=== PATIENT | female | born 1975 | race Caucasian/White ===

== ENCOUNTER 2022-07-09 07:17 | Emergency (ER) | payer OTHER, SELFPAY ==
--- NOTE | ~2022-07-09 | CT_ITS ---
EXAMINATION: CT ABDOMEN AND PELVIS WITH CONTRAST CLINICAL INFORMATION: Left lower quadrant pain COMPARISON: None available. TECHNIQUE: Multidetector volumetric images were obtained from the superior aspect of the liver through the pubic symphysis following administration 85 mL of Omnipaque 350 intravenous contrast. Sagittal and coronal reformatted images were obtained on the technologist's workstation. Oral contrast: No This CT examination was performed using dose optimization techniques as appropriate, variously including the following: *Automated exposure control *Adjustment of mA and/or kV according to patient size (this includes techniques or standardized protocols for targeted exams where dose is matched to indication/reason for exam; i.e. extremities or head) *Use of iterative reconstruction technique DLP: 561 mGy-cm FINDINGS: LUNG BASES: Numerous small areas of nodularity in the posterior partially visualized lung bases LIVER, GALLBLADDER, AND BILIARY TREE: Small low-density adjacent the falciform ligament is likely incidental. Given the other findings a small lesion cannot be excluded and ultrasound would be recommended The gallbladder is unremarkable with no evidence of radiopaque gallstones, gallbladder wall thickening, or obvious pericholecystic inflammatory changes. PANCREAS: Unremarkable. SPLEEN: Unremarkable. ADRENAL GLANDS: In the region of the left adrenal gland there is some new thickened abnormality. This matted be having mass effect on the adrenal or within the adrenal itself. Heterogeneous lesion measuring 6 x 4.3 cm with surrounding soft tissue stranding another small nodular densities adjacent represent surrounding adenopathy in the region suggesting metastatic disease. Mild fullness of the right adrenal gland. Attention to follow-up. KIDNEYS AND URETERS: The kidneys are normal in size, shape, and attenuation. No hydronephrosis, hydroureter, or calculi seen. No perinephric stranding. BLADDER: Unremarkable. GASTROINTESTINAL TRACT: Significant soft tissue stranding around the rectosigmoid region. No obvious lesion. No obvious drainable collection. The bowel pattern is otherwise felt to be nonobstructing. ABDOMINAL WALL: No significant hernia is appreciated. LYMPH NODES: Findings in the region of the left adrenal as described. Surrounding nodular density suggested local reactive nodes or malignant nodes. VASCULAR: Some atherosclerotic changes are noted here. PELVIC VISCERA: IUD associated with the uterus. Probable mild cystic change on the ovaries. OSSEOUS STRUCTURES: Unremarkable. CT/CT abdomen pelvis w IV con IMPRESSION: This exam is abnormal. In the left upper quadrant significant abnormality/mass in the region of the left adrenal gland with surrounding soft tissue stranding and findings which may suggest local geremias spread. Numerous small lung nodules in the partially visualized lower lung molina. Significant soft tissue stranding around the rectosigmoid. Given the combination of all these findings certainly malignancy needs to be entertained here in this young patient. Certainly a primary adrenal malignancy would need to be considered. Differential may include infectious etiology. Certainly in the rectosigmoid infectious colitis infectious versus noninfectious would be a consideration and this may be separate from the adrenal and lower lung process. Correlation recommended clinically. Other findings as described above. Mild fullness and possible small nodularity in the right adrenal. Attention to follow-up Fleischner guidelines were followed.
--- NOTE | 2022-07-09 07:38 | ED_ITS ---
HPI - Abdominal Pain General Chief Complaint: Abdominal Pain Stated Complaint: abd pain, constipated Time Seen by Provider: 07/09/22 07:29 Source: patient Mode of arrival: ambulatory Limitations: no limitations History of Present Illness HPI narrative: 46 yo female with history of IBS-C presents to the ER for evaluation of left sided abdominal pain and constipation for the last 5 days. She has been taking her prescribed constipation medications along with OTC laxatives. She reports pain in the left upper quadrant that radiates to her back, it was intermittent but has been constant for the last couple of days. She had a couple episodes of vomiting due to the pain. She reports last BM was 5 days ago. She denies distention of the abdomen. No history of surgery. No urinary symptoms. No fever or chills. She has had 80 lb weight loss over the last year. MD elicited complaint: abdominal pain Pertinent past history: constipation Onset (ago): day(s) (5) Pain Consistency: constant Location: LUQ and LLQ Severity: moderate Quality: stabbing and aching Radiation: L flank Exacerbating factors: eating Relieving factors: nothing Context: history of similar episodes Associated symptoms: nausea, vomiting and chills Related Data Previous Rx's Medication Instructions Recorded amoxicillin 875 mg-potassium 1 tab PO BID #14 tabs 07/09/22 clavulanate 125 mg tablet dicyclomine 10 mg capsule 10 mg PO TID PRN abdominal 07/09/22 discomfort #20 caps ondansetron 4 mg disintegrating 4 mg PO Q8H PRN nausea and 07/09/22 tablet vomiting #10 tabs Allergies Allergy/AdvReac Type Severity Reaction Status Date / Time No Known Allergies Allergy Verified 07/09/22 07:41 Review of Systems Review of Systems Yes all other systems are reviewed and are negative [facility] Past Medical History Medical History (Updated 07/09/22 @ 15:32 by ARIADNA Greer) Anxiety Depression HTN (hypertension) Irritable bowel syndrome (IBS) Surgical History (Updated 07/09/22 @ 07:47 by Tenisha Wagner RN) S/P lumpectomy, right breast Social History Social History Alcohol intake: current Alcohol intake frequency: a few times a week Smoked in Last 30 Days: Yes Use of substances other than those prescribed or required for medical reasons: Yes Substance Use Type: Marijuana Advance Directives: No Patient : No Physical Exam ED Vital Signs: Vital Signs - 24 hr 07/09/22 07:42 07/09/22 10:00 07/09/22 12:03 Temperature 98.0 F 98.2 F 98.1 F Pulse Rate 87 80 76 Respiratory Rate 18 18 16 Blood Pressure 127/80 122/81 138/86 Pulse Oximetry 97 97 99 Oxygen Delivery Method Room Air Room Air Room Air 07/09/22 15:46 Temperature 98.0 F Pulse Rate 70 Respiratory Rate 16 Blood Pressure 132/83 Pulse Oximetry 97 Oxygen Delivery Method Room Air BMI result Body Mass Index 27.4 Appearance: Alert. Oriented X3. No acute distress. Head: normocephalic, atraumatic. Eyes: Pupils equal, round and reactive to light. ENT: Pharynx normal. No tonsillar swelling or exudate. Neck: Normal inspection. Neck supple. CVS: Normal heart rate and rhythm. Pulses normal. Respiratory: No respiratory distress. Breath sounds normal. Abdomen: Soft and nontender. +BS x4 Skin: Skin warm and dry. Normal skin color. Normal skin turgor. No rashes. Extremities: No lower extremity edema. No joint swelling. Neuro/psych: Oriented X 3. No motor deficit. No sensory deficit. CN II-XII intact. Normal speech and cognition. Medical Decision Making Medical Decision Making [facility] Narrative: 46 y/o female with history of IBS -C presenting with constipation and left sided abdominal pain x5 days. Abd exam is benign. +bowel sounds, very soft. Doubt obstruction. She was treated with oral laxatives and enema but was unable to have a BM. She reported significant ongoing pain out of proportion to her exam. CT scan was performed that unfortunately showed a 6cm left adrenal mass with con cern for metastatic disease. She also has significant soft tissue stranding of the rectosigmoid area, most likely colitis. Results of CT were discussed with the patient. She will need to see Heme/On for further evaluation and testing. Her abd pain was improved with toradol and bentyl. She is stable for d/c home with abx, pain control and close outpatient follow up. Differential Diagnosis Differential Diagnoses: The differential diagnosis associated with the presentation includes constipation, diverticulitis, SBO, colitis, mass Lab Data [facility] Lab Attestation statement: I reviewed the patient's lab results. 07/09/22 08:13 07/09/22 08:13 Labs: Lab Results 07/09/22 07/09/22 07/09/22 Range/Units 08:13 12:30 13:31 WBC 10.4 (4.8-10.8) X10*3/uL RBC 4.41 (4.20-5.50) X10*6/uL Hgb 14.7 (12.0-16.0) g/dl Hct 42.9 (37.0-47.0) % MCV 97.3 (80.0-98.0) fL MCH 33.3 H (27.0-33.0) pg MCHC 34.3 (31.0-35.0) g/dl RDW 15.5 (11.0-16.0) % Plt Count 301 (160-400) X10*3/uL MPV 9.2 L (9.4-12.3) fL Immature Gran % (Auto) 0.3 (0.0-0.4) % Neut % (Auto) 70.4 (45-73) % Lymph % (Auto) 16.6 L (20-40) % [place] % (Auto) 9.2 (2-11) % Eos % (Auto) 2.8 (0-4) % Baso % (Auto) 0.7 (0-2) % Lymph # (Auto) 1.7 (1.2-4.9) X10*3/uL [place] # (Auto) 1.0 (0.1-1.2) X10*3/uL Eos # (Auto) 0.3 (0.0-0.4) X10*3/uL Baso # (Auto) 0.1 (0.0-0.2) X10*3/uL Abs Immat Gran (auto) 0.03 (0.00-0.03) X10*3/uL Absolute Neuts (auto) 7.3 (2.0-8.3) x10*3/uL Absolute Nucleated RBC 0.000 (0.0-0.012) X10*3/uL Nucleated RBC % (auto) 0.0 (0.0-0.2) /100WBC Sodium 136 (135-145) mmol/L Potassium 3.7 (3.3-5.1) mmol/L Chloride 98 (96-108) mmol/L Carbon Dioxide 27 (22-29) mmol/L Anion Gap 15 (12-20) BUN 8 L (9-16) mg/dL Creatinine 0.58 (0.5-1.4) mg/dL Estim Creat Clear Calc 125.3 Estimated GFR > 60 Random Glucose 110 (60-115) mg/dL Calcium 9.4 (8.4-10.2) mg/dL Magnesium 1.8 (1.6-2.6) mg/dL Total Bilirubin 0.5 (0.0-1.0) mg/dL Direct Bilirubin 0.2 (0.0-0.5) mg/dL AST 12 (5-31) U/L ALT 10 (0-31) U/L Alkaline Phosphatase 94 (39-117) U/L Total Protein 7.0 (6.5-8.0) g/dL Albumin 3.8 (3.5-5.0) g/dL Urine Color Dark Yellow Urine Appearance Clear Urine pH 6.0 (5.0-9.0) Ur Specific [place] 1.020 (1.005-1.025) Urine Protein Trace (Neg-Trace) mg/dL Urine Glucose (UA) Negative (Negative) mg/dL Urine Ketones Trace (Negative) mg/dL Urine Blood Negative (Negative) Urine Nitrite Negative (Negative) Ur Leukocyte Esterase Trace H (Negative) Urine RBC 3-5 H (0-2) /HPF Urine WBC 0-5 (0-5) /HPF Ur Squamous Epith Cells 6-10 (0-2) /HPF Urine Bacteria Trace (None Seen) Hyaline Casts 0-2 (0-2) /LPF Independent Interpretation I performed an independent interpretation of an: CT Scan Interpretation: large left adrenal mass concerning for cancer, agree w/ radiology read Radiology Impression Discussion of test interpretation with radiology: I have reviewed the radiologist's reading. Radiologist Impression: EXAMINATION: CT ABDOMEN AND PELVIS WITH CONTRAST? CLINICAL INFORMATION: Left lower quadrant pain? COMPARISON: None available. ? TECHNIQUE: Multidetector volumetric images were obtained from the superior aspect of the liver through the pubic symphysis following administration 85 mL of Omnipaque 350 intravenous contrast. Sagittal and coronal reformatted images were obtained on the technologist's workstation.? Oral contrast: No This CT examination was performed using dose optimization techniques as appropriate, variously including the following: *Automated exposure control *Adjustment of mA and/or kV according to patient size (this includes techniques or standardized protocols for targeted exams where dose is matched to indication/reason for exam; i.e. extremities or head) *Use of iterative reconstruction technique DLP: 561 mGy-cm FINDINGS: LUNG BASES: Numerous small areas of nodularity in the posterior partially visualized lung bases? LIVER, GALLBLADDER, AND BILIARY TREE: Small low-density adjacent the falciform ligament is likely incidental. Given the other findings a small lesion cannot be excluded and ultrasound would be recommended The gallbladder is unremarkable with no evidence of radiopaque gallstones, gallbladder wall thickening, or obvious pericholecystic inflammatory changes.? PANCREAS: Unremarkable.? SPLEEN: Unremarkable.? ADRENAL GLANDS: In the region of the left adrenal gland there is some new thickened abnormality. This matted be having mass effect on the adrenal or within the adrenal itself. Heterogeneous lesion measuring 6 x 4.3 cm with surrounding soft tissue stranding another small nodular densities adjacent represent surrounding adenopathy in the region suggesting metastatic disease. Mild fullness of the right adrenal gland. Attention to follow-up. KIDNEYS AND URETERS: The kidneys are normal in size, shape, and attenuation. No hydronephrosis, hydroureter, or calculi seen. No perinephric stranding. ? BLADDER: Unremarkable.? GASTROINTESTINAL TRACT: Significant soft tissue stranding around the rectosigmoid region. No obvious lesion. No obvious drainable collection. The bowel pattern is otherwise felt to be nonobstructing.? ABDOMINAL WALL: No significant hernia is appreciated.? LYMPH NODES: Findings in the region of the left adrenal as described. Surrounding nodular density suggested local reactive nodes or malignant nodes. VASCULAR: Some atherosclerotic changes are noted here. PELVIC VISCERA: IUD associated with the uterus. Probable mild cystic change on the ovaries.? OSSEOUS STRUCTURES: Unremarkable.? CT/CT abdomen pelvis w IV con IMPRESSION: This exam is abnormal. In the left upper quadrant significant abnormality/mass in the region of the left adrenal gland with surrounding soft tissue stranding and findings which may suggest local geremias spread. ? Numerous small lung nodules in the partially visualized lower lung molina. ? Significant soft tissue stranding around the rectosigmoid. ? Given the combination of all these findings certainly malignancy needs to be entertained here in this young patient. Certainly a primary adrenal malignancy would need to be considered. Differential may include infectious etiology. ? Certainly in the rectosigmoid infectious colitis infectious versus noninfectious would be a consideration and this may be separate from the adrenal and lower lung process. Correlation recommended clinically. ? ? ? Other findings as described above. Mild fullness and possible small nodularity in the right adrenal. Attention to follow-up Independent Historian Clinical information obtained from an independent historian. History obtained from or confirmed by: Spouse Prescription Management I considered prescription management with: Pain Medication and Antibiotic Medications Administered Discontinued Medications Generic Name Dose Route Start Last Admin Trade Name Freq PRN Reason Stop Dose Admin Acetaminophen 975 mg 07/09/22 13:07 07/09/22 13:21 Acetaminophen 325 Mg Tablet PO 07/09/22 13:08 975 mg ONCE ONE Administration Dicyclomine HCl 10 mg 07/09/22 13:07 07/09/22 13:21 Dicyclomine Hcl 10 Mg Capsule PO 07/09/22 13:08 10 mg ONCE ONE Administration Sodium Chloride 1,000 mls @ 999 mls/hr 07/09/22 08:15 07/09/22 14:00 Ns IVCONT 07/09/22 09:15 Infused .Q1H1M MARLENA Infusion Iohexol 100 ml 07/09/22 13:55 07/09/22 13:55 Iohexol 350 Mg/Ml 100 Ml Infus..Btl IV 07/09/22 13:56 85 ml ONCE ONE Administration Ketorolac Tromethamine 30 mg 07/09/22 13:07 07/09/22 13:21 Ketorolac Tromethamine 30 Mg/Ml Vial IVPUSH 07/09/22 13:08 30 mg ONCE ONE Administration Lactulose 30 gm 07/09/22 09:11 07/09/22 09:43 Lactulose 20 Gm/30 Ml Solution PO 07/09/22 09:12 30 gm ONCE ONE Administration Ondansetron HCl 4 mg 07/09/22 09:09 07/09/22 09:13 Ondansetron Hcl 4 Mg/2 Ml Vial IVPUSH 07/09/22 09:10 4 mg ONCE ONE Administration Polyethylene Glycol 17 gm 07/09/22 08:09 07/09/22 08:44 Polyethylene Glycol 3350 17 Gm Powd.Pack PO 07/09/22 08:10 17 gm ONCE ONE Administration Senna 15 ml 07/09/22 08:09 07/09/22 08:44 Senna [place] Extract Oral Syrup 15 Ml Syrup PO 07/09/22 08:10 15 ml ONCE ONE Administration Sodium Biphosphate/Sodium Phosphate 133 ml 07/09/22 08:09 07/09/22 08:44 Sodium Phosphate,[place]-Dibasic 133 Ml Enema [place] 07/09/22 08:10 133 ml ONCE ONE Administration Critical Care Time Critical Care Time Critical Care Time: Yes Total Critical Care Time: 36 Attestation: I have personally provided critical care time exclusive of time spent on separately billable procedures. Time includes review of lab data, radiology results, discussion with consultants, and monitoring for potential decompensation. Intervention performed as documented. Discharge Plan Discharge Clinical Impression: Rectosigmoiditis, Adrenal mass Patient Disposition: Home, Self-Care Instructions: Adrenal Gland Biopsy (DC), Colitis (ED) Additional Instructions: Take the prescribed antibiotic for inflammation in your color as directed, compl ete the entire course. Follow up with Oncology as soon as possible for a new mass seen on your left adrenal gland. CT findings as below. If you develop new or worsening symptoms call 911 or come back to the ER for further evaluation. CT ABDOMEN AND PELVIS WITH CONTRAST? CLINICAL INFORMATION: Left lower quadrant pain? COMPARISON: None available. ? TECHNIQUE: Multidetector volumetric images were obtained from the superior aspect of the liver through the pubic symphysis following administration 85 mL of Omnipaque 350 intravenous contrast. Sagittal and coronal reformatted images were obtained on the technologist's workstation.? Oral contrast: No This CT examination was performed using dose optimization techniques as appropriate, variously including the following: *Automated exposure control *Adjustment of mA and/or kV according to patient size (this includes techniques or standardized protocols for targeted exams where dose is matched to indication/reason for exam; i.e. extremities or head) *Use of iterative reconstruction technique FINDINGS: LUNG BASES: Numerous small areas of nodularity in the posterior partially visualized lung bases? LIVER, GALLBLADDER, AND BILIARY TREE: Small low-density adjacent the falciform ligament is likely incidental. Given the other findings a small lesion cannot be excluded and ultrasound would be recommended The gallbladder is unremarkable with no evidence of radiopaque gallstones, gallbladder wall thickening, or obvious pericholecystic inflammatory changes.? PANCREAS: Unremarkable.? SPLEEN: Unremarkable.? ADRENAL GLANDS: In the region of the left adrenal gland there is some new thicke randall abnormality. This matted be having mass effect on the adrenal or within the adrenal itself. Heterogeneous lesion measuring 6 x 4.3 cm with surrounding soft tissue stranding another small nodular densities adjacent represent surrounding adenopathy in the region suggesting metastatic disease. Mild fullness of the right adrenal gland. Attention to follow-up. KIDNEYS AND URETERS: The kidneys are normal in size, shape, and attenuation. No hydronephrosis, hydroureter, or calculi seen. No perinephric stranding. ? BLADDER: Unremarkable.? GASTROINTESTINAL TRACT: Significant soft tissue stranding around the rectosigmoid region. No obvious lesion. No obvious drainable collection. The bowel pattern is otherwise felt to be nonobstructing.? ABDOMINAL WALL: No significant hernia is appreciated.? LYMPH NODES: Findings in the region of the left adrenal as described. Surrounding nodular density suggested local reactive nodes or malignant nodes. VASCULAR: Some atherosclerotic changes are noted here. PELVIC VISCERA: IUD associated with the uterus. Probable mild cystic change on the ovaries.? OSSEOUS STRUCTURES: Unremarkable.? CT/CT abdomen pelvis w IV con IMPRESSION: This exam is abnormal. In the left upper quadrant significant abnormality/mass in the region of the left adrenal gland with surrounding soft tissue stranding and findings which may suggest local geremias spread. ? Numerous small lung nodules in the partially visualized lower lung molina. ? Significant soft tissue stranding around the rectosigmoid. ? Given the combination of all these findings certainly malignancy needs to be entertained here in this young patient. Certainly a primary adrenal malignancy would need to be considered. Differential may include infectious etiology. ? Certainly in the rectosigmoid infectious colitis infectious versus noninfectious would be a consideration and this may be separate from the adrenal and lower lung process. Correlation recommended clinically. ?? Other findings as described above. Mild fullness and possible small nodularity in the right adrenal. Attention to follow-up Prescriptions: New dicyclomine 10 mg capsule 10 mg PO TID PRN (Reason: abdominal discomfort) Qty: 20 0RF amoxicillin-pot clavulanate 875-125 mg tablet 1 tab PO BID Qty: 14 0RF ondansetron 4 mg tablet,disintegrating 4 mg PO Q8H PRN (Reason: nausea and vomiting) Qty: 10 0RF Referrals: [facility] [place] [Provider Group] (6cm left adrenal mass, concern for metastatic disease) Stand Alone Forms: Work/School Release
[2022-07-09 07:42] VITALS: BP 127/80; PULSE 87; RESP 18; TEMP 36.7; O2SAT 97; BMI 27.4
[2022-07-09 08:16] LABS: MANUAL DIFF FLAG NO
[2022-07-09] MEDS: 0.9 % Sodium Chloride 1,000 ML 999 ML IVCONT (08:19)
[2022-07-09 08:25] LABS: Basophils Absolute Auto 0.1 X10*3/uL (0.0-0.2); Basophils Percent Auto 0.7 % (0-2); Eosinophils Absolute Auto 0.3 X10*3/uL (0.0-0.4); Eosinophils Percent Auto 2.8 % (0-4); Hematocrit 42.9 % (37.0-47.0); Hemoglobin 14.7 g/dl (12.0-16.0); Imm Gran Abs Auto 0.03 X10*3/uL (0.00-0.03); Imm Gran Pct Auto 0.3 % (0.0-0.4); Lymphocytes Absolute Auto 1.7 X10*3/uL (1.2-4.9); Lymphocytes Percent Auto 16.6 % (20-40); Mean Corpuscular HGB Conc 34.3 g/dl (31.0-35.0); Mean Corpuscular Hemoglobin 33.3 pg (27.0-33.0); Mean Corpuscular Volume 97.3 fL (80.0-98.0); Mean Platelet Volume 9.2 fL (9.4-12.3); Monocytes Percent Auto 9.2 % (2-11); Neutrophils Absolute Auto 7.3 x10*3/uL (2.0-8.3); Neutrophils Percent Auto 70.4 % (45-73); Platelet Count 301 X10*3/uL (160-400); Red Blood Count 4.41 X10*6/uL (4.20-5.50); Red Cell Distribution Width 15.5 % (11.0-16.0); White Blood Count 10.4 X10*3/uL (4.8-10.8)
[2022-07-09] MEDS: Sodium Phosphate,Mono-Dibasic 133 ML ENEMA PR (08:44)
[2022-07-09] MEDS: polyethylene glycoL 3350 17 GM POWD.PACK PO (08:44)
--- NOTE | 2022-07-09 08:50 | PC.NURSE ---
patient a&ox3, c/o constipation r/t IBS, + hypo bs, iv inserted, labs drawn, ivf hung per order, pt medicated per order, vitals stable, will continue to monitor.
[2022-07-09] MEDS: ondansetron HCL 4 MG/2 ML VIAL IVPUSH (09:13)
[2022-07-09] MEDS: Lactulose 20 GM/30 ML SOLUTION 30 GM PO (09:43)
[2022-07-09 10:00] VITALS: BP 122/81; PULSE 80; RESP 18; TEMP 36.8; O2SAT 97
--- NOTE | 2022-07-09 11:02 | PC.NURSE ---
patient a&ox3, vss, pts ivF continue to run slowly due to her bending her arm. patients labs continue to hemolyze charge is aware, phlebotomy called to do the redraw for the 3rd time.
[2022-07-09 12:03] VITALS: BP 138/86; PULSE 76; RESP 16; TEMP 36.7; O2SAT 99
[2022-07-09 13:02] LABS: Alanine Aminotransferase 10 U/L (0-31); Albumin Level 3.8 g/dL (3.5-5.0); Alkaline Phosphatase 94 U/L (39-117); Anion Gap 15 (12-20); Aspartate Amino Transferase 12 U/L (5-31); Bilirubin Direct 0.2 mg/dL (0.0-0.5); Bilirubin Total 0.5 mg/dL (0.0-1.0); Blood Urea Nitrogen 8 mg/dL (9-16); Calcium 9.4 mg/dL (8.4-10.2); Carbon Dioxide 27 mmol/L (22-29); Chloride 98 mmol/L (96-108); Creatinine Clr Calc Pharmacy 125.3; Estimated Glomerular Filt Rate > 60; Glucose Random 110 mg/dL (60-115); Magnesium 1.8 mg/dL (1.6-2.6); Potassium 3.7 mmol/L (3.3-5.1); Sodium 136 mmol/L (135-145)
[2022-07-09] MEDS: Acetaminophen 325 MG TABLET 975 MG PO (13:21)
[2022-07-09] MEDS: Dicyclomine HCl 10 MG CAPSULE PO (13:21)
[2022-07-09] MEDS: Ketorolac Tromethamine 30 MG/ML VIAL IVPUSH (13:21)
--- NOTE | 2022-07-09 13:29 | PC.NURSE ---
pt reporting 8/10 abd pain. urine sample obtained. medicated for pain per order
[2022-07-09 13:47] LABS: Appearance Urine Clear; Color Urine Dark Yellow; Glucose Urine UA Negative (Negative); Leukocyte Esterase Urine Trace (Negative); Nitrite Urine Negative (Negative); UMIC TRIGGER UACC YES; Urine Blood Negative (Negative); Urine Ketones Trace mg/dL (Negative); Urine Protein Trace mg/dL (Neg-Trace)
[2022-07-09 13:49] LABS: Bacteria Urine Trace (None Seen); Hyaline Casts Urine 0-2 /LPF (0-2); WBC Urine 0-5 /HPF (0-5)
[2022-07-09] MEDS: iohexoL 350 MG/ML 100 ML INFUS..BTL IV (13:55)
[2022-07-09 15:46] VITALS: BP 132/83; PULSE 70; RESP 16; TEMP 36.7; O2SAT 97
== END 2022-07-09 17:52 | disposition home or self-care (01) ==
PROVIDERS: Physician Assistant; Emergency Provider Emergency Medicine; PCP Internal Medicine
DX: K63.89 Other specified diseases of intestine (principal); R10.32 Left lower quadrant pain; R10.2 Pelvic and perineal pain; E27.8 Other specified disorders of adrenal gland; Z79.899 Other long term (current) drug therapy
CPT/HCPCS: 36415; 74177; 80048; 80076; 81001; 83735; 85025; 96361; 96374; 96375; 99285; J1885; J2405; Q9967

== ENCOUNTER → 2022-07-14 07:26 | Outpatient (BNVA) | payer OTHER, SELFPAY | PROVIDERS: PCP Internal Medicine; Referring Provider Internal Medicine; Visit Provider Internal Medicine Gastroenterology | DX: Z13.89 Encounter for screening for other disorder (principal) ==

== ENCOUNTER 2022-07-16 09:11 | Outpatient (REF) | payer OTHER, SELFPAY ==
--- NOTE | ~2022-07-16 | CT_ITS ---
EXAMINATION: CT CHEST WITH CONTRAST CLINICAL INFORMATION: Lung nodules. COMPARISON: CT abdomen and pelvis with IV contrast 07/09/2022. TECHNIQUE: Multidetector volumetric CT imaging of the chest was obtained after the administration of 50 mL of Omnipaque 350 intravenous contrast without immediate adverse reactions. Axial MIP volume rendering provided. Sagittal and coronal reformatted images were obtained. This CT examination was performed using dose optimization techniques as appropriate, variously including the following: *Automated exposure control *Adjustment of mA and/or kV according to patient size (this includes techniques or standardized protocols for targeted exams where dose is matched to indication/reason for exam; i.e. 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 LUNGS: The lungs are well-expanded and clear of acute pneumonic process. There are multiple bilateral small to moderate-sized pulmonary nodules scattered throughout both lungs. The largest nodules are in lung apices, spiculated and measure 1.5 and 1.1 cm on axial image 11/4. There are small spiculations seen traveling around the nodules highly suspicious of metastatic nodular disease. MEDIASTINUM: The thyroid lobes are symmetric and normal. There are small hypodense nodules in the left lobe. The right thyroid lobe is unremarkable. Central trachea and the bronchi are widely patent. There are abnormal matted lymph nodes in the para-aortic and bilateral suprahilar regions. Heart size and the great vessels are normal caliber. There is no pericardial effusion. No coronary artery calcifications present. PLEURA: There is no pleural effusion or thickening. AXILLA: Small shotty lymph nodes are seen in the axilla. The chest wall is unremarkable. UPPER ABDOMEN: The liver is diffusely attenuated without focal lesions. There is focal lesion adjacent to the falciform ligament similar to previous study. Spleen and pancreas are unremarkable. There is a left adrenal mass measuring 5.9 x 3.7 cm. OSSEOUS STRUCTURES: No lytic or sclerotic changes seen. There is mild spondylosis throughout dorsal spine. CT/CT chest w IV con IMPRESSION: 1. Multiple bilateral small to moderate-sized pulmonary nodules scattered throughout both lungs with small spiculations highly suspicious of metastatic nodular disease. 2. Abnormal mediastinal and bilateral hilar lymph nodes. 3. Left adrenal mass. 4. Diffuse hepatic steatosis with focal lesion adjacent to the falciform ligament similar to previous study. Comparing to CT abdomen and pelvis, there is soft tissue distention with probable mass in a loop of small bowel on axial CT 46/2 and 47/2 as well as fatty infiltration in the rectosigmoid region. Recommend PET/CT evaluation for staging. Also a CT-guided left adrenal mass biopsy can be performed for tissue diagnosis. Fleischner guidelines were followed.
[2022-07-16] MEDS: iohexoL 350 MG/ML 100 ML INFUS..BTL IV (09:42)
== END 2022-07-16 09:12 | disposition home or self-care (01) ==
LOC: HO.CT 09:11
PROVIDERS: Visit Provider Internal Medicine
DX: R91.8 Other nonspecific abnormal finding of lung field (principal)
CPT/HCPCS: 71260; Q9967

== ENCOUNTER 2022-07-17 11:18 | Day surgery (SDC) | payer OTHER, SELFPAY ==
--- NOTE | 2022-07-16 12:35 | HO.ANESPROP2 ---
Documented by User: Kavya Hall NP 07/16/22 12:36 HPI - Anesthesia Eval Consult details Narrative: 46yo F for Colonoscopy PMFSH Active Problems Active Problems: All Active Problems (Updated 07/14/22 @ 08:10 by Michela Rush MD) LUQ abdominal pain (Acute) Abnormal CT scan, colon (Acute) Left adrenal mass (Acute) Past Medical History Medical History Anxiety Depression HTN (hypertension) Irritable bowel syndrome (IBS) Surgical History Surgical History S/P lumpectomy, right breast Social History Social History Alcohol intake: current Alcohol intake frequency: holidays/special occasions only Patient Tobacco Use Status: Current everyday Tobacco user Substance Use Type: Marijuana Are you DNR?: No Advance Directives: No Advance Directives Information Provided: Yes Patient : No FDLMP: thursday07/14/2022 Meds Allergies Allergy/AdvReac Type Severity Reaction Status Date / Time No Known Allergies Allergy Verified 07/14/22 07:36 Home Medications Medication Instructions Recorded Confirmed Last Taken Type Mirena 07/11/22 07/14/22 Unknown History albuterol sulfate 90 mcg/actuation 2 puff inhalation Q4H PRN wheezing 07/11/22 07/14/22 Unknown History aerosol inhaler amlodipine 10 mg tablet 10 mg PO DAILY 07/11/22 07/14/22 Unknown History atorvastatin 40 mg tablet 40 mg PO DAILY 07/11/22 07/14/22 Unknown History fluoxetine 20 mg capsule 40 mg PO DAILY 07/11/22 07/14/22 Unknown History fluticasone propionate 50 1 spray intranasal BID 07/11/22 07/14/22 Unknown History mcg/actuation nasal spray,suspension linaclotide 145 mcg capsule 145 mcg PO DAILY 07/11/22 07/14/22 Unknown History (Linzess) lisinopril 30 mg tablet 30 mg PO DAILY 07/11/22 07/14/22 07/17/22 History trazodone 50 mg tablet 50 mg PO BEDTIME 07/11/22 07/14/22 Unknown History Exam Exam Date and Time: July 16, 2022 1235 Pertinent Lab Results Pertinent Lab Results: Laboratory Tests 07/09/22 07/09/22 08:13 12:30 WBC 10.4 RBC 4.41 Hgb 14.7 Hct 42.9 Plt Count 301 Sodium 136 Potassium 3.7 Chloride 98 Carbon Dioxide 27 BUN 8 L Creatinine 0.58 Assessment and Plan Assessment Anesthesia Assessment: Chart Reviewed Documented by User: Yajaira Valdez MD 07/17/22 13:51 PMFSH Past Medical History Medical History Anxiety Depression HTN (hypertension) Irritable bowel syndrome (IBS) Surgical History Surgical History S/P lumpectomy, right breast History of Problems with Anesthesia: No Social History Social History Alcohol intake: current Alcohol intake frequency: holidays/special occasions only Patient Tobacco Use Status: Current everyday Tobacco user Substance Use Type: Marijuana Are you DNR?: No Advance Directives: No Advance Directives Information Provided: Yes Patient : No FDLMP: thursday07/14/2022 Meds Allergies Allergy/AdvReac Type Severity Reaction Status Date / Time No Known Allergies Allergy Verified 07/14/22 07:36 Home Medications Medication Instructions Recorded Confirmed Last Taken Type Mirena 07/11/22 07/14/22 Unknown History albuterol sulfate 90 mcg/actuation 2 puff inhalation Q4H PRN wheezing 07/11/22 07/14/22 Unknown History aerosol inhaler amlodipine 10 mg tablet 10 mg PO DAILY 07/11/22 07/14/22 Unknown History atorvastatin 40 mg tablet 40 mg PO DAILY 07/11/22 07/14/22 Unknown History fluoxetine 20 mg capsule 40 mg PO DAILY 07/11/22 07/14/22 Unknown History fluticasone propionate 50 1 spray intranasal BID 07/11/22 07/14/22 Unknown History mcg/actuation nasal spray,suspension linaclotide 145 mcg capsule 145 mcg PO DAILY 07/11/22 07/14/22 Unknown History (Linzess) lisinopril 30 mg tablet 30 mg PO DAILY 07/11/22 07/14/22 07/17/22 History trazodone 50 mg tablet 50 mg PO BEDTIME 07/11/22 07/14/22 Unknown History Exam Airway Mallampati Class: II (broken right upper central incisor) TM Dist: >3cm Neck ROM: Full Loose/Missing/Broken Teeth: Yes (see above) Heart: RRR Lungs: CTA Assessment and Plan Assessment Anesthesia Assessment: Anesthesia Plan Discussed Final Anesthetic Review History of Problems with Anesthesia: No NPO: Yes ASA Class: III Final Preanesthetic Review: Meds/Allgs Chart Reviewed, Consent Obtained/Reviewed and Anes Risks/Benef Reviewed Patient Risk: Intermediate Procedure Risk: Low Anesthetic Plan Anesthetic Plan: MAC: Disposition: Standard PACU
[2022-07-17 11:35] VITALS: BP 125/88; PULSE 87; RESP 20; TEMP 36.3; O2SAT 97; BMI 30.4
[2022-07-17 11:49] LABS: UPreg QC Valid YES; Urine Pregnancy NEGATIVE (NEGATIVE)
[2022-07-17] MEDS: Lactated Ringers 1,000 ML 100 ML IVCONT (11:55)
--- NOTE | 2022-07-17 13:11 | MHC.SHP ---
Pre-Procedural Eval Section A Date of Service: 07/17/22 The patient is an INPATIENT: No Changes since office visit: Yes Patient answered all questions; No Cold of Flu in the past 2 weeks, No New Medical Problems and No Changes in Medication The History & Physical has been completed within 30 days and I have reviewed it.: Yes Section B Chief Complaint: Left upper quadrant pain,abnormal findings Allergies: Allergies Allergy/AdvReac Type Severity Reaction Status Date / Time No Known Allergies Allergy Verified 07/14/22 07:36 Plan I have reviewed the history and physical and performed a pertinent physical examination on my patient. No changes have occurred unless specified. Time Spent With Patient Time: Total time managing care of this patient today ____ minutes.
--- NOTE | 2022-07-17 13:14 | W.PM.OPN ---
Operative Note Operative Note Date of Service: 07/17/22 Narrative: COLONOSCOPY TILL CECUM WITH BIOPSIES AND SNARE POLYPECTOMY Pre-op diagnosis: Abnormal CT scan of the colon, abdominal pain Post-op diagnosis:?colon polyps, diverticulosis, hemorrhoid Endoscopist:? Michela Rush MD Anesthesia:?MAC Consent: Indications for the procedure and potential complications of bleeding, perforation, reaction to medications and missed diagnosis were discussed with the patient and informed consent was obtained. Instrument: Olympus PCF H 190 L variable stiffness pediatric colonoscope Monitoring: Vital signs and clinical assessment, intermittent blood pressure monitoring, continuous EKG monitoring, Pulse oximetry and Carbon Dioxide monitoring were done throughout the procedure. Please see anesthesia flowsheet. Colon withdrawl time was 19 minutes. Procedure: The patient was placed in the left lateral decubitis position and pre-procedure medications were administered. After a digital rectal examination of the ano-rectum, the video colonoscope was inserted into the rectum and advanced through the colon to the cecum. The colonoscope was slowly withdrawn in a retrograde panoramic fashion and the colon mucosa was carefully examined including a retroflexed view of the rectum. Findings and interventions are described below. Procedure Difficulty: Without difficulty Findings: Terminal Ileum: Distal 5 cm was examined and appeared normal Cecum: Normal Ascending Colon: Normal Transverse Colon: Normal Descending Colon: Normal Sigmoid Colon: A 7-8 mm sessile polyp removed with a cold snare. Patchy erythema without ulcers - random biopsies obtained. Moderate diverticulosis Rectum: A few diminutive polyps - one removed with a cold biopsy Ano-rectum: Moderate internal hemorrhoids Colon preparation: Good after some irrigation Impression and Post Procedure Diagnosis: Colonoscopy Findings: Two small polyps removed Moderate diverticulosis seen in the left colon Moderate hemorrhoids on retroflexed exam. Plan: Await pathology results Patient has an appointment on 10/09/22 in the GI Clinic with Michela Rush M.D. Repeat Colonoscopy interval based on path results - in 5 years if polyps are adenomatous and 10 years if polyps are hyperplastic. Above findings were reviewed with the patient and colon polyps and diverticulosis handouts were given in the discharge area
[2022-07-17 14:05] VITALS: BP 123/77; PULSE 90; RESP 20; TEMP 36.4; O2SAT 97
[2022-07-17 14:20] VITALS: BP 115/75; PULSE 92; RESP 16; TEMP 36.6; O2SAT 97
== END 2022-07-17 14:52 | disposition home or self-care (01) ==
PROVIDERS: Nurse Practitioner; Visit Provider Internal Medicine Gastroenterology
PROC: 0DJD8ZZ Inspection of Lower Intestinal Tract, Via Natural or Artificial Opening Endoscopic (ICD-10-PCS; CPT 45378; principal; 2022-07-17 13:10)
DX: R10.12 Left upper quadrant pain (principal); D12.8 Benign neoplasm of rectum; K63.5 Polyp of colon; K57.30 Diverticulosis of large intestine without perforation or abscess without bleeding; K64.8 Other hemorrhoids; K58.9 Irritable bowel syndrome, unspecified; I10 Essential (primary) hypertension; J45.909 Unspecified asthma, uncomplicated; D35.02 Benign neoplasm of left adrenal gland; Z80.3 Family history of malignant neoplasm of breast; F41.1 Generalized anxiety disorder; F32.A Depression, unspecified; Z79.51 Long term (current) use of inhaled steroids; Z79.899 Other long term (current) drug therapy; F12.90 Cannabis use, unspecified, uncomplicated; F17.210 Nicotine dependence, cigarettes, uncomplicated
CPT/HCPCS: 45385; 45380; 81025; 88305; J3010

== ENCOUNTER 2022-07-23 01:53 | Observation (INO) | payer OTHER, SELFPAY ==
[2022-07-23] VITALS (10 sets, daily range): BP systolic 121–159; BP diastolic 75–99; PULSE 74–85; RESP 18–20; TEMP 36–36.9; O2SAT 93–98; BMI 29.5
--- NOTE | ~2022-07-23 | CT_ITS ---
EXAMINATION: CT ABDOMEN AND PELVIS WITHOUT CONTRAST CLINICAL INFORMATION: Left abdominal pain, previous abnormal CT COMPARISON: 07/09/2022 TECHNIQUE: Multidetector volumetric imaging was performed from the superior aspect of the liver through the pubic symphysis. Sagittal and coronal reformatted images were obtained on the technologist's workstation. This CT examination was performed using dose optimization techniques as appropriate, variously including the following: *Automated exposure control *Adjustment of mA and/or kV according to patient size (this includes techniques or standardized protocols for targeted exams where dose is matched to indication/reason for exam; i.e. extremities or head) *Use of iterative reconstruction technique DLP: 573 mGy-cm FINDINGS: LUNG BASES: There is redemonstration of innumerable lung nodules measuring up to approximately 1 cm in size. Given the abdominal findings described below, these are suspicious for pulmonary metastases. LIVER, GALLBLADDER, AND BILIARY TREE: The liver is is suboptimally assessed without intravenous contrast. Focal fatty infiltration is suspected adjacent to the falciform ligament. No biliary ductal dilatation is present. Cholelithiasis is noted. PANCREAS: Unremarkable. SPLEEN: Unremarkable. ADRENAL GLANDS: Redemonstrated mass in the left suprarenal region at the expected location of the left adrenal gland measuring approximately 6.2 x 4.7 cm, not significantly changed from recent prior. Appearance remains suspicious for malignancy which may be of primary adrenal versus retroperitoneal origin. Surrounding stranding is again noted. Right adrenal gland is unremarkable. KIDNEYS AND URETERS: Left renal pelvis is mildly prominent, with no obstructing calculus seen. There is some stranding adjacent to the left kidney and ureter. There does appear to be a fat plane between the left kidney and the suprarenal mass. BLADDER: Minimally distended and grossly unremarkable. GASTROINTESTINAL TRACT: No evidence of bowel obstruction. No significant bowel wall thickening is seen though assessment in some segments of the colon is limited due to luminal collapse. Previously seen inflammation around the rectum appears decreased. The appendix is unremarkable. No free fluid or free air is seen. ABDOMINAL WALL: No significant hernia is appreciated. LYMPH NODES: Enlarged lymph nodes are present in the region of the gastrohepatic ligament, similar to prior. There is also adenopathy in the left retroperitoneum inferior to the suprarenal mass, such as measuring 1.8 x 2.6 cm on image 33/96, without significant interval change. VASCULAR: Trace atherosclerotic calcification. Of note, vasculature is suboptimally assessed without intravenous contrast. PELVIC VISCERA: IUD is present in the uterus. Simple cyst in the right adnexa measures 2.7 cm. Findings are overwhelmingly likely to represent a normal ovarian follicle. No followup imaging recommended. OSSEOUS STRUCTURES: Mild multilevel disc space narrowing. Facet arthropathy at L4-L5. CT/CT abdomen pelvis wo IV con IMPRESSION: 1. Redemonstrated mass in the left suprarenal region measuring up to 6.2 cm, not significantly changed from recent prior. Appearance remains suspicious for malignancy, which may be of primary adrenal or retroperitoneal origin, or potentially a metastasis. Further workup is recommended. 2. Redemonstrated adenopathy in the region of the gastrohepatic ligament and left retroperitoneum, suspicious for geremias metastases. 3. Innumerable lung nodules at the lung bases, suspicious for pulmonary metastases. 4. Mild prominence of the left renal pelvis, with no obstructing calculus seen. There is some stranding adjacent to the left kidney and ureter, which could be reactive due to the adjacent suprarenal mass. 5. Previously seen inflammation around the rectum appears decreased from prior. 6. Cholelithiasis.
--- NOTE | ~2022-07-23 | CT_ITS ---
PROCEDURE: CT GUIDED BIOPSY, ABDOMINAL MASS CLINICAL INFORMATION: Left adrenal mass. COMPARISON: CT abdomen and pelvis 07/23/2022. TECHNIQUE: Following explaining CT fluoroscopy-guided left adrenal mass biopsy procedure, benefits and risks, a written consent was obtained. Patient was placed prone on fluoroscopy table and preliminary CT imaging was obtained. Subsequently markers were placed over left posterior abdomen and repeat CT imaging was obtained. An optimal site was selected and marked on the skin. 1% lidocaine was injected at puncture site. A long 20-gauge 15 cm guide needle was advanced from the skin into the left adrenal gland. Coaxially, a 20-gauge biopsy gun was advanced and 2 pass biopsies were obtained. Subsequently syringes applied to the guide needle and biopsy was performed with the guide needle. Postprocedure repeat CT imaging obtained and reveal no evidence of bleed. No change. Sterile dressing applied postprocedure. This CT examination was performed using dose optimization techniques as appropriate, variously including the following: *Automated exposure control *Adjustment of mA and/or kV according to patient size (this includes techniques or standardized protocols for targeted exams where dose is matched to indication/reason for exam; i.e. extremities or head) *Use of iterative reconstruction technique DLP: 226 mGy-cm FINDINGS: On preliminary CT imaging there is a large left adrenal mass similar to one seen on the previous CT abdomen exam. Successful CT fluoroscopy-guided left adrenal mass core biopsy performed. There were no immediate complications seen. Biopsy collected was sent in formalin to the lab for further evaluation. CT/CT biopsy abdomen percutaneous IMPRESSION: Successful CT fluoroscopy-guided left adrenal mass biopsy performed.
[2022-07-23 02:15] LABS: MANUAL DIFF FLAG NO
[2022-07-23 02:18] LABS: Basophils Absolute Auto 0.1 X10*3/uL (0.0-0.2); Basophils Percent Auto 0.9 % (0-2); Eosinophils Percent Auto 7.5 % (0-4); Imm Gran Abs Auto 0.04 X10*3/uL (0.00-0.03); Imm Gran Pct Auto 0.3 % (0.0-0.4); Lymphocytes Absolute Auto 1.9 X10*3/uL (1.2-4.9); Lymphocytes Percent Auto 14.4 % (20-40); Mean Corpuscular HGB Conc 34.1 g/dl (31.0-35.0); Mean Corpuscular Hemoglobin 32.6 pg (27.0-33.0); Mean Corpuscular Volume 95.3 fL (80.0-98.0); Monocytes Absolute Auto 1.2 X10*3/uL (0.1-1.2); Monocytes Percent Auto 9.2 % (2-11); Neutrophils Absolute Auto 8.7 x10*3/uL (2.0-8.3); Neutrophils Percent Auto 67.7 % (45-73); Platelet Count 371 X10*3/uL (160-400); Red Cell Distribution Width 14.5 % (11.0-16.0); White Blood Count 12.9 X10*3/uL (4.8-10.8)
--- NOTE | 2022-07-23 02:57 | ED.ABDPAIN ---
HPI - Abdominal Pain General Chief Complaint: Abdominal Pain Stated Complaint: abdominal pain Time Seen by Provider: 07/23/22 02:50 Source: patient and family Mode of arrival: ambulatory Limitations: no limitations History of Present Illness HPI narrative: 46-year-old female history of left adrenal mass that was discovered 2 weeks ago on previous abdominal CT done during an ED visit. The mass is suspicious for malignancy patient was seen by Oncology had colonoscopy done last week with negative result. Patient was prescribed oxycodone to control her chronic pain but today patient stated that the pain is much worse, patient is crying in the ED, no associated nausea or vomiting, normal bowel movement, no dysuria, no urinary frequency, no fever, no chills. Related Data Home Medications Medication Instructions Recorded Confirmed Mirena 07/11/22 07/14/22 albuterol sulfate 90 mcg/actuation 2 puff inhalation Q4H PRN wheezing 07/11/22 07/14/22 aerosol inhaler amlodipine 10 mg tablet 10 mg PO DAILY 07/11/22 07/14/22 atorvastatin 40 mg tablet 40 mg PO DAILY 07/11/22 07/14/22 fluoxetine 20 mg capsule 40 mg PO DAILY 07/11/22 07/14/22 fluticasone propionate 50 1 spray intranasal BID 07/11/22 07/14/22 mcg/actuation nasal spray,suspension linaclotide 145 mcg capsule 145 mcg PO DAILY 07/11/22 07/14/22 (Linzess) lisinopril 30 mg tablet 30 mg PO DAILY 07/11/22 07/14/22 trazodone 50 mg tablet 50 mg PO BEDTIME 07/11/22 07/14/22 Previous Rx's Medication Instructions Recorded amoxicillin 875 mg-potassium 1 tab PO BID #14 tabs 07/09/22 clavulanate 125 mg tablet dicyclomine 10 mg capsule 10 mg PO TID PRN abdominal 07/09/22 discomfort #20 caps ondansetron 4 mg disintegrating 4 mg PO Q8H PRN nausea and 07/09/22 tablet vomiting #10 tabs lorazepam 0.5 mg tablet 0.5 mg PO BEDTIME PRN Anxiety #30 07/14/22 tabs tramadol 50 mg tablet 50 mg PO Q4H PRN Pain #90 tabs 07/14/22 oxycodone 5 mg capsule 5 mg PO Q6H PRN Pain #60 caps 07/16/22 Allergies Allergy/AdvReac Type Severity Reaction Status Date / Time No Known Allergies Allergy Verified 07/23/22 01:59 Review of Systems Review of Systems All other systems are reviewed and are negative Constitutional: Reports as per HPI and Reports no additional constitutional complaints Eyes: Reports as per HPI and Reports no additional eye complaints Reports system reviewed and no additional complaints, except as documented Cardiovascular: Reports as per HPI and Reports no additional cardiovascular complaints Respiratory: Reports as per HPI and Reports no additional respiratory complaints Gastrointestinal: Reports as per HPI and Reports no additional gastrointestinal complaints Genitourinary: Reports no additional female genitourinary complaints Musculoskeletal: Reports no additional musculoskeletal complaints Skin/Breast: Reports system reviewed and no additional complaints, except as docu Psychiatric: Reports no additional psychiatric complaints Endocrine: Reports no additional endocrine complaints Hematologic/Lymphatic: Reports no additional hematologic/lymphatic complaints Allergic/Immunologic: Reports no additional allergic/immunologic complaints Reports system reviewed and no additional complaints, except as documented and Reports Abnormal speech present [facility] Past Medical History Medical History Anxiety Depression HTN (hypertension) Irritable bowel syndrome (IBS) Surgical History S/P lumpectomy, right breast Social History Social History Alcohol intake: current Alcohol intake frequency: a few times a week Patient Tobacco Use Status: Current everyday Tobacco user Smoked in Last 30 Days: Yes Use of substances other than those prescribed or required for medical reasons: No Substance Use Type: Marijuana Advance Directives: No Advance Directives Information Provided: No Patient : No Physical Exam ED Vital Signs: Vital Signs - 24 hr 07/23/22 02:00 07/23/22 03:03 07/23/22 03:13 Temperature 97.5 F 98.0 F Pulse Rate 85 80 Respiratory Rate 20 20 20 Blood Pressure 127/90 H 148/97 H Pulse Oximetry 97 97 Oxygen Delivery Method Room Air Room Air BMI result Body Mass Index 29.5 Vital signs have been reviewed as appeared to be correct. Blood pressure normal. Heart rate normal. Respiration rate normal. Temperature normal. Oxygen saturation normal. Appearance: Alert. Oriented X3. In acute distress due to abdominal pain. Head: Normal external exam. Normocephalic. Atraumatic. No Giordano signs noted. No raccoon eyes noted Eyes: PERRLA. EOMI. Conjunctiva and sclera normal. Eyelids normal. ENT: TM's Normal. Pharynx normal. Uvula midline. Moist mucous membranes. No trismus noted. No drooling noted. No muffled voice noted. Neck: Normal inspection. Neck supple. FROM. No adenopathy. Thyroid Normal. No meningeal signs. No neck mass noted. CVS: Normal heart rate and rhythm. Heart sound normal. No murmurs noted. Pulses normal throughout. Respiratory: No respiratory distress. Painless inspiration. Breath sounds normal. No wheezes/rales/rhonchi noted. Chest nontender. No accessory muscle usage noted or decreased air movement noted. Abdomen: Soft, left upper abdominal tenderness, no rebound tenderness, no guarding Bowel sounds normal in all 4 quadrants. No distention noted. No organomegaly noted. No visible injury noted. Back: No CVA tenderness. Full range of motion noted. Skin: Skin warm and dry. Normal skin color. Normal skin turgor. No rashes/lesions/lacerations noted. Extremities: No lower extremity edema. Extremities exhibit normal range of motion. Extremities nontender. Neuro: Oriented X 3. Cranial nerve exam: II-XII are grossly intact No motor deficit. No sensory deficit. Reflexes normal. Course Course Course Narrative: A 46-year-old female with left adrenal 6 cm mass came in with intractable abdominal pain require several doses of pain medication, patient is scheduled to have a biopsy by intervention on Thursday. Will admit the patient for intractable abdominal pain control. Medical Decision Making Differential Diagnosis Differential Diagnoses: The differential diagnosis associated with the presentation includes (Colitis, diverticulitis, perforated viscus, intra-abdominal abscess, intra-abdominal mass, electrolyte abnormalities, severe anemia.) Admission/Observation Consideration of admission/observation: Escalation of care including admission/observation considered Consult Healthcare Provider Management of the patient was discussed with: Hospitalist (Dr. Grene) Lab Data MDM Lab Attestation statement: I reviewed the patient's lab results. 07/23/22 02:11 07/23/22 02:11 Labs: Lab Results 07/23/22 07/23/22 07/23/22 Range/Units 02:11 02:11 03:32 WBC 12.9 H (4.8-10.8) X10*3/uL RBC 4.30 (4.20-5.50) X10*6/uL Hgb 14.0 (12.0-16.0) g/dl Hct 41.0 (37.0-47.0) % MCV 95.3 (80.0-98.0) fL MCH 32.6 (27.0-33.0) pg MCHC 34.1 (31.0-35.0) g/dl RDW 14.5 (11.0-16.0) % Plt Count 371 (160-400) X10*3/uL MPV 9.0 L (9.4-12.3) fL Immature Gran % (Auto) 0.3 (0.0-0.4) % Neut % (Auto) 67.7 (45-73) % Lymph % (Auto) 14.4 L (20-40) % [place] % (Auto) 9.2 (2-11) % Eos % (Auto) 7.5 H (0-4) % Baso % (Auto) 0.9 (0-2) % Lymph # (Auto) 1.9 (1.2-4.9) X10*3/uL [place] # (Auto) 1.2 (0.1-1.2) X10*3/uL Eos # (Auto) 1.0 H (0.0-0.4) X10*3/uL Baso # (Auto) 0.1 (0.0-0.2) X10*3/uL Abs Immat Gran (auto) 0.04 H (0.00-0.03) X10*3/uL Absolute Neuts (auto) 8.7 H (2.0-8.3) x10*3/uL Absolute Nucleated RBC 0.000 (0.0-0.012) X10*3/uL Nucleated RBC % (auto) 0.0 (0.0-0.2) /100WBC Sodium 135 (135-145) mmol/L Potassium 3.8 (3.3-5.1) mmol/L Chloride 93 L (96-108) mmol/L Carbon Dioxide 32 H (22-29) mmol/L Anion Gap 14 (12-20) BUN 7 L (9-16) mg/dL Creatinine 0.66 (0.5-1.4) mg/dL Estim Creat Clear Calc 113.8 Estimated GFR > 60 Random Glucose 99 (60-115) mg/dL Calcium 10.2 D (8.4-10.2) mg/dL Total Bilirubin 0.4 (0.0-1.0) mg/dL Direct Bilirubin 0.2 (0.0-0.5) mg/dL AST 13 (5-31) U/L ALT 17 (0-31) U/L Alkaline Phosphatase 87 (39-117) U/L Total Protein 6.9 (6.5-8.0) g/dL Albumin 3.8 (3.5-5.0) g/dL Lipase 28 (8-78) U/L Urine Color Yellow Urine Appearance Clear Urine pH 8.0 (5.0-9.0) Ur Specific [place] 1.010 (1.005-1.025) Urine Protein 30 (1+) H (Neg-Trace) mg/dL Urine Glucose (UA) Negative (Negative) mg/dL Urine Ketones Trace (Negative) mg/dL Urine Blood Negative (Negative) Urine Nitrite Negative (Negative) Ur Leukocyte Esterase Negative (Negative) Urine RBC 0-2 (0-2) /HPF Urine WBC 0-5 (0-5) /HPF Ur Squamous Epith Cells 0-2 (0-2) /HPF Urine Bacteria None Seen (None Seen) Hyaline Casts 0-2 (0-2) /LPF Independent Interpretation I performed an independent interpretation of an: CT Scan (Abdomen and pelvis: Left adrenal 6 cm mass unchanged from previous CT.) Radiology Impression Discussion of test interpretation with radiology: I have reviewed the radiologist's reading. Medications Administered Discontinued Medications Generic Name Dose Route Start Last Admin Trade Name Freq PRN Reason Stop Dose Admin Hydromorphone HCl 1 mg 07/23/22 02:56 07/23/22 03:13 Hydromorphone Hcl 1 Mg/Ml Syringe IVPUSH 07/23/22 02:57 1 mg ONCE ONE Administration Protocol Hydromorphone HCl 2 mg 07/23/22 05:34 07/23/22 05:45 Hydromorphone Hcl 2 Mg/Ml Vial IVPUSH 05/10/23 05:35 2 mg ONCE ONE Administration Protocol Discharge Plan Discharge Clinical Impression: Left adrenal mass, LUQ abdominal pain, Intractable abdominal pain Patient Disposition: Admitted As Inpatient
--- NOTE | 2022-07-23 03:08 | PC.NURSE ---
Pt ca&ox3. Pt reports 10/10 abdm pain that radiates to back. Pts parents at bedside. Provider into see pt. Will continue to monitor.
[2022-07-23] MEDS: HYDROmorphone HCl 1 MG/ML SYRINGE IVPUSH ×3 (03:13→13:31)
--- NOTE | 2022-07-23 03:16 | PC.NURSE ---
Pt given meds per may. Pt ca&ox3.
[2022-07-23 03:38] LABS: Appearance Urine Clear; Color Urine Yellow; Glucose Urine UA Negative (Negative); Leukocyte Esterase Urine Negative (Negative); Nitrite Urine Negative (Negative); UMIC TRIGGER UACC YES; Urine Blood Negative (Negative); Urine Ketones Trace mg/dL (Negative); Urine Protein 30 (1+) mg/dL (Neg-Trace)
[2022-07-23 03:40] LABS: Alanine Aminotransferase 17 U/L (0-31); Albumin Level 3.8 g/dL (3.5-5.0); Alkaline Phosphatase 87 U/L (39-117); Anion Gap 14 (12-20); Aspartate Amino Transferase 13 U/L (5-31); Bilirubin Direct 0.2 mg/dL (0.0-0.5); Bilirubin Total 0.4 mg/dL (0.0-1.0); Blood Urea Nitrogen 7 mg/dL (9-16); Calcium 10.2 mg/dL (8.4-10.2); Carbon Dioxide 32 mmol/L (22-29); Chloride 93 mmol/L (96-108); Creatinine Clr Calc Pharmacy 113.8; Estimated Glomerular Filt Rate > 60; Glucose Random 99 mg/dL (60-115); Lipase 28 U/L (8-78); Potassium 3.8 mmol/L (3.3-5.1); Sodium 135 mmol/L (135-145); Total Protein 6.9 g/dL (6.5-8.0)
[2022-07-23 03:40] LABS: Bacteria Urine None Seen (None Seen); Hyaline Casts Urine 0-2 /LPF (0-2); RBC Urine 0-2 /HPF (0-2); Squamous Epithelial Cell Urine 0-2 /HPF (0-2); WBC Urine 0-5 /HPF (0-5)
[2022-07-23] MEDS: HYDROmorphone HCl 2 MG/ML VIAL IVPUSH (05:45)
--- NOTE | 2022-07-23 06:02 | PM.IMHP ---
History of Present Illness Date of Service: 07/23/22 Chief Complaint: Abdominal Pain This is a 46-year-old female with pertinent history of essential hypertension, mood disorder, mixed hyperlipidemia , tobacco use disorder who presents to the emergency department for evaluation of abdominal pain. Patient saw Dr Masters for for possible left adrenal mass on 07/11. Patient states that over the last 1 week her left abdominal pain has worsened. It has been constant, progressive, nonradiating and without any relieving factors. Patient does report associated nausea and nonbloody emesis due to the pain. She reports significant weight loss over the last 1 year. Patient denies fever, chills, chest discomfort, palpitations, shortness of breath, changes in urinary or bowel habits. in the emergency department, patient requiring multiple pushes of IV opioids to control abdominal pain. Review of Systems Constitutional: Constitutional: Reports fatigue and Reports lethargy Cardiovascular: Cardiovascular: Reports no additional cardiovascular complaints Respiratory: Respiratory: Reports no additional respiratory complaints Gastrointestinal: Gastrointestinal: Reports abdominal pain Genitourinary: Genitourinary: Reports no additional female genitourinary complaints Musculoskeletal: Musculoskeletal: Reports no additional musculoskeletal complaints Endocrine: Endocrine: Reports fatigue [facility] Medical History Anxiety Depression HTN (hypertension) Irritable bowel syndrome (IBS) Pertinent family history: No family history of CAD Surgical History S/P lumpectomy, right breast Social History Alcohol intake: current Alcohol intake frequency: a few times a week Patient Tobacco Use Status: Current everyday Tobacco user Smoked in Last 30 Days: Yes Use of substances other than those prescribed or required for medical reasons: No Substance Use Type: Marijuana Advance Directives: No Advance Directives Information Provided: No Patient : No Meds Allergies Allergy/AdvReac Type Severity Reaction Status Date / Time No Known Allergies Allergy Verified 07/23/22 01:59 Home Medications Medication Instructions Recorded Confirmed Last Taken Type Mirena 07/11/22 07/14/22 Unknown History albuterol sulfate 90 mcg/actuation 2 puff inhalation Q4H PRN wheezing 07/11/22 07/14/22 Unknown History aerosol inhaler amlodipine 10 mg tablet 10 mg PO DAILY 07/11/22 07/14/22 Unknown History atorvastatin 40 mg tablet 40 mg PO DAILY 07/11/22 07/14/22 Unknown History fluoxetine 20 mg capsule 40 mg PO DAILY 07/11/22 07/14/22 Unknown History fluticasone propionate 50 1 spray intranasal BID 07/11/22 07/14/22 Unknown History mcg/actuation nasal spray,suspension linaclotide 145 mcg capsule 145 mcg PO DAILY 07/11/22 07/14/22 Unknown History (Linzess) lisinopril 30 mg tablet 30 mg PO DAILY 07/11/22 07/14/22 07/17/22 History trazodone 50 mg tablet 50 mg PO BEDTIME 07/11/22 07/14/22 Unknown History Physical Exam Vital Signs and Narrative: Vital Signs: Last Vital Signs Temp 98.0 F 07/23/22 03:03 Pulse 80 07/23/22 03:03 Resp 20 07/23/22 03:13 BP 148/97 H 07/23/22 03:03 Pulse Ox 97 07/23/22 03:03 O2 Del Method Room Air 07/23/22 03:03 BMI result Body Mass Index 29.5 Middle-aged female lying in bed in mild distress Neck supple, no JVD Regular rate and rhythm, S1-S2 heard Regular breath sounds bilaterally, no wheezing or crackles appreciated Abdomen with left sided tenderness, no guarding, no rigidity, no rebound tenderness Patient is awake, alert and oriented to self, place, time and person ; no focal motor deficit Psych: Normal mood No pedal edema Results Labs 07/23/22 02:11 07/23/22 02:11 Labs: Laboratory Results - last 24 hr 07/23/22 07/23/22 07/23/22 02:11 02:11 03:32 MCV 95.3 MCH 32.6 MCHC 34.1 RDW 14.5 Plt Count 371 MPV 9.0 L Immature Gran % (Auto) 0.3 Neut % (Auto) 67.7 Lymph % (Auto) 14.4 L [place] % (Auto) 9.2 Eos % (Auto) 7.5 H Baso % (Auto) 0.9 Lymph # (Auto) 1.9 [place] # (Auto) 1.2 Eos # (Auto) 1.0 H Baso # (Auto) 0.1 Abs Immat Gran (auto) 0.04 H Absolute Neuts (auto) 8.7 H Absolute Nucleated RBC 0.000 Nucleated RBC % (auto) 0.0 Anion Gap 14 Estim Creat Clear Calc 113.8 Estimated GFR > 60 Random Glucose 99 Calcium 10.2 D Total Bilirubin 0.4 Direct Bilirubin 0.2 AST 13 ALT 17 Alkaline Phosphatase 87 Total Protein 6.9 Albumin 3.8 Lipase 28 Urine Color Yellow Urine Appearance Clear Urine pH 8.0 Ur Specific [place] 1.010 Urine Protein 30 (1+) H Urine Glucose (UA) Negative Urine Ketones Trace Urine Blood Negative Urine Nitrite Negative Ur Leukocyte Esterase Negative Urine RBC 0-2 Urine WBC 0-5 Ur Squamous Epith Cells 0-2 Urine Bacteria None Seen Hyaline Casts 0-2 Imaging Radiologist's Impressions: Impressions Abdomen/Pelvis CT 07/23/22 03:50 IMPRESSION: 1. Redemonstrated mass in the left suprarenal region measuring up to 6.2 cm, not significantly changed from recent prior. Appearance remains suspicious for malignancy, which may be of primary adrenal or retroperitoneal origin, or potentially a metastasis. Further workup is recommended. 2. Redemonstrated adenopathy in the region of the gastrohepatic ligament and left retroperitoneum, suspicious for geremias metastases. 3. Innumerable lung nodules at the lung bases, suspicious for pulmonary metastases. 4. Mild prominence of the left renal pelvis, with no obstructing calculus seen. There is some stranding adjacent to the left kidney and ureter, which could be reactive due to the adjacent suprarenal mass. 5. Previously seen inflammation around the rectum appears decreased from prior. 6. Cholelithiasis. Assessment and Plan (1) Left adrenal mass: Status: Acute (2) LUQ abdominal pain: Status: Acute Plan This is a 46-year-old female with pertinent history of essential hypertension, mood disorder, mixed hyperlipidemia , tobacco use disorder who presents to the emergency department for evaluation of abdominal pain. #. Intractable abdominal pain due to left suprarenal mass: Will admit patient for initiate IV opioid p.r.n.. Consulting Oncology for possible biopsy while patient is inpatient. #. Essential hypertension: Continue home antihypertensives #. mood disorder: Continue home mood stabilizers #. mixed hyperlipidemia: On statin med rec pending DVT prophylaxis: Lovenox Full code Cardiac diet Time Spent With Patient Time: Total time managing care of this patient today ____ minutes. Quality Stroke Does the patient have a stroke diagnosis?: No VTE Prior VTE?: No VTE Risk Level:: Medical - moderate - high VTE Device Contraindication: Treatment Not Indicated VTE Drug Contraindication: N/A - Med Ordered
[2022-07-23] MEDS: 0.9 % Sodium Chloride Flush 3 ML SYRINGE IVFLUSH ×3 (08:52→19:51)
[2022-07-23] MEDS: Morphine Sulfate 4 MG/ML CARTRIDGE IVPUSH (08:52)
--- NOTE | 2022-07-23 09:10 | MHC.CM.ED ---
IMM 07/23/22. Pt arrived from home with intractable abdominal pain, pt was independent/self-care, no services/DME. D/C plan to return home when medically cleared. Of note, pt has an upcoming appointment on 07/25/22 for a biopsy of left adrenal mass (suspicious of malignancy). Pt emotional, tearful, and uncomfortable during assessment, emotional support provided by this CM. Pt spouse/HCP listed and accurate. Pts spouse to transport. Covid Vax: x 2 pfizer.
--- NOTE | 2022-07-23 09:33 | PHA.MEDREC ---
Pharmacy Consult ? Medication Reconciliation Pharmacy has completed the medication reconciliation.
--- NOTE | 2022-07-23 10:03 | PC.NURSE ---
PT MEDICATED WITH MORPHINE 4MG. STATED NO RELIEF OF PAIN. DR RESENDEZ NOTIFIED
--- NOTE | 2022-07-23 11:11 | PM.HEMONCCN ---
Subjective - Subjective Chief complaint: Abdominal pain Patient: known to practice within the last 3 years Consult date: 07/23/22 Primary Care Provider: Unknown Physician Medical Summary: Diagnosis: Left adrenal mass/malignancy HPI - Consult Narrative Reason for consult: Probable malignancy Narrative: Bell Alfaro is a 46 year old female who was recently diagnosed with left adrenal mass, lymphadenopathy and pulmonary nodules all suspicious for malignancy. She had 50-60 weight loss in the last year. She had symptoms of left-sided abdominal pain and worsening constipation going for several months. She was on laxatives. She was recently referred for urgent colonoscopy which she had. She was treated recently for colitis. She was waiting for biopsy but presented to the emergency department yesterday with complaints of worsening abdominal pain and anorexia. Review of Systems - Constitutional Reports anorexia, Reports fatigue, Reports lack of energy, Reports malaise, Reports weight loss - Cardiovascular Denies foot swelling, Denies irregular heart rhythm - Gastrointestinal Reports abdominal pain, Reports change in bowel habits, Denies black, tarry stools [facility] Medical History: Medical History (Last Reviewed 07/23/22 @ 06:17 by Jayesh Green MD) Anxiety Depression HTN (hypertension) Irritable bowel syndrome (IBS) Surgical History: Surgical History (Last Reviewed 07/23/22 @ 06:17 by Jayesh Green MD) S/P lumpectomy, right breast Social History: Social History (Last Reviewed 07/23/22 @ 06:17 by Jayesh Green MD) Living Situation History: Household Members: Spouse Housing: House Do you presently have visiting nurse or other home services: No Alcohol History Details: 1. How often do you have a drink containing alcohol?: d. 2-3 times a week 2. How many drinks containing alcohol do you have on a typical day when you are drinking?: c. 5 or 6 3. How often do you have six or more drinks on one occasion?: d. Weekly AUDIT-C Alcohol total score: 8 Last drink: Days (ago) Last Drank Other:: WEEKS AGO Currently Displaying Signs/Symptoms of Alcohol Withdrawal: No Tobacco History: Patient Tobacco Use Status: Current everyday Tobacco Tobacco use type: Cigarette Cigarette Packs Per Day: 1 Cigarettes Per Day: 20.0 Smoked in Last 30 Days: Yes e-Cigarette/Vaping Use: Currently Using Patient Interested in Nicotine Replacement: No Patient Given Instructions on How to Stop Smoking: No Second Hand Smoke Exposure: No Substance Use History: Use of substances other than those prescribed or required for medical reasons: No Substance Use Type: Marijuana Last Used Substance: Days (ago) Currently Displaying Signs/Symptoms of Drug Intoxication Withdrawal: No Domestic Abuse History: Have you been hit, kicked, punched, or otherwise hurt by someone within the past year? If so, by whom?: No Do you feel safe in your current relationship?: Yes Is there a partner from a previous relationship who is making you feel unsafe now?: No Are you made to feel afraid or neglected: No Advance Directives: Advance Directives: No Advance Directives Information Provided: No Homicidal Assessment: Do you have thoughts of harming others: None Nutrition Assessment: Recently lost weight without trying: Yes How much weight loss: 34pounds or more Eating poorly because of decreased appetite: Yes Nutrition screen score: 7 Nutrition Risks: No Nutritional Risk Patient : No : No Home Medications and Allergies Current Medications: Current Medications Acetaminophen (Acetaminophen 325 Mg Tablet) 650 mg PO Q6H PRN PRN Reason: Pain, Mild (Pain Scale 1-3) Enoxaparin Sodium (Enoxaparin Sodium 40 Mg/0.4 Ml Syringe) 40 mg SUBCUT Q24H [facility] Last Admin: 07/23/22 07:58 Dose: Not Given Hydromorphone HCl (Hydromorphone Hcl 1 Mg/Ml Syringe) 1 mg IVPUSH Q4H PRN; Protocol PRN Reason: Pain, Severe (Pain Scale 7-10) Last Admin: 07/23/22 10:22 Dose: 1 mg Melatonin (Melatonin 3 Mg Tablet) 6 mg PO BEDTIME PRN PRN Reason: Insomnia Ondansetron HCl (Ondansetron Hcl 4 Mg/2 Ml Vial) 4 mg IVPUSH Q8H PRN PRN Reason: Nausea and Vomiting Pharmacy Consult (Consult Rx Perform Med Rec) 1 each MISCELLANE ONCE PRN PRN Reason: Consult order Sodium Chloride (0.9 % Sodium Chloride Flush 3 Ml Syringe) 3 ml IVFLUSH QSHIFT [facility] Last Admin: 07/23/22 08:52 Dose: 3 ml Home Medications Medication Instructions Recorded Confirmed Type albuterol sulfate 90 mcg/actuation 2 puff inhalation Q4H PRN wheezing 07/11/22 07/23/22 History aerosol inhaler amlodipine 10 mg tablet 10 mg PO DAILY 07/11/22 07/23/22 History atorvastatin 40 mg tablet 40 mg PO DAILY 07/11/22 07/23/22 History fluoxetine 20 mg capsule 40 mg PO DAILY 07/11/22 07/23/22 History fluticasone propionate 50 1 spray intranasal BID PRN Allergy 07/11/22 07/23/22 History mcg/actuation nasal Symptoms spray,suspension linaclotide 145 mcg capsule 145 mcg PO DAILY 07/11/22 07/23/22 History (Linzess) lisinopril 30 mg tablet 30 mg PO DAILY 07/11/22 07/23/22 History trazodone 50 mg tablet 50 mg PO BEDTIME 07/11/22 07/23/22 History Allergies Allergy/AdvReac Type Severity Reaction Status Date / Time No Known Allergies Allergy Verified 07/23/22 01:59 Physical Exam Vital signs: Vital Signs Temp 98.2 F 07/23/22 06:29 Pulse 78 07/23/22 09:46 Resp 20 07/23/22 09:46 BP 145/95 H 07/23/22 09:46 Pulse Ox 98 07/23/22 09:46 O2 Del Method Room Air 07/23/22 09:46 Intake & Output 07/22/22 07/23/22 07/23/22 18:59 06:59 18:59 Output Total 1 / 1 Balance -1 / -1 Urine Output (Average ml/kg/hr) 0.00 Output: Output, Urine Amount 1 / 1 Other: Urine Bathroom Urine Color Yellow Weight 80.286 kg Weight 80.286 kg - Constitutional Present: mild distress - Routine HEENT Exam Head: Present: normal inspection Eye: Present: EOMI - Routine Neck Exam Absent: lymphadenopathy - Routine Respiratory Exam Absent: accessory muscle use - Routine Cardiovascular Exam Cardiovascular: Present: S1, S2 - Routine Extremities Exam Present: pulses intact - Routine Skin Exam Absent: cyanosis Hem/Onc Consult Result - Labs CBC & Chem 7: 07/24/22 05:08 07/24/22 05:08 Labs: Short CBC 07/23/22 Range/Units 02:11 WBC 12.9 H (4.8-10.8) X10*3/uL Hgb 14.0 (12.0-16.0) g/dl Hct 41.0 (37.0-47.0) % Plt Count 371 (160-400) X10*3/uL BMP 07/23/22 02:11 Sodium 135 Potassium 3.8 Chloride 93 L Carbon Dioxide 32 H BUN 7 L Creatinine 0.66 Calcium 10.2 D Liver Function 07/23/22 Range/Units 02:11 Total Bilirubin 0.4 (0.0-1.0) mg/dL Direct Bilirubin 0.2 (0.0-0.5) mg/dL AST 13 (5-31) U/L ALT 17 (0-31) U/L Alkaline Phosphatase 87 (39-117) U/L Albumin 3.8 (3.5-5.0) g/dL Urine 07/23/22 Range/Units 03:32 Urine Color Yellow Urine Appearance Clear Urine pH 8.0 (5.0-9.0) Ur Specific [place] 1.010 (1.005-1.025) Urine Protein 30 (1+) H (Neg-Trace) mg/dL Urine Glucose (UA) Negative (Negative) mg/dL Assessment and Plan Patient Active problem list reviewed?: Yes (1) Left adrenal mass Status: Acute Assessment and plan: 1. This is a pleasant 46-year-old woman presenting with left adrenal mass, suspicious lymphadenopathy, possible lung nodules and significant weight loss and bowel changes. CT abdomen/pelvis with contrast performed 07/09/2022 shows lesion around the left adrenal gland measuring 6 x 4.3 cm with surrounding soft tissue stranding. CT chest with contrast performed 07/16/22 showed multiple bilateral small to moderate size pulmonary nodules highly suspicious for metastatic disease. Abnormal mediastinal and bilateral hilar lymph nodes, left adrenal mass and diffuse hepatic steatosis. There was also mention of soft tissue distension with probable mass in loop of small bowel as well as fatty infiltration in the rectosigmoid region. CEA, LDH not elevated. Plasma metanephrines and normetanephrines not elevated and her blood pressure is well controlled on antihypertensive medications. She was scheduled for CT-guided biopsy of left adrenal mass/abdominal lymphadenopathy. Dr. Victor Manuel mathis did an urgent colonoscopy on 07/17/2022 which showed few polyps but no evidence of malignancy. Since CT chest shows possible tumor in the small bowel, I would recommend a surgical consultation at this time. She continues to have significant pain and is requiring significant amounts of narcotics for pain control. I thank you for the consult, will follow with you. - Time Spent With Patient Time Spent with Patient (in minutes): 25
--- NOTE | 2022-07-23 15:47 | MHC.CLN ---
NUTRITION CONSULT CONSULT FOR 80# WEIGHT LOSS X ONE YEAR. DIET=REGULAR. BRIEF VISIT SINCE PATIENT APPEARED TO BE IN SIGNIFICANT PAIN. FAMILY REPORTED THAT WEIGHT LOSS WAS NOT INTENTIONAL. LEFT ADRENAL MASS SUSPICIOUS FOR MALIGNANCY. TAKES ENSURE AT HOME. RECOMMEND ENSURE TID WHEN ABLE. PROVIDES 1050 KCALS, 60 G PROTEIN. DIET=REGULAR. WILL BE NPO FOR PROCEDURE 07/24. CURRENT INTAKE POOR. FOLLOW FOR DIET ADVANCEMENT POST PROCEDURE AND SUPPLEMENT APPROPRIATE. MONITOR PO INTAKE.
[2022-07-23] MEDS: HYDROmorphone HCl 1 MG/ML SYRINGE 1.5 MG IVPUSH ×3 (16:39→22:53)
[2022-07-23] MEDS: LORazepam 0.5 MG TABLET PO (19:51)
[2022-07-23] MEDS: traZODone HCL 50 MG TABLET PO (19:51)
[2022-07-24] VITALS (8 sets, daily range): BP systolic 102–139; BP diastolic 65–98; PULSE 77–83; RESP 16–18; TEMP 36.2–36.4; O2SAT 94–98
[2022-07-24] MEDS: HYDROmorphone HCl 1 MG/ML SYRINGE 1.5 MG IVPUSH ×4 (01:52→11:41)
--- NOTE | 2022-07-24 02:00 | PC.NURSE ---
Pt seen alert and oriented x4, weeping for pain on the LUQ radiating to her back /, prn Dilaudid 1/5 mg IV given with relief but no complete resolution of pain as per pt, NPO post MN instructed for possible biopsy in the morning, pt is aware and compliant, pain managed as needed, pt encouraged to sleep.
[2022-07-24 06:28] LABS: MANUAL DIFF FLAG NO
[2022-07-24 06:36] LABS: Basophils Absolute Auto 0.1 X10*3/uL (0.0-0.2); Basophils Percent Auto 0.9 % (0-2); Eosinophils Absolute Auto 0.9 X10*3/uL (0.0-0.4); Eosinophils Percent Auto 9.5 % (0-4); Hematocrit 40.9 % (37.0-47.0); Hemoglobin 13.9 g/dl (12.0-16.0); Imm Gran Abs Auto 0.02 X10*3/uL (0.00-0.03); Imm Gran Pct Auto 0.2 % (0.0-0.4); Lymphocytes Percent Auto 20.6 % (20-40); Mean Corpuscular Hemoglobin 32.2 pg (27.0-33.0); Mean Corpuscular Volume 94.7 fL (80.0-98.0); Mean Platelet Volume 9.4 fL (9.4-12.3); Monocytes Percent Auto 10.6 % (2-11); Neutrophils Absolute Auto 5.6 x10*3/uL (2.0-8.3); Neutrophils Percent Auto 58.2 % (45-73); Platelet Count 355 X10*3/uL (160-400); Prothrombin Time 11.9 SEC (10.0-13.1); Red Blood Count 4.32 X10*6/uL (4.20-5.50); Red Cell Distribution Width 14.1 % (11.0-16.0); White Blood Count 9.7 X10*3/uL (4.8-10.8)
[2022-07-24 06:54] LABS: Anion Gap 16 (12-20); Blood Urea Nitrogen 5 mg/dL (9-16); Calcium 9.9 mg/dL (8.4-10.2); Carbon Dioxide 29 mmol/L (22-29); Chloride 95 mmol/L (96-108); Creatinine Clr Calc Pharmacy 136.6; Estimated Glomerular Filt Rate > 60; Glucose Random 80 mg/dL (60-115); Potassium 3.4 mmol/L (3.3-5.1); Sodium 137 mmol/L (135-145)
[2022-07-24] MEDS: Lidocaine HCl 1 % MPF 5 ML VIAL 10 ML SUBCUT (09:59)
[2022-07-24] MEDS: 0.9 % Sodium Chloride Flush 3 ML SYRINGE IVFLUSH ×3 (10:17→20:01)
[2022-07-24] MEDS: lisinopriL 10 MG TABLET PO (10:17)
[2022-07-24] MEDS: Atorvastatin Calcium 40 MG TABLET PO (10:17)
[2022-07-24] MEDS: FLUoxetine HCl 20 MG CAPSULE 40 MG PO (10:17)
[2022-07-24] MEDS: oxyCODONE HCl ER 10 MG TAB.ER.12H PO (10:40)
[2022-07-24] MEDS: LORazepam 0.5 MG TABLET PO (10:41)
--- NOTE | 2022-07-24 13:42 | HO.PM.IMPN ---
Subjective Subjective Date of Service: 07/24/22 Interval History: being followed for intractable abdominal pain underwent biopsy of left suprarenal mass this morning tolerated procedure well, continued to have persistent left upper quadrant pain constant with radiation to left flank and back with associated nausea, is on Dilaudid 1.5 mg q.3 hours but requesting pain medication after 2.5 hrs, history of chronic diarrhea, last bowel movement yesterday, denies chest pain, no shortness of breath, no urinary symptoms of urgency or frequency. Review of Systems Review of Systems: Yes all other systems are reviewed and are negative Physical Exam Vital Signs: Vital Signs: Last Vital Signs Temp 97.6 F 07/24/22 09:45 Pulse 83 07/24/22 09:45 Resp 18 07/24/22 09:45 BP 139/84 07/24/22 09:45 Pulse Ox 94 07/24/22 09:45 O2 Del Method Room Air 07/24/22 09:45 BMI result Body Mass Index 29.5 Const: Other: General resting comfortably in no acute distress. Neck supple no JVD. CVS regular rate rhythm, Respiratory lungs clear to auscultation, no respiratory distress, no wheeze, no rhonchi. Gastrointestinal abdomen soft, Tenderness left upper quadrant, bowel sounds audible, no guarding , no rigidity. Extremities no edema. Neuro nonfocal . Skin no rash psych appropriate affect Objective Data Active Medications Acetaminophen (Acetaminophen 325 Mg Tablet) 650 mg PO Q6H PRN PRN Reason: Pain, Mild (Pain Scale 1-3) Albuterol Sulfate (Albuterol Sulfate 90 Mcg 8 Gm Inhaler) 2 puff INHALE Q4H PRN PRN Reason: wheezing Atorvastatin Calcium (Atorvastatin Calcium 40 Mg Tablet) 40 mg PO DAILY [facility] Last Admin: 07/24/22 10:17 Dose: 40 mg Documented By: RICHARD Fluoxetine HCl (Fluoxetine Hcl 20 Mg Capsule) 40 mg PO DAILY [facility] Last Admin: 07/24/22 10:17 Dose: 40 mg Documented By: RICHARD Fluticasone Propionate (Fluticasone Propionate Nasal 16 Gm [place]) 1 spray NOSTRIL-B BID PRN PRN Reason: Allergy Symptoms Hydromorphone HCl (Hydromorphone Hcl 1 Mg/Ml Syringe) 1.5 mg IVPUSH Q3H PRN; Protocol PRN Reason: Pain, Severe (Pain Scale 7-10) Last Admin: 07/24/22 11:41 Dose: 1.5 mg Documented By: RICHARD Lisinopril (Lisinopril 10 Mg Tablet) 10 mg PO DAILY [facility]; Protocol Last Admin: 07/24/22 10:17 Dose: 10 mg Documented By: RICHARD Lorazepam (Lorazepam 0.5 Mg Tablet) 0.5 mg PO BEDTIME PRN PRN Reason: Anxiety Last Admin: 07/23/22 19:51 Dose: 0.5 mg Documented By: DARLENE Lorazepam (Lorazepam 0.5 Mg Tablet) 0.5 mg PO Q8H PRN PRN Reason: Anxiety Last Admin: 07/24/22 10:41 Dose: 0.5 mg Documented By: RICHARD Melatonin (Melatonin 3 Mg Tablet) 6 mg PO BEDTIME PRN PRN Reason: Insomnia Ondansetron HCl (Ondansetron Hcl 4 Mg/2 Ml Vial) 4 mg IVPUSH Q8H PRN PRN Reason: Nausea and Vomiting Oxycodone HCl (Oxycodone Hcl Er 10 Mg Tab.Er.12h) 10 mg PO BID [facility] Last Admin: 07/24/22 10:40 Dose: 10 mg Documented By: RICHARD Pharmacy Consult (Consult Rx Perform Med Rec) 1 each MISCELLANE ONCE PRN PRN Reason: Consult order Sodium Chloride (0.9 % Sodium Chloride Flush 3 Ml Syringe) 3 ml IVFLUSH QSHIFT [facility] Last Admin: 07/24/22 10:17 Dose: 3 ml Documented By: RICHARD Trazodone HCl (Trazodone Hcl 50 Mg Tablet) 50 mg PO BEDTIME [facility] Last Admin: 07/23/22 19:51 Dose: 50 mg Documented By: DALRENE Labs 07/24/22 05:08 07/24/22 05:08 Labs: Laboratory Results - last 24 hr 07/24/22 07/24/22 07/24/22 05:08 05:08 05:08 MCV 94.7 MCH 32.2 MCHC 34.0 RDW 14.1 Plt Count 355 MPV 9.4 Immature Gran % (Auto) 0.2 Neut % (Auto) 58.2 Lymph % (Auto) 20.6 [place] % (Auto) 10.6 Eos % (Auto) 9.5 H Baso % (Auto) 0.9 Lymph # (Auto) 2.0 [place] # (Auto) 1.0 Eos # (Auto) 0.9 H Baso # (Auto) 0.1 Abs Immat Gran (auto) 0.02 Absolute Neuts (auto) 5.6 Absolute Nucleated RBC 0.000 Nucleated RBC % (auto) 0.0 PT 11.9 INR 1.0 APTT Anion Gap 16 Estim Creat Clear Calc 136.6 Estimated GFR > 60 Random Glucose 80 Calcium 9.9 07/24/22 05:08 MCV MCH MCHC RDW Plt Count MPV Immature Gran % (Auto) Neut % (Auto) Lymph % (Auto) [place] % (Auto) Eos % (Auto) Baso % (Auto) Lymph # (Auto) [place] # (Auto) Eos # (Auto) Baso # (Auto) Abs Immat Gran (auto) Absolute Neuts (auto) Absolute Nucleated RBC Nucleated RBC % (auto) PT INR APTT 28.0 Anion Gap Estim Creat Clear Calc Estimated GFR Random Glucose Calcium Assessment and Plan (1) Intractable abdominal pain: Status: Acute Plan 46-year-old female with pertinent history of essential hypertension, mood disorder, mixed hyperlipidemia , tobacco use disorder who presents to the emergency department for evaluation of abdominal pain. ?#.? Intractable abdominal pain due to left suprarenal mass/ also multiple pulmonary nodules:? underwent biopsy this morning will resume diet, currently on IV Dilaudid 1.5 mg Q [address] on MS Contin 30 mg b.i.d. and MSIR 15 mg q.4 hours decrease dose of IV Dilaudid to q.4 hours 1 mg was on oxycodone at home with no good relieft of pain. spoke with Dr. Masters, she recommend outpatient follow-up within 1 week Normal CBC, renal function and LFTs possible discharge home at a.m.if abd pain improves. ? #.?Essential hypertension: Continue lisinopril 30 mg and hold Norvasc 10 mg follow blood pressure closely. ?#. mood disorder: Continue home mood stabilizers ?#. mixed hyperlipidemia: continue Lipitor. ? ?DVT prophylaxis:? Lovenox Full code patient need continued inpatient hospitalization for management of intractable abdominal pain requiring IV analgesics. Time Spent With Patient Time: Total time managing care of this patient today ____ minutes. Quality Stroke Does the patient have a stroke diagnosis?: No VTE Prior VTE?: No VTE Risk Level:: Medical - moderate - high VTE Device Contraindication: Treatment Not Indicated VTE Drug Contraindication: N/A - Med Ordered
[2022-07-24] MEDS: Morphine Sulfate ER 30 MG TABLET.ER PO (13:56)
[2022-07-24] MEDS: Enoxaparin Sodium 40 MG/0.4 ML SYRINGE SUBCUT (15:22)
[2022-07-24] MEDS: HYDROmorphone HCl 1 MG/ML SYRINGE IVPUSH (15:33)
--- NOTE | 2022-07-24 16:11 | PC.NURSE ---
Assumed care at 15:00. Patient alert and oriented. Continues to report pain radiating from left upper abdominal quadrant to the mid back, around area of T12. Patient describes pain as sharp and dull, less dull than before, constant, does endorse worsening with deep breaths. Patient with order for IV dilaudid, medicated per emar with good effect. Patient also with history of IBS, reports last BM was 07/22, requested colace, says she takes colace at home sometimes, says she had taken linzess in past with poor effect, discussed with MD, new order for colace penidng.
[2022-07-24] MEDS: traZODone HCL 50 MG TABLET PO (20:00)
[2022-07-24] MEDS: Docusate Sodium 100 MG CAPSULE PO (20:04)
[2022-07-24] MEDS: Morphine Sulfate Immed Release 15 MG TABLET PO (20:48)
[2022-07-25] MEDS: Morphine Sulfate Immed Release 15 MG TABLET PO ×3 (01:00→12:20)
[2022-07-25] MEDS: Morphine Sulfate ER 30 MG TABLET.ER PO ×2 (02:00→13:58)
[2022-07-25 04:00] VITALS: BP 111/75; PULSE 90; RESP 18; TEMP 36.9; O2SAT 94
[2022-07-25] MEDS: HYDROmorphone HCl 1 MG/ML SYRINGE IVPUSH (04:29)
[2022-07-25 07:20] VITALS: BP 102/66; PULSE 77; RESP 16; TEMP 36.4; O2SAT 92
[2022-07-25] MEDS: Docusate Sodium 100 MG CAPSULE PO (07:51)
[2022-07-25] MEDS: FLUoxetine HCl 20 MG CAPSULE 40 MG PO (07:51)
[2022-07-25] MEDS: Atorvastatin Calcium 40 MG TABLET PO (07:51)
--- NOTE | 2022-07-25 09:47 | MHC.CLN ---
F/U DIET=REGULAR. TAKES ENSURE AT HOME. ADDING ENSURE TO PROVIDE ADDITIONAL 1050 KCALS, 60 G PROTEIN. INTAKE X ONE MEAL 75%. 31% WEIGHT LOSS X ONE YEAR, UNPLANNED. MONITOR PO INTAKE AND DIET TOLERANCE.
[2022-07-25] MEDS: LORazepam 0.5 MG TABLET PO (12:15)
--- NOTE | 2022-07-25 13:48 | P.DS_ITS ---
DS: Providers Provider Date of Service: 07/25/22 Date of admission: 07/23/22 06:00 Date of discharge: 07/25/22 Primary care physician: Unknown Physician Consults: 07/23/22 06:21 Consult to Hematology / Oncology Routine Consulting Provider: Gretchen Masters Reason for consultation: left supra-renal mass DS: Diagnosis Discharge Diagnosis (1) Intractable abdominal pain: Status: Acute (2) Left adrenal mass: Status: Acute (3) Multiple pulmonary nodules: Status: Acute DS: Summary Hospital Course Hospital Course: from admission H+P 07/23/[address] Stephanie Green: This is a 46-year-old female with pertinent history of essential hypertension, mood disorder, mixed hyperlipidemia , tobacco use disorder who presents to the emergency department for evaluation of abdominal pain. Patient saw Dr Masters for for possible left adrenal mass on 07/11.? Patient states that over the last 1 week her left abdominal pain has worsened.? It has been constant, progressive, nonradiating and without any relieving factors.? Patient does report associated nausea and nonbloody emesis due to the pain.? She reports significant weight loss over the last 1 year.? Patient denies fever, chills, chest discomfort, palpitations, shortness of breath, changes in urinary or bowel habits. ?in the emergency department, patient requiring multiple pushes of IV opioids to control abdominal pain. 46-year-old female with pertinent history of essential hypertension, mood disorder, mixed hyperlipidemia , tobacco use disorder who presents to the emergency department for evaluation of abdominal pain. ?# intractable abdominal pain due to left suprarenal mass/ also multiple pulmonary nodules:? - CT-guided biopsy done 07/24 without complications. will follow up with Dr Masters from [facility] [place] Oncology on 07/30/22 for results - pain control: placed on MSSR 30 mg bid plus MSIR 15 mg q4h prn - due to BP lowering from morphine, amlodipine held and lisionpril decreased to 10 mg daily ? Time Spent with Patient Time attestation: Total time managing care of this patient today __40__ minutes. Discharge coordination time: Greater than 30 minutes Quality: Safe Use of Opioids Does Pt have an Active Cancer Diagnosis on the Problem List?: Yes Opioid Measure Date for [facility] Report: 06/25/22 Opioid Measure Time for [facility] Report: 13:50 Quality: Stroke Does the patient have a stroke diagnosis?: No Physical Exam Vital Signs: Vital Signs: Last Vital Signs Temp 97.6 F 07/25/22 07:20 Pulse 77 07/25/22 07:20 Resp 16 07/25/22 07:20 BP 102/66 07/25/22 07:20 Pulse Ox 92 07/25/22 07:20 O2 Del Method Room Air 07/25/22 07:20 BMI result Body Mass Index 29.5 Gen: in no acute distress HEENT: sclera anicteric, moist mucus membranes Neck: supple Lungs: clear to auscultation bilaterally Heart: regular rate and rhythm, no murmurs Abd: soft, LUQ and L flank tender, non-distended Ext: no edema Skin: warm/well-perfused Neuro: alert and oriented x3, no focal findings Psych: appropriate affect DS: Data Data Completed and Pending Completed studies during hospitalization [Text1]: Laboratory Results WBC 9.7 X10*3/uL (4.8-10.8) 07/24/22 05:08 RBC 4.32 X10*6/uL (4.20-5.50) 07/24/22 05:08 Hgb 13.9 g/dl (12.0-16.0) 07/24/22 05:08 Hct 40.9 % (37.0-47.0) 07/24/22 05:08 MCV 94.7 fL (80.0-98.0) 07/24/22 05:08 MCH 32.2 pg (27.0-33.0) 07/24/22 05:08 MCHC 34.0 g/dl (31.0-35.0) 07/24/22 05:08 RDW 14.1 % (11.0-16.0) 07/24/22 05:08 Plt Count 355 X10*3/uL (160-400) 07/24/22 05:08 MPV 9.4 fL (9.4-12.3) 07/24/22 05:08 Immature Gran % (Auto) 0.2 % (0.0-0.4) 07/24/22 05:08 Neut % (Auto) 58.2 % (45-73) 07/24/22 05:08 Lymph % (Auto) 20.6 % (20-40) 07/24/22 05:08 [place] % (Auto) 10.6 % (2-11) 07/24/22 05:08 Eos % (Auto) 9.5 % (0-4) H 07/24/22 05:08 Baso % (Auto) 0.9 % (0-2) 07/24/22 05:08 Lymph # (Auto) 2.0 X10*3/uL (1.2-4.9) 07/24/22 05:08 [place] # (Auto) 1.0 X10*3/uL (0.1-1.2) 07/24/22 05:08 Eos # (Auto) 0.9 X10*3/uL (0.0-0.4) H 07/24/22 05:08 Baso # (Auto) 0.1 X10*3/uL (0.0-0.2) 07/24/22 05:08 Abs Immat Gran (auto) 0.02 X10*3/uL (0.00-0.03) 07/24/22 05:08 Absolute Neuts (auto) 5.6 x10*3/uL (2.0-8.3) 07/24/22 05:08 Absolute Nucleated RBC 0.000 X10*3/uL (0.0-0.012) 07/24/22 05:08 Nucleated RBC % (auto) 0.0 /100WBC (0.0-0.2) 07/24/22 05:08 PT 11.9 SEC (10.0-13.1) 07/24/22 05:08 INR 1.0 (0.9-1.1) 07/24/22 05:08 APTT 28.0 SEC (26.0-36.4) 07/24/22 05:08 Sodium 137 mmol/L (135-145) 07/24/22 05:08 Potassium 3.4 mmol/L (3.3-5.1) 07/24/22 05:08 Chloride 95 mmol/L (96-108) L 07/24/22 05:08 Carbon Dioxide 29 mmol/L (22-29) 07/24/22 05:08 Anion Gap 16 (12-20) 07/24/22 05:08 BUN 5 mg/dL (9-16) L 07/24/22 05:08 Creatinine 0.55 mg/dL (0.5-1.4) 07/24/22 05:08 Estim Creat Clear Calc 136.6 07/24/22 05:08 Estimated GFR > 60 07/24/22 05:08 Random Glucose 80 mg/dL (60-115) 07/24/22 05:08 Calcium 9.9 mg/dL (8.4-10.2) 07/24/22 05:08 Total Bilirubin 0.4 mg/dL (0.0-1.0) 07/23/22 02:11 Direct Bilirubin 0.2 mg/dL (0.0-0.5) 07/23/22 02:11 AST 13 U/L (5-31) 07/23/22 02:11 ALT 17 U/L (0-31) 07/23/22 02:11 Alkaline Phosphatase 87 U/L (39-117) 07/23/22 02:11 Total Protein 6.9 g/dL (6.5-8.0) 07/23/22 02:11 Albumin 3.8 g/dL (3.5-5.0) 07/23/22 02:11 Lipase 28 U/L (8-78) 07/23/22 02:11 Urine Color Yellow 07/23/22 03:32 Urine Appearance Clear 07/23/22 03:32 Urine pH 8.0 (5.0-9.0) 07/23/22 03:32 Ur Specific [place] 1.010 (1.005-1.025) 07/23/22 03:32 Urine Protein 30 (1+) mg/dL (Neg-Trace) H 07/23/22 03:32 Urine Glucose (UA) Negative mg/dL (Negative) 07/23/22 03:32 Urine Ketones Trace mg/dL (Negative) 07/23/22 03:32 Urine Blood Negative (Negative) 07/23/22 03:32 Urine Nitrite Negative (Negative) 07/23/22 03:32 Ur Leukocyte Esterase Negative (Negative) 07/23/22 03:32 Urine RBC 0-2 /HPF (0-2) 07/23/22 03:32 Urine WBC 0-5 /HPF (0-5) 07/23/22 03:32 Ur Squamous Epith Cells 0-2 /HPF (0-2) 07/23/22 03:32 Urine Bacteria None Seen (None Seen) 07/23/22 03:32 Hyaline Casts 0-2 /LPF (0-2) 07/23/22 03:32 Impressions Abdomen/Pelvis CT 07/23/22 03:50 IMPRESSION: 1. Redemonstrated mass in the left suprarenal region measuring up to 6.2 cm, not significantly changed from recent prior. Appearance remains suspicious for malignancy, which may be of primary adrenal or retroperitoneal origin, or potentially a metastasis. Further workup is recommended. 2. Redemonstrated adenopathy in the region of the gastrohepatic ligament and left retroperitoneum, suspicious for geremias metastases. 3. Innumerable lung nodules at the lung bases, suspicious for pulmonary metastases. 4. Mild prominence of the left renal pelvis, with no obstructing calculus seen. There is some stranding adjacent to the left kidney and ureter, which could be reactive due to the adjacent suprarenal mass. 5. Previously seen inflammation around the rectum appears decreased from prior. 6. Cholelithiasis. Pending studies at discharge: Pending at discharge 07/24/22 09:00 Surgical Path [Surgical] [PTH] Routine Discharge Plan Discharge Anticipated Discharge Date/Time: 07/25/22 13:40 Patient Disposition: Home, Self-Care Discharge Diagnosis: intractable abdominal pain due to left suprarenal mass; multiple pulmonary nodules Referrals: Gretchen Masters MD [Physician] - 07/30/22 Physician,Unknown J [Primary Care Provider] - 1 Week Discharge Medications: New morphine 30 mg Tablet Extended Release 30 mg PO Q12H Qty: 14 0RF Rx Instructions: Partial Fill upon patient request. lisinopril 10 mg Tablet 10 mg PO DAILY Qty: 30 0RF Protocol: Hold for SBP< HOLD for SBP < : 90 morphine 15 mg Tablet 15 mg PO Q4H PRN (Reason: Pain, Severe (Pain Scale 7-10)) Qty: 42 0RF Rx Instructions: Partial Fill upon patient request. Continued ondansetron 4 mg tablet,disintegrating 4 mg PO Q8H PRN (Reason: nausea and vomiting) Qty: 10 0RF atorvastatin 40 mg tablet 40 mg PO DAILY trazodone 50 mg tablet 50 mg PO BEDTIME albuterol sulfate 90 mcg/actuation HFA aerosol inhaler 2 puff INHALATION Q4H PRN (Reason: wheezing) fluoxetine 20 mg capsule 40 mg PO DAILY fluticasone propionate 50 mcg/actuation spray,suspension 1 spray intranasal BID PRN (Reason: Allergy Symptoms) Linzess 145 mcg capsule 145 mcg PO DAILY lorazepam 0.5 mg Tablet 0.5 mg PO BEDTIME PRN (Reason: Anxiety) Qty: 30 0RF Discontinued amlodipine 10 mg tablet 10 mg PO DAILY lisinopril 30 mg tablet 30 mg PO DAILY tramadol 50 mg Tablet 50 mg PO Q4H PRN (Reason: Pain) Qty: 90 0RF oxycodone 5 mg Capsule 5 mg PO Q6H PRN (Reason: Pain) Qty: 60 0RF Rx Instructions: Partial Fill upon patient request. Discharge Orders: Discharge Order (Routine); Ordered 07/25/22 Ordered By: Meagan March Diet: Low salt diet Activity on Discharge: As tolerated Stand Alone Forms: Patient Portal Discharge page Care Plan Goals: diagnosis and treatment of likely malignancy Health Concerns: intractable abdominal pain due to left suprarenal mass; multiple pulmonary nodules Plan of Treatment: pain control: morphine sulfate sustained release 30 mg twice daily morphine sulfate immediate release 15 mg every 4 hours as needed for breakthrough pain stop tramadol and oxycodone due to BP lowering by morphine, please STOP amlodipine and decrease lisinopril from 30 to 10 mg daily follow up with Dr Masters from [facility] [place] Oncology/Hematology as scheduled on 07/30/22 See Discharge Summary. Assessment: See Discharge Summary.
--- NOTE | 2022-07-25 13:51 | MHC.CM.PN ---
PT TO DC HOME TODAY WITH NO SERVICES VIA PRIVATE TRANSPORT
== END 2022-07-25 14:23 | disposition home or self-care (01) ==
LOC: HO.ED 06:24 → HO.EDOVER 06:33 → HO.S3 11:06
PROVIDERS: Hospitalist; Radiology Diagnostic Radiology; Admitting Provider Student in an Organized Health Care Education/Training Program; Emergency Provider Emergency Medicine; PCP Internal Medicine; Visit Provider Family Medicine
DX: C74.92 Malignant neoplasm of unspecified part of left adrenal gland (principal); E27.8 Other specified disorders of adrenal gland; G89.29 Other chronic pain; R10.12 Left upper quadrant pain; R91.8 Other nonspecific abnormal finding of lung field; E78.5 Hyperlipidemia, unspecified; I10 Essential (primary) hypertension; F17.200 Nicotine dependence, unspecified, uncomplicated; F12.90 Cannabis use, unspecified, uncomplicated; Z79.02 Long term (current) use of antithrombotics/antiplatelets; Z79.899 Other long term (current) drug therapy
CPT/HCPCS: 36415; 49180; 74176; 77012; 80048; 80076; 81001; 83690; 85025; 85610; 85730; 88305; 88341; 88342; 88360; 96374; 96375; 96376; 99152; 99221; 99285; J1170; J1650; J2270

== ENCOUNTER 2022-07-29 12:14 | Outpatient (REF) | payer OTHER, SELFPAY ==
--- NOTE | ~2022-07-29 | PE_ITS ---
EXAMINATION: Fluorine-18 FDG PET/CT Scan CLINICAL INDICATION: Initial treatment management. Left adrenal gland carcinoma. PROCEDURE: 88 minutes following the intravenous administration of 12.31 mCi of fluorine 18 FDG, images from the base of the skull to the mid thighs were obtained using a combined PET/CT scanner with CT scan based attenuation correction. No intravenous contrast was administered. Transverse, coronal, sagittal, and volume reconstruction projections were obtained. The patient's blood glucose as determined by a finger stick, was 104 mg/dl immediately prior to injection. The radiotracer was injected intravenously through left antecubital superficial vein, without any complications. Total CT exam dose-length product 716.65 mGy-cm * These CT images were obtained using dose optimization techniques as appropriate, variously including the following: Automated exposure control * Adjustment of mA and/or kV according to patient size (this includes techniques or standardized protocols for targeted exams where dose is matched to indication/reason for exam; i.e. extremities or head) * Use of iterative reconstruction technique COMPARISON: CT-guided left adrenal mass biopsy done on 07/24/2022 CT of the abdomen and pelvis done on 07/23/2022, CT of the chest done on 07/16/[address] of the abdomen and pelvis done on 07/09/2022. FINDINGS: The patient was scanned in the right lateral decubitus position. Significant misregistration artifact is noted. NECK AND VISUALIZED HEAD: No definite suspicious FDG avid disease. There is significant misregistration artifact present between the patient and the CT component of the study. THORAX: There are multiple FDG avid suspicious bilateral lung parenchymal nodules present, most consistent with metastatic disease. Numerous micronodules are also noted bilaterally, also consistent with metastatic disease. In addition, FDG avid mediastinal as well as bilateral hilar lymphadenopathy present with SUV max of 10.0 (79/223). No evidence of any pleural or pericardial effusion. ABDOMEN AND PELVIS: The left adrenal mass is intensely FDG avid, currently measures approximately 6.2 x 3.1 cm with SUV max of 21.0 (127/223), consistent with biopsy proved left adrenal malignancy. Additional multiple FDG avid solid-appearing circumscribed nodules are present around the left adrenal gland and within the retroperitoneum, consistent with extensive retroperitoneal lymphadenopathy. The dominant lymph node in the left para-aortic region measures 3.1 x 1.6 cm with SUV max of 31.4 (145/223) Incidental note is made of asymmetrically enlarged left kidney with significant perinephric stranding and mildly prominent left renal pelvicalyceal system, of indeterminate etiology. MUSCULOSKELETAL: There are multiple FDG avid suspicious osseous disease present for example involving multiple lumbar vertebrae with SUV max of 13.0 at L4 and SUV max of 10.5 at L5. Multifocal FDG avid disease is also present within the pelvis bilaterally with likely involvement of right femoral head. Note is also made of FDG avid osteolytic or disease involving lateral aspect of the left 10th rib with SUV max of 6.7 (142/223). The findings are consistent with osseous metastatic disease. VASCULAR: No evidence of any calcified significant atherosclerotic disease except for the distal aorta. No evidence of any aneurysm. PET/PET CT fusion skull to thigh IMPRESSION: 1. Technically limited study due to patient movement and the scan was apparently performed in the right lateral decubitus position. 2. Numerous FDG avid lung parenchymal nodules are noted associated with multiple FDG avid osseous disease, consistent with multifocal pulmonary and osseous metastatic disease. Note is also made of presence of FDG avid mediastinal and hilar lymphadenopathy. 3. Corresponding to the site of biopsy proved left adrenal malignancy, intense FDG avidity is noted within the left adrenal gland with SUV max of 21.0, consistent with biopsy proved left adrenal malignancy. Additional multiple FDG avid solid-appearing circumscribed nodules are also noted within the upper abdomen including the retroperitoneum, consistent with extensive FDG avid retroperitoneal lymphadenopathy. 4. Asymmetrically enlarged left kidney with significant perinephric stranding and mildly prominent left renal pelvicalyceal system, of indeterminate etiology. Possibility of left renal vein thrombosis is not excluded.
== END 2022-07-29 12:15 | disposition home or self-care (01) ==
LOC: HO.PET 12:14
PROVIDERS: Visit Provider Internal Medicine
DX: Z13.89 Encounter for screening for other disorder (principal)

== ENCOUNTER → 2022-07-31 15:02 | Outpatient (BNVA) | payer OTHER, SELFPAY | PROVIDERS: PCP Internal Medicine; Visit Provider Nurse Practitioner Family ==

== ENCOUNTER 2022-08-06 13:30 | Inpatient (IN) | payer OTHER, SELFPAY ==
--- NOTE | ~2022-08-06 | CT_ITS ---
EXAMINATION: CT CHEST ANGIOGRAM PE PROTOCOL CLINICAL INFORMATION: , Reason for Exam dyspnea, hemoptysis, hx of lung cancer COMPARISON: Prior CT scan 07/16/2022 TECHNIQUE: Volumetric imaging was performed through the chest. Reformatted coronal and sagittal imaging was performed. 3-D MIP images performed at a dedicated separate workstation. This CT examination was performed using dose optimization techniques as appropriate, variously including the following: *Automated exposure control *Adjustment of mA and/or kV according to patient size (this includes techniques or standardized protocols for targeted exams where dose is matched to indication/reason for exam; i.e. extremities or head) *Use of iterative reconstruction technique CONTRAST: 85 mL of Omnipaque 350 injected DLP: 804 FINDINGS: PULMONARY ARTERIES: There are no large central emboli. Suboptimal filling of peripheral secondary and tertiary branches felt to be an artifact due to extensive adjacent disease involving both lungs. LINES/TUBES: None LUNGS: There are numerous solid and some solid lung nodule involving the lungs diffusely, this is compatible with patient history of pulmonary metastasis, there has been significant increase in number of these nodules too many to individually measure, the largest in the left lung apex measure about 1.3 x 1.2 cm slightly more prominent on today's exam compared to 1.2 x [address] from 07/16/2022. There is also patchy airspace interstitial opacification involving the lungs diffusely which could be due to lymphangitic spread and/or superimposed atypical infection. AIRWAYS: Trachea and bronchi are normal. PLEURA: No pleural effusion or pneumothorax. MEDIASTINUM AND PATRICIA: The visualized thyroid gland is unremarkable. There are enlarged mediastinal and hilar lymph nodes right hilar lymph node measure up to 2 cm, subcarinal lymph node measures 2.2 x 2.6 cm, there are more prominent on today's exam than previously present on 07/16/2022. VESSELS: Thoracic aorta is normal in size. HEART AND PERICARDIUM: Heart is normal in size. There is no pericardial effusion. No coronary calcifications detected. CHEST WALL, LOWER NECK, SURROUNDING SOFT TISSUES: Normal VISUALIZED ABDOMEN: Unremarkable BONES: The visualized bony thorax is within normal limits. CT/CT angio chest PE protocol IMPRESSION: * No CT evidence of large central pulmonary emboli, there is suboptimal filling of peripheral secondary and tertiary branches felt to be an artifacts due to extensive adjacent disease involving both lungs. * There has been significant increase in the number and size of numerous solid and subsolid groundglass lung nodules involving both lungs diffusely, this is compatible with patient history of pulmonary metastasis. * There is also patchy airspace interstitial opacification involving the lungs diffusely which could be due to lymphangitic spread and/or superimposed atypical infection. * Increasing mediastinal and hilar lymphadenopathy. * No pleural effusion.
--- NOTE | ~2022-08-06 | CT_ITS ---
EXAMINATION: CT abdomen pelvis w IV con CLINICAL INFORMATION: Reason for Exam L flank pain concern for renal vein thrombosis COMPARISON: Prior CT 07/23/2021 TECHNIQUE: Multidetector volumetric imaging was performed from the superior aspect of the liver through the pubic symphysis 85 mL Omnipaque 350 injected Sagittal and coronal reformatted images were obtained on the technologist's workstation. This CT examination was performed using dose optimization techniques as appropriate, variously including the following: *Automated exposure control *Adjustment of mA and/or kV according to patient size (this includes techniques or standardized protocols for targeted exams where dose is matched to indication/reason for exam; i.e. extremities or head) *Use of iterative reconstruction technique DLP: 804 mGy-cm FINDINGS: LOWER THORAX: Redemonstration of numerous solid and some solid lung nodules suspicious for lung metastasis. There has been increase in number of these nodules. HEPATOBILIARY: Hypodense area in the liver adjacent to the falciform ligament the location is common for focal fat deposition. GALLBLADDER: Gallbladder is distended, layering hyperdense material probably gallbladder sludge or small stones. SPLEEN: Spleen is normal in size. PANCREAS: No focal mass or ductal dilatation. STOMACH AND GASTROINTESTINAL TRACT: Stomach is grossly unremarkable. There is no bowel distention or thickening. No CT evidence of appendicitis. ADRENALS: Redemonstration of heterogeneous left adrenal mass 5.8 x 5.1 cm unchanged from prior exam. KIDNEYS/URETERS: Redemonstration of the mild left renal hydronephrosis and hydroureter without obstructing stone, there is fat stranding surrounding the left ureter and left kidney concerning for possible infection or inflammatory process nephritis. There is obliteration of the left renal vein proximally, refer image 48 series 18 probably thrombosed or occluded by the adjacent tumor. Inflammatory and swelling seen in the left kidney could be sequela of venous engorgement. URINARY BLADDER: Urinary bladder is decompressed unopacified not well evaluated. PELVIC VISCERA: There is IUD in the uterus. PERITONEUM: No free air or fluid. LYMPH NODES: There are enlarged retroperitoneal periaortic lymph nodes, enlarged lymph nodes around the celiac axis and perigastric region unchanged. VASCULAR:Abdominal aorta normal in size, no aneurysm found. BONES, ABDOMINAL WALL AND SOFT TISSUES: There is 7 mm soft tissue opacity within the subcutaneous fat anterior pelvic wall image 80 series 15, cannot rule out metastasis. CT/CT abdomen pelvis w IV con IMPRESSION: * Redemonstration of mild left renal hydronephrosis and hydroureter without obstructing stone, there is fat stranding surrounding the left ureter and left kidney concerning for possible infection or inflammatory process nephritis. * Redemonstration of heterogeneous left adrenal mass 5.8 cm unchanged. Compatible with patient history of left adrenal carcinoma. * There is compression of the left adrenal mass on the adjacent left renal vein, possible occlusion obstruction of the left renal vein. Changes described in the left kidney could be sequela of engorgement due to venous obstruction. * Redemonstration of numerous lung nodules suspicious for lung metastasis, there has been increase in number of these nodules. * Retroperitoneal lymphadenopathy, para-aortic, perigastric and around the celiac axis unchanged.. * Gallbladder distended, layering hyperdense material probably gallbladder sludge or small stones. * There is a 7 mm soft tissue opacity within the subcutaneous fat anterior pelvic wall, cannot rule out metastasis. * Other noncritical findings as above. (Referring physician staff is being called, by physician staff assistance, to be alerted of the above critical findings and recommendations.) ARIADNA 08/06/2022 6:10 PM
[2022-08-06 13:41] VITALS: BP 92/55; PULSE 120; RESP 19; TEMP 36.6; O2SAT 88; BMI 28.6
--- NOTE | 2022-08-06 13:41 | ED_ITS ---
HPI - General Adult General Chief complaint: General Medical Stated complaint: ? Kidney Function Sent By Guerrero Time Seen by Provider: 08/06/22 14:12 Related Data Home Medications Medication Instructions Recorded Confirmed albuterol sulfate 90 mcg/actuation 2 puff inhalation Q4H PRN wheezing 07/11/22 07/30/22 aerosol inhaler atorvastatin 40 mg tablet 40 mg PO DAILY 07/11/22 07/30/22 fluoxetine 20 mg capsule 40 mg PO DAILY 07/11/22 07/30/22 fluticasone propionate 50 1 spray intranasal BID PRN Allergy 07/11/22 07/30/22 mcg/actuation nasal Symptoms spray,suspension linaclotide 145 mcg capsule 145 mcg PO DAILY 07/11/22 07/30/22 (Linzess) trazodone 50 mg tablet 50 mg PO BEDTIME 07/11/22 07/30/22 Previous Rx's Medication Instructions Recorded lisinopril 10 mg tablet 10 mg PO DAILY #30 tabs 07/25/22 gabapentin 300 mg capsule 300 mg PO TID #90 caps 07/30/22 lorazepam 0.5 mg tablet 0.5 mg PO TID PRN Pain #60 tabs 07/30/22 morphine 60 mg tablet,extended 60 mg PO Q12H #60 tabs 07/30/22 release omeprazole 20 mg capsule,delayed 20 mg PO BID #60 caps 07/30/22 release ondansetron 8 mg disintegrating 8 mg PO Q8H PRN Nausea #60 tabs 07/30/22 tablet folic acid 1 mg tablet 1 mg PO DAILY #60 tabs 07/31/22 morphine 15 mg immediate release 15 mg PO Q4H PRN Pain, Severe 07/31/22 tablet (Pain Scale 7-10) #42 tabs morphine 60 mg tablet,extended 60 mg PO Q12H #60 tabs 08/01/22 release (MS Contin) dexamethasone 4 mg tablet 4 mg PO BID #30 tabs 08/04/22 cephalexin 500 mg capsule 500 mg PO Q8H #30 caps 08/06/22 Allergies Allergy/AdvReac Type Severity Reaction Status Date / Time No Known Allergies Allergy Verified 08/06/22 13:40 [facility] Past Medical History Medical History Anxiety Depression HTN (hypertension) Irritable bowel syndrome (IBS) Surgical History S/P lumpectomy, right breast Social History Social History Household Members: Spouse Housing: House Do you presently have visiting nurse or other home services: No Alcohol intake: current Alcohol intake frequency: a few times a week Patient Tobacco Use Status: Current everyday Tobacco user Tobacco use type: Cigarette Cigarette Packs Per Day: 1 e-Cigarette/Vaping Use: Currently Using Second Hand Smoke Exposure: No Substance Use Type: Marijuana Advance Directives: Yes Advance Directives on File: Yes Advance Directives Date on File: 07/11/22 Physical Exam ED Vital Signs: Vital Signs - 24 hr 08/06/22 13:41 Temperature 98 F Pulse Rate 120 H Respiratory Rate 19 Blood Pressure 92/55 L Pulse Oximetry 88 L Oxygen Delivery Method Room Air BMI result Body Mass Index 28.6 Course Course Course Narrative: RME: 46-year-old woman presenting with left adrenal mass, suspicious lymphadenopathy, multiple lung nodules, sent in by Dr. Masters for abdnormal renal fxn and leukocytosis noted on outpatient labs today. Patient admits to feeling lightheaded, generalized weakness, & exertional dyspnea. Also reports fever Thursday & Thursday Labs notable for leukocytosis of 16.4, renal function appears okay, higher than baseline but still within normal range Satting 88-91% on RA, tachycardic, hypotensive EKG, labs, CXR, UA ordered Full HPI, ROS and PE to be performed by primary ED provider. Discharge Plan Discharge Prescriptions: No Action atorvastatin 40 mg tablet 40 mg PO DAILY trazodone 50 mg tablet 50 mg PO BEDTIME albuterol sulfate 90 mcg/actuation HFA aerosol inhaler 2 puff INHALATION Q4H PRN (Reason: wheezing) fluoxetine 20 mg capsule 40 mg PO DAILY fluticasone propionate 50 mcg/actuation spray,suspension 1 spray intranasal BID PRN (Reason: Allergy Symptoms) Linzess 145 mcg capsule 145 mcg PO DAILY gabapentin 300 mg Capsule 300 mg PO TID Qty: 90 3RF morphine 60 mg Tablet Extended Release 60 mg PO Q12H Qty: 60 0RF Rx Instructions: Partial Fill upon patient request. lorazepam 0.5 mg Tablet 0.5 mg PO TID PRN (Reason: Pain) Qty: 60 0RF ondansetron 8 mg Tablet,Disintegrating 8 mg PO Q8H PRN (Reason: Nausea) Qty: 60 3RF omeprazole 20 mg Capsule,Delayed Release(Dr/Ec) 20 mg PO BID Qty: 60 3RF folic acid 1 mg Tablet 1 mg PO DAILY Qty: 60 3RF morphine 15 mg Tablet 15 mg PO Q4H PRN (Reason: Pain, Severe (Pain Scale 7-10)) Qty: 42 0RF Rx Instructions: Partial Fill upon patient request. morphine [MS Contin] 60 mg Tablet Extended Release 60 mg PO Q12H Qty: 60 0RF Rx Instructions: Partial Fill upon patient request. dexamethasone 4 mg Tablet 4 mg PO BID Qty: 30 3RF Rx Instructions: for 2 days after chemo cephalexin 500 mg Capsule 500 mg PO Q8H Qty: 30 0RF lisinopril 10 mg Tablet 10 mg PO DAILY Qty: 30 0RF Protocol: Hold for SBP< HOLD for SBP < : 90
--- NOTE | 2022-08-06 13:43 | ECG_ITS ---
Test Reason : CHEST PAIN Blood Pressure : / mmHG Vent. Rate : 112 BPM Atrial Rate : 112 BPM P-R Int : 160 ms QRS Dur : 082 ms QT Int : 326 ms P-R-T Axes : 055 038 063 degrees QTc Int : 444 ms Sinus tachycardia Possible Lateral infarct , age undetermined Inferior infarct , age undetermined Abnormal ECG No previous ECGs available Referred By: Aneta Snyder Electronically Signed By:PAULA ACOSTA
--- NOTE | 2022-08-06 14:35 | ED.GENADULT ---
HPI - General Adult General Chief complaint: General Medical Stated complaint: ? Kidney Function Sent By Guerrero Time Seen by Provider: 08/06/22 14:12 Source: patient, family, old records reviewed and other (spoke to her oncologist) Mode of arrival: ambulatory Limitations: no limitations History of Present Illness HPI narrative: 46 yo female with recent dx of stage IV lung cancer with adenocarcinoma with widely metastatic disease plan for palliative chemotherapy - she was due for port tomorrow but has had fevers of 102 over the weekend and now WBC count of 16 and urinary frequency. She was sent to the ED with c/o cough, sputum, increased dyspnea and scant hemoptysis that she just told she has had for about 1 week. She notes increased urinary frequency but when she tries to go nothing comes out. She has some mild low back pain which is chronic. She was referred as well to make sure she doesn't have renal vein thrombus by her oncologist. She is not on blood thinners MD complaint: fever, WBC count Onset (ago): day(s) (few) Severity: moderate Quality: aching Pain Consistency: intermittent Relieving factors: other (she did take tylenol for the fevers) Associated symptoms: cough, fever/chills, loss of appetite, malaise, shortness of breath and other (scant hemoptysis, urinary frequency) Treatments prior to arrival: other (referred by oncology) Related Data Home Medications Medication Instructions Recorded Confirmed albuterol sulfate 90 mcg/actuation 2 puff inhalation Q4H PRN wheezing 07/11/22 07/30/22 aerosol inhaler atorvastatin 40 mg tablet 40 mg PO DAILY 07/11/22 07/30/22 fluoxetine 20 mg capsule 40 mg PO DAILY 07/11/22 07/30/22 fluticasone propionate 50 1 spray intranasal BID PRN Allergy 07/11/22 07/30/22 mcg/actuation nasal Symptoms spray,suspension linaclotide 145 mcg capsule 145 mcg PO DAILY 07/11/22 07/30/22 (Linzess) trazodone 50 mg tablet 50 mg PO BEDTIME 07/11/22 07/30/22 Previous Rx's Medication Instructions Recorded lisinopril 10 mg tablet 10 mg PO DAILY #30 tabs 07/25/22 gabapentin 300 mg capsule 300 mg PO TID #90 caps 07/30/22 lorazepam 0.5 mg tablet 0.5 mg PO TID PRN Pain #60 tabs 07/30/22 morphine 60 mg tablet,extended 60 mg PO Q12H #60 tabs 07/30/22 release omeprazole 20 mg capsule,delayed 20 mg PO BID #60 caps 07/30/22 release ondansetron 8 mg disintegrating 8 mg PO Q8H PRN Nausea #60 tabs 07/30/22 tablet folic acid 1 mg tablet 1 mg PO DAILY #60 tabs 07/31/22 morphine 15 mg immediate release 15 mg PO Q4H PRN Pain, Severe 07/31/22 tablet (Pain Scale 7-10) #42 tabs morphine 60 mg tablet,extended 60 mg PO Q12H #60 tabs 08/01/22 release (MS Contin) dexamethasone 4 mg tablet 4 mg PO BID #30 tabs 08/04/22 cephalexin 500 mg capsule 500 mg PO Q8H #30 caps 08/06/22 Allergies Allergy/AdvReac Type Severity Reaction Status Date / Time No Known Allergies Allergy Verified 08/06/22 13:40 Review of Systems Review of Systems: Constitutional : No Weight loss, pos Fever, pos Chills, ENT/Mouth : No Hearing loss, No Ear Pain, No Nasal Congestion, No Sinus Pain, No Hoarseness, No sore throat, No Rhinorrhea, No Swallowing Difficulty Cardiovascular : No Chest Pain, pos SOB Respiratory : pos Cough, pos Dyspnea Gastrointestinal : No Nausea, No Vomiting, No Diarrhea, No abdominal Pain, No Hematochezia, No Melena Genitourinary : No Dysuria, pos Urinary Frequency, No Hematuria, No Urinary Incontinence, Musculoskeletal : positive back pain Skin : No Skin Lesions, No rash Neuro : No Weakness, No Numbness, No Paresthesias, no loss of bowel or bladder incontinence, no saddle anesthesia [facility] Past Medical History Attestation statement: The following information was validated with the patient. Medical History Adenocarcinoma of lung, stage 4 Anxiety Depression HTN (hypertension) Irritable bowel syndrome (IBS) Surgical History S/P lumpectomy, right breast Social History Social History Household Members: Spouse Housing: House Do you presently have visiting nurse or other home services: No Alcohol intake: current Alcohol intake frequency: a few times a week Patient Tobacco Use Status: Current everyday Tobacco user Tobacco use type: Cigarette Cigarette Packs Per Day: 1 e-Cigarette/Vaping Use: Currently Using Second Hand Smoke Exposure: No Substance Use Type: Marijuana Advance Directives Date on File: 07/11/22 Physical Exam ED Vital Signs: Vital Signs - 24 hr 08/06/22 13:41 08/06/22 16:07 08/06/22 18:22 Temperature 98 F 98.5 F 98.2 F Pulse Rate 120 H 112 H 101 H Respiratory Rate 19 24 H 20 Blood Pressure 92/55 L 91/54 L 97/49 L Pulse Oximetry 88 L 90 L 93 Oxygen Delivery Method Room Air Room Air Nasal Cannula Oxygen Flow Rate 2 BMI result Body Mass Index 28.6 Appearance: Alert. Oriented X3. No acute distress. Eyes: Pupils equal, round and reactive to light. ENT: Pharynx normal. Neck: Normal inspection. Neck supple. CVS: Normal heart rate and rhythm. Pulses normal. Respiratory: No respiratory distress. Breath sounds normal. Abdomen: Soft and non-tender. Back: mild low back pain Skin: Skin warm and dry. Normal skin color. Normal skin turgor. Extremities: No lower extremity edema. No calf ttp Neuro: Oriented X 3. No motor deficit. No sensory deficit. Course Course Course Narrative: urine not infected at this time 94% on 2L NC Reevaluation(s) Reevaluation #1: troponin 78.6 she denies chest pain could be strain from PE. no MARIN on EKG. has q waves on EKG inf leads Reevaluation #2: increase in troponin, CTA pending, no delta in troponin Reevaluation #3: given stranding around the kidney, WBC count and fevers at home though the UA is negative I am going to give a dose of empiric ceftriaxone - at this time possible infection suspected 619pm Additional Reevaluation(s): will add on azithromycin too in light of possible atypical lung infection Medications Administered Generic Name Dose Route Start Last Admin Trade Name Freq PRN Reason Stop Dose Admin Ceftriaxone Sodium 1 gm/ 50 mls @ 100 mls/hr 08/06/22 18:19 08/06/22 18:44 Sodium Chloride IV 08/06/22 18:48 100 mls/hr ONCE ONE Administration Discontinued Medications Generic Name Dose Route Start Last Admin Trade Name Anam PRN Reason Stop Dose Admin Lactated Ringer's 1,000 mls @ 999 mls/hr 08/06/22 14:30 08/06/22 16:01 Lr IV 08/06/22 15:30 999 mls/hr .Q1H1M MARLENA Administration Iohexol 100 ml 08/06/22 16:32 08/06/22 16:32 Iohexol 350 Mg/Ml 100 Ml Infus..Btl IV 08/06/22 16:33 85 ml ONCE ONE Administration Morphine Sulfate 15 mg 08/06/22 15:49 08/06/22 16:01 Morphine Sulfate Immed Release 15 Mg Tablet PO 08/06/22 15:50 15 mg ONCE ONE Administration Medical Decision Making Medical Decision Making MDM Narrative: 46 yo female with newly diagnosed metastatic lung cancer adenocarcinoma with widely metastatic disease - she sees Dr. Masters. She was due for a port tomorrow but told her oncologist she had fevers up to 102 over the weekend and has a new WBC count of 16 today on labs. She was sent to the ED given increased urinary frequency, WBC count, low back pain. She also c/o increased cough/hemoptysis, urinary frequency. At this time given her fevers, complaints of dyspnea/hemoptysis and low O2 sats on arrival I have ordered CTA:PE for PE but also post obstructive pneumonia. She also has low back pain there is a concern for possible renal vein thrombosis I have ordered CT scan to assess. I offered analgesia at this time but she declines. at this time tachycardia and hypotension I suspect is due to dehydration. Differential Diagnosis Differential Diagnoses: The differential diagnosis associated with the presentation includes fever associated with malignancy, PE, RV thrombosis Admission/Observation Consideration of admission/observation: Escalation of care including admission/observation considered Consult Healthcare Provider Management of the patient was discussed with: Hospitalist and Assistant Floor Covering Printer (spoke to Dr. Masters prior to patient coming to ED) Lab Data [facility] Lab Attestation statement: I reviewed the patient's lab results. 08/06/22 15:47 08/06/22 15:47 Labs: Lab Results 08/06/22 08/06/22 08/06/22 Range/Units 14:11 14:11 14:11 WBC (4.8-10.8) X10*3/uL RBC (4.20-5.50) X10*6/uL Hgb (12.0-16.0) g/dl Hct (37.0-47.0) % MCV (80.0-98.0) fL MCH (27.0-33.0) pg MCHC (31.0-35.0) g/dl RDW (11.0-16.0) % Plt Count (160-400) X10*3/uL MPV (9.4-12.3) fL Immature Gran % (Auto) (0.0-0.4) % Neut % (Auto) (45-73) % Lymph % (Auto) (20-40) % Reagan % (Auto) (2-11) % Eos % (Auto) (0-4) % Baso % (Auto) (0-2) % Lymph # (Auto) (1.2-4.9) X10*3/uL Reagan # (Auto) (0.1-1.2) X10*3/uL Eos # (Auto) (0.0-0.4) X10*3/uL Baso # (Auto) (0.0-0.2) X10*3/uL Abs Immat Gran (auto) (0.00-0.03) X10*3/uL Absolute Neuts (auto) (2.0-8.3) x10*3/uL Absolute Nucleated RBC (0.0-0.012) X10*3/uL Nucleated RBC % (auto) (0.0-0.2) /100WBC PT 13.6 H (10.0-13.1) SEC INR 1.2 H (0.9-1.1) Sodium (135-145) mmol/L Potassium (3.3-5.1) mmol/L Chloride (96-108) mmol/L Carbon Dioxide (22-29) mmol/L Anion Gap (12-20) BUN (9-16) mg/dL Creatinine (0.5-1.4) mg/dL Estim Creat Clear Calc Estimated GFR Random Glucose (60-115) mg/dL Lactic Acid 1.4 (0.5-2.0) mmol/L Calcium (8.4-10.2) mg/dL Total Bilirubin (0.0-1.0) mg/dL AST (5-31) U/L ALT (0-31) U/L Alkaline Phosphatase (39-117) U/L Troponin I High Sens (<3.5-17.0) ng/L B-Natriuretic Peptide 12 (<100) pg/mL Total Protein (6.5-8.0) g/dL Albumin (3.5-5.0) g/dL Urine Color Urine Appearance Urine pH (5.0-9.0) Ur Specific [place] (1.005-1.025) Urine Protein (Neg-Trace) mg/dL Urine Glucose (UA) (Negative) mg/dL Urine Ketones (Negative) mg/dL Urine Blood (Negative) Urine Nitrite (Negative) Ur Leukocyte Esterase (Negative) Urine RBC (0-2) /HPF Urine WBC (0-5) /HPF Ur Squamous Epith Cells (0-2) /HPF Urine Bacteria (None Seen) Hyaline Casts (0-2) /LPF 08/06/22 08/06/22 08/06/22 Range/Units 14:11 15:40 15:47 WBC (4.8-10.8) X10*3/uL RBC (4.20-5.50) X10*6/uL Hgb (12.0-16.0) g/dl Hct (37.0-47.0) % MCV (80.0-98.0) fL MCH (27.0-33.0) pg MCHC (31.0-35.0) g/dl RDW (11.0-16.0) % Plt Count (160-400) X10*3/uL MPV (9.4-12.3) fL Immature Gran % (Auto) (0.0-0.4) % Neut % (Auto) (45-73) % Lymph % (Auto) (20-40) % Reagan % (Auto) (2-11) % Eos % (Auto) (0-4) % Baso % (Auto) (0-2) % Lymph # (Auto) (1.2-4.9) X10*3/uL Reagan # (Auto) (0.1-1.2) X10*3/uL Eos # (Auto) (0.0-0.4) X10*3/uL Baso # (Auto) (0.0-0.2) X10*3/uL Abs Immat Gran (auto) (0.00-0.03) X10*3/uL Absolute Neuts (auto) (2.0-8.3) x10*3/uL Absolute Nucleated RBC (0.0-0.012) X10*3/uL Nucleated RBC % (auto) (0.0-0.2) /100WBC PT (10.0-13.1) SEC INR (0.9-1.1) Sodium (135-145) mmol/L Potassium (3.3-5.1) mmol/L Chloride (96-108) mmol/L Carbon Dioxide (22-29) mmol/L Anion Gap (12-20) BUN (9-16) mg/dL Creatinine (0.5-1.4) mg/dL Estim Creat Clear Calc Estimated GFR Random Glucose (60-115) mg/dL Lactic Acid (0.5-2.0) mmol/L Calcium (8.4-10.2) mg/dL Total Bilirubin (0.0-1.0) mg/dL AST (5-31) U/L ALT (0-31) U/L Alkaline Phosphatase (39-117) U/L Troponin I High Sens 78.6 H* 88.3 H* (<3.5-17.0) ng/L B-Natriuretic Peptide (<100) pg/mL Total Protein (6.5-8.0) g/dL Albumin (3.5-5.0) g/dL Urine Color Dark Yellow Urine Appearance Cloudy Urine pH 5.0 (5.0-9.0) Ur Specific [place] >= 1.030 H (1.005-1.025) Urine Protein 30 (1+) H (Neg-Trace) mg/dL Urine Glucose (UA) Negative (Negative) mg/dL Urine Ketones Trace (Negative) mg/dL Urine Blood Negative (Negative) Urine Nitrite Negative (Negative) Ur Leukocyte Esterase Trace H (Negative) Urine RBC 3-5 H (0-2) /HPF Urine WBC 0-5 (0-5) /HPF Ur Squamous Epith Cells 6-10 (0-2) /HPF Urine Bacteria None Seen (None Seen) Hyaline Casts >20 (0-2) /LPF 08/06/22 08/06/22 Range/Units 15:47 15:47 WBC 16.6 H (4.8-10.8) X10*3/uL RBC 3.98 L (4.20-5.50) X10*6/uL Hgb 12.8 (12.0-16.0) g/dl Hct 38.0 (37.0-47.0) % MCV 95.5 (80.0-98.0) fL MCH 32.2 (27.0-33.0) pg MCHC 33.7 (31.0-35.0) g/dl RDW 14.6 (11.0-16.0) % Plt Count 443 H (160-400) X10*3/uL MPV 8.6 L (9.4-12.3) fL Immature Gran % (Auto) 0.6 H (0.0-0.4) % Neut % (Auto) 77.0 H (45-73) % Lymph % (Auto) 9.5 L (20-40) % Reagan % (Auto) 7.2 (2-11) % Eos % (Auto) 5.2 H (0-4) % Baso % (Auto) 0.5 (0-2) % Lymph # (Auto) 1.6 (1.2-4.9) X10*3/uL Reagan # (Auto) 1.2 (0.1-1.2) X10*3/uL Eos # (Auto) 0.9 H (0.0-0.4) X10*3/uL Baso # (Auto) 0.1 (0.0-0.2) X10*3/uL Abs Immat Gran (auto) 0.10 H (0.00-0.03) X10*3/uL Absolute Neuts (auto) 12.8 H (2.0-8.3) x10*3/uL Absolute Nucleated RBC 0.000 (0.0-0.012) X10*3/uL Nucleated RBC % (auto) 0.0 (0.0-0.2) /100WBC PT (10.0-13.1) SEC INR (0.9-1.1) Sodium 130 L (135-145) mmol/L Potassium 4.4 (3.3-5.1) mmol/L Chloride 93 L (96-108) mmol/L Carbon Dioxide 24 (22-29) mmol/L Anion Gap 17 (12-20) BUN 18 H (9-16) mg/dL Creatinine 1.26 (0.5-1.4) mg/dL Estim Creat Clear Calc 58.8 Estimated GFR 46 Random Glucose 100 (60-115) mg/dL Lactic Acid (0.5-2.0) mmol/L Calcium 9.9 (8.4-10.2) mg/dL Total Bilirubin 0.5 (0.0-1.0) mg/dL AST 28 (5-31) U/L ALT 29 (0-31) U/L Alkaline Phosphatase 160 H (39-117) U/L Troponin I High Sens (<3.5-17.0) ng/L B-Natriuretic Peptide (<100) pg/mL Total Protein 7.0 (6.5-8.0) g/dL Albumin 3.3 L (3.5-5.0) g/dL Urine Color Urine Appearance Urine pH (5.0-9.0) Ur Specific [place] (1.005-1.025) Urine Protein (Neg-Trace) mg/dL Urine Glucose (UA) (Negative) mg/dL Urine Ketones (Negative) mg/dL Urine Blood (Negative) Urine Nitrite (Negative) Ur Leukocyte Esterase (Negative) Urine RBC (0-2) /HPF Urine WBC (0-5) /HPF Ur Squamous Epith Cells (0-2) /HPF Urine Bacteria (None Seen) Hyaline Casts (0-2) /LPF Independent Interpretation I performed an independent interpretation of an: EKG and CT Scan Interpretation: Rate: 112 Rhythm: sinus tachycardia [place]: normal Normal P waves. Normal MELQUIADES. Normal QRS complex. ST T wave : no MARIN, nonspecific ST T wave changes, q waves inf leads qTC: normal prior studies: no acute ischemia The study has been interpreted contemporaneously by me. . Radiology Impression Discussion of test interpretation with radiology: I have reviewed the radiologist's reading. Independent Historian Clinical information obtained from an independent historian. History obtained from or confirmed by: Parent External Record Review External record reviewed: Inpatient record, Outpatient record and Prior outpatient labs Discharge Plan Discharge Clinical Impression: Opacity of lung on imaging study, Acute febrile illness, Hypoxia, Flank pain, Elevated troponin Patient Disposition: Admitted As Inpatient
[2022-08-06 14:37] LABS: Lactic Acid 1.4 mmol/L (0.5-2.0)
[2022-08-06 14:44] LABS: B Type Natriuretic Peptide 12 pg/mL (<100)
[2022-08-06 14:46] LABS: INTERNATIONAL NORM RATIO 1.2 (0.9-1.1); Prothrombin Time 13.6 SEC (10.0-13.1)
[2022-08-06 14:53] LABS: Troponin-I High Sensitivity 78.6 ng/L (<3.5-17.0)
[2022-08-06 15:48] LABS: Appearance Urine Cloudy; Color Urine Dark Yellow; Glucose Urine UA Negative (Negative); Leukocyte Esterase Urine Trace (Negative); Nitrite Urine Negative (Negative); Specific Gravity - Urine >= 1.030 (1.005-1.025); UMIC TRIGGER UACC YES; Urine Blood Negative (Negative); Urine Ketones Trace mg/dL (Negative); Urine Protein 30 (1+) mg/dL (Neg-Trace)
[2022-08-06 15:50] LABS: MANUAL DIFF FLAG NO
--- NOTE | 2022-08-06 15:54 | MHC.HEMONC ---
Pt came in for labs today. She was scheduled for port tomorrow and c1d1 chemo tomorrow but WBC was high. Pt had reported a fever that occurred over weekend but resolved. Because of WBC and increase in serum creatinine, pt was advised by Dr Masters to come to ER for w/u. I canceled her port for tomorrow and it is r/s for 08/13. We are not yet sure when chemo will be able to start.
[2022-08-06 15:58] LABS: Basophils Absolute Auto 0.1 X10*3/uL (0.0-0.2); Basophils Percent Auto 0.5 % (0-2); Eosinophils Absolute Auto 0.9 X10*3/uL (0.0-0.4); Eosinophils Percent Auto 5.2 % (0-4); Hemoglobin 12.8 g/dl (12.0-16.0); Imm Gran Pct Auto 0.6 % (0.0-0.4); Lymphocytes Absolute Auto 1.6 X10*3/uL (1.2-4.9); Lymphocytes Percent Auto 9.5 % (20-40); Mean Corpuscular HGB Conc 33.7 g/dl (31.0-35.0); Mean Corpuscular Hemoglobin 32.2 pg (27.0-33.0); Mean Corpuscular Volume 95.5 fL (80.0-98.0); Mean Platelet Volume 8.6 fL (9.4-12.3); Monocytes Absolute Auto 1.2 X10*3/uL (0.1-1.2); Monocytes Percent Auto 7.2 % (2-11); Neutrophils Absolute Auto 12.8 x10*3/uL (2.0-8.3); Platelet Count 443 X10*3/uL (160-400); Red Blood Count 3.98 X10*6/uL (4.20-5.50); Red Cell Distribution Width 14.6 % (11.0-16.0); White Blood Count 16.6 X10*3/uL (4.8-10.8)
[2022-08-06] MEDS: Lactated Ringers 1,000 ML 999 ML IV ×2 (16:01→22:02)
[2022-08-06] MEDS: Morphine Sulfate Immed Release 15 MG TABLET PO ×2 (16:01→22:17)
[2022-08-06 16:07] VITALS: BP 91/54; PULSE 112; RESP 24; TEMP 36.9; O2SAT 90
[2022-08-06 16:08] LABS: Bacteria Urine None Seen (None Seen); Hyaline Casts Urine >20 /LPF (0-2); WBC Urine 0-5 /HPF (0-5)
[2022-08-06 16:14] LABS: Alanine Aminotransferase 29 U/L (0-31); Albumin Level 3.3 g/dL (3.5-5.0); Alkaline Phosphatase 160 U/L (39-117); Anion Gap 17 (12-20); Aspartate Amino Transferase 28 U/L (5-31); Bilirubin Total 0.5 mg/dL (0.0-1.0); Blood Urea Nitrogen 18 mg/dL (9-16); Calcium 9.9 mg/dL (8.4-10.2); Carbon Dioxide 24 mmol/L (22-29); Chloride 93 mmol/L (96-108); Creatinine Clr Calc Pharmacy 58.8; Estimated Glomerular Filt Rate 46; Glucose Random 100 mg/dL (60-115); Potassium 4.4 mmol/L (3.3-5.1); Sodium 130 mmol/L (135-145)
--- NOTE | 2022-08-06 16:25 | PC.NURSE ---
Upon ambulating to bathroom, oxygen dropped to 85%. While resting in bed maintaining 88-90%, placed on 2L now at 95%
[2022-08-06 16:32] LABS: Troponin-I High Sensitivity 88.3 ng/L (<3.5-17.0)
[2022-08-06] MEDS: iohexoL 350 MG/ML 100 ML INFUS..BTL IV (16:32)
[2022-08-06 18:22] VITALS: BP 97/49; PULSE 101; RESP 20; TEMP 36.8; O2SAT 93
[2022-08-06] MEDS: cefTRIAXone sodium 1 GM in 0.9 % Sodium Chloride 50 ML IV (18:44)
[2022-08-06 19:04] VITALS: BP 97/56; PULSE 103; RESP 21
[2022-08-06] MEDS: LORazepam 1 MG TABLET PO (19:34)
[2022-08-06] MEDS: fentaNYL citrate/PF 100 MCG/2 ML VIAL 50 MCG IVPUSH (19:34)
--- NOTE | 2022-08-06 19:42 | PM.IMHP ---
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 She states that over the weekend she has had fevers up to 102 with associated chills as well as cough with white blood 10 in sputum production and dyspnea on exertion. She also reports 5/10 pleuritic chest pain. She continues to experience left-sided abdominal pain and has 1-2 episodes of diarrhea on daily basis. She is also endorsing urinary frequency but no dysuria, hematuria, urgency, or flank pain. She was referred by her oncologist to make sure she does not have renal vein thrombosis. On arrival, blood pressure is soft to 91/54 97/56 with 1 L IVF. She is also tachycardic to 120, tachypneic to 24, and hypoxic at 88% improved to 95% on 3 L supplemental O2. She does not use supplemental O2 at baseline. There is a leukocytosis of 16.8. No anemia. Creatinine of 1.26, previously 0.55 on 07/24. BUN 18. Sodium 130, potassium 4.4, chloride 93, CO2 24, anion gap 17. Patient states she has been tolerating fluids but has not been eating much due anorexia. Initial troponin 78.6, repeat 88.3. EKG shows sinus tachycardia, rate 112 with Q-waves present in inferior leads. CT abdomen/pelvis continues to show mild left renal hydronephrosis and hydroureter without obstructing stone and perinephric fat stranding concerning for possible infection versus inflammatory process nephritis. There is also redemonstrated 5.8 cm left adrenal mass that is unchanged with compression on the adjacent left renal vein with possible clues in obstruction of the left renal vein which could also be explained by sequela of engorgement due to venous obstruction. There also numerous lung nodules suspicious for metastasis increased in number compared to prior studies. There is also retroperitoneal lymphadenopathy, periaortic Pac, perigastric, and lymphadenopathy around the celiac axis which is unchanged. The gallbladder is distended with gallbladder sludge versus small stones. Among other findings. Urinalysis is only significant for trace leukocytes, 1+ protein, and elevated specific gravity. No bacteria. CTA chest is negative for evidence of large central pulmonary emboli though there is suboptimal filling of peripheral secondary and tertiary branches is felt to be artifact due to extensive adjacent disease. As before, there is significant increase in the number and size of numerous solid and subsolid ground-glass like lung nodules. There is also patchy airspace interstitial open ossification involving the lungs diffusely which could be due to lymphangitic spread or superimposed atypical infection. Review of Systems Review of Systems: General: No malaise, unintentional weight loss, +fevers, +anorexia HEENT: No blurred vision, diplopia. No sore throat, nasal congestion, rhinorrhea, sinus pain, ear pain Cardiovascular: No chest pain, palpitations, or leg edema Respiratory: +productive cough, +hemopysis, +flowers, +pleuritic cp. No wheezing GI: +abd pain, +diarrhea. No nausea, vomiting, constipation, melena, hematochezia : No dysuria, hematuria, increased urinary frequency, decreased urinary output MSK: No myalgia, back pain Neuro: No headaches, weakness, paresthesias Skin: No rashes or lesions [facility] Medical History Adenocarcinoma of lung, stage 4 Anxiety Depression HTN (hypertension) Irritable bowel syndrome (IBS) Surgical History S/P lumpectomy, right breast Social History Household Members: Spouse Housing: House Do you presently have visiting nurse or other home services: No Alcohol intake: current Alcohol intake frequency: a few times a week Patient Tobacco Use Status: Current everyday Tobacco user Tobacco use type: Cigarette Cigarette Packs Per Day: 1 e-Cigarette/Vaping Use: Currently Using Second Hand Smoke Exposure: No Substance Use Type: Marijuana Advance Directives Date on File: 07/11/22 Meds Allergies Allergy/AdvReac Type Severity Reaction Status Date / Time No Known Allergies Allergy Verified 08/06/22 13:40 Active Medications: Current Medications Acetaminophen (Acetaminophen 325 Mg Tablet) 650 mg PO Q6H PRN PRN Reason: Pain, Mild (Pain Scale 1-3) Docusate Sodium (Docusate Sodium 100 Mg Capsule) 100 mg PO DAILY PRN PRN Reason: Constipation Azithromycin 500 mg/ Sodium (Chloride) 250 mls @ 125 mls/hr IV ONCE ONE Stop: 08/06/22 20:31 Lactated Ringer's (Lr) 1,000 mls @ 999 mls/hr IV .Q1H1M MARLENA Stop: 08/06/22 20:45 Ondansetron HCl (Ondansetron Hcl 4 Mg/2 Ml Vial) 4 mg IVPUSH Q8H PRN PRN Reason: Nausea and Vomiting Sodium Chloride (0.9 % Sodium Chloride Flush 3 Ml Syringe) 3 ml IVFLUSH QSHIFT [facility] Home Medications Medication Instructions Recorded Confirmed Last Taken Type albuterol sulfate 90 mcg/actuation 2 puff inhalation Q4H PRN wheezing 07/11/22 07/30/22 Unknown History aerosol inhaler atorvastatin 40 mg tablet 40 mg PO DAILY 07/11/22 07/30/22 07/22/22 History fluoxetine 20 mg capsule 40 mg PO DAILY 07/11/22 07/30/22 07/22/22 History fluticasone propionate 50 1 spray intranasal BID PRN Allergy 07/11/22 07/30/22 Unknown History mcg/actuation nasal Symptoms spray,suspension linaclotide 145 mcg capsule 145 mcg PO DAILY 07/11/22 07/30/22 07/22/22 History (Linzess) trazodone 50 mg tablet 50 mg PO BEDTIME 07/11/22 07/30/22 07/22/22 History Physical Exam Vital Signs and Narrative: Vital Signs: Last Vital Signs Temp 98.2 F 08/06/22 18:22 Pulse 103 H 08/06/22 19:04 Resp 21 H 08/06/22 19:04 BP 97/56 L 08/06/22 19:04 Pulse Ox 93 08/06/22 18:22 O2 Del Method Nasal Cannula 08/06/22 19:04 O2 Flow Rate 3 08/06/22 19:04 BMI result Body Mass Index 28.6 Constitutional - Awake and Alert, No apparent distress Eyes - PERRLA, EOMI Cardiovascular - S1S2, RRR, No edema Respiratory - Normal lung expansion, Normal respiratory effort, No respiratory distress, rhonchi bilaterally Gastrointestinal - LUQ ttp. ND; +BS; No rebound or guarding - No CVA tenderness Extremities - no calf tenderness bilaterally, no swelling Musculoskeletal - Normal inspection, normal ROM Skin - Warm/Dry Neurological - Alert & oriented x3 Psychological - Appropriate affect Results Labs 08/06/22 15:47 08/06/22 15:47 Labs: Laboratory Results - last 24 hr 08/06/22 08/06/22 08/06/22 14:11 14:11 14:11 MCV MCH MCHC RDW Plt Count MPV Immature Gran % (Auto) Neut % (Auto) Lymph % (Auto) Christian % (Auto) Eos % (Auto) Baso % (Auto) Lymph # (Auto) Christian # (Auto) Eos # (Auto) Baso # (Auto) Abs Immat Gran (auto) Absolute Neuts (auto) Absolute Nucleated RBC Nucleated RBC % (auto) PT 13.6 H INR 1.2 H Anion Gap Estim Creat Clear Calc Estimated GFR Random Glucose Lactic Acid 1.4 Calcium Total Bilirubin AST ALT Alkaline Phosphatase Troponin I High Sens B-Natriuretic Peptide 12 Total Protein Albumin Urine Color Urine Appearance Urine pH Ur Specific Margaret Urine Protein Urine Glucose (UA) Urine Ketones Urine Blood Urine Nitrite Ur Leukocyte Esterase Urine RBC Urine WBC Ur Squamous Epith Cells Urine Bacteria Hyaline Casts 08/06/22 08/06/22 08/06/22 14:11 15:40 15:47 MCV MCH MCHC RDW Plt Count MPV Immature Gran % (Auto) Neut % (Auto) Lymph % (Auto) Christian % (Auto) Eos % (Auto) Baso % (Auto) Lymph # (Auto) Christian # (Auto) Eos # (Auto) Baso # (Auto) Abs Immat Gran (auto) Absolute Neuts (auto) Absolute Nucleated RBC Nucleated RBC % (auto) PT INR Anion Gap Estim Creat Clear Calc Estimated GFR Random Glucose Lactic Acid Calcium Total Bilirubin AST ALT Alkaline Phosphatase Troponin I High Sens 78.6 H* 88.3 H* B-Natriuretic Peptide Total Protein Albumin Urine Color Dark Yellow Urine Appearance Cloudy Urine pH 5.0 Ur Specific Margaret >= 1.030 H Urine Protein 30 (1+) H Urine Glucose (UA) Negative Urine Ketones Trace Urine Blood Negative Urine Nitrite Negative Ur Leukocyte Esterase Trace H Urine RBC 3-5 H Urine WBC 0-5 Ur Squamous Epith Cells 6-10 Urine Bacteria None Seen Hyaline Casts >20 08/06/22 08/06/22 15:47 15:47 MCV 95.5 MCH 32.2 MCHC 33.7 RDW 14.6 Plt Count 443 H MPV 8.6 L Immature Gran % (Auto) 0.6 H Neut % (Auto) 77.0 H Lymph % (Auto) 9.5 L Christian % (Auto) 7.2 Eos % (Auto) 5.2 H Baso % (Auto) 0.5 Lymph # (Auto) 1.6 Christian # (Auto) 1.2 Eos # (Auto) 0.9 H Baso # (Auto) 0.1 Abs Immat Gran (auto) 0.10 H Absolute Neuts (auto) 12.8 H Absolute Nucleated RBC 0.000 Nucleated RBC % (auto) 0.0 PT INR Anion Gap 17 Estim Creat Clear Calc 58.8 Estimated GFR 46 Random Glucose 100 Lactic Acid Calcium 9.9 Total Bilirubin 0.5 AST 28 ALT 29 Alkaline Phosphatase 160 H Troponin I High Sens B-Natriuretic Peptide Total Protein 7.0 Albumin 3.3 L Urine Color Urine Appearance Urine pH Ur Specific Margaret Urine Protein Urine Glucose (UA) Urine Ketones Urine Blood Urine Nitrite Ur Leukocyte Esterase Urine RBC Urine WBC Ur Squamous Epith Cells Urine Bacteria Hyaline Casts Imaging Radiologist's Impressions: Impressions Abdomen/Pelvis CT 08/06/22 17:00 IMPRESSION: * Redemonstration of mild left renal hydronephrosis and hydroureter without obstructing stone, there is fat stranding surrounding the left ureter and left kidney concerning for possible infection or inflammatory process nephritis. * Redemonstration of heterogeneous left adrenal mass 5.8 cm unchanged. Compatible with patient history of left adrenal carcinoma. * There is compression of the left adrenal mass on the adjacent left renal vein, possible occlusion obstruction of the left renal vein. Changes described in the left kidney could be sequela of engorgement due to venous obstruction. * Redemonstration of numerous lung nodules suspicious for lung metastasis, there has been increase in number of these nodules. * Retroperitoneal lymphadenopathy, para-aortic, perigastric and around the celiac axis unchanged.. * Gallbladder distended, layering hyperdense material probably gallbladder sludge or small stones. * There is a 7 mm soft tissue opacity within the subcutaneous fat anterior pelvic wall, cannot rule out metastasis. * Other noncritical findings as above. (Referring physician staff is being called, by physician staff assistance, to be alerted of the above critical findings and recommendations.) AJ 08/06/2022 6:10 PM Chest CTA 08/06/22 17:00 IMPRESSION: * No CT evidence of large central pulmonary emboli, there is suboptimal filling of peripheral secondary and tertiary branches felt to be an artifacts due to extensive adjacent disease involving both lungs. * There has been significant increase in the number and size of numerous solid and subsolid groundglass lung nodules involving both lungs diffusely, this is compatible with patient history of pulmonary metastasis. * There is also patchy airspace interstitial opacification involving the lungs diffusely which could be due to lymphangitic spread and/or superimposed atypical infection. * Increasing mediastinal and hilar lymphadenopathy. * No pleural effusion. 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 #Severe Sepsis due to atypical penumonia -Tachycardic to 120, tachypneic, WBC 16. Lactic acid normal, DAYA -Abx as below -BPs soft, continue IVF -Follow cbc, cultures #Acute hypxocemic respiratory failure -likely multifactorial with stage 4 adenocarcinoma lung and pneumonia -Continue supplemental O2 to maintain oximetry >92% #Acute atypical pneumonia -Strep pneumo, legionella ag, sputum culture -IV ceftriaxone and azithromycin (initiated 08/06) -symptomatic management -Consider pulmonology if no improvements -albuterol prn -Follow cultures #Hemoptysis -blood tinged sputum likely related to pneumonia, metastatic disease -No large PE on CTA chest, less likely PE in secondary and tertiary branches, not an anticoagulation candidate #Acute kidney injury- likely related to infection as well as from large adrenal mass causing renal vein occlusion and hydronephrosis -Creat 1.26, baseline 0.55 -Addl liter IVF given -Follow BMP #Acute hyponatremia- related to daya -follow bmp, urine studies pending #Elevated troponins -Likely related to demand with metastatic disease. -Initial trop 78.6, repeat 88.3. BNP normal -EKG showing sinus tach, rate 112, q waves inferior leads -CTA chest negative for large PE with secondary and tertiary branches with abnormal filling, more likely related to artifact from extensive adjacent disease. -She is not a candidate for anticoagulation given hemoptysis -Will obtain echo tomorrow #Stage 4 adenocarcinoma lung with widespread mets -Pain management, continue home meds -outpt follow up with oncology -was due for port placement for palliative chemo tomorrow #Acute diarrhea -?related to IBS but has had abx recently -Check CDiff and GI panel #Anxiety -continue lorazepam Cigarette smoker -decline NRT, counseling offered DVT prophylaxis- SCPs given hemoptysis Full code Pt requires inpt stay at least 2 midnight for management of atypical pneumonia in patient with metastatic cancer who has severe sepsis , DAYA, and acute hypoxia Time Spent With Patient Time: Total time managing care of this patient today ____ minutes. Quality Stroke Does the patient have a stroke diagnosis?: No VTE Prior VTE?: No VTE Risk Level:: Medical - moderate - high VTE Device Contraindication: N/A - Device Ordered VTE Drug Contraindication: Treatment Not Indicated
--- NOTE | 2022-08-06 20:21 | PHA.MEDREC ---
Pharmacy Consult ? Medication Reconciliation Pharmacy has completed the medication reconciliation. spoke with patient.
[2022-08-06] MEDS: Azithromycin 500 MG in 0.9 % Sodium Chloride 250 ML 125 MG IV (20:37)
[2022-08-06 21:54] VITALS: BP 85/42; PULSE 115; RESP 21; TEMP 37; O2SAT 95
[2022-08-06 21:57] VITALS: BP 84/42
[2022-08-06] MEDS: Gabapentin 300 MG CAPSULE PO (22:13)
[2022-08-06] MEDS: traZODone HCL 50 MG TABLET PO (22:13)
[2022-08-07] MEDS: Lactated Ringers 1,000 ML 999 ML IV
[2022-08-07] MEDS: HYDROmorphone HCl 1 MG/ML SYRINGE IVPUSH (05:14)
[2022-08-07 05:50] VITALS: BP 104/56; PULSE 97; RESP 19; TEMP 36.8; O2SAT 92
[2022-08-07 06:40] LABS: MANUAL DIFF FLAG NO
[2022-08-07 06:44] LABS: Basophils Absolute Auto 0.1 X10*3/uL (0.0-0.2); Basophils Percent Auto 0.4 % (0-2); Eosinophils Absolute Auto 1.1 X10*3/uL (0.0-0.4); Eosinophils Percent Auto 7.6 % (0-4); Hematocrit 32.9 % (37.0-47.0); Hemoglobin 11.1 g/dl (12.0-16.0); Imm Gran Abs Auto 0.07 X10*3/uL (0.00-0.03); Imm Gran Pct Auto 0.5 % (0.0-0.4); Lymphocytes Absolute Auto 1.1 X10*3/uL (1.2-4.9); Lymphocytes Percent Auto 8.1 % (20-40); Mean Corpuscular HGB Conc 33.7 g/dl (31.0-35.0); Mean Corpuscular Volume 94.8 fL (80.0-98.0); Mean Platelet Volume 8.7 fL (9.4-12.3); Monocytes Absolute Auto 1.3 X10*3/uL (0.1-1.2); Monocytes Percent Auto 9.1 % (2-11); Neutrophils Absolute Auto 10.3 x10*3/uL (2.0-8.3); Neutrophils Percent Auto 74.3 % (45-73); Platelet Count 437 X10*3/uL (160-400); Red Blood Count 3.47 X10*6/uL (4.20-5.50); Red Cell Distribution Width 14.7 % (11.0-16.0); White Blood Count 13.9 X10*3/uL (4.8-10.8)
[2022-08-07 06:57] LABS: Anion Gap 17 (12-20); Blood Urea Nitrogen 10 mg/dL (9-16); Calcium 9.5 mg/dL (8.4-10.2); Carbon Dioxide 23 mmol/L (22-29); Chloride 97 mmol/L (96-108); Creatinine Clr Calc Pharmacy 107.4; Estimated Glomerular Filt Rate > 60; Glucose Random 89 mg/dL (60-115); Potassium 4.2 mmol/L (3.3-5.1); Sodium 133 mmol/L (135-145)
--- NOTE | 2022-08-07 07:00 | CA_ITS ---
Transthoracic Echocardiogram Patient (Last, First, Middle): Bell Alfaro L Gender: Female Date of : 1975 Age: 46 Procedure Date: 08/07/2022 Procedure Type: Transthoracic Echocardiogram Location: S3E Height: 165.1 cm Weight: 78.02 kg BSA: 1.86 m2 Heart Rate: bpm BP: 104 / 56 mmHg Cleaning Attendant: TO Referring MD: Inessa ROSENTHAL Symptoms: elevated trops Study Quality: Technically Difficult/severe pain ECG Rhythm: Sinus Conclusions: - The left ventricular systolic function is normal. The visually estimated ejection fraction is between 55-60%. - No obvious valvular pathology seen on this study. Findings Left Ventricle Normal left ventricular cavity size. There is normal left ventricular wall thickness. The left ventricular systolic function is normal. The visually estimated ejection fraction is between 55-60%. There is no evidence of regional wall motion abnormalities. Diastolic function is normal for age. Right Ventricle Normal right ventricular cavity size and systolic function. Atria Both atria are normal in size. Aortic Valve There is a normal trileaflet aortic valve. There is no aortic valve stenosis. There is no aortic valve regurgitation. Mitral Valve The mitral valve appears normal. There is no mitral valve regurgitation. There is no mitral valve stenosis. Pulmonic Valve The pulmonic valve is likely normal. Tricuspid Valve There is no tricuspid valve regurgitation. Tricuspid regurgitation envelope is inadequate for calculation of right ventricular systolic pressure. Great Vessels The asc aorta is normal in size. Venous The inferior vena cava was not well visualized. Pericardium/Pleural There is no evidence of pericardial effusion. Prior Study Comparison No prior study available for comparison. Recommendations, Care & Conclusions No obvious valvular pathology seen on this study. Measurements 2D Linear Measurements IVSd: 0.81 0.6-0.9/0.6-1.0 cm LVIDd: 4.70 3.9-5.3/4.2-5.9 cm LVIDd Index: 2.53 2.4-3.2/2.2-3.1 cm/m2 LVIDs: 2.88 2.0-3.6 cm LVPWd: 0.67 0.7-1.1 cm LA Diam: 3.30 2.7-3.8/3.0-4.0 cm LAIDs Index: 1.77 1.5-2.3 cm/m2 LV Mass: 136.90 67-162/88-224 g LV Mass Index: 73.60 43-95/49-115 g/m2 LVOT Diam: 1.90 3.0+(-)1.3 cm 2D Systolic Function EF 4C: 56.00 >55% Mitral Valve MV Pk E: 0.66 MV PK A: 0.51 MV Decel Time: 181.00 E/A: 1.30 E'Lateral: 14.00 E'Medial: 9.79 E/E' Med: 6.70 E/E' Lat: 4.70 PHT: 53.00 MVA PHT: 4.15 Decel [place]: 3.65 Aortic Valve AoV Pk Cameron: 1.23 AoV Mn Cameron: 0.86 AoV VTI: 0.22 AoV Pk Grad: 6.00 Aov Mn Grad: 3.00 ROSALIO Cont.VTI: 2.34 LVOT LVOT Pk Cameron: 0.91 LVOT Mn Cameron: 0.62 LVOT VTI: 0.18 LVOT Pk Grad: 3.00 LVOT Mn Grad: 2.00 LVOT Diam: 1.90 LVOT Area: 2.84 Diastolic Function MV Pk E: 0.66 MV Pk A: 0.51 E/A: 1.30 E'Medial: 9.79 E/E' Med: 6.70 E' Laterial: 14.00 E/E' Lat: 4.70 Right Ventricle TAPSE (mm): 22.40 TVS' Cameron: 16.40 Great Vessels Aorta Sinus of Valsalva: 3.27 2.0-3.5 cm Ao Asc: 3.00 2.1-3.4 cm Updated in Other Vendor System with Status of Final Efrain Jason MD electronically signed on 08/07/2022 4:20:55 PM with status of Final
[2022-08-07] MEDS: Omeprazole 20 MG CAPSULE.DR PO ×2 (07:54→15:46)
[2022-08-07 08:41] VITALS: BP 98/62; PULSE 85; RESP 20; O2SAT 97
[2022-08-07] MEDS: Gabapentin 300 MG CAPSULE PO ×3 (08:59→20:01)
[2022-08-07] MEDS: FLUoxetine HCl 20 MG CAPSULE 40 MG PO (08:59)
[2022-08-07] MEDS: Atorvastatin Calcium 40 MG TABLET PO (09:00)
[2022-08-07] MEDS: LORazepam 0.5 MG TABLET PO (09:18)
[2022-08-07 09:20] VITALS: RESP 16
[2022-08-07] MEDS: HYDROmorphone HCl 0.5 MG/0.5 ML SYRINGE IVPUSH ×4 (09:20→23:09)
--- NOTE | 2022-08-07 10:49 | PC.NURSE ---
obtained report from jing- pt then transported to [facility]- assumed care at 950 am, patient a&ox3, 3L O2 nc- not home dependent- pts lungs clear/diminished throughout, pt c/o mid abd pain which radiates to back, pt medicated for pain prior to coming to [facility], pt independent to bathroom, call lira within reach, will continue to monitor
--- NOTE | 2022-08-07 12:14 | PC.NURSE ---
called floor to give report, nurse doing an admit and will call back to get report
[2022-08-07] MEDS: Morphine Sulfate Immed Release 15 MG TABLET PO (12:39)
--- NOTE | 2022-08-07 13:17 | PC.NURSE ---
this nurse spoke with the patient a short time ago,medicated the patient with PO pain meds as IVP wasnt due yet and told the patient the time which she could be medicated. pt requested prune juice and the kitchen was called to request to have it placed on the tray as well as having some additional brought over for her. This nurse also told the patient that she had an inpt bed that was being assigned but it will be a while before she would be transported upstairs. patient relations was doing rounding with patients- this patient and family member questioned the [facility] staff of when she can be medicated for pain and if she could have prune juice and when she was being brought upstairs. P.R. questioned this nurse about when pain medications can be administered, the prune juice and transportation and P.R. was told that this nurse already spoke in detail with the patient and family member about all this. P.R. went back to the family/patient and again repeated the information which was previously given to the patient/family.
[2022-08-07] MEDS: ondansetron HCL 4 MG/2 ML VIAL IVPUSH (13:37)
--- NOTE | 2022-08-07 13:41 | PC.NURSE ---
patient was medicated with IVP pain medication and medication for nausea, this nurse will call transport to bring patient up to the floor
--- NOTE | 2022-08-07 14:05 | HO.PM.IMPN ---
Subjective Subjective Date of Service: 08/07/22 Interval History: seen and examined this morning follow up for pneumonia having some cough, primarily dry and sob reporting gas, constipation no fever, chills Review of Systems Review of Systems: Yes all other systems are reviewed and are negative Constitutional Constitutional: Denies chills and Denies fever(s) ENT Ears, Nose, Mouth, and Throat: Denies dizziness Cardiovascular Cardiovascular: Denies chest pain and Denies palpitations Respiratory Respiratory: Reports cough and Denies hemoptysis Gastrointestinal Gastrointestinal: Denies abdominal pain, Reports nausea and Denies vomiting Neurologic Neurologic: Denies dizziness Endocrine Endocrine: Denies palpitations Physical Exam Vital Signs: Vital Signs: Last Vital Signs Temp 98.3 F 08/07/22 05:50 Pulse 85 08/07/22 08:41 Resp 16 08/07/22 09:20 BP 98/62 08/07/22 08:41 Pulse Ox 97 08/07/22 08:41 O2 Del Method Nasal Cannula 08/07/22 08:41 O2 Flow Rate 2.5 08/07/22 08:41 BMI result Body Mass Index 28.6 Const: General: cooperative, no acute distress, alert and awake Nutritional Appearance: average body habitus Orientation/consciousness: patient oriented x3 Resp: Effort & Inspection: normal respiratory effort, able to speak in complete sentences, no respiratory distress and no use of accessory muscles Auscultation: clear to auscultation bilaterally Cardio: Rate: regular rate Heart sounds: S1 normal heart sound present and S2 normal heart sound present GI: Inspection: No distended Palpation (GI): Soft to palpation and nontender Neuro: General: patient oriented x3 and CN's II-XI intact bilaterally Extrem: General: Yes no pedal edema Objective Data Active Medications Acetaminophen (Acetaminophen 325 Mg Tablet) 650 mg PO Q6H PRN PRN Reason: Pain, Mild (Pain Scale 1-3) Albuterol Sulfate (Albuterol Sulfate 90 Mcg 8 Gm Inhaler) 2 puff INHALE Q4H PRN PRN Reason: wheezing Atorvastatin Calcium (Atorvastatin Calcium 40 Mg Tablet) 40 mg PO DAILY COUNTS INCLUDE 234 BEDS AT THE [facility] Last Admin: 08/07/22 09:00 Dose: 40 mg Documented By: AIDEE Diphenhydramine HCl (Diphenhydramine Hcl 25 Mg Capsule) 25 mg PO DAILY PRN PRN Reason: Allergy Symptoms Docusate Sodium (Docusate Sodium 100 Mg Capsule) 100 mg PO DAILY PRN PRN Reason: Constipation Fluoxetine HCl (Fluoxetine Hcl 20 Mg Capsule) 40 mg PO DAILY COUNTS INCLUDE 234 BEDS AT THE [facility] Last Admin: 08/07/22 08:59 Dose: 40 mg Documented By: AIDEE Fluticasone Propionate (Fluticasone Propionate Nasal 16 Gm [place]) 1 spray NOSTRIL-B BID PRN PRN Reason: Allergy Symptoms Gabapentin (Gabapentin 300 Mg Capsule) 300 mg PO TID COUNTS INCLUDE 234 BEDS AT THE [facility] Last Admin: 08/07/22 08:59 Dose: 300 mg Documented By: AIDEE Guaifenesin (Guaifenesin 200 Mg/10 Ml 10 Ml Liquid) 10 ml PO Q4H PRN PRN Reason: Cough Hydromorphone HCl (Hydromorphone Hcl 0.5 Mg/0.5 Ml Syringe) 0.5 mg IVPUSH Q4H PRN; Protocol PRN Reason: Pain, Severe (Pain Scale 7-10) Last Admin: 08/07/22 13:37 Dose: 0.5 mg Documented By: ELEUTERIO Azithromycin 500 mg/ Sodium (Chloride) 250 mls @ 125 mls/hr IV Q24H COUNTS INCLUDE 234 BEDS AT THE [facility] Ceftriaxone Sodium 1 gm/ (Sodium Chloride) 50 mls @ 100 mls/hr IV Q24H COUNTS INCLUDE 234 BEDS AT THE [facility] Lorazepam (Lorazepam 0.5 Mg Tablet) 0.5 mg PO TID PRN PRN Reason: Anxiety Last Admin: 08/07/22 09:18 Dose: 0.5 mg Documented By: AIDEE Morphine Sulfate (Morphine Sulfate Immed Release 15 Mg Tablet) 15 mg PO Q4H PRN PRN Reason: Pain, Severe (Pain Scale 7-10) Last Admin: 08/07/22 12:39 Dose: 15 mg Documented By: ELEUTERIO Morphine Sulfate (Morphine Sulfate Er 30 Mg Tablet.Er) 60 mg PO BID COUNTS INCLUDE 234 BEDS AT THE [facility] Last Admin: 08/07/22 09:23 Dose: Not Given Omeprazole (Omeprazole 20 Mg Capsule.Dr) 20 mg PO BID@0630,1630 COUNTS INCLUDE 234 BEDS AT THE [facility] Last Admin: 08/07/22 07:54 Dose: 20 mg Documented By: AIDEE Ondansetron HCl (Ondansetron Hcl 4 Mg/2 Ml Vial) 4 mg IVPUSH Q8H PRN PRN Reason: Nausea and Vomiting Last Admin: 08/07/22 13:37 Dose: 4 mg Documented By: ELEUTERIO Simethicone (Simethicone 80 Mg Tab.Chew) 80 mg PO QIDWMHS PRN PRN Reason: Gas Sodium Chloride (0.9 % Sodium Chloride Flush 3 Ml Syringe) 3 ml IVFLUSH QSHIFT COUNTS INCLUDE 234 BEDS AT THE [facility] Last Admin: 08/07/22 07:33 Dose: Not Given Documented By: AIDEE Non-Admin Reason: Med Not Available Trazodone HCl (Trazodone Hcl 50 Mg Tablet) 50 mg PO BEDTIME COUNTS INCLUDE 234 BEDS AT THE [facility] Last Admin: 08/06/22 22:13 Dose: 50 mg Documented By: ROB Labs 08/07/22 06:06 08/07/22 06:06 Labs: Laboratory Results - last 24 hr 08/06/22 08/06/22 08/06/22 14:11 14:11 14:11 MCV MCH MCHC RDW Plt Count MPV Immature Gran % (Auto) Neut % (Auto) Lymph % (Auto) [place] % (Auto) Eos % (Auto) Baso % (Auto) Lymph # (Auto) [place] # (Auto) Eos # (Auto) Baso # (Auto) Abs Immat Gran (auto) Absolute Neuts (auto) Absolute Nucleated RBC Nucleated RBC % (auto) PT 13.6 H INR 1.2 H Anion Gap Estim Creat Clear Calc Estimated GFR Random Glucose Lactic Acid 1.4 Calcium Total Bilirubin AST ALT Alkaline Phosphatase Troponin I High Sens B-Natriuretic Peptide 12 Total Protein Albumin Urine Color Urine Appearance Urine pH Ur Specific [place] Urine Protein Urine Glucose (UA) Urine Ketones Urine Blood Urine Nitrite Ur Leukocyte Esterase Urine RBC Urine WBC Ur Squamous Epith Cells Urine Bacteria Hyaline Casts 08/06/22 08/06/22 08/06/22 14:11 15:40 15:47 MCV MCH MCHC RDW Plt Count MPV Immature Gran % (Auto) Neut % (Auto) Lymph % (Auto) [place] % (Auto) Eos % (Auto) Baso % (Auto) Lymph # (Auto) [place] # (Auto) Eos # (Auto) Baso # (Auto) Abs Immat Gran (auto) Absolute Neuts (auto) Absolute Nucleated RBC Nucleated RBC % (auto) PT INR Anion Gap Estim Creat Clear Calc Estimated GFR Random Glucose Lactic Acid Calcium Total Bilirubin AST ALT Alkaline Phosphatase Troponin I High Sens 78.6 H* 88.3 H* B-Natriuretic Peptide Total Protein Albumin Urine Color Dark Yellow Urine Appearance Cloudy Urine pH 5.0 Ur Specific [place] >= 1.030 H Urine Protein 30 (1+) H Urine Glucose (UA) Negative Urine Ketones Trace Urine Blood Negative Urine Nitrite Negative Ur Leukocyte Esterase Trace H Urine RBC 3-5 H Urine WBC 0-5 Ur Squamous Epith Cells 6-10 Urine Bacteria None Seen Hyaline Casts >20 08/06/22 08/06/22 08/07/22 15:47 15:47 06:06 MCV 95.5 94.8 MCH 32.2 32.0 MCHC 33.7 33.7 RDW 14.6 14.7 Plt Count 443 H 437 H MPV 8.6 L 8.7 L Immature Gran % (Auto) 0.6 H 0.5 H Neut % (Auto) 77.0 H 74.3 H Lymph % (Auto) 9.5 L 8.1 L [place] % (Auto) 7.2 9.1 Eos % (Auto) 5.2 H 7.6 H Baso % (Auto) 0.5 0.4 Lymph # (Auto) 1.6 1.1 L [place] # (Auto) 1.2 1.3 H Eos # (Auto) 0.9 H 1.1 H Baso # (Auto) 0.1 0.1 Abs Immat Gran (auto) 0.10 H 0.07 H Absolute Neuts (auto) 12.8 H 10.3 H Absolute Nucleated RBC 0.000 0.000 Nucleated RBC % (auto) 0.0 0.0 PT INR Anion Gap 17 Estim Creat Clear Calc 58.8 Estimated GFR 46 Random Glucose 100 Lactic Acid Calcium 9.9 Total Bilirubin 0.5 AST 28 ALT 29 Alkaline Phosphatase 160 H Troponin I High Sens B-Natriuretic Peptide Total Protein 7.0 Albumin 3.3 L Urine Color Urine Appearance Urine pH Ur Specific [place] Urine Protein Urine Glucose (UA) Urine Ketones Urine Blood Urine Nitrite Ur Leukocyte Esterase Urine RBC Urine WBC Ur Squamous Epith Cells Urine Bacteria Hyaline Casts 08/07/22 06:06 MCV MCH MCHC RDW Plt Count MPV Immature Gran % (Auto) Neut % (Auto) Lymph % (Auto) [place] % (Auto) Eos % (Auto) Baso % (Auto) Lymph # (Auto) [place] # (Auto) Eos # (Auto) Baso # (Auto) Abs Immat Gran (auto) Absolute Neuts (auto) Absolute Nucleated RBC Nucleated RBC % (auto) PT INR Anion Gap 17 Estim Creat Clear Calc 107.4 Estimated GFR > 60 Random Glucose 89 Lactic Acid Calcium 9.5 Total Bilirubin AST ALT Alkaline Phosphatase Troponin I High Sens B-Natriuretic Peptide Total Protein Albumin Urine Color Urine Appearance Urine pH Ur Specific [place] Urine Protein Urine Glucose (UA) Urine Ketones Urine Blood Urine Nitrite Ur Leukocyte Esterase Urine RBC Urine WBC Ur Squamous Epith Cells Urine Bacteria Hyaline Casts Assessment and Plan (1) Acute hypoxemic respiratory failure: Status: Acute (2) Atypical pneumonia: Status: Acute Plan 46-year-old female with history anxiety recently diagnosed with stage IV Adenocarcinoma of the lung with widely metastatic disease plan for palliative chemotherapy who is a current 1 pack per day every day smoker admitted for atypical pneumonia with sepsis and acute hypoxemic respiratory failure. #Severe Sepsis due to atypical penumonia met criteria with tachycardia, tachypnea and, leukocytosis. Lactic acid normal, DAYA continue Abx as below continue IVF follow blood cultures #Acute hypxocemic respiratory failure likely multifactoria r/t stage 4 adenocarcinoma lung and pneumonia wean oxygen as tolerated #Acute atypical pneumonia Strep pneumo, legionella ag, sputum culture pending continue IV ceftriaxone and azithromycin (initiated 08/06) blood cultures pending #Hemoptysis denies further episodes at this time likely related to pneumonia, metastatic disease No large PE on CTA chest, less likely PE in secondary and tertiary branches, not an anticoagulation candidate #Acute kidney injury resolved with IVF #Acute hyponatremia sodium improved #Elevated troponins Likely related to demand from hypoxia. trops flat, BNP normal CTA chest negative for large PE no chest pain at this time not a candidate for anticoagulation given hemoptysis echo pending #Stage 4 adenocarcinoma lung with widespread mets -Pain management, continue home meds -was due for port placement for palliative chemo - will need outpatient follow up with oncology #diarrhea h/o IBS, initially CDiff and GI panel ordered but now pt reporting gas/constipation. no further diarrhea #Anxiety -continue lorazepam tobacco dependence -decline NRT, counseling offered DVT prophylaxis- SCPs given hemoptysis Full code attending - dr. soto requires ongoing inpatient hospitalization for management of atypical pneumonia in patient with metastatic cancer who has severe sepsis , DAYA, and acute hypoxia Time Spent With Patient Time: Total time managing care of this patient today ____ minutes. Quality Stroke Does the patient have a stroke diagnosis?: No VTE Prior VTE?: No VTE Risk Level:: Medical - moderate - high VTE Device Contraindication: N/A - Device Ordered VTE Drug Contraindication: Treatment Not Indicated
[2022-08-07 15:44] VITALS: BP 113/73; PULSE 79; RESP 18; TEMP 36.4; O2SAT 92
[2022-08-07] MEDS: 0.9 % Sodium Chloride Flush 3 ML SYRINGE IVFLUSH ×2 (17:47→20:02)
[2022-08-07] MEDS: cefTRIAXone sodium 1 GM in 0.9 % Sodium Chloride 50 ML IV (17:47)
[2022-08-07 19:09] VITALS: BP 120/72; PULSE 94; RESP 18; TEMP 36.3; O2SAT 94
[2022-08-07] MEDS: Morphine Sulfate ER 30 MG TABLET.ER 60 MG PO (20:01)
[2022-08-07] MEDS: Azithromycin 500 MG in 0.9 % Sodium Chloride 250 ML 125 MG IV (20:01)
[2022-08-07] MEDS: traZODone HCL 50 MG TABLET PO (20:02)
[2022-08-07] MEDS: Simethicone 80 MG TAB.CHEW PO (20:02)
[2022-08-08] MEDS: LORazepam 0.5 MG TABLET PO ×2 (01:21→09:23)
[2022-08-08] MEDS: HYDROmorphone HCl 0.5 MG/0.5 ML SYRINGE IVPUSH ×4 (03:08→11:08)
[2022-08-08 03:31] VITALS: BP 120/70; PULSE 92; RESP 16; TEMP 36.2; O2SAT 94
[2022-08-08] MEDS: Omeprazole 20 MG CAPSULE.DR PO ×2 (05:23→17:21)
[2022-08-08] MEDS: ondansetron HCL 4 MG/2 ML VIAL IVPUSH (05:59)
--- NOTE | 2022-08-08 06:42 | PC.NURSE ---
At 0600, pt c/o nausea vomiting and 8/10 abdl pain, prn Zofran IV given, too early for Dilaudid prn, Dr. Green was notified and said to give prn Dilaudid early, prn Dilaudid 0.5 mg IV given, nausea subsided.
[2022-08-08 07:52] LABS: Hematocrit 34.3 % (37.0-47.0); Hemoglobin 11.6 g/dl (12.0-16.0); Mean Corpuscular HGB Conc 33.8 g/dl (31.0-35.0); Mean Corpuscular Volume 94.5 fL (80.0-98.0); Mean Platelet Volume 8.5 fL (9.4-12.3); Platelet Count 511 X10*3/uL (160-400); Red Blood Count 3.63 X10*6/uL (4.20-5.50); Red Cell Distribution Width 14.6 % (11.0-16.0); White Blood Count 14.5 X10*3/uL (4.8-10.8)
[2022-08-08 08:00] VITALS: BP 133/76; PULSE 107; RESP 18; TEMP 36.4; O2SAT 94
[2022-08-08] MEDS: Morphine Sulfate ER 30 MG TABLET.ER 60 MG PO ×2 (09:23→17:27)
[2022-08-08] MEDS: 0.9 % Sodium Chloride Flush 3 ML SYRINGE IVFLUSH ×3 (09:27→19:48)
--- NOTE | 2022-08-08 10:59 | P.PNIM_ITS ---
Subjective Subjective Date of Service: 08/08/22 Interval History: seen and examined this morning follow up for pneumonia and abdominal pain no sob or cough; still with left sided abdominal pain; nausea today feeling constipated, having gas Review of Systems Review of Systems: Yes all other systems are reviewed and are negative Constitutional Constitutional: Denies chills and Denies fever(s) ENT Ears, Nose, Mouth, and Throat: Denies dizziness Cardiovascular Cardiovascular: Denies chest pain, Denies palpitations and Denies dyspnea Respiratory Respiratory: Reports cough and Denies dyspnea Gastrointestinal Gastrointestinal: Reports abdominal pain, Reports nausea and Denies vomiting Neurologic Neurologic: Denies dizziness Endocrine Endocrine: Denies palpitations Physical Exam Vital Signs: Vital Signs: Last Vital Signs Temp 97.5 F 08/08/22 08:00 Pulse 107 H 08/08/22 08:00 Resp 18 08/08/22 08:00 BP 133/76 08/08/22 08:00 Pulse Ox 94 08/08/22 08:00 O2 Del Method Room Air 08/08/22 08:00 O2 Flow Rate 3.0 08/07/22 15:44 BMI result Body Mass Index 28.6 Const: General: cooperative, no acute distress, alert and awake Nutritional Appearance: average body habitus Orientation/consciousness: patient oriented x3 Resp: Effort & Inspection: normal respiratory effort, able to speak in complete sentences, no respiratory distress and no use of accessory muscles Auscultation: clear to auscultation bilaterally Cardio: Rate: regular rate Heart sounds: S1 normal heart sound present and S2 normal heart sound present GI: Other: left side abdominal pain +BS Inspection: No distended Palpation (GI): Soft to palpation Neuro: General: patient oriented x3 and CN's II-XI intact bilaterally Extrem: General: Yes no pedal edema Objective Data Active Medications Acetaminophen (Acetaminophen 325 Mg Tablet) 650 mg PO Q6H PRN PRN Reason: Pain, Mild (Pain Scale 1-3) Albuterol Sulfate (Albuterol Sulfate 90 Mcg 8 Gm Inhaler) 2 puff INHALE Q4H PRN PRN Reason: wheezing Atorvastatin Calcium (Atorvastatin Calcium 40 Mg Tablet) 40 mg PO DAILY [facility] Last Admin: 08/07/22 09:00 Dose: 40 mg Documented By: AIDEE Diphenhydramine HCl (Diphenhydramine Hcl 25 Mg Capsule) 25 mg PO DAILY PRN PRN Reason: Allergy Symptoms Docusate Sodium (Docusate Sodium 100 Mg Capsule) 100 mg PO DAILY [facility] Enoxaparin Sodium (Enoxaparin Sodium 60 Mg/0.6 Ml Syringe) 60 mg SUBCUT Q12H [facility] Fluoxetine HCl (Fluoxetine Hcl 20 Mg Capsule) 40 mg PO DAILY [facility] Last Admin: 08/07/22 08:59 Dose: 40 mg Documented By: AIDEE Fluticasone Propionate (Fluticasone Propionate Nasal 16 Gm [place]) 1 spray NOSTRIL-B BID PRN PRN Reason: Allergy Symptoms Gabapentin (Gabapentin 300 Mg Capsule) 300 mg PO TID [facility] Last Admin: 08/07/22 20:01 Dose: 300 mg Documented By: DARLENE Guaifenesin (Guaifenesin 200 Mg/10 Ml 10 Ml Liquid) 10 ml PO Q4H PRN PRN Reason: Cough Hydromorphone HCl (Hydromorphone Hcl 0.5 Mg/0.5 Ml Syringe) 1 mg IVPUSH Q3H PRN; Protocol PRN Reason: Pain, Severe (Pain Scale 7-10) Azithromycin 500 mg/ Sodium (Chloride) 250 mls @ 125 mls/hr IV Q24H [facility] Last Infusion: 08/07/22 22:13 Dose: 0 mls/hr Documented By: DARLENE Ceftriaxone Sodium 1 gm/ (Sodium Chloride) 50 mls @ 100 mls/hr IV Q24H [facility] Last Infusion: 08/07/22 18:22 Dose: 0 mls/hr Documented By: BROBala Lorazepam (Lorazepam 0.5 Mg Tablet) 0.5 mg PO TID PRN PRN Reason: Anxiety Last Admin: 08/08/22 09:23 Dose: 0.5 mg Documented By: MALA Morphine Sulfate (Morphine Sulfate Er 30 Mg Tablet.Er) 60 mg PO BID [facility] Last Admin: 08/08/22 09:23 Dose: 60 mg Documented By: MALA Omeprazole (Omeprazole 20 Mg Capsule.Dr) 20 mg PO BID@0630,1630 [facility] Last Admin: 08/08/22 05:23 Dose: 20 mg Documented By: DARLENE Ondansetron HCl (Ondansetron Hcl 4 Mg/2 Ml Vial) 4 mg IVPUSH Q8H PRN PRN Reason: Nausea and Vomiting Last Admin: 08/08/22 05:59 Dose: 4 mg Documented By: DARLENE Polyethylene Glycol (Polyethylene Glycol 3350 17 Gm Powd.Pack) 17 gm PO BID PRN PRN Reason: Constipation Simethicone (Simethicone 80 Mg Tab.Chew) 80 mg PO QIDWMHS PRN PRN Reason: Gas Last Admin: 08/07/22 20:02 Dose: 80 mg Documented By: DARLENE Sodium Chloride (0.9 % Sodium Chloride Flush 3 Ml Syringe) 3 ml IVFLUSH QSHIFT [facility] Last Admin: 08/08/22 09:27 Dose: 3 ml Documented By: MALA Trazodone HCl (Trazodone Hcl 50 Mg Tablet) 50 mg PO BEDTIME [facility] Last Admin: 08/07/22 20:02 Dose: 50 mg Documented By: DARLENE Labs 08/08/22 07:30 08/07/22 06:06 Labs: Laboratory Results - last 24 hr 08/08/22 07:30 MCV 94.5 MCH 32.0 MCHC 33.8 RDW 14.6 Plt Count 511 H MPV 8.5 L Absolute Nucleated RBC 0.000 Nucleated RBC % (auto) 0.0 Microbiology Microbiology Results: Microbiology 08/06/22 14:11 Blood Culture - Preliminary Blood - Venous No growth after 24 hours. 08/06/22 14:11 Blood Culture - Preliminary Blood - Venous No growth after 24 hours. Assessment and Plan (1) Atypical pneumonia: Status: Acute (2) Intractable abdominal pain: Status: Acute Plan 46-year-old female with history anxiety recently diagnosed with stage IV Adenocarcinoma of the lung with widely metastatic disease plan for palliative chemotherapy who is a current 1 pack per day every day smoker admitted for atypical pneumonia with sepsis and acute hypoxemic respiratory failure. #Severe Sepsis due to atypical penumonia met criteria with tachycardia, tachypnea and, leukocytosis. Lactic acid normal, DAYA continue Abx as below #Acute hypxocemic respiratory failure likely multifactoria r/t stage 4 adenocarcinoma lung and pneumonia weaned to room air #Acute atypical pneumonia continue IV ceftriaxone and azithromycin (initiated 08/06) strep pneumo, Legionella urine antigen will be checked blood cultures negative to date #probable acute thrombosis of left renal vein d/w hematology/oncology - unable to determine if just compression from mass or thrombosis -given severe pain, rec to treat with lovenox 60 bid #Hemoptysis.resolved, no previous episodes since admission likely related to pneumonia, metastatic disease No large PE on CTA chest, less likely PE in secondary and tertiary branches, not an anticoagulation candidate #Acute kidney injury resolved with IVF #Acute hyponatremia sodium improved #Elevated troponins Likely related to demand from hypoxia. trops flat, BNP normal CTA chest negative for large PE no chest pain at this time echo with preserved EF, no WMA #Stage 4 adenocarcinoma lung with widespread mets -Pain management, requiring IV dilaudid for adequate pain control at this time, increase MS contin to q8h -was due for port placement for palliative chemo - will need outpatient follow up with oncology #diarrhea h/o IBS, initially CDiff and GI panel ordered but now pt reporting gas/constipation. no further diarrhea #Anxiety -continue lorazepam tobacco dependence -decline NRT, counseling offered DVT prophylaxis- lovenox Full code attending - dr. soto requires ongoing inpatient hospitalization for management of atypical pneumonia in patient with metastatic cancer who has severe sepsis , DAYA, and acute hypoxia Time Spent With Patient Time: Total time managing care of this patient today ____ minutes. Quality Stroke Does the patient have a stroke diagnosis?: No VTE Prior VTE?: No VTE Risk Level:: Medical - moderate - high VTE Device Contraindication: N/A - Device Ordered VTE Drug Contraindication: Treatment Not Indicated
[2022-08-08] MEDS: polyethylene glycoL 3350 17 GM POWD.PACK PO (11:10)
[2022-08-08] MEDS: Simethicone 80 MG TAB.CHEW PO ×2 (11:10→20:48)
[2022-08-08] MEDS: Gabapentin 300 MG CAPSULE PO ×3 (11:21→20:34)
[2022-08-08] MEDS: Docusate Sodium 100 MG CAPSULE PO (11:21)
[2022-08-08 11:25] LABS: INTERNATIONAL NORM RATIO 1.1 (0.9-1.1); Prothrombin Time 13.2 SEC (10.0-13.1)
[2022-08-08 11:27] LABS: Partial Thromboplastin Time 27.4 SEC (26.0-36.4)
[2022-08-08 11:38] LABS: Osmolality Urine 398 mosm/kg (373-1093)
--- NOTE | 2022-08-08 12:44 | PM.HEMONCCN ---
Subjective - Subjective Chief complaint: Left flank pain Patient: known to practice within the last 3 years Consult date: 08/08/22 Requesting Physician: Daly Linn Primary Care Provider: Sandra Mejia MD Medical Summary: Diagnosis: Metastatic adenocarcinoma, probable lung primary Presented with left adrenal mass, suspicious lymphadenopathy, multiple lung nodules. CT abdomen/pelvis with contrast performed 07/09/2022 shows lesion around the left adrenal gland measuring 6 x 4.3 cm with surrounding soft tissue stranding, another small nodular density adjacently, surrounding adenopathy suggesting metastatic disease. Numerous small lung nodules, partially visualized. In the rectosigmoid region there is significant soft tissue stranding without an obvious lesion. This could represent infectious process/colitis, separate from adrenal lesion. CT chest with contrast performed 07/16/2022 showed multiple bilateral small to moderate-sized pulmonary nodules highly suspicious for metastatic disease. Abnormal mediastinal and bilateral hilar lymph nodes seen. Patient has been started on antibiotics for possible colitis. She had an urgent GI evaluation, colonoscopy was negative for malignancy. HPI - Consult Narrative Reason for consult: Widely metastatic malignancy, worsening left flank pain Narrative: Bell Alfaro is a 46 year old woman with recently diagnosed metastatic lung cancer presenting with fever elevated white count and now worsening left flank pain. She has been admitted for possible sepsis as she presented with hypotension and hypoxemia. CT angiogram showed extensive lymphangitic spread of tumor with multiple new pulmonary nodules as well as consolidation suggestive of atypical pneumonia. Patient is receiving antibiotics, azithromycin and ceftriaxone. Blood cultures of her negative. She no longer has fever. However she is reporting worsening pain in her left flank. CT abdomen with contrast showed left adrenal mass measuring 5.8 cm with compression of left renal vein. Retroperitoneal lymphadenopathy which is unchanged. She is undergoing evaluation at the pain clinic as well. She is on long-acting morphine sulfate as well as Dilaudid. Review of Systems - Constitutional Reports as per HPI, Reports anorexia, Reports fever(s), Reports poor appetite, Reports weight loss - Cardiovascular Reports no additional cardiovascular complaints, Denies chest pain - Respiratory Reports no additional respiratory complaints, Reports cough - Gastrointestinal Reports no additional gastrointestinal complaints - Neurologic Denies dizziness PMFSH Medical History: Medical History (Last Reviewed 08/06/22 @ 14:45 by Leny Roach DO) Adenocarcinoma of lung, stage 4 Anxiety Depression HTN (hypertension) Irritable bowel syndrome (IBS) Surgical History: Surgical History (Last Reviewed 08/06/22 @ 14:45 by Leny Roach DO) S/P lumpectomy, right breast Social History: Social History (Last Reviewed 08/06/22 @ 14:45 by Leny Roach DO) Living Situation History: Household Members: Spouse Housing: House Do you presently have visiting nurse or other home services: No Tobacco History: Patient Tobacco Use Status: Tobacco use Unknown Tobacco use type: Cigarette Cigarette Packs Per Day: 1 e-Cigarette/Vaping Use: Currently Using Second Hand Smoke Exposure: No Substance Use History: Substance Use Type: Marijuana Advance Directives: Advance Directives Date on File: 07/11/22 Home Medications and Allergies Current Medications: Current Medications Acetaminophen (Acetaminophen 325 Mg Tablet) 650 mg PO Q6H PRN PRN Reason: Pain, Mild (Pain Scale 1-3) Albuterol Sulfate (Albuterol Sulfate 90 Mcg 8 Gm Inhaler) 2 puff INHALE Q4H PRN PRN Reason: wheezing Atorvastatin Calcium (Atorvastatin Calcium 40 Mg Tablet) 40 mg PO DAILY [facility] Last Admin: 08/08/22 11:22 Dose: Not Given Diphenhydramine HCl (Diphenhydramine Hcl 25 Mg Capsule) 25 mg PO DAILY PRN PRN Reason: Allergy Symptoms Docusate Sodium (Docusate Sodium 100 Mg Capsule) 100 mg PO DAILY [facility] Last Admin: 08/08/22 11:21 Dose: 100 mg Enoxaparin Sodium (Enoxaparin Sodium 60 Mg/0.6 Ml Syringe) 60 mg SUBCUT Q12H [facility] Fluoxetine HCl (Fluoxetine Hcl 20 Mg Capsule) 40 mg PO DAILY [facility] Last Admin: 08/08/22 11:22 Dose: Not Given Fluticasone Propionate (Fluticasone Propionate Nasal 16 Gm [place]) 1 spray NOSTRIL-B BID PRN PRN Reason: Allergy Symptoms Gabapentin (Gabapentin 300 Mg Capsule) 300 mg PO TID [facility] Last Admin: 08/08/22 11:21 Dose: 300 mg Guaifenesin (Guaifenesin 200 Mg/10 Ml 10 Ml Liquid) 10 ml PO Q4H PRN PRN Reason: Cough Hydromorphone HCl (Hydromorphone Hcl 0.5 Mg/0.5 Ml Syringe) 1 mg IVPUSH Q3H PRN; Protocol PRN Reason: Pain, Severe (Pain Scale 7-10) Azithromycin 500 mg/ Sodium (Chloride) 250 mls @ 125 mls/hr IV Q24H [facility] Last Infusion: 08/07/22 22:13 Dose: Infused Ceftriaxone Sodium 1 gm/ (Sodium Chloride) 50 mls @ 100 mls/hr IV Q24H [facility] Last Infusion: 08/07/22 18:22 Dose: Infused Lorazepam (Lorazepam 0.5 Mg Tablet) 0.5 mg PO TID PRN PRN Reason: Anxiety Last Admin: 08/08/22 09:23 Dose: 0.5 mg Morphine Sulfate (Morphine Sulfate Er 30 Mg Tablet.Er) 60 mg PO Q8H [facility] Omeprazole (Omeprazole 20 Mg Capsule.Dr) 20 mg PO BID@0630,1630 [facility] Last Admin: 08/08/22 05:23 Dose: 20 mg Ondansetron HCl (Ondansetron Hcl 4 Mg/2 Ml Vial) 4 mg IVPUSH Q8H PRN PRN Reason: Nausea and Vomiting Last Admin: 08/08/22 05:59 Dose: 4 mg Polyethylene Glycol (Polyethylene Glycol 3350 17 Gm Powd.Pack) 17 gm PO BID PRN PRN Reason: Constipation Last Admin: 08/08/22 11:10 Dose: 17 gm Simethicone (Simethicone 80 Mg Tab.Chew) 80 mg PO QIDWMHS PRN PRN Reason: Gas Last Admin: 08/08/22 11:10 Dose: 80 mg Sodium Chloride (0.9 % Sodium Chloride Flush 3 Ml Syringe) 3 ml IVFLUSH QSHIFT [facility] Last Admin: 08/08/22 09:27 Dose: 3 ml Trazodone HCl (Trazodone Hcl 50 Mg Tablet) 50 mg PO BEDTIME [facility] Last Admin: 08/07/22 20:02 Dose: 50 mg Home Medications Medication Instructions Recorded Confirmed Type albuterol sulfate 90 mcg/actuation 2 puff inhalation Q4H PRN wheezing 07/11/22 08/06/22 History aerosol inhaler atorvastatin 40 mg tablet 40 mg PO DAILY 07/11/22 08/06/22 History fluoxetine 20 mg capsule 40 mg PO DAILY 07/11/22 08/06/22 History fluticasone propionate 50 1 spray intranasal BID PRN Allergy 07/11/22 08/06/22 History mcg/actuation nasal Symptoms spray,suspension trazodone 50 mg tablet 50 mg PO BEDTIME 07/11/22 08/06/22 History acetaminophen 500 mg tablet 500 mg PO Q6H PRN Pain 08/06/22 08/06/22 History diphenhydramine HCl 25 mg tablet 25 mg PO DAILY PRN Allergy Symptoms 08/06/22 08/06/22 History lorazepam 0.5 mg tablet 0.5 mg PO TID PRN Anxiety 08/06/22 08/06/22 History Allergies Allergy/AdvReac Type Severity Reaction Status Date / Time No Known Allergies Allergy Verified 08/06/22 13:40 Physical Exam Vital signs: Vital Signs Temp 97.5 F 08/08/22 08:00 Pulse 107 H 08/08/22 08:00 Resp 18 08/08/22 08:00 BP 133/76 08/08/22 08:00 Pulse Ox 94 08/08/22 08:00 O2 Del Method Room Air 08/08/22 08:00 O2 Flow Rate 3.0 08/07/22 15:44 Intake & Output 08/07/22 08/08/22 08/08/22 18:59 06:59 18:59 Intake Total 2050 / 3380 1330 / 3380 50.25 / 50.25 Balance 2050 / 3380 1330 / 3380 50.25 / 50.25 Intake: Intake, Oral Amount 1080 / 1080 Intake, IV Amount 2050 / 2300 250 / 2300 50.25 / 50.25 Azithromycin 500 mg In 0.9 % 250 / 250 Sodium Chloride 250 ml @ 125 mls/hr IV Q24H [facility] Rx#: [id number] Lactated Ringers 1,000 ml @ 999 2000 / 2000 mls/hr IV .Q1H1M [facility] Rx#: [id number] Promethazine HCL 6.25 mg In 0.9 50.25 / 50.25 % Sodium Chloride 50 ml @ 201 mls/hr IV ONCE ONE Rx#: [id number] cefTRIAXone sodium 1 gm In 0.9 50 / 50 % Sodium Chloride 50 ml @ 100 mls/hr IV Q24H [facility] Rx#: [id number] Other: Meal Refused No NPO No Number of Unmeasured Voids 2 Urine Bathroom Urine Color Yellow Last Bowel Movement 08/07/22 08/07/22 Weight 78.018 kg - Constitutional Present: moderate distress, average body habitus - Routine HEENT Exam Head: Present: normal inspection Eye: Present: conjunctivae pale - Routine Neck Exam Present: supple. Absent: lymphadenopathy - Routine Respiratory Exam Absent: accessory muscle use - Routine Cardiovascular Exam Cardiovascular: Present: S1, S2, tachycardia - Routine Abdominal Exam Present: mass, tenderness - Routine Extremities Exam Absent: pedal edema - Routine Skin Exam Present: intact - Routine Neurological Exam Present: alert, oriented X3 Hem/Onc Consult Result - Labs CBC & Chem 7: 08/08/22 07:30 08/07/22 06:06 Labs: Short CBC 08/08/22 Range/Units 07:30 WBC 14.5 H (4.8-10.8) X10*3/uL Hgb 11.6 L (12.0-16.0) g/dl Hct 34.3 L (37.0-47.0) % Plt Count 511 H (160-400) X10*3/uL Assessment and Plan Patient Active problem list reviewed?: Yes (1) Metastatic non-small cell lung cancer Status: Acute Assessment and plan: 1. This is a 46-year-old woman diagnosed with metastatic lung cancer in July 2022. She underwent left adrenal mass core biopsy which revealed high-grade carcinoma with papillary architecture, immunohistochemistry showed positivity for CK7, napsin a and TTF1. Negative for CK 20, CDX2, ER, GATA3, WT1, P53, PAX 8 and [place] 1. NGS testing is pending, PDL1 is positive high, TP S 50%, CPS 55%. PET-CT performed 07/29/2022 showed numerous FDG avid lung parenchymal nodules, multiple FDG avid osseous disease. Left adrenal gland mass with SUV 21, enlarged left kidney with perinephric stranding. Possibility of left renal vein thrombosis is not excluded. Patient is currently admitted for probable atypical pneumonia. She has been receiving antibiotics, azithromycin and ceftriaxone. She continues to have leukocytosis. She is no longer febrile, blood pressure and hypoxemia has improved. CT abdomen with contrast showed left renal hydronephrosis/hydroureter with fat stranding surrounding the kidney concerning for possible infection or inflammatory process. Compression of left renal vein by the left adrenal mass, occlusion/obstruction of the left renal vein. Retroperitoneal lymphadenopathy is unchanged. In view of above findings of compression of left renal vein and possibility of thrombosis, I have recommended to start anticoagulation with Lovenox b.i.d.. Slightly lower dose of 60 b.i.d. as she had 1 or 2 episodes of hemoptysis. Continue with IV antibiotics because of above findings as well as clinical picture of fever with leukocytosis. For pain control, recommended that we increase MS Contin to 60 mg t.i.d.. Continue short-acting narcotics either Dilaudid or morphine. Patient is scheduled to start chemotherapy next week. Carboplatin/pemetrexed and pembrolizumab in the palliative setting. She has been scheduled for [facility] placement next week. I have also talked to them about palliative radiation therapy to the tumor over her left adrenal which is causing significant pain. Overall prognosis is guarded. Thank you. - Time Spent With Patient Time Spent with Patient (in minutes): 30
[2022-08-08] MEDS: Enoxaparin Sodium 60 MG/0.6 ML SYRINGE SUBCUT ×2 (13:33→23:51)
--- NOTE | 2022-08-08 13:39 | MHC.CM.PN ---
PT REPORTS SHE LIVES WITH HER AND IS INDEPENDENT WITH CARE SHE DENIES USE OF DME OR HOME SERVICES PT HAS A HCP ON FILE SHE IS COVID [facility] PCP: [facility] DCP: HOME NO SERVICES TO TRANSPORT
[2022-08-08] MEDS: HYDROmorphone HCl 0.5 MG/0.5 ML SYRINGE 1 MG IVPUSH ×4 (13:42→23:45)
[2022-08-08 13:48] VITALS: BP 149/82; PULSE 88; RESP 18; O2SAT 95
[2022-08-08 15:42] VITALS: BP 139/89; PULSE 84; RESP 18; TEMP 36; O2SAT 96
[2022-08-08 17:28] VITALS: RESP 18
[2022-08-08] MEDS: cefTRIAXone sodium 1 GM in 0.9 % Sodium Chloride 50 ML IV (17:28)
--- NOTE | 2022-08-08 18:37 | PC.NURSE ---
Assumed care at 1500, pt is awake with mild pain at that time. Then at 1700 pt c/o of severe pain.Ambulatory. Mother and father at bedside ,very supportive. c/o of little bloated.
[2022-08-08 19:21] VITALS: BP 158/93; PULSE 91; RESP 20; TEMP 36.2; O2SAT 95
[2022-08-08] MEDS: traZODone HCL 50 MG TABLET PO (20:34)
[2022-08-08] MEDS: Azithromycin 500 MG in 0.9 % Sodium Chloride 250 ML 125 MG IV (20:42)
[2022-08-08] MEDS: Loperamide HCl 2 MG CAPSULE PO (23:45)
[2022-08-09] MEDS: Morphine Sulfate ER 30 MG TABLET.ER 60 MG PO ×3 (01:16→16:41)
[2022-08-09] MEDS: LORazepam 0.5 MG TABLET PO ×2 (01:21→23:31)
[2022-08-09] MEDS: HYDROmorphone HCl 0.5 MG/0.5 ML SYRINGE 1 MG IVPUSH ×8 (03:05→23:30)
[2022-08-09] MEDS: ondansetron HCL 4 MG/2 ML VIAL IVPUSH (03:14)
[2022-08-09 03:56] VITALS: BP 141/93; PULSE 106; RESP 18; TEMP 36.5; O2SAT 93
[2022-08-09] MEDS: Omeprazole 20 MG CAPSULE.DR PO ×2 (06:04→16:41)
[2022-08-09 06:28] LABS: Hematocrit 35.6 % (37.0-47.0); Mean Corpuscular HGB Conc 33.7 g/dl (31.0-35.0); Mean Corpuscular Hemoglobin 31.8 pg (27.0-33.0); Mean Corpuscular Volume 94.4 fL (80.0-98.0); Mean Platelet Volume 8.3 fL (9.4-12.3); Platelet Count 551 X10*3/uL (160-400); Red Blood Count 3.77 X10*6/uL (4.20-5.50); Red Cell Distribution Width 14.3 % (11.0-16.0)
[2022-08-09 07:21] VITALS: BP 135/86; PULSE 88; RESP 20; TEMP 36.2; O2SAT 92
[2022-08-09] MEDS: Docusate Sodium 100 MG CAPSULE PO (07:49)
[2022-08-09] MEDS: Gabapentin 300 MG CAPSULE PO ×3 (07:49→20:33)
[2022-08-09] MEDS: Atorvastatin Calcium 40 MG TABLET PO (07:49)
[2022-08-09] MEDS: FLUoxetine HCl 20 MG CAPSULE 40 MG PO (07:49)
--- NOTE | 2022-08-09 08:17 | P.PNIM_ITS ---
Subjective Subjective Date of Service: 08/09/22 Interval History: seen and examined this morning follow up for pneumonia and abdominal pain no sob or cough; still with left sided abdominal pain radiating to back Review of Systems Review of Systems: Yes all other systems are reviewed and are negative Constitutional Constitutional: Denies chills and Denies fever(s) ENT Ears, Nose, Mouth, and Throat: Denies dizziness Cardiovascular Cardiovascular: Denies chest pain, Denies palpitations and Denies dyspnea Respiratory Respiratory: Reports cough and Denies dyspnea Gastrointestinal Gastrointestinal: Reports abdominal pain, Reports nausea and Denies vomiting Neurologic Neurologic: Denies dizziness Endocrine Endocrine: Denies palpitations Physical Exam Vital Signs: Vital Signs: Last Vital Signs Temp 97.2 F 08/09/22 07:21 Pulse 88 08/09/22 07:21 Resp 20 08/09/22 07:21 BP 135/86 08/09/22 07:21 Pulse Ox 92 08/09/22 07:21 O2 Del Method Room Air 08/09/22 07:21 O2 Flow Rate 3.0 08/07/22 15:44 BMI result Body Mass Index 28.6 Appearing in no acute distress lung sounds are clear to auscultation heart regular rate rhythm, clear S1, S2 positive bowel sounds, abdomen is soft, nontender neuro patient is alert x3, no focal deficits Objective Data Active Medications Acetaminophen (Acetaminophen 325 Mg Tablet) 650 mg PO Q6H PRN PRN Reason: Pain, Mild (Pain Scale 1-3) Albuterol Sulfate (Albuterol Sulfate 90 Mcg 8 Gm Inhaler) 2 puff INHALE Q4H PRN PRN Reason: wheezing Atorvastatin Calcium (Atorvastatin Calcium 40 Mg Tablet) 40 mg PO DAILY [facility] Last Admin: 08/09/22 07:49 Dose: 40 mg Documented By: MARK Diphenhydramine HCl (Diphenhydramine Hcl 25 Mg Capsule) 25 mg PO DAILY PRN PRN Reason: Allergy Symptoms Docusate Sodium (Docusate Sodium 100 Mg Capsule) 100 mg PO DAILY [facility] Last Admin: 08/09/22 07:49 Dose: 100 mg Documented By: MARK Enoxaparin Sodium (Enoxaparin Sodium 60 Mg/0.6 Ml Syringe) 60 mg SUBCUT Q12H [facility] Last Admin: 08/08/22 23:51 Dose: 60 mg Documented By: SERJIO Fluoxetine HCl (Fluoxetine Hcl 20 Mg Capsule) 40 mg PO DAILY [facility] Last Admin: 08/09/22 07:49 Dose: 40 mg Documented By: MARK Fluticasone Propionate (Fluticasone Propionate Nasal 16 Gm [place]) 1 spray NOSTRIL-B BID PRN PRN Reason: Allergy Symptoms Gabapentin (Gabapentin 300 Mg Capsule) 300 mg PO TID [facility] Last Admin: 08/09/22 07:49 Dose: 300 mg Documented By: MARK Guaifenesin (Guaifenesin 200 Mg/10 Ml 10 Ml Liquid) 10 ml PO Q4H PRN PRN Reason: Cough Hydromorphone HCl (Hydromorphone Hcl 0.5 Mg/0.5 Ml Syringe) 1 mg IVPUSH Q3H PRN; Protocol PRN Reason: Pain, Severe (Pain Scale 7-10) Last Admin: 08/09/22 06:05 Dose: 1 mg Documented By: SERJIO Azithromycin 500 mg/ Sodium (Chloride) 250 mls @ 125 mls/hr IV Q24H [facility] Last Infusion: 08/08/22 23:01 Dose: 0 mls/hr Documented By: SERJIO Ceftriaxone Sodium 1 gm/ (Sodium Chloride) 50 mls @ 100 mls/hr IV Q24H [facility] Last Infusion: 08/08/22 18:03 Dose: 0 mls/hr Documented By: MARLEN Lorazepam (Lorazepam 0.5 Mg Tablet) 0.5 mg PO TID PRN PRN Reason: Anxiety Last Admin: 08/09/22 01:21 Dose: 0.5 mg Documented By: SERJIO Morphine Sulfate (Morphine Sulfate Er 30 Mg Tablet.Er) 60 mg PO Q8H [facility] Last Admin: 08/09/22 07:49 Dose: 60 mg Documented By: MARK Omeprazole (Omeprazole 20 Mg Capsule.Dr) 20 mg PO BID@0630,1630 [facility] Last Admin: 08/09/22 06:04 Dose: 20 mg Documented By: SERJIO Ondansetron HCl (Ondansetron Hcl 4 Mg/2 Ml Vial) 4 mg IVPUSH Q8H PRN PRN Reason: Nausea and Vomiting Last Admin: 08/09/22 03:14 Dose: 4 mg Documented By: SERJIO Polyethylene Glycol (Polyethylene Glycol 3350 17 Gm Powd.Pack) 17 gm PO BID PRN PRN Reason: Constipation Last Admin: 08/08/22 11:10 Dose: 17 gm Documented By: MALA Simethicone (Simethicone 80 Mg Tab.Chew) 80 mg PO QIDWMHS PRN PRN Reason: Gas Last Admin: 08/08/22 20:48 Dose: 80 mg Documented By: SERJIO Sodium Chloride (0.9 % Sodium Chloride Flush 3 Ml Syringe) 3 ml IVFLUSH QSHIFT [facility] Last Admin: 08/08/22 19:48 Dose: 3 ml Documented By: SERJIO Trazodone HCl (Trazodone Hcl 50 Mg Tablet) 50 mg PO BEDTIME [facility] Last Admin: 08/08/22 20:34 Dose: 50 mg Documented By: SERJIO Labs 08/09/22 06:12 08/07/22 06:06 Labs: Laboratory Results - last 24 hr 08/06/22 08/06/22 08/08/22 15:40 15:40 11:01 MCV MCH MCHC RDW Plt Count MPV Absolute Nucleated RBC Nucleated RBC % (auto) PT 13.2 H INR 1.1 APTT 27.4 Urine Osmolality 398 Ur Random Sodium 30.0 Urine Creatinine 315.50 08/09/22 06:12 MCV 94.4 MCH 31.8 MCHC 33.7 RDW 14.3 Plt Count 551 H MPV 8.3 L Absolute Nucleated RBC 0.000 Nucleated RBC % (auto) 0.0 PT INR APTT Urine Osmolality Ur Random Sodium Urine Creatinine Microbiology Microbiology Results: Microbiology 08/06/22 14:11 Blood Culture - Preliminary Blood - Venous No growth after 48 hours. 08/06/22 14:11 Blood Culture - Preliminary Blood - Venous No growth after 48 hours. Assessment and Plan (1) Atypical pneumonia: Status: Acute (2) Intractable abdominal pain: Status: Acute Plan 46-year-old female with history anxiety recently diagnosed with stage IV Adenocarcinoma of the lung with widely metastatic disease plan for palliative chemotherapy who is a current 1 pack per day every day smoker admitted for atypical pneumonia with sepsis and acute hypoxemic respiratory failure. Acute hypxocemic respiratory failure likely multifactorial r/t stage 4 adenocarcinoma lung and pneumonia weaned to room air Severe sepsis secondary to Acute atypical pneumonia continue IV ceftriaxone and azithromycin (initiated 08/06) strep pneumo, Legionella urine antigen will be checked blood cultures negative to date probable acute thrombosis of left renal vein d/w hematology/oncology - unable to determine if just compression from mass or thrombosis -given severe pain>rec to treat with lovenox 60 bid Hemoptysis. resolved, no previous episodes since admission likely related to pneumonia, metastatic disease No large PE on CTA chest, less likely PE in secondary and tertiary branches, not an anticoagulation candidate Acute kidney injury resolved with IVF Acute hyponatremia sodium improved Elevated troponins Likely related to demand from hypoxia. trops flat, BNP normal CTA chest negative for large PE no chest pain at this time echo with preserved EF, no WMA Stage 4 adenocarcinoma lung with widespread mets Pain management, requiring IV dilaudid for adequate pain control at this time, increase MS contin to q8h will need outpatient follow up with oncology diarrhea h/o IBS, initially CDiff and GI panel ordered but now pt reporting gas/constipation no further diarrhea Anxiety continue lorazepam tobacco dependence decline NRT, counseling offered DVT prophylaxis- lovenox Full code attending - dr. Mendoza requires ongoing inpatient hospitalization for management of atypical pneumonia in patient with metastatic cancer who has severe sepsis , DAYA, and acute hypoxia Time Spent With Patient Time: Total time managing care of this patient today ____ minutes. Quality Stroke Does the patient have a stroke diagnosis?: No VTE Prior VTE?: No VTE Risk Level:: Medical - moderate - high VTE Device Contraindication: N/A - Device Ordered VTE Drug Contraindication: Treatment Not Indicated
[2022-08-09] MEDS: 0.9 % Sodium Chloride Flush 3 ML SYRINGE IVFLUSH ×3 (08:41→20:33)
[2022-08-09] MEDS: polyethylene glycoL 3350 17 GM POWD.PACK PO (08:46)
[2022-08-09] MEDS: Enoxaparin Sodium 60 MG/0.6 ML SYRINGE SUBCUT ×2 (11:40→22:35)
[2022-08-09 14:55] VITALS: BP 102/68; PULSE 108; RESP 18; TEMP 36.6; O2SAT 92
[2022-08-09] MEDS: cefTRIAXone sodium 1 GM in 0.9 % Sodium Chloride 50 ML IV (16:41)
[2022-08-09 19:28] VITALS: BP 138/88; PULSE 103; RESP 20; TEMP 37.1; O2SAT 93
[2022-08-09] MEDS: Azithromycin 500 MG in 0.9 % Sodium Chloride 250 ML 125 MG IV (20:32)
[2022-08-09] MEDS: traZODone HCL 50 MG TABLET PO (20:33)
[2022-08-10] MEDS: Morphine Sulfate ER 30 MG TABLET.ER 60 MG PO ×2 (01:06→07:42)
[2022-08-10] MEDS: Acetaminophen 325 MG TABLET 650 MG PO (01:57)
[2022-08-10] MEDS: HYDROmorphone HCl 0.5 MG/0.5 ML SYRINGE 1 MG IVPUSH ×2 (02:18→06:21)
[2022-08-10 03:28] VITALS: BP 121/73; PULSE 96; RESP 20; TEMP 36.2; O2SAT 93
[2022-08-10 06:20] LABS: MANUAL DIFF FLAG NO
[2022-08-10] MEDS: Omeprazole 20 MG CAPSULE.DR PO (06:21)
[2022-08-10 06:32] LABS: Basophils Absolute Auto 0.1 X10*3/uL (0.0-0.2); Basophils Percent Auto 0.3 % (0-2); Eosinophils Absolute Auto 0.9 X10*3/uL (0.0-0.4); Eosinophils Percent Auto 5.3 % (0-4); Hematocrit 35.4 % (37.0-47.0); Hemoglobin 11.7 g/dl (12.0-16.0); Imm Gran Abs Auto 0.17 X10*3/uL (0.00-0.03); Lymphocytes Absolute Auto 2.2 X10*3/uL (1.2-4.9); Lymphocytes Percent Auto 12.6 % (20-40); Mean Corpuscular HGB Conc 33.1 g/dl (31.0-35.0); Mean Corpuscular Hemoglobin 31.5 pg (27.0-33.0); Mean Corpuscular Volume 95.2 fL (80.0-98.0); Mean Platelet Volume 8.4 fL (9.4-12.3); Monocytes Absolute Auto 1.4 X10*3/uL (0.1-1.2); Monocytes Percent Auto 8.2 % (2-11); Neutrophils Absolute Auto 12.5 x10*3/uL (2.0-8.3); Neutrophils Percent Auto 72.6 % (45-73); Platelet Count 599 X10*3/uL (160-400); Red Blood Count 3.72 X10*6/uL (4.20-5.50); Red Cell Distribution Width 14.5 % (11.0-16.0); White Blood Count 17.2 X10*3/uL (4.8-10.8)
[2022-08-10 06:49] LABS: Anion Gap 18 (12-20); Blood Urea Nitrogen 4 mg/dL (9-16); Calcium 9.8 mg/dL (8.4-10.2); Carbon Dioxide 23 mmol/L (22-29); Chloride 99 mmol/L (96-108); Creatinine Clr Calc Pharmacy 127.8; Estimated Glomerular Filt Rate > 60; Glucose Random 82 mg/dL (60-115); Potassium 3.6 mmol/L (3.3-5.1); Sodium 136 mmol/L (135-145)
[2022-08-10 07:15] VITALS: BP 120/73; PULSE 80; RESP 18; TEMP 36.1; O2SAT 92
[2022-08-10] MEDS: FLUoxetine HCl 20 MG CAPSULE 40 MG PO (07:42)
[2022-08-10] MEDS: Gabapentin 300 MG CAPSULE PO (07:42)
[2022-08-10] MEDS: Atorvastatin Calcium 40 MG TABLET PO (07:42)
[2022-08-10] MEDS: Docusate Sodium 100 MG CAPSULE PO (07:42)
[2022-08-10] MEDS: 0.9 % Sodium Chloride Flush 3 ML SYRINGE IVFLUSH (07:42)
[2022-08-10] MEDS: polyethylene glycoL 3350 17 GM POWD.PACK PO (07:46)
--- NOTE | 2022-08-10 09:43 | P.DS_ITS ---
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 She states that over the weekend she has had fevers up to 102 with associated chills as well as cough with white blood 10 in sputum production and dyspnea on exertion.? She also reports 5/10 pleuritic chest pain.? She continues to experience left-sided abdominal pain and has 1-2 episodes of diarrhea on daily basis.? She is also endorsing urinary frequency but no dysuria, hematuria, urgency, or flank pain.? She was referred by her oncologist to make sure she does not have renal vein thrombosis.? On arrival, blood pressure is soft to 91/54 97/56 with 1 L IVF.? She is also tachycardic to 120, tachypneic to 24, and hypoxic at 88% improved to 95% on 3 L supplemental O2.? She does not use supplemental O2 at baseline.? There is a leukocytosis of 16.8.? No anemia.? Creatinine of 1.26, previously 0.55 on 07/24.? BUN 18.? Sodium 130, potassium 4.4, chloride 93, CO2 24, anion gap 17.? Patient states she has been tolerating fluids but has not been eating much due anorexia.? Initial troponin 78.6, repeat 88.3.? EKG shows sinus tachycardia, rate 112 with Q-waves present in inferior leads.? CT abdomen/pelvis continues to show mild left renal hydronephrosis and hydroureter without obstructing stone and perinephric fat stranding concerning for possible infection versus inflammatory process nephritis.? There is also redemonstrated 5.8 cm left adrenal mass that is unchanged with compression on the adjacent left renal vein with possible clues in obstruction of the left renal vein which could also be explained by sequela of engorgement due to venous obstruction.? There also numerous lung nodules suspicious for metastasis increased in number compared to prior studies.? There is also retroperitoneal lymphadenopathy, periaortic Pac, perigastric, and lymphadenopathy around the celiac axis which is unchanged.? The gallbladder is distended with gallbladder sludge versus small stones.? Among other findings.? Urinalysis is only si gnificant for trace leukocytes, 1+ protein, and elevated specific gravity.? No bacteria.? CTA chest is negative for evidence of large central pulmonary emboli though there is suboptimal filling of peripheral secondary and tertiary branches is felt to be artifact due to extensive adjacent disease.? As before, there is significant increase in the number and size of numerous solid and subsolid ground-glass like lung nodules.? There is also patchy airspace interstitial open ossification involving the lungs diffusely which could be due to lymphangitic spread or superimposed atypical infection . Acute hypxocemic respiratory failure. Resolved likely multifactorial r/t stage 4 adenocarcinoma lung and pneumonia weaned to room air Severe sepsis secondary to Acute atypical pneumonia Treated with IV ceftriaxone and azithromycin (initiated 08/06), home with Ceftin and azithromycin for total 7 days blood cultures negative to date? probable acute thrombosis of left renal vein d/w hematology/oncology - unable to determine if just compression from mass or thrombosis -given severe pain>rec to treat with lovenox 60 bid Hemoptysis. resolved, no previous episodes since admission likely related to pneumonia, metastatic disease No large PE on CTA chest, less likely PE in secondary and tertiary branches, not an anticoagulation candidate Acute kidney injury resolved with IVF Acute hyponatremia sodium improved Elevated troponins Likely related to demand from hypoxia. trops flat,? BNP normal CTA chest negative for large PE no chest pain at this time echo with preserved EF, no WMA Stage 4 adenocarcinoma lung with widespread mets Pain management, requiring IV dilaudid for adequate pain control at this time, increase MS contin to q8h will need outpatient follow up with oncology diarrhea. Resolved h/o IBS Anxiety continue lorazepam tobacco dependence decline NRT, counseling offered Intractable pain. Improved. Continue morphine. Dilaudid ordered for total 3 days Time Spent with Patient Time attestation: Total time managing care of this patient today ____ minutes. Discharge coordination time: Greater than 30 minutes Quality: Safe Use of Opioids Does Pt have an Active Cancer Diagnosis on the Problem List?: No Quality: Stroke Does the patient have a stroke diagnosis?: No Physical Exam Vital Signs: Vital Signs: Last Vital Signs Temp 97.0 F 08/10/22 07:15 Pulse 80 08/10/22 07:15 Resp 18 08/10/22 07:15 BP 120/73 08/10/22 07:15 Pulse Ox 92 08/10/22 07:15 O2 Del Method Room Air 08/10/22 07:15 O2 Flow Rate 3.0 08/07/22 15:44 BMI result Body Mass Index 28.6 Appearing in no acute distress head is normocephalic atraumatic eyes pupils are PERRLA sclera is anicteric mouth throat mucous membranes are intact and moist neck is supple no lymphadenopathy, no JVD noted lung sounds are clear to auscultation heart regular rate rhythm, clear S1, S2 positive bowel sounds, abdomen is soft, nontender neuro patient is alert x3, no focal deficits DS: Data Data Completed and Pending Labs on day of discharge: Laboratory Results - last 24 hr 08/10/22 08/10/22 05:54 05:54 WBC 17.2 H RBC 3.72 L Hgb 11.7 L Hct 35.4 L MCV 95.2 MCH 31.5 MCHC 33.1 RDW 14.5 Plt Count 599 H MPV 8.4 L Immature Gran % (Auto) 1.0 H Neut % (Auto) 72.6 Lymph % (Auto) 12.6 L [place] % (Auto) 8.2 Eos % (Auto) 5.3 H Baso % (Auto) 0.3 Lymph # (Auto) 2.2 [place] # (Auto) 1.4 H Eos # (Auto) 0.9 H Baso # (Auto) 0.1 Abs Immat Gran (auto) 0.17 H Absolute Neuts (auto) 12.5 H Absolute Nucleated RBC 0.000 Nucleated RBC % (auto) 0.0 Sodium 136 Potassium 3.6 Chloride 99 Carbon Dioxide 23 Anion Gap 18 BUN 4 L Creatinine 0.58 Estim Creat Clear Calc 127.8 Estimated GFR > 60 Random Glucose 82 Calcium 9.8 Preliminary micro results at discharge 08/06/22 14:11 Blood Culture - Preliminary Blood - Venous No growth after 48 hours. 08/06/22 14:11 Blood Culture - Preliminary Blood - Venous No growth after 48 hours. Discharge Plan Discharge Anticipated Discharge Date/Time: 08/10/22 09:35 Patient Disposition: Home, Self-Care Discharge Diagnosis: Acute hypoxic respiratory failure Severe sepsis Acute atypical pneumonia DAYA Hyponatremia Elevated troponin Diarrhea Referrals: Sandra Schultz MD [Primary Care Provider] - 1 Week Discharge Medications: New azithromycin 500 mg tablet 500 mg PO DAILY 5 Days Qty: 5 0RF cefuroxime axetil 500 mg tablet 500 mg PO BID Qty: 10 0RF hydromorphone [Dilaudid] 4 mg tablet 4 mg PO Q6H PRN (Reason: pain) Qty: 12 0RF Rx Instructions: Partial Fill upon patient request. Continued acetaminophen 500 mg Tablet 500 mg PO Q6H PRN (Reason: Pain) diphenhydramine HCl 25 mg Tablet 25 mg PO DAILY PRN (Reason: Allergy Symptoms) lorazepam 0.5 mg tablet 0.5 mg PO TID PRN (Reason: Anxiety) atorvastatin 40 mg tablet 40 mg PO DAILY trazodone 50 mg tablet 50 mg PO BEDTIME albuterol sulfate 90 mcg/actuation HFA aerosol inhaler 2 puff INHALATION Q4H PRN (Reason: wheezing) fluoxetine 20 mg capsule 40 mg PO DAILY fluticasone propionate 50 mcg/actuation spray,suspension 1 spray intranasal BID PRN (Reason: Allergy Symptoms) gabapentin 300 mg Capsule 300 mg PO TID Qty: 90 3RF morphine 60 mg Tablet Extended Release 60 mg PO Q12H Qty: 60 0RF Rx Instructions: Partial Fill upon patient request. ondansetron 8 mg Tablet,Disintegrating 8 mg PO Q8H PRN (Reason: Nausea) Qty: 60 3RF omeprazole 20 mg Capsule,Delayed Release(Dr/Ec) 20 mg PO BID Qty: 60 3RF morphine 15 mg Tablet 15 mg PO Q4H PRN (Reason: Pain, Severe (Pain Scale 7-10)) Qty: 42 0RF Rx Instructions: Partial Fill upon patient request. lisinopril 10 mg Tablet 10 mg PO DAILY Qty: 30 0RF Protocol: Hold for SBP< HOLD for SBP < : 90 Discharge Orders: Discharge Order (Routine); Ordered 08/10/22 Ordered By: Diana Yao Diet: Advance to usual diet Activity on Discharge: As tolerated Stand Alone Forms: Patient Portal Discharge page Care Plan Goals: Follow-up with Oncology Health Concerns: Acute hypoxic respiratory failure Severe sepsis Acute atypical pneumonia DAYA Hyponatremia Elevated troponin Diarrhea Plan of Treatment: Take all medications as prescribed Assessment: See discharge summary
--- NOTE | 2022-08-10 10:11 | MHC.CM.PN ---
Addendum entered by Cyndee Pizarro 08/10/22 11:40: CM INFORMED PT DISCHARGED ON LOVENOX REFERRALS MADE TO ALL FOUR CONTRACTED [facility] Original Note: PT WILL DC HOME TODAY WITH NO SERVICES TO TRANSPORT
--- NOTE | 2022-08-10 11:07 | P.F2F_ITS ---
Service Date Service Date: 08/10/22 Encounter Date of encounter: 08/10/22 Reasons for Services Signs and symptoms assessed: pain left renal vein thrombus Reason for senior care: CV/CP assess and/or care, administration of IV, SQ, or IM injection and teach disease management Homebound: Leaving the home is medically contraindicated at this time without the asist of a device and/or another person due th the listed conditions above and below. Reason homebound: unsteady gait / fall risk and pain with transfers Certification: Based on the above findings, I certify that this patient is confined to the home and needs intermittent senior care care, physical therapy and/or speech therapy, or continues to need occupational therapy. The patient is under my care, and I have initiated the establishment of the plan of care. The patient will be followed by a physician who will periodically review the plan of care. Time Spent With Patient Time: Total time managing care of this patient today ____ minutes.
[2022-08-14 02:38] LABS: Strep Pneumo Ag urine Not Detected (Not Detected)
[2022-08-19 04:14] LABS: Legionella Ag Urine Not Detected (Not Detected)
== END 2022-08-10 10:28 | disposition home health service (06) | DRG 871 ==
LOC: HO.ED 18:39 → HO.EDOVER 19:48 → HO.S3 08-07 12:00
PROVIDERS: Physician Assistant; Physician Assistant Medical; Admitting Provider Physician Assistant; Emergency Provider Emergency Medicine; PCP Internal Medicine; Visit Provider Nurse Practitioner Acute Care
DX: A41.9 Sepsis, unspecified organism (principal); J18.9 Pneumonia, unspecified organism; J96.01 Acute respiratory failure with hypoxia; N17.9 Acute kidney failure, unspecified; E87.1 Hypo-osmolality and hyponatremia; C79.72 Secondary malignant neoplasm of left adrenal gland; C77.8 Secondary and unspecified malignant neoplasm of lymph nodes of multiple regions; C34.92 Malignant neoplasm of unspecified part of left bronchus or lung; C34.91 Malignant neoplasm of unspecified part of right bronchus or lung; R04.2 Hemoptysis; N13.30 Unspecified hydronephrosis; I82.3 Embolism and thrombosis of renal vein; G89.3 Neoplasm related pain (acute) (chronic); F41.9 Anxiety disorder, unspecified; R65.20 Severe sepsis without septic shock; F17.210 Nicotine dependence, cigarettes, uncomplicated; Z71.6 Tobacco abuse counseling; I10 Essential (primary) hypertension; Z79.51 Long term (current) use of inhaled steroids; Z79.899 Other long term (current) drug therapy
CPT/HCPCS: 36415; 71275; 74177; 80048; 80053; 81001; 83605; 83880; 83935; 84300; 84484; 85025; 85027; 85610; 85730; 87040; 87449; 87899; 93005; 93306; 99285; J0456; J0696; J1170; J1650; J2405; J2550; J3010; Q9957; Q9967

== ENCOUNTER → 2022-08-14 07:08 | Day surgery (SDC) | payer OTHER, SELFPAY ==
[2022-08-14 07:24] VITALS: BMI 27.6
[2022-08-14 07:34] LABS: UPreg QC Valid YES; Urine Pregnancy NEGATIVE (NEGATIVE)
[2022-08-14 07:43] LABS: INTERNATIONAL NORM RATIO 1.2 (0.9-1.1); Prothrombin Time 13.8 SEC (10.0-13.1)
[2022-08-14 07:45] LABS: Partial Thromboplastin Time 28.4 SEC (26.0-36.4)
[2022-08-14 07:46] LABS: Basophils Absolute Auto 0.1 X10*3/uL (0.0-0.2); Basophils Percent Auto 0.3 % (0-2); Eosinophils Absolute Auto 0.7 X10*3/uL (0.0-0.4); Eosinophils Percent Auto 2.5 % (0-4); Hemoglobin 12.8 g/dl (12.0-16.0); Imm Gran Abs Auto 0.41 X10*3/uL (0.00-0.03); Imm Gran Pct Auto 1.6 % (0.0-0.4); Lymphocytes Absolute Auto 2.6 X10*3/uL (1.2-4.9); Lymphocytes Percent Auto 9.7 % (20-40); MANUAL DIFF FLAG SCAN; Mean Corpuscular HGB Conc 33.7 g/dl (31.0-35.0); Mean Corpuscular Hemoglobin 31.7 pg (27.0-33.0); Mean Corpuscular Volume 94.1 fL (80.0-98.0); Mean Platelet Volume 8.3 fL (9.4-12.3); Monocytes Absolute Auto 1.9 X10*3/uL (0.1-1.2); Monocytes Percent Auto 7.2 % (2-11); Neutrophils Absolute Auto 20.8 x10*3/uL (2.0-8.3); Neutrophils Percent Auto 78.7 % (45-73); Platelet Count 527 X10*3/uL (160-400); Red Blood Count 4.04 X10*6/uL (4.20-5.50); Red Cell Distribution Width 14.7 % (11.0-16.0); SCAN SMEAR FLAG 1; White Blood Count 26.4 X10*3/uL (4.8-10.8)
[2022-08-14 08:27] LABS: SLIDE REVIEW VERIFIED
== END ==
LOC: HO.SSS 07:08
PROVIDERS: Visit Provider Radiology Diagnostic Radiology
DX: E27.8 Other specified disorders of adrenal gland (principal); Z53.8 Procedure and treatment not carried out for other reasons; D72.829 Elevated white blood cell count, unspecified; R10.9 Unspecified abdominal pain
CPT/HCPCS: 36415; 81025; 85025; 85610; 85730; J0690

== ENCOUNTER 2022-08-14 15:32 | Inpatient (IN) | payer OTHER, SELFPAY ==
--- NOTE | ~2022-08-14 | XR_ITS ---
EXAMINATION: XR CHEST CLINICAL INFORMATION: Pneumonia, hypoxia COMPARISON: CTA chest on 08/06/2022 TECHNIQUE: Frontal view of the chest was obtained. FINDINGS: Diffuse bilateral nodules and interstitial disease. The cardiac mediastinal silhouette is normal. No pleural effusions. XR/XR chest 1V IMPRESSION: Diffuse bilateral nodules and interstitial disease.
[2022-08-14 16:27] VITALS: BP 114/61; PULSE 82; RESP 16; TEMP 36.3; O2SAT 93
[2022-08-14] MEDS: cefTRIAXone sodium 1 GM in 0.9 % Sodium Chloride 50 ML IV (16:40)
[2022-08-14] MEDS: Doxycycline Hyclate 100 MG in 0.9 % Sodium Chloride 250 ML 166.67 MG IV (16:41)
[2022-08-14] MEDS: HYDROmorphone HCl 1 MG/ML SYRINGE IVPUSH ×4 (16:52→23:50)
--- NOTE | 2022-08-14 17:14 | P.HPHOSP_ITS ---
History of Present Illness Date of Service: 08/14/22 Chief Complaint: hypoxia 46yo F with recently diagnosed high-grade metastatic lung cancer who was admitted here 08/06-08/10/22 for hypoxia and sepsis due to pneumonia along with possible left renal vein thrombosis. She was weaned off oxygen, treated with ceftriaxone and azithromycin, and discharged home on cefuroxime and azithromycin. Blood cultures were negative. She has had worsening hemoptysis, sputum production, and dyspnea since then, along with subjective fever and chills. Despite taking antibiotics, her WBC count has worsened. She presented to her oncologist Dr Masters today for scheduled chemotherapy. She was found to be markedly hypoxic, requiring at least 8L of oxygen, and was directly admitted to the [facility]. She is currently on HFNC and feeling somewhat better. She complains of severe left flank pain that has not improved despite taking therpaeutic enoxaparin for the possible renal vein thrombosis. She is on extended- and immediate-release morphine for pain control. Currently afebrile but mildly tachypneic in the low 20s. Last CTA on 08/06/22 showed: *? No CT evidence of large central pulmonary emboli, there is suboptimal filling of peripheral secondary and tertiary branches felt to be an artifacts due to extensive adjacent disease involving both lungs. *? There has been significant increase in the number and size of numerous solid and subsolid groundglass lung nodules involving both lungs diffusely, this is compatible with patient history of pulmonary metastasis. *? There is also patchy airspace interstitial opacification involving the lungs diffusely which could be due to lymphangitic spread and/or superimposed atypical infection. *? Increasing mediastinal and hilar lymphadenopathy. Review of Systems Review of Systems: Yes all other systems are reviewed and are negative [facility] Medical History Adenocarcinoma of lung, stage 4 Anxiety Depression HTN (hypertension) Irritable bowel syndrome (IBS) Surgical History S/P lumpectomy, right breast Social History Household Members: Spouse Housing: House Do you presently have visiting nurse or other home services: Yes Alcohol intake: current Alcohol intake frequency: a few times a week Patient Tobacco Use Status: Current everyday Tobacco user Tobacco use type: Cigarette Cigarette Packs Per Day: 1 e-Cigarette/Vaping Use: Currently Using Second Hand Smoke Exposure: No Substance Use Type: Marijuana Have you been hit, kicked, punched, or otherwise hurt by someone within the past year? If so, by whom?: No Do you feel safe in your current relationship?: Yes Is there a partner from a previous relationship who is making you feel unsafe now?: No Are you made to feel afraid or neglected: No Advance Directives: Yes Advance Directives on File: Yes Advance Directives Date on File: 07/11/22 Do you have thoughts of harming others: None Do you have a plan to hurt others: No Plan Recently lost weight without trying: Unsure Nutrition Risks: No Nutritional Risk Patient : No : No service: No Current occupational status: employed Meds Allergies Allergy/AdvReac Type Severity Reaction Status Date / Time No Known Allergies Allergy Verified 08/06/22 13:40 Active Medications: Current Medications Acetaminophen (Acetaminophen 325 Mg Tablet) 650 mg PO Q6H PRN PRN Reason: Pain, Mild (Pain Scale 1-3) Albuterol Sulfate (Albuterol Sulfate (0.083%) 2.5 Mg/3 Ml Vial.Neb) 2.5 mg INHALE RQ4H WHILE AWAKE [facility] Albuterol Sulfate (Albuterol Sulfate (0.083%) 2.5 Mg/3 Ml Vial.Neb) 2.5 mg INHALE Q2H PRN PRN Reason: Shortness of Breath/Wheezing Atorvastatin Calcium (Atorvastatin Calcium 40 Mg Tablet) 40 mg PO DAILY [facility] Diphenhydramine HCl (Diphenhydramine Hcl 25 Mg Capsule) 25 mg PO DAILY PRN PRN Reason: Allergy Symptoms Fluoxetine HCl (Fluoxetine Hcl 20 Mg Capsule) 40 mg PO DAILY [facility] Fluticasone Propionate (Fluticasone Propionate Nasal 16 Gm [place]) 1 spray NOSTRIL-B BID PRN PRN Reason: Allergy Symptoms Gabapentin (Gabapentin 300 Mg Capsule) 300 mg PO TID [facility] Hydromorphone HCl (Hydromorphone Hcl 1 Mg/Ml Syringe) 1 mg IVPUSH Q2H PRN; Protocol PRN Reason: severe pain Last Admin: 08/14/22 16:52 Dose: 1 mg Ceftriaxone Sodium 1 gm/ (Sodium Chloride) 50 mls @ 100 mls/hr IV Q24H [facility] Last Admin: 08/14/22 16:40 Dose: 100 mls/hr Doxycycline Hyclate 100 mg/ (Sodium Chloride) 250 mls @ 166.67 mls/hr IV Q12H [facility] Last Admin: 08/14/22 16:41 Dose: 166.67 mls/hr Lisinopril (Lisinopril 10 Mg Tablet) 10 mg PO DAILY [facility]; Protocol Lorazepam (Lorazepam 0.5 Mg Tablet) 0.5 mg PO TID PRN PRN Reason: Anxiety Morphine Sulfate (Morphine Sulfate Er 30 Mg Tablet.Er) 60 mg PO Q12H [facility] Omeprazole (Omeprazole 20 Mg Capsule.Dr) 20 mg PO BID [facility] Ondansetron HCl (Ondansetron Hcl 4 Mg/2 Ml Vial) 4 mg IVPUSH Q8H PRN PRN Reason: Nausea and Vomiting Ondansetron HCl (Ondansetron Odt 8 Mg Tab.Rapdis) 8 mg TRANSLINGU Q6H PRN PRN Reason: Nausea Trazodone HCl (Trazodone Hcl 50 Mg Tablet) 50 mg PO BEDTIME [facility] Home Medications Medication Instructions Recorded Confirmed Last Taken Type albuterol sulfate 90 mcg/actuation 2 puff inhalation Q4H PRN wheezing 07/11/22 08/14/22 Unknown History aerosol inhaler atorvastatin 40 mg tablet 40 mg PO DAILY 07/11/22 08/14/22 08/06/22 History fluoxetine 20 mg capsule 40 mg PO DAILY 07/11/22 08/14/22 08/06/22 History fluticasone propionate 50 1 spray intranasal BID PRN Allergy 07/11/22 08/14/22 Unknown History mcg/actuation nasal Symptoms spray,suspension trazodone 50 mg tablet 50 mg PO BEDTIME 07/11/22 08/14/22 08/05/22 History acetaminophen 500 mg tablet 500 mg PO Q6H PRN Pain 08/06/22 08/14/22 Unknown History diphenhydramine HCl 25 mg tablet 25 mg PO DAILY PRN Allergy Symptoms 08/06/22 08/14/22 Unknown History lorazepam 0.5 mg tablet 0.5 mg PO TID PRN Anxiety 08/06/22 08/14/22 Unknown History Physical Exam Vital Signs and Narrative: Vital Signs: Last Vital Signs Temp 97.3 F 08/14/22 16:27 Pulse 82 08/14/22 16:27 Resp 16 08/14/22 16:27 BP 114/61 08/14/22 16:27 Pulse Ox 93 08/14/22 16:27 O2 Del Method Nasal Cannula 08/14/22 16:27 Gen: mildly tachypneic HEENT: sclera anicteric, moist mucus membranes Neck: supple Lungs: clear to auscultation bilaterall Heart: regular rate and rhythm, no murmurs Abd: soft, non-tender, non-distended Ext: no edema Skin: warm/well-perfused Neuro: alert and oriented x3, no focal findings Psych: appropriate affect Assessment and Plan (1) Metastatic non-small cell lung cancer: Status: Acute (2) Acute hypoxemic respiratory failure: Status: Acute Plan 46yo F with recently diagnosed high-grade metastatic lung cancer who was admitted here 08/06-08/10/22 for hypoxia and sepsis due to pneumonia who presented to her oncologist's office today for the 1st cycle of palliative chemotherapy but was found to be markedly hypoxic so directly admitted to the hospital. # acute hypoxic resp failure - Admit to [facility]. Currently on high-flow NC and will gradually attempt to wean. Likely due to lymphangitic spread of her carcinoma but will also treat for pneumonia as below # pneumonia - Change to IV ceftriaxone + doxycycline. Check PCT, respiratory virus panel, BCx, sputum culture, MRSA swab and broaden coverage per results. WBCs elevated but could also be from leukemoid reaction rather than infection. # question of renal vein thrombosis - Versus extrinsic compression. Per discussion with Dr Masters, will place on intermediate-dose prophylactic enoxaparin of 40 mg bid # cancer-associated pain - Continue MSSR 60 mg q8h, use hydromorphone IV for breakthrough pain and will convert to equivalent MSIR dose when we have a better idea of her opioid requirement. Continue gabapentin as well # HTN - Continue lisinopril # mood disorder - Continue lorazepam, trazodone, and fluoxetine # VTE prophylaxis: LMWH # dispo: anticipate home eventually # code status: full I anticipate that the patient will stay at least 2 midnights as an inpatient in the hospital due to the above reasons. It is neither reasonable nor safe to care for them in a less acute setting. Time Spent With Patient Time: Total time managing care of this patient today ____ minutes. Quality Stroke Does the patient have a stroke diagnosis?: No VTE Prior VTE?: No VTE Risk Level:: Medical - moderate - high VTE Device Contraindication: N/A - Device Ordered VTE Drug Contraindication: N/A - Med Ordered
[2022-08-14 17:15] VITALS: PULSE 77; RESP 21; O2SAT 95
[2022-08-14] MEDS: Acetaminophen 325 MG TABLET 650 MG PO (18:38)
[2022-08-14] MEDS: Morphine Sulfate ER 30 MG TABLET.ER 60 MG PO (18:39)
[2022-08-14] MEDS: Enoxaparin Sodium 40 MG/0.4 ML SYRINGE SUBCUT (18:39)
[2022-08-14 19:20] LABS: Anion Gap 15 (12-20); Blood Urea Nitrogen 9 mg/dL (9-16); Calcium 8.9 mg/dL (8.4-10.2); Carbon Dioxide 21 mmol/L (22-29); Chloride 100 mmol/L (96-108); Estimated Glomerular Filt Rate > 60; Glucose Random 145 mg/dL (60-115); Sodium 132 mmol/L (135-145)
--- NOTE | 2022-08-14 19:34 | PC.NURSE ---
due to pt having low BP and feeling dizzy at time, being on multiple sedative medications, needing to use the portable O2 tank this nurse made pt a moderate fall risk however pt wishes to be independent in room and requests for bed alarm to be off abd states will ring if she feels unsteady.
[2022-08-14 19:36] LABS: Procalcitonin 0.15 ng/mL
[2022-08-14 20:00] VITALS: PULSE 88; RESP 16
[2022-08-14] MEDS: Albuterol Sulfate (0.083%) 2.5 MG/3 ML VIAL.NEB INHALE (20:10)
[2022-08-14 20:12] VITALS: PULSE 71; PULSE 77; RESP 20; RESP 21; O2SAT 94
[2022-08-14] MEDS: traZODone HCL 50 MG TABLET PO (20:43)
[2022-08-14] MEDS: Gabapentin 300 MG CAPSULE PO (20:43)
[2022-08-14 23:39] VITALS: BP 110/58; PULSE 90; RESP 17; TEMP 36.2; O2SAT 100
[2022-08-15] VITALS (15 sets, daily range): BP systolic 106–130; BP diastolic 59–77; PULSE 76–117; RESP 16–22; TEMP 36.2–36.9; O2SAT 91–96; BMI 28.8
[2022-08-15] MEDS: HYDROmorphone HCl 1 MG/ML SYRINGE IVPUSH ×5 (02:09→13:26)
[2022-08-15] MEDS: Morphine Sulfate ER 30 MG TABLET.ER 60 MG PO (02:48)
[2022-08-15] MEDS: Doxycycline Hyclate 100 MG in 0.9 % Sodium Chloride 250 ML 166.67 MG IV ×2 (02:49→16:56)
[2022-08-15] MEDS: Omeprazole 20 MG CAPSULE.DR PO ×2 (04:52→16:58)
[2022-08-15] MEDS: Enoxaparin Sodium 40 MG/0.4 ML SYRINGE SUBCUT ×2 (04:52→16:58)
[2022-08-15] MEDS: LORazepam 0.5 MG TABLET PO ×2 (04:52→17:58)
[2022-08-15 07:32] LABS: Basophils Absolute Auto 0.1 X10*3/uL (0.0-0.2); Basophils Percent Auto 0.2 % (0-2); Eosinophils Absolute Auto 0.1 X10*3/uL (0.0-0.4); Eosinophils Percent Auto 0.4 % (0-4); Hematocrit 31.3 % (37.0-47.0); Hemoglobin 10.4 g/dl (12.0-16.0); Imm Gran Abs Auto 0.26 X10*3/uL (0.00-0.03); Lymphocytes Absolute Auto 1.3 X10*3/uL (1.2-4.9); Lymphocytes Percent Auto 5.1 % (20-40); MANUAL DIFF FLAG SCAN; Mean Corpuscular HGB Conc 33.2 g/dl (31.0-35.0); Mean Corpuscular Hemoglobin 31.9 pg (27.0-33.0); Mean Platelet Volume 8.8 fL (9.4-12.3); Monocytes Absolute Auto 1.9 X10*3/uL (0.1-1.2); Monocytes Percent Auto 7.2 % (2-11); Neutrophils Absolute Auto 22.7 x10*3/uL (2.0-8.3); Neutrophils Percent Auto 86.1 % (45-73); Platelet Count 463 X10*3/uL (160-400); Red Blood Count 3.26 X10*6/uL (4.20-5.50); Red Cell Distribution Width 14.8 % (11.0-16.0); SCAN SMEAR FLAG 1; White Blood Count 26.3 X10*3/uL (4.8-10.8)
[2022-08-15 07:59] LABS: SLIDE REVIEW VERIFIED
[2022-08-15] MEDS: Albuterol Sulfate (0.083%) 2.5 MG/3 ML VIAL.NEB INHALE ×3 (08:05→19:50)
[2022-08-15 08:30] LABS: MRSA Nasal PCR NEGATIVE (Negative); SA Nasal PCR NEGATIVE (Negative)
[2022-08-15] MEDS: FLUoxetine HCl 20 MG CAPSULE 40 MG PO (09:08)
[2022-08-15] MEDS: lisinopriL 10 MG TABLET PO (09:08)
[2022-08-15] MEDS: Atorvastatin Calcium 40 MG TABLET PO (09:08)
[2022-08-15] MEDS: Gabapentin 300 MG CAPSULE PO ×3 (09:08→20:51)
--- NOTE | 2022-08-15 09:33 | MHC.CM.PN ---
Pt admitted with worsening symptoms related to her metastatic cancer, she is short of breath at rest and hypoxic requiring hi flow O2. Pt lives at home with her , had no services/DME. Pts or mother can transport her home. HCP on file. D/C plan pending further symptom management/evaluation, but anticipating home self-care vs home with vna/hospice. PCP: Sandra High vax: x 3
[2022-08-15] MEDS: Acetaminophen 325 MG TABLET 650 MG PO (09:58)
[2022-08-15 11:23] LABS: Anion Gap 15 (12-20); Blood Urea Nitrogen 12 mg/dL (9-16); Calcium 8.6 mg/dL (8.4-10.2); Carbon Dioxide 23 mmol/L (22-29); Chloride 101 mmol/L (96-108); Estimated Glomerular Filt Rate > 60; Glucose Random 118 mg/dL (60-115); Potassium 3.7 mmol/L (3.3-5.1); Sodium 135 mmol/L (135-145)
[2022-08-15] MEDS: Morphine Sulfate ER 30 MG TABLET.ER 90 MG PO ×2 (11:47→20:51)
--- NOTE | 2022-08-15 14:13 | P.PNIM_ITS ---
Subjective Subjective Date of Service: 08/15/22 Interval History: Dyspneic, coughing blood-tinged sputum Afebrile Review of Systems Review of Systems: Yes all other systems are reviewed and are negative Physical Exam Vital Signs: Vital Signs: Last Vital Signs Temp 97.2 F 08/15/22 11:05 Pulse 85 08/15/22 11:05 Resp 20 08/15/22 11:05 BP 112/69 08/15/22 11:05 Pulse Ox 94 08/15/22 11:05 O2 Del Method High Flow Nasal C annula 08/15/22 11:05 O2 Flow Rate 30 08/15/22 11:05 FiO2 44 08/15/22 11:05 BMI result Body Mass Index 28.8 Gen: mildly tachypneic HEENT: sclera anicteric, moist mucus membranes Neck: supple Lungs: diffuse inspiratory crackles Heart: regular rate and rhythm, no murmurs Abd: soft, non-tender, non-distended Ext: no edema Skin: warm/well-perfused Neuro: alert and oriented x3, no focal findings Psych: appropriate affect Objective Data Active Medications Acetaminophen (Acetaminophen 325 Mg Tablet) 650 mg PO Q6H PRN PRN Reason: Pain, Mild (Pain Scale 1-3) Last Admin: 08/15/22 09:58 Dose: 650 mg Documented By: NURY Albuterol Sulfate (Albuterol Sulfate (0.083%) 2.5 Mg/3 Ml Vial.Neb) 2.5 mg INHALE RQ4H WHILE AWAKE [facility] Last Admin: 08/15/22 12:30 Dose: Not Given Documented By: NICOLLE Non-Admin Reason: Patient Refused Albuterol Sulfate (Albuterol Sulfate (0.083%) 2.5 Mg/3 Ml Vial.Neb) 2.5 mg INHALE Q2H PRN PRN Reason: Shortness of Breath/Wheezing Atorvastatin Calcium (Atorvastatin Calcium 40 Mg Tablet) 40 mg PO DAILY [facility] Last Admin: 08/15/22 09:08 Dose: 40 mg Documented By: NURY Diphenhydramine HCl (Diphenhydramine Hcl 25 Mg Capsule) 25 mg PO DAILY PRN PRN Reason: Allergy Symptoms Enoxaparin Sodium (Enoxaparin Sodium 40 Mg/0.4 Ml Syringe) 40 mg SUBCUT Q12H [facility] Last Admin: 08/15/22 04:52 Dose: 40 mg Documented By: BRAD Fluoxetine HCl (Fluoxetine Hcl 20 Mg Capsule) 40 mg PO DAILY [facility] Last Admin: 08/15/22 09:08 Dose: 40 mg Documented By: NURY Fluticasone Propionate (Fluticasone Propionate Nasal 16 Gm [place]) 1 spray NOSTRIL-B BID PRN PRN Reason: Allergy Symptoms Gabapentin (Gabapentin 300 Mg Capsule) 300 mg PO TID [facility] Last Admin: 08/15/22 09:08 Dose: 300 mg Documented By: NURY Hydromorphone HCl (Hydromorphone Hcl 1 Mg/Ml Syringe) 1 mg IVPUSH Q2H PRN; Protocol PRN Reason: severe pain Last Admin: 08/15/22 13:26 Dose: 1 mg Documented By: NURY Ceftriaxone Sodium 1 gm/ (Sodium Chloride) 50 mls @ 100 mls/hr IV Q24H [facility] Last Infusion: 08/14/22 17:15 Dose: 0 mls/hr Documented By: NURY Doxycycline Hyclate 100 mg/ (Sodium Chloride) 250 mls @ 166.67 mls/hr IV Q12H [facility] Last Infusion: 08/15/22 04:19 Dose: 0 mls/hr Documented By: BRAD Lisinopril (Lisinopril 10 Mg Tablet) 10 mg PO DAILY [facility]; Protocol Last Admin: 08/15/22 09:08 Dose: 10 mg Documented By: NURY Lorazepam (Lorazepam 0.5 Mg Tablet) 0.5 mg PO TID PRN PRN Reason: Anxiety Last Admin: 08/15/22 04:52 Dose: 0.5 mg Documented By: BRAD Morphine Sulfate (Morphine Sulfate Er 30 Mg Tablet.Er) 90 mg PO Q8H [facility] Last Admin: 08/15/22 11:47 Dose: 90 mg Documented By: NURY Omeprazole (Omeprazole 20 Mg Capsule.Dr) 20 mg PO BID@0630,1630 [facility] Last Admin: 08/15/22 04:52 Dose: 20 mg Documented By: BRAD Ondansetron HCl (Ondansetron Hcl 4 Mg/2 Ml Vial) 4 mg IVPUSH Q8H PRN PRN Reason: Nausea and Vomiting Ondansetron HCl (Ondansetron Odt 8 Mg Tab.Rapdis) 8 mg TRANSLINGU Q6H PRN PRN Reason: Nausea Trazodone HCl (Trazodone Hcl 50 Mg Tablet) 50 mg PO BEDTIME [facility] Last Admin: 08/14/22 20:43 Dose: 50 mg Documented By: BRAD Labs 08/15/22 06:47 08/15/22 06:47 Labs: Laboratory Results - last 24 hr 08/14/22 08/14/22 08/15/22 18:19 21:38 06:47 MCV 96.0 MCH 31.9 MCHC 33.2 RDW 14.8 Plt Count 463 H MPV 8.8 L Immature Gran % (Auto) 1.0 H Neut % (Auto) 86.1 H Lymph % (Auto) 5.1 L [place] % (Auto) 7.2 Eos % (Auto) 0.4 Baso % (Auto) 0.2 Lymph # (Auto) 1.3 [place] # (Auto) 1.9 H Eos # (Auto) 0.1 Baso # (Auto) 0.1 Abs Immat Gran (auto) 0.26 H Absolute Neuts (auto) 22.7 H Absolute Nucleated RBC 0.000 Nucleated RBC % (auto) 0.0 Smear Tech's Comments VERIFIED Anion Gap 15 Estim Creat Clear Calc TNP Estimated GFR > 60 Random Glucose 145 H Calcium 8.9 D Procalcitonin 0.15 Nasal Screen MRSA (PCR) NEGATIVE Nasal S. aureus Screen NEGATIVE Nasal MRSA/S.aureus Interp SEE NOTE 08/15/22 06:47 MCV MCH MCHC RDW Plt Count MPV Immature Gran % (Auto) Neut % (Auto) Lymph % (Auto) [place] % (Auto) Eos % (Auto) Baso % (Auto) Lymph # (Auto) [place] # (Auto) Eos # (Auto) Baso # (Auto) Abs Immat Gran (auto) Absolute Neuts (auto) Absolute Nucleated RBC Nucleated RBC % (auto) Smear Tech's Comments Anion Gap 15 Estim Creat Clear Calc TNP Estimated GFR > 60 Random Glucose 118 H Calcium 8.6 Procalcitonin Nasal Screen MRSA (PCR) Nasal S. aureus Screen Nasal MRSA/S.aureus Interp Assessment and Plan (1) Acute hypoxemic respiratory failure: Status: Acute Plan hosp d#2 46yo F with recently diagnosed high-grade metastatic lung cancer who was admitted here 08/06-08/10/22 for hypoxia and sepsis due to pneumonia who presented to her oncologist's office on 08/14 for the 1st cycle of palliative chemotherapy but was found to be markedly hypoxic so was directly admitted to the hospital # acute hypoxic resp failure - Ad[facility] [place] [facility] Currently on high-flow NC 44% fiO2 @ 30L Lpm and will gradually attempt to wean.? Likely due to lymphangitic spread of her carcinoma but will also treat for pneumonia as below # pneumonia - d#2 IV ceftriaxone + doxycycline [was on cefuroxime + azithro as outpt]. PCT low, RVP pending, follow BCx, SpCx pending, MRSA swab negative. WBCs elevated but could also be from leukemoid reaction rather than infection. # question of renal vein thrombosis - Versus extrinsic compression per imaging.? Per discussion with Dr Masters, on intermediate-dose prophylactic enoxaparin of 40 mg bid # cancer-associated pain - Increase MSSR from 60 to 90 mg q8h, use hydromorphone IV for breakthrough pain and will convert to equivalent MSIR dose when we have a better idea of her opioid requirement.? Continue gabapentin as well # HTN - Continue lisinopril # mood disorder - Continue lorazepam, trazodone, and fluoxetine # VTE prophylaxis: LMWH # dispo: anticipate home eventually In my clinical judgment, the patient requires continued inpatient hospitalizati on for the following reasons: hypoxia, IV ABX Time Spent With Patient Time: Total time managing care of this patient today _35___ minutes. Quality Stroke Does the patient have a stroke diagnosis?: No VTE Prior VTE?: No VTE Risk Level:: Medical - moderate - high VTE Device Contraindication: N/A - Device Ordered VTE Drug Contraindication: N/A - Med Ordered
[2022-08-15] MEDS: cefTRIAXone sodium 1 GM in 0.9 % Sodium Chloride 50 ML IV (15:29)
[2022-08-15] MEDS: HYDROmorphone HCl 1 MG/ML SYRINGE 1.5 MG IVPUSH ×4 (15:30→22:51)
[2022-08-16] VITALS (12 sets, daily range): BP systolic 97–113; BP diastolic 55–67; PULSE 98–138; RESP 18–24; TEMP 36.1–37.1; O2SAT 89–98
[2022-08-16] MEDS: HYDROmorphone HCl 1 MG/ML SYRINGE 1.5 MG IVPUSH ×7 (01:37→22:09)
[2022-08-16] MEDS: Acetaminophen 325 MG TABLET 650 MG PO ×3 (02:23→23:48)
[2022-08-16] MEDS: Morphine Sulfate ER 30 MG TABLET.ER 90 MG PO ×3 (02:23→17:39)
[2022-08-16] MEDS: Doxycycline Monohydrate 100 MG CAPSULE PO ×2 (05:28→16:58)
[2022-08-16] MEDS: Omeprazole 20 MG CAPSULE.DR PO ×2 (05:28→16:58)
[2022-08-16] MEDS: Enoxaparin Sodium 40 MG/0.4 ML SYRINGE SUBCUT ×2 (05:28→16:58)
[2022-08-16 06:30] LABS: Hematocrit 36.7 % (37.0-47.0); Hemoglobin 11.9 g/dl (12.0-16.0); Mean Corpuscular HGB Conc 32.4 g/dl (31.0-35.0); Mean Corpuscular Hemoglobin 31.2 pg (27.0-33.0); Mean Corpuscular Volume 96.1 fL (80.0-98.0); Mean Platelet Volume 8.2 fL (9.4-12.3); Platelet Count 457 X10*3/uL (160-400); Red Blood Count 3.82 X10*6/uL (4.20-5.50); Red Cell Distribution Width 15.3 % (11.0-16.0); White Blood Count 29.5 X10*3/uL (4.8-10.8)
[2022-08-16 07:07] LABS: Anion Gap 16 (12-20); Blood Urea Nitrogen 7 mg/dL (9-16); Calcium 8.8 mg/dL (8.4-10.2); Carbon Dioxide 23 mmol/L (22-29); Chloride 102 mmol/L (96-108); Creatinine Clr Calc Pharmacy 137.6; Estimated Glomerular Filt Rate > 60; Glucose Random 87 mg/dL (60-115); Potassium 3.9 mmol/L (3.3-5.1); Sodium 137 mmol/L (135-145)
[2022-08-16] MEDS: Atorvastatin Calcium 40 MG TABLET PO (08:29)
[2022-08-16] MEDS: Gabapentin 300 MG CAPSULE PO ×3 (08:30→22:06)
[2022-08-16] MEDS: FLUoxetine HCl 20 MG CAPSULE 40 MG PO (08:30)
[2022-08-16] MEDS: lisinopriL 10 MG TABLET PO (08:30)
[2022-08-16] MEDS: LORazepam 0.5 MG TABLET PO ×2 (08:47→16:58)
[2022-08-16 08:57] LABS: Procalcitonin 0.28 ng/mL
[2022-08-16 09:41] LABS: Adenovirus PCR Not Detected (Not Detect.); Bordetella parapertussis PCR Not Detected (Not Detect.); Bordetella pertussis PCR Not Detected (Not Detect.); Chlamydia pneumoniae PCR Not Detected (Not Detect.); Coronavirus 229E PCR Not Detected (Not Detect.); Coronavirus HKU1 PCR Not Detected (Not Detect.); Coronavirus NL63 PCR Not Detected (Not Detect.); Coronavirus OC43 PCR Not Detected (Not Detect.); Human metapneumovirus PCR Not Detected (Not Detect.); Influenza A PCR Not Detected (Not Detect.); Influenza B PCR Not Detected (Not Detect.); Mycoplasma pneumoniae PCR Not Detected (Not Detect.); Parainfluenza 1 PCR Not Detected (Not Detect.); Parainfluenza 2 PCR Not Detected (Not Detect.); Parainfluenza 3 PCR Not Detected (Not Detect.); Parainfluenza 4 PCR Not Detected (Not Detect.); RSV PCR Not Detected (Not Detect.); Rhino/Enterovirus PCR Not Detected (Not Detect.); SARS-CoV-2 PCR Not Detected (Not Detect.)
--- NOTE | 2022-08-16 09:47 | P.PNIM_ITS ---
Subjective Subjective Date of Service: 08/16/22 Interval History: c/o L chest wall pain short of breath remains on HFNC 40% fiO2, 30 Lpm no fever Review of Systems Review of Systems: Yes all other systems are reviewed and are negative Physical Exam Vital Signs: Vital Signs: Last Vital Signs Temp 97.7 F 08/16/22 08:00 Pulse 126 H 08/16/22 08:00 Resp 22 H 08/16/22 08:00 BP 108/61 08/16/22 08:00 Pulse Ox 90 L 08/16/22 08:00 O2 Del Method High Flow Nasal C annula 08/16/22 08:00 O2 Flow Rate 30 08/15/22 19:33 FiO2 44 08/15/22 19:33 BMI result Body Mass Index 28.8 Gen: mildly tachypneic HEENT: sclera anicteric, moist mucus membranes Neck: supple Lungs: diffuse inspiratory crackles Heart: regular rate and rhythm, no murmurs Abd: soft, non-tender, non-distended Ext: no edema Skin: warm/well-perfused Neuro: alert and oriented x3, no focal findings Psych: appropriate affect Objective Data Active Medications Acetaminophen (Acetaminophen 325 Mg Tablet) 650 mg PO Q6H PRN PRN Reason: Pain, Mild (Pain Scale 1-3) Last Admin: 08/16/22 02:23 Dose: 650 mg Documented By: JUAN Albuterol Sulfate (Albuterol Sulfate (0.083%) 2.5 Mg/3 Ml Vial.Neb) 2.5 mg INHALE RQ4H WHILE AWAKE [facility] Last Admin: 08/16/22 07:50 Dose: Not Given Documented By: ALVARO Non-Admin Reason: Elevated Heart Rate Albuterol Sulfate (Albuterol Sulfate (0.083%) 2.5 Mg/3 Ml Vial.Neb) 2.5 mg INHALE Q2H PRN PRN Reason: Shortness of Breath/Wheezing Atorvastatin Calcium (Atorvastatin Calcium 40 Mg Tablet) 40 mg PO DAILY [facility] Last Admin: 08/16/22 08:29 Dose: 40 mg Documented By: CHRISS Diphenhydramine HCl (Diphenhydramine Hcl 25 Mg Capsule) 25 mg PO DAILY PRN PRN Reason: Allergy Symptoms Doxycycline Monohydrate (Doxycycline Monohydrate 100 Mg Capsule) 100 mg PO Q12H [facility] Last Admin: 08/16/22 05:28 Dose: 100 mg Documented By: JUAN Enoxaparin Sodium (Enoxaparin Sodium 40 Mg/0.4 Ml Syringe) 40 mg SUBCUT Q12H [facility] Last Admin: 08/16/22 05:28 Dose: 40 mg Documented By: JUAN Fluoxetine HCl (Fluoxetine Hcl 20 Mg Capsule) 40 mg PO DAILY [facility] Last Admin: 08/16/22 08:30 Dose: 40 mg Documented By: CHRISS Fluticasone Propionate (Fluticasone Propionate Nasal 16 Gm [place]) 1 spray NOSTRIL-B BID PRN PRN Reason: Allergy Symptoms Gabapentin (Gabapentin 300 Mg Capsule) 300 mg PO TID [facility] Last Admin: 08/16/22 08:30 Dose: 300 mg Documented By: CHRISS Hydromorphone HCl (Hydromorphone Hcl 1 Mg/Ml Syringe) 1.5 mg IVPUSH Q2H PRN; Protocol PRN Reason: severe pain Last Admin: 08/16/22 08:51 Dose: 1.5 mg Documented By: CHRISS Ceftriaxone Sodium 1 gm/ (Sodium Chloride) 50 mls @ 100 mls/hr IV Q24H [facility] Last Infusion: 08/15/22 17:02 Dose: 0 mls/hr Documented By: NURY Lidocaine (Lidocaine 4 % Patch Adh..Patch) 1 patch TRANSDERMA DAILY [facility]; Protocol Lisinopril (Lisinopril 10 Mg Tablet) 10 mg PO DAILY [facility]; Protocol Last Admin: 08/16/22 08:30 Dose: 10 mg Documented By: CHRISS Lorazepam (Lorazepam 0.5 Mg Tablet) 0.5 mg PO TID PRN PRN Reason: Anxiety Last Admin: 08/16/22 08:47 Dose: 0.5 mg Documented By: CHRISS Morphine Sulfate (Morphine Sulfate Er 30 Mg Tablet.Er) 90 mg PO Q8H [facility] Last Admin: 08/16/22 02:23 Dose: 90 mg Documented By: JUAN Naloxone HCl (Naloxone Hcl 0.4 Mg/Ml Vial) 0.1 mg IVPUSH Q2M PRN PRN Reason: Respiratory Rate < 10 Omeprazole (Omeprazole 20 Mg Capsule.) 20 mg PO BID@0630,1630 [facility] Last Admin: 08/16/22 05:28 Dose: 20 mg Documented By: JUAN Ondansetron HCl (Ondansetron Hcl 4 Mg/2 Ml Vial) 4 mg IVPUSH Q8H PRN PRN Reason: Nausea and Vomiting Ondansetron HCl (Ondansetron Odt 8 Mg Tab.Rapdis) 8 mg TRANSLINGU Q6H PRN PRN Reason: Nausea Trazodone HCl (Trazodone Hcl 50 Mg Tablet) 50 mg PO BEDTIME [facility] Last Admin: 08/15/22 20:51 Dose: Not Given Documented By: JUAN Non-Admin Reason: pt refused Labs 08/16/22 06:00 08/16/22 06:00 Labs: Laboratory Results - last 24 hr 08/14/22 08/15/22 08/16/22 21:38 06:47 06:00 MCV 96.1 MCH 31.2 MCHC 32.4 RDW 15.3 Plt Count 457 H MPV 8.2 L Absolute Nucleated RBC 0.000 Nucleated RBC % (auto) 0.0 Anion Gap 15 Estim Creat Clear Calc TNP Estimated GFR > 60 Random Glucose 118 H Calcium 8.6 Procalcitonin Respiratory Panel Garcia See Note Adenovirus (Rapid PCR) Not Detected B.pert (TEM-PCR) Not Detected B.parapertussis DNA PCR Not Detected C. pneumoniae DNA (PCR) Not Detected Coronavirus OC43 (PCR) Not Detected Coronavirus HKU1 (PCR) Not Detected Coronavirus 229E (PCR) Not Detected Coronavirus NL63 (PCR) Not Detected Human Metapneumovir PCR Not Detected Influenza A (RT-PCR) Not Detected Influenza B (RT-PCR) Not Detected M. pneumoniae (PCR) Not Detected Parainfluenza 1 (PCR) Not Detected Parainfluenza 2 (PCR) Not Detected Parainfluenza 3 (PCR) Not Detected Parainfluenza 4 (PCR) Not Detected RSV (PCR) Not Detected Entero/Rhino (PCR) Not Detected SARS-CoV-2 RNA (RT-PCR) Not Detected 08/16/22 06:00 MCV MCH MCHC RDW Plt Count MPV Absolute Nucleated RBC Nucleated RBC % (auto) Anion Gap 16 Estim Creat Clear Calc 137.6 Estimated GFR > 60 Random Glucose 87 Calcium 8.8 Procalcitonin 0.28 Respiratory Panel Garcia Adenovirus (Rapid PCR) B.pert (TEM-PCR) B.parapertussis DNA PCR C. pneumoniae DNA (PCR) Coronavirus OC43 (PCR) Coronavirus HKU1 (PCR) Coronavirus 229E (PCR) Coronavirus NL63 (PCR) Human Metapneumovir PCR Influenza A (RT-PCR) Influenza B (RT-PCR) M. pneumoniae (PCR) Parainfluenza 1 (PCR) Parainfluenza 2 (PCR) Parainfluenza 3 (PCR) Parainfluenza 4 (PCR) RSV (PCR) Entero/Rhino (PCR) SARS-CoV-2 RNA (RT-PCR) Microbiology Microbiology Results: Microbiology 08/14/22 18:19 Blood Culture - Preliminary Blood - Venous No growth after 24 hours. 08/14/22 18:19 Blood Culture - Preliminary Blood - Venous No growth after 24 hours. Assessment and Plan (1) Acute hypoxemic respiratory failure: Status: Acute Plan hosp d#3 46yo F with recently diagnosed high-grade metastatic lung cancer who was admitted here 08/06-08/10/22 for hypoxia and sepsis due to pneumonia who presented to her oncologist's office on 08/14 for the 1st cycle of palliative chemotherapy but was found to be markedly hypoxic so was directly admitted to the hospital # acute hypoxic resp failure - Currently on high-flow NC 40% fiO2 @ 30L Lpm and will gradually attempt to wean.? Likely due to lymphangitic spread of her carcinoma but will treating for pneumonia as below # pneumonia - d#3 IV ceftriaxone + doxycycline [was on cefuroxime + azithro as outpt]. PCT low, RVP negative, follow BCx, SpCx pending, MRSA swab negative. WBCs elevated but could also be from leukemoid reaction rather than infection. # question of renal vein thrombosis - Versus extrinsic compression per imaging.? Per discussion with Dr Masters, on intermediate-dose prophylactic enoxaparin of 40 mg bid # cancer-associated pain - Increased MSSR from 60 to 90 mg q8h, use hydromorphone IV for breakthrough pain and will convert to equivalent MSIR dose when we have a better idea of her opioid requirement.? Continue gabapentin as well. Start lidocaine patch # HTN - Continue lisinopril # mood disorder - Continue lorazepam, trazodone, and fluoxetine # VTE prophylaxis: LMWH # dispo: anticipate home eventually In my clinical judgment, the patient requires continued inpatient hospitalization for the following reasons: hypoxia, IV ABX Time Spent With Patient Time: Total time managing care of this patient today ___35_ minutes. Quality Stroke Does the patient have a stroke diagnosis?: No VTE Prior VTE?: No VTE Risk Level:: Medical - moderate - high VTE Device Contraindication: N/A - Device Ordered VTE Drug Contraindication: N/A - Med Ordered
[2022-08-16] MEDS: Lidocaine 4 % Patch ADH..PATCH 1 PATCH TRANSDERMA (09:55)
[2022-08-16] MEDS: Albuterol Sulfate (0.083%) 2.5 MG/3 ML VIAL.NEB INHALE ×3 (11:36→19:48)
[2022-08-16] MEDS: cefTRIAXone sodium 1 GM in 0.9 % Sodium Chloride 50 ML IV (17:37)
[2022-08-16] MEDS: traZODone HCL 50 MG TABLET PO (22:07)
[2022-08-17] VITALS (8 sets, daily range): BP systolic 111–124; BP diastolic 58–79; PULSE 117–131; RESP 16–22; TEMP 36–37.1; O2SAT 93–96
[2022-08-17] MEDS: HYDROmorphone HCl 1 MG/ML SYRINGE 1.5 MG IVPUSH ×9 (00:25→23:25)
[2022-08-17] MEDS: Morphine Sulfate ER 30 MG TABLET.ER 90 MG PO ×3 (03:39→18:37)
[2022-08-17] MEDS: Omeprazole 20 MG CAPSULE.DR PO ×2 (05:28→14:57)
[2022-08-17] MEDS: Enoxaparin Sodium 40 MG/0.4 ML SYRINGE SUBCUT ×2 (05:28→17:31)
[2022-08-17] MEDS: Doxycycline Monohydrate 100 MG CAPSULE PO ×2 (05:28→17:31)
[2022-08-17 06:21] LABS: Hematocrit 33.9 % (37.0-47.0); Hemoglobin 11.2 g/dl (12.0-16.0); Mean Corpuscular Hemoglobin 31.5 pg (27.0-33.0); Mean Corpuscular Volume 95.5 fL (80.0-98.0); Mean Platelet Volume 8.2 fL (9.4-12.3); Platelet Count 365 X10*3/uL (160-400); Red Blood Count 3.55 X10*6/uL (4.20-5.50); White Blood Count 21.5 X10*3/uL (4.8-10.8)
[2022-08-17 06:58] LABS: Anion Gap 15 (12-20); Blood Urea Nitrogen 8 mg/dL (9-16); Calcium 8.3 mg/dL (8.4-10.2); Carbon Dioxide 24 mmol/L (22-29); Chloride 100 mmol/L (96-108); Creatinine Clr Calc Pharmacy 145.8; Estimated Glomerular Filt Rate > 60; Glucose Random 101 mg/dL (60-115); Potassium 3.6 mmol/L (3.3-5.1); Sodium 135 mmol/L (135-145)
[2022-08-17] MEDS: Atorvastatin Calcium 40 MG TABLET PO (08:11)
[2022-08-17] MEDS: lisinopriL 10 MG TABLET PO (08:12)
[2022-08-17] MEDS: FLUoxetine HCl 20 MG CAPSULE 40 MG PO (08:12)
[2022-08-17] MEDS: Gabapentin 300 MG CAPSULE PO ×3 (08:12→20:24)
[2022-08-17] MEDS: LORazepam 0.5 MG TABLET PO ×3 (08:14→23:26)
--- NOTE | 2022-08-17 10:29 | P.PNIM_ITS ---
Subjective Subjective Date of Service: 08/17/22 Interval History: Transitioned from HFNC to NC 6L Pain better controlled Coughing but less sputum Some diarrhea Review of Systems Review of Systems: Yes all other systems are reviewed and are negative Physical Exam Vital Signs: Vital Signs: Last Vital Signs Temp 98.3 F 08/17/22 07:53 Pulse 124 H 08/17/22 07:53 Resp 22 H 08/17/22 07:53 BP 115/62 08/17/22 07:53 Pulse Ox 94 08/17/22 07:53 O2 Del Method Nasal Cannula 08/17/22 07:53 O2 Flow Rate 6 08/17/22 07:53 FiO2 45 08/16/22 11:24 BMI result Body Mass Index 28.8 Gen: mildly tachypneic HEENT: sclera anicteric, moist mucus membranes Neck: supple Lungs: dimimished Heart: regular rate and rhythm, no murmurs Abd: soft, non-tender, non-distended Ext: no edema Skin: warm/well-perfused Neuro: alert and oriented x3, no focal findings Psych: appropriate affect Objective Data Active Medications Acetaminophen (Acetaminophen 325 Mg Tablet) 650 mg PO Q6H PRN PRN Reason: Pain, Mild (Pain Scale 1-3) Last Admin: 08/16/22 23:48 Dose: 650 mg Documented By: JUAN Albuterol Sulfate (Albuterol Sulfate (0.083%) 2.5 Mg/3 Ml Vial.Neb) 2.5 mg INHALE RQ4H WHILE AWAKE [facility] Last Admin: 08/17/22 07:44 Dose: Not Given Documented By: ALVARO Non-Admin Reason: Patient Refused Albuterol Sulfate (Albuterol Sulfate (0.083%) 2.5 Mg/3 Ml Vial.Neb) 2.5 mg INHALE Q2H PRN PRN Reason: Shortness of Breath/Wheezing Atorvastatin Calcium (Atorvastatin Calcium 40 Mg Tablet) 40 mg PO DAILY [facility] Last Admin: 08/17/22 08:11 Dose: 40 mg Documented By: CHRISS Diphenhydramine HCl (Diphenhydramine Hcl 25 Mg Capsule) 25 mg PO DAILY PRN PRN Reason: Allergy Symptoms Doxycycline Monohydrate (Doxycycline Monohydrate 100 Mg Capsule) 100 mg PO Q12H [facility] Last Admin: 08/17/22 05:28 Dose: 100 mg Documented By: JUAN Enoxaparin Sodium (Enoxaparin Sodium 40 Mg/0.4 Ml Syringe) 40 mg SUBCUT Q12H [facility] Last Admin: 08/17/22 05:28 Dose: 40 mg Documented By: JUAN Fluoxetine HCl (Fluoxetine Hcl 20 Mg Capsule) 40 mg PO DAILY [facility] Last Admin: 08/17/22 08:12 Dose: 40 mg Documented By: CHRISS Fluticasone Propionate (Fluticasone Propionate Nasal 16 Gm [place]) 1 spray NOSTRIL-B BID PRN PRN Reason: Allergy Symptoms Gabapentin (Gabapentin 300 Mg Capsule) 300 mg PO TID [facility] Last Admin: 08/17/22 08:12 Dose: 300 mg Documented By: CHRISS Hydromorphone HCl (Hydromorphone Hcl 1 Mg/Ml Syringe) 1.5 mg IVPUSH Q2H PRN; Protocol PRN Reason: severe pain Last Admin: 08/17/22 08:11 Dose: 1.5 mg Documented By: CHRISS Ceftriaxone Sodium 1 gm/ (Sodium Chloride) 50 mls @ 100 mls/hr IV Q24H [facility] Last Infusion: 08/16/22 19:42 Dose: 0 mls/hr Documented By: CHRISS Lidocaine (Lidocaine 4 % Patch Adh..Patch) 1 patch TRANSDERMA DAILY [facility]; Protocol Last Admin: 08/16/22 09:55 Dose: 1 patch Documented By: CRHISS Lisinopril (Lisinopril 10 Mg Tablet) 10 mg PO DAILY [facility]; Protocol Last Admin: 08/17/22 08:12 Dose: 10 mg Documented By: CHRISS Lorazepam (Lorazepam 0.5 Mg Tablet) 0.5 mg PO TID PRN PRN Reason: Anxiety Last Admin: 08/17/22 08:14 Dose: 0.5 mg Documented By: CHRISS Morphine Sulfate (Morphine Sulfate Er 30 Mg Tablet.Er) 90 mg PO Q8H [facility] Last Admin: 08/17/22 03:39 Dose: 90 mg Documented By: JUAN Naloxone HCl (Naloxone Hcl 0.4 Mg/Ml Vial) 0.1 mg IVPUSH Q2M PRN PRN Reason: Respiratory Rate < 10 Omeprazole (Omeprazole 20 Mg Capsule.) 20 mg PO BID@0630,1630 [facility] Last Admin: 08/17/22 05:28 Dose: 20 mg Documented By: JUAN Ondansetron HCl (Ondansetron Hcl 4 Mg/2 Ml Vial) 4 mg IVPUSH Q8H PRN PRN Reason: Nausea and Vomiting Ondansetron HCl (Ondansetron Odt 8 Mg Tab.Rapdis) 8 mg TRANSLINGU Q6H PRN PRN Reason: Nausea Trazodone HCl (Trazodone Hcl 50 Mg Tablet) 50 mg PO BEDTIME [facility] Last Admin: 08/16/22 22:07 Dose: 50 mg Documented By: JUAN Labs 08/17/22 06:07 08/17/22 06:07 Labs: Laboratory Results - last 24 hr 08/17/22 08/17/22 06:07 06:07 MCV 95.5 MCH 31.5 MCHC 33.0 RDW 15.0 Plt Count 365 MPV 8.2 L Absolute Nucleated RBC 0.000 Nucleated RBC % (auto) 0.0 Anion Gap 15 Estim Creat Clear Calc 145.8 Estimated GFR > 60 Random Glucose 101 Calcium 8.3 L Microbiology Microbiology Results: Microbiology 08/16/22 10:45 Gram Stain - Final Sputum - Expectorated Sputum Culture - Preliminary Culture in progress. 08/14/22 18:19 Blood Culture - Preliminary Blood - Venous No growth after 48 hours. 08/14/22 18:19 Blood Culture - Preliminary Blood - Venous No growth after 48 hours. Assessment and Plan (1) Acute hypoxemic respiratory failure: Status: Acute Plan hosp d#4 46yo F with recently diagnosed high-grade metastatic lung cancer who was admitted here 08/06-08/10/22 for hypoxia and sepsis due to pneumonia who presented to her oncologist's office on 08/14 for the 1st cycle of palliative chemotherapy, which was given; but she was found to be markedly hypoxic, so was directly ad mitted to the hospital # acute hypoxic resp failure - Wean O2 as tolerated but will likely require home O2.? Likely due to lymphangitic spread of her carcinoma but will treating for pneumonia as below # pneumonia - d#4 IV ceftriaxone + doxycycline [was on cefuroxime + azithro as outpt]. PCT low, RVP negative, follow BCx, SpCx pending, MRSA swab negative. WBCs elevated but could also be from leukemoid reaction rather than infection; have improved # question of renal vein thrombosis - Versus extrinsic compression per imaging.? Per discussion with Dr Masters, on intermediate-dose prophylactic enoxaparin of 40 mg bid # cancer-associated pain - Increased MSSR from 60 to 90 mg q8h, use hydromorphone IV for breakthrough pain and will convert to equivalent MSIR or PO hydromorphone dose when we have a better idea of her opioid requirement.? Continue gabapentin as well. # HTN - Continue lisinopril # mood disorder - Continue lorazepam, trazodone, and fluoxetine # VTE prophylaxis: LMWH # dispo: anticipate home eventually In my clinical judgment, the patient requires continued inpatient hospitalization for the following reasons: hypoxia, IV ABX Time Spent With Patient Time: Total time managing care of this patient today __35__ minutes. Quality Stroke Does the patient have a stroke diagnosis?: No VTE Prior VTE?: No VTE Risk Level:: Medical - moderate - high VTE Device Contraindication: N/A - Device Ordered VTE Drug Contraindication: N/A - Med Ordered
[2022-08-17] MEDS: Acetaminophen 325 MG TABLET 650 MG PO ×2 (11:10→18:38)
[2022-08-17] MEDS: cefTRIAXone sodium 1 GM in 0.9 % Sodium Chloride 50 ML IV (14:54)
[2022-08-17 16:11] LABS: CDiff Gene PCR NEGATIVE (Negative)
[2022-08-17] MEDS: traZODone HCL 50 MG TABLET PO (20:24)
[2022-08-18] MEDS: Simethicone 80 MG TAB.CHEW PO (00:28)
[2022-08-18] MEDS: HYDROmorphone HCl 1 MG/ML SYRINGE 1.5 MG IVPUSH ×3 (02:11→08:13)
[2022-08-18] MEDS: Acetaminophen 325 MG TABLET 650 MG PO ×2 (02:22→08:19)
[2022-08-18 03:08] VITALS: BP 111/55; PULSE 136; RESP 18; TEMP 36.4; O2SAT 97
[2022-08-18] MEDS: Morphine Sulfate ER 30 MG TABLET.ER 90 MG PO ×2 (03:14→12:07)
[2022-08-18 03:33] VITALS: TEMP 36.4
--- NOTE | 2022-08-18 03:37 | PC.NURSE ---
Assume are at 1900. Pt is alert and orientedx4. Still dyspniec with exertion. O2 sats drops to 86 with ambulation. But goes back up when at rest with 6L supplemental O2. Tachycardiec with HR from 120-150's. Denies any chest pain. Had a low grade temp of 100.4 at around 2am. notified. Pt given Tylenol for fever. Also pt complains of mild sore throat. Given IV diluaded 1.5mg for severe right rib pain/lower back pain.
[2022-08-18 04:11] LABS: Lactic Acid 1.4 mmol/L (0.5-2.0)
[2022-08-18] MEDS: Enoxaparin Sodium 40 MG/0.4 ML SYRINGE SUBCUT (04:51)
[2022-08-18] MEDS: Doxycycline Monohydrate 100 MG CAPSULE PO (06:35)
[2022-08-18] MEDS: Omeprazole 20 MG CAPSULE.DR PO (06:35)
[2022-08-18 07:10] LABS: Hematocrit 30.6 % (37.0-47.0); Hemoglobin 10.3 g/dl (12.0-16.0); Mean Corpuscular HGB Conc 33.7 g/dl (31.0-35.0); Mean Platelet Volume 8.7 fL (9.4-12.3); Platelet Count 314 X10*3/uL (160-400); Red Blood Count 3.22 X10*6/uL (4.20-5.50); Red Cell Distribution Width 14.9 % (11.0-16.0); White Blood Count 9.2 X10*3/uL (4.8-10.8)
[2022-08-18 07:12] LABS: Procalcitonin 0.59 ng/mL
[2022-08-18 07:26] VITALS: BP 100/62; PULSE 117; RESP 17; TEMP 36.4; O2SAT 96
[2022-08-18] MEDS: lisinopriL 10 MG TABLET PO (08:14)
[2022-08-18] MEDS: FLUoxetine HCl 20 MG CAPSULE 40 MG PO (08:14)
[2022-08-18] MEDS: Gabapentin 300 MG CAPSULE PO (08:14)
[2022-08-18] MEDS: Atorvastatin Calcium 40 MG TABLET PO (08:15)
[2022-08-18 10:00] VITALS: PULSE 108; PULSE 114; PULSE 118; PULSE 121; O2SAT 86; O2SAT 87; O2SAT 88; O2SAT 93
[2022-08-18 11:31] VITALS: BP 91/56; PULSE 116; RESP 20; TEMP 36.2; O2SAT 95
--- NOTE | 2022-08-18 11:33 | PC.RT ---
Pt home o2 eval complete, pt able to demonstrate proper use of e cylinders.
--- NOTE | 2022-08-18 13:02 | P.F2F_ITS ---
Service Date Service Date: 08/18/22 Encounter Date of encounter: 08/18/22 Reasons for Services Signs and symptoms assessed: Hypoxia Dyspnea Cancer-associated pain Reason for prison: medication management, medication treatment, teach disease management and other (O2 monitoring) MD Overseeing Care: Sandra Mejia Homebound: Leaving the home is medically contraindicated at this time without the asist of a device and/or another person due th the listed conditions above and below. Reason homebound: shortness of breath with minimal effort and shortness of breath at rest Certification: Based on the above findings, I certify that this patient is confined to the home and needs intermittent prison care, physical therapy and/or speech therapy, or continues to need occupational therapy. The patient is under my care, and I have initiated the establishment of the plan of care. The patient will be followed by a physician who will periodically review the plan of care. Time Spent With Patient Time: Total time managing care of this patient today ____ minutes.
--- NOTE | 2022-08-18 13:05 | PM.DS ---
DS: Providers Provider Date of Service: 08/18/22 Date of admission: 08/14/22 15:32 Date of discharge: 08/18/22 Primary care physician: Sandra Mejia MD DS: Diagnosis Discharge Diagnosis (1) Acute hypoxemic respiratory failure: Status: Resolved (2) Metastatic non-small cell lung cancer: Status: Acute (3) Cancer associated pain: Status: Acute (4) Lymphangitic lung metastasis: Status: Acute (5) Pneumonia: Status: Acute (6) Leukocytosis: Status: Acute DS: Summary Hospital Course Hospital Course: from my H+P on admission 08/14/22: 46yo F with recently diagnosed high-grade metastatic lung cancer who was admitted here 08/06-08/10/22 for hypoxia and sepsis due to pneumonia along with possible left renal vein thrombosis.? She was weaned off oxygen, treated with ceftriaxone and azithromycin, and discharged home on cefuroxime and azithromycin.? Blood cultures were negative.? She has had worsening hemoptysis, sputum production, and dyspnea since then, along with subjective fever and chills.? Despite taking antibiotics, her WBC count has worsened.? She presented to her oncologist Dr Masters today for scheduled chemotherapy.? She was found to be markedly hypoxic, requiring at least 8L of oxygen, and was directly [place] [facility] [place] She is currently on HFNC and feeling somewhat better.? She complains of severe left flank pain that has not improved despite taking therpaeutic enoxaparin for the possible renal vein thrombosis.? She is on extended- and immediate-release morphine for pain control.? Currently afebrile but mildly tachypneic in the low 20s. Last CTA on 08/06/22 showed: *? No CT evidence of large central pulmonary emboli, there is suboptimal filling of peripheral secondary and tertiary branches felt to be an artifacts due to extensive adjacent disease involving both lungs. *? There has been significant increase in the number and size of numerous solid and subsolid groundglass lung nodules involving both lungs diffusely, this is compatible with patient history of pulmonary metastasis. *? There is also patchy airspace interstitial opacification involving the lungs diffusely which could be due to lymphangitic spread and/or superimposed atypical infection. *? Increasing mediastinal and hilar lymphadenopathy. Ms Alfaro is a 46yo F with recently diagnosed high-grade metastatic lung cancer who was admitted here 08/06-08/10/22 for hypoxia and sepsis due to pneumonia who presented to her oncologist's office on 08/14 for the 1st cycle of palliative chemotherapy, which was given; but she was found to be markedly hypoxic, so was directly admitted to the hospital. Hospital course by problem: # acute hypoxic resp failure - Initially placed on HFNC then weaned to NC. Qualified for home O2, 2L at rest and 4L with activity.? Likely due to lymphangitic spread of her carcinoma but treated for pneumonia as below # pneumonia - Got 4 days of IV ceftriaxone + doxycycline [was on cefuroxime + azithro as outpt].? PCT low, RVP negative, BCx and sputum Cx negative, MRSA swab negative. ? WBCs elevated but could also be from leukemoid reaction rather than infection and resolved during hospitalization, possibly due to the recent chemotherapy. Discharged on 4 days of levofloxacin to complete. # question of renal vein thrombosis - Versus extrinsic compression per imaging.? Per discussion with Dr Masters,? on intermediate-dose prophylactic enoxaparin of 40 mg bid to continue. # cancer-associated pain - Increased MSSR from 60 to 90 mg q8h and given hydromorphone 8 mg q4h for breakthrough pain. One-week prescription of both medications provided along with naloxone prescription. She was discharged home with VNA services and will follow up with her oncologist within 1 week as well as her PCP. Time Spent with Patient Time attestation: Total time managing care of this patient today ___40_ minutes. Discharge coordination time: Greater than 30 minutes Quality: Safe Use of Opioids Does Pt have an Active Cancer Diagnosis on the Problem List?: Yes Opioid Measure Date for [facility] Report: 07/19/22 Opioid Measure Time for [facility] Report: 13:12 Quality: Stroke Does the patient have a stroke diagnosis?: No Physical Exam Vital Signs: Vital Signs: Last Vital Signs Temp 97.2 F 08/18/22 11:31 Pulse 116 H 08/18/22 11:31 Resp 20 08/18/22 11:31 BP 91/56 L 08/18/22 11:31 Pulse Ox 95 08/18/22 11:31 O2 Del Method Nasal Cannula 08/18/22 11:31 O2 Flow Rate 6 08/18/22 11:31 FiO2 45 08/16/22 11:24 BMI result Body Mass Index 28.8 Gen: mild tachypnea with activity HEENT: sclera anicteric, moist mucus membranes Neck: supple Lungs: clear bilaterally Heart: regular rhythm, no murmurs Abd: soft, non-tender, non-distended Ext: no edema Skin: warm/well-perfused Neuro: alert and oriented x3, no focal findings Psych: appropriate affect DS: Data Data Completed and Pending Completed studies during hospitalization [Text1]: Laboratory Results WBC 9.2 X10*3/uL (4.8-10.8) 08/18/22 06:15 RBC 3.22 X10*6/uL (4.20-5.50) L 08/18/22 06:15 Hgb 10.3 g/dl (12.0-16.0) L 08/18/22 06:15 Hct 30.6 % (37.0-47.0) L 08/18/22 06:15 MCV 95.0 fL (80.0-98.0) 08/18/22 06:15 MCH 32.0 pg (27.0-33.0) 08/18/22 06:15 MCHC 33.7 g/dl (31.0-35.0) 08/18/22 06:15 RDW 14.9 % (11.0-16.0) 08/18/22 06:15 Plt Count 314 X10*3/uL (160-400) 08/18/22 06:15 MPV 8.7 fL (9.4-12.3) L 08/18/22 06:15 Immature Gran % (Auto) 1.0 % (0.0-0.4) H 08/15/22 06:47 Neut % (Auto) 86.1 % (45-73) H 08/15/22 06:47 Lymph % (Auto) 5.1 % (20-40) L 08/15/22 06:47 [place] % (Auto) 7.2 % (2-11) 08/15/22 06:47 Eos % (Auto) 0.4 % (0-4) 08/15/22 06:47 Baso % (Auto) 0.2 % (0-2) 08/15/22 06:47 Lymph # (Auto) 1.3 X10*3/uL (1.2-4.9) 08/15/22 06:47 [place] # (Auto) 1.9 X10*3/uL (0.1-1.2) H 08/15/22 06:47 Eos # (Auto) 0.1 X10*3/uL (0.0-0.4) 08/15/22 06:47 Baso # (Auto) 0.1 X10*3/uL (0.0-0.2) 08/15/22 06:47 Abs Immat Gran (auto) 0.26 X10*3/uL (0.00-0.03) H 08/15/22 06:47 Absolute Neuts (auto) 22.7 x10*3/uL (2.0-8.3) H 08/15/22 06:47 Absolute Nucleated RBC 0.000 X10*3/uL (0.0-0.012) 08/18/22 06:15 Nucleated RBC % (auto) 0.0 /100WBC (0.0-0.2) 08/18/22 06:15 Smear Tech's Comments VERIFIED 08/15/22 06:47 Sodium 135 mmol/L (135-145) 08/17/22 06:07 Potassium 3.6 mmol/L (3.3-5.1) 08/17/22 06:07 Chloride 100 mmol/L (96-108) 08/17/22 06:07 Carbon Dioxide 24 mmol/L (22-29) 08/17/22 06:07 Anion Gap 15 (12-20) 08/17/22 06:07 BUN 8 mg/dL (9-16) L 08/17/22 06:07 Creatinine 0.51 mg/dL (0.5-1.4) 08/17/22 06:07 Estim Creat Clear Calc 145.8 08/17/22 06:07 Estimated GFR > 60 08/17/22 06:07 Random Glucose 101 mg/dL (60-115) 08/17/22 06:07 Lactic Acid 1.4 mmol/L (0.5-2.0) 08/18/22 03:51 Calcium 8.3 mg/dL (8.4-10.2) L 08/17/22 06:07 Procalcitonin 0.59 ng/mL 08/18/22 06:15 Nasal Screen MRSA (PCR) NEGATIVE (Negative) 08/14/22 21:38 Nasal S. aureus Screen NEGATIVE (Negative) 08/14/22 21:38 Nasal MRSA/S.aureus Interp SEE NOTE 08/14/22 21:38 Respiratory Panel Garcia See Note 08/14/22 21:38 Adenovirus (Rapid PCR) Not Detected (Not Detect.) 08/14/22 21:38 B.pert (TEM-PCR) Not Detected (Not Detect.) 08/14/22 21:38 B.parapertussis DNA PCR Not Detected (Not Detect.) 08/14/22 21:38 C. pneumoniae DNA (PCR) Not Detected (Not Detect.) 08/14/22 21:38 C. difficile Tox B Gene NEGATIVE (Negative) 08/17/22 12:41 Coronavirus OC43 (PCR) Not Detected (Not Detect.) 08/14/22 21:38 Coronavirus HKU1 (PCR) Not Detected (Not Detect.) 08/14/22 21:38 Coronavirus 229E (PCR) Not Detected (Not Detect.) 08/14/22 21:38 Coronavirus NL63 (PCR) Not Detected (Not Detect.) 08/14/22 21:38 Human Metapneumovir PCR Not Detected (Not Detect.) 08/14/22 21:38 Influenza A (RT-PCR) Not Detected (Not Detect.) 08/14/22 21:38 Influenza B (RT-PCR) Not Detected (Not Detect.) 08/14/22 21:38 M. pneumoniae (PCR) Not Detected (Not Detect.) 08/14/22 21:38 Parainfluenza 1 (PCR) Not Detected (Not Detect.) 08/14/22 21:38 Parainfluenza 2 (PCR) Not Detected (Not Detect.) 08/14/22 21:38 Parainfluenza 3 (PCR) Not Detected (Not Detect.) 08/14/22 21:38 Parainfluenza 4 (PCR) Not Detected (Not Detect.) 08/14/22 21:38 RSV (PCR) Not Detected (Not Detect.) 08/14/22 21:38 Entero/Rhino (PCR) Not Detected (Not Detect.) 08/14/22 21:38 SARS-CoV-2 RNA (RT-PCR) Not Detected (Not Detect.) 08/14/22 21:38 Impressions Chest X-Ray 08/14/22 17:54 IMPRESSION: Diffuse bilateral nodules and interstitial disease. Discharge Plan Discharge Anticipated Discharge Date/Time: 08/18/22 09:43 Patient Disposition: Home Health Service Discharge Diagnosis: hypoxic respiratory failure likely chronic lymphangitic spread of lung cancer possible pneumonia cancer-associated pain Referrals: Gretchen Masters MD [Physician] - 1 Week Sandra Schultz MD [Primary Care Provider] - 1 Week Discharge Medications: New morphine 30 mg Tablet Extended Release 90 mg PO Q8H Qty: 21 0RF Rx Instructions: Partial Fill upon patient request. hydromorphone 4 mg Tablet 8 mg PO Q4H PRN (Reason: severe pain) Qty: 42 0RF Rx Instructions: Partial Fill upon patient request. levofloxacin 750 mg tablet 750 mg PO DAILY Qty: 4 0RF naloxone 4 mg/actuation spray,non-aerosol 4 mg intranasal Q2M PRN (Reason: opioid overdose) Qty: 2 0RF Rx Instructions: spray 1 dose into ONE nostril; alternate nostrils w each dose until help arrives enoxaparin 40 mg/0.4 mL Syringe 40 mg subcut Q12H Qty: 60 0RF Continued omeprazole 20 mg Capsule,Delayed Release(Dr/Ec) 20 mg PO BID Qty: 60 1RF folic acid 1 mg Tablet 1 mg PO DAILY Qty: 90 4RF acetaminophen 500 mg Tablet 500 mg PO Q6H PRN (Reason: Pain) diphenhydramine HCl 25 mg Tablet 25 mg PO DAILY PRN (Reason: Allergy Symptoms) lorazepam 0.5 mg tablet 0.5 mg PO TID PRN (Reason: Anxiety) atorvastatin 40 mg tablet 40 mg PO DAILY trazodone 50 mg tablet 50 mg PO BEDTIME albuterol sulfate 90 mcg/actuation HFA aerosol inhaler 2 puff INHALATION Q4H PRN (Reason: wheezing) fluoxetine 20 mg capsule 40 mg PO DAILY fluticasone propionate 50 mcg/actuation spray,suspension 1 spray intranasal BID PRN (Reason: Allergy Symptoms) gabapentin 300 mg Capsule 300 mg PO TID Qty: 90 3RF ondansetron 8 mg Tablet,Disintegrating 8 mg PO Q8H PRN (Reason: Nausea) Qty: 60 3RF lisinopril 10 mg Tablet 10 mg PO DAILY Qty: 30 0RF Protocol: Hold for SBP< HOLD for SBP < : 90 Discontinued azithromycin 500 mg tablet 500 mg PO DAILY 5 Days Qty: 5 0RF cefuroxime axetil 500 mg tablet 500 mg PO BID Qty: 10 0RF hydromorphone [Dilaudid] 4 mg tablet 4 mg PO Q6H PRN (Reason: pain) Qty: 12 0RF Rx Instructions: Partial Fill upon patient request. morphine 60 mg Tablet Extended Release 60 mg PO Q12H Qty: 60 0RF Rx Instructions: Partial Fill upon patient request. morphine 15 mg Tablet 15 mg PO Q4H PRN (Reason: Pain, Severe (Pain Scale 7-10)) Qty: 60 0RF Rx Instructions: Partial Fill upon patient request. Discharge Orders: Discharge Order (Routine); Ordered 08/18/22 Ordered By: Meagan March Diet: Advance to usual diet Activity on Discharge: As tolerated Stand Alone Forms: Patient Portal Discharge page Care Plan Goals: pain control palliation of symptoms Health Concerns: hypoxic respiratory failure likely chronic lymphangitic spread of lung cancer possible pneumonia cancer-associated pain Plan of Treatment: home oxygen: 2 liters at rest, 4 liters with activity levofloxacin 750 mg daily x 4 days MS Contin 90 mg every 8 hours around the clock; Dilaudid 8 mg every 4 hours for breakthrough pain [Narcan prescribed in case of overdose given high opioid requirement] use enoxaparin [Lovenox] 40 mg every 12 hours for possible renal vein thrombosis follow up with Dr aMsters this week Please follow up with your primary care doctor within 1 week. Return to the hospital if you experience recurrent or worsening symptoms. Assessment: See Discharge Summary.
--- NOTE | 2022-08-18 13:15 | MHC.CM.PN ---
EMR reviewed and per MD rounds, pt is medically cleared for D/C home with [facility] for O2. Pt has her own transport.
--- NOTE | 2022-08-18 16:35 | MHC.CM.PN ---
This CM notified by that there was an issue getting the pts medications covered by insurance. This CM called and spoke with pharmacist at [facility] and stated he can use a discount card for them. This information was relayed to the pts mother Manuela who stated we have been paying out of pocket for her meds all along, since this insurance doesn't cover most meds. Pts mother calling pharmacy to have medications filled. updated.
== END 2022-08-18 14:45 | disposition home health service (06) | DRG 947 ==
PROVIDERS: Internal Medicine; Admitting Provider Family Medicine; PCP Internal Medicine; Visit Provider Family Medicine
DX: G89.3 Neoplasm related pain (acute) (chronic) (principal); J18.9 Pneumonia, unspecified organism; J96.01 Acute respiratory failure with hypoxia; C34.92 Malignant neoplasm of unspecified part of left bronchus or lung; I82.3 Embolism and thrombosis of renal vein; C77.9 Secondary and unspecified malignant neoplasm of lymph node, unspecified; C34.91 Malignant neoplasm of unspecified part of right bronchus or lung; I10 Essential (primary) hypertension; F32.A Depression, unspecified; F17.210 Nicotine dependence, cigarettes, uncomplicated; Z20.822 Contact with and (suspected) exposure to COVID-19; Z71.6 Tobacco abuse counseling; Z79.51 Long term (current) use of inhaled steroids; Z79.899 Other long term (current) drug therapy
CPT/HCPCS: 36415; 71045; 80048; 83605; 84145; 85025; 85027; 87040; 87070; 87205; 87493; 87633; 87640; 87641; 94640; J0696; J1170; J1650

== ENCOUNTER 2022-08-21 11:00 | Outpatient (RCR) | payer OTHER, SELFPAY ==
[2022-07-11 11:52] VITALS: BP 122/69; PULSE 88; TEMP 36; O2SAT 97; BMI 30.5
[2022-07-11 12:36] LABS: Prothrombin Time 11.7 SEC (10.0-13.1)
--- NOTE | 2022-07-11 12:42 | P.CNHO_ITS ---
Subjective - Subjective Chief complaint: Left abdominal pain Patient: new to practice Consult date: 07/11/22 Primary Care Provider: micheal Schultz MD HPI - Consult Narrative Reason for consult: Left adrenal mass, worrisome for malignancy Narrative: Bell Alfaro is a 46 year old female who presented to emergency department for evaluation of left-sided abdominal pain and worsening constipation. Patient states that she has had constipation for many months, she was seen by Gastroenterology years ago and has been on laxative medications. She was diagnosed with IBS. For the last week or so she was experiencing worsening pain in her left upper quadrant that was radiating to the back this is associated with some nausea and poor appetite. She has had over 50-60 lb weight loss since last year. She denies fever or chills. No shortness of breath, cough or recent infections. She has had occasional hematochezia which he attributed to hemorrhoids. She has been taking ibuprofen but that has not helped. She was prescribed dicyclomine recently but this is not helping either. She has a history of hypertension, this is well controlled, she has been on 2 blood pressure medications for many years. She has no other symptoms such as headache, sweating, palpitation, tremor or dyspnea. She has never had a colonoscopy. There is no family history of colorectal cancer. Her mother was treated for breast cancer. She smokes daily and drinks a few times a week. She is and lives at home with her . She has no children. Review of Systems - Constitutional Reports as per HPI, Reports fatigue, Reports malaise, Denies night sweats, Reports weight loss - Cardiovascular Reports no additional cardiovascular complaints, Denies chest pain, Denies chest pain at rest, Denies excessive sweating, Denies fainting - Respiratory Denies cough, Denies pain on inspiration, Denies pain with cough, Denies wheezing - Gastrointestinal Reports abdominal pain, Denies black, tarry stools, Denies bloating, Reports constipation Oncology Screenings - ECOG Performance Status ECOG Performance Status: 1 [facility] Medical History: Medical History (Last Reviewed 07/11/22 @ 11:54 by Timoteo Avila CMA) Anxiety Depression HTN (hypertension) Irritable bowel syndrome (IBS) Surgical History: Surgical History (Last Reviewed 07/11/22 @ 11:54 by Timoteo Avila CMA) S/P lumpectomy, right breast Social History: Social History (Last Reviewed 07/11/22 @ 11:54 by Timoteo Avila CMA) Substance Use History: Substance Use Type: Marijuana Home Medications and Allergies Home Medications Medication Instructions Recorded Confirmed Type Mirena 07/11/22 07/11/22 History albuterol sulfate 90 mcg/actuation 2 puff inhalation Q4H PRN wheezing 07/11/22 07/11/22 History aerosol inhaler amlodipine 10 mg tablet 10 mg PO DAILY 07/11/22 07/11/22 History atorvastatin 40 mg tablet 40 mg PO DAILY 07/11/22 07/11/22 History fluoxetine 20 mg capsule 40 mg PO DAILY 07/11/22 07/11/22 History fluticasone propionate 50 1 spray intranasal BID 07/11/22 07/11/22 History mcg/actuation nasal spray,suspension linaclotide 145 mcg capsule 145 mcg PO DAILY 07/11/22 07/11/22 History (Linzess) lisinopril 30 mg tablet 30 mg PO DAILY 07/11/22 07/11/22 History trazodone 50 mg tablet 50 mg PO BEDTIME 07/11/22 07/11/22 History Allergies Allergy/AdvReac Type Severity Reaction Status Date / Time No Known Allergies Allergy Verified 07/09/22 07:41 Physical Exam Vital signs: Vital Signs Temp 96.8 F 07/11/22 11:52 Pulse 88 07/11/22 11:52 BP 122/69 07/11/22 11:52 Pulse Ox 97 07/11/22 11:52 O2 Del Method Room Air 07/11/22 11:52 Intake & Output 07/10/22 07/11/22 07/11/22 18:59 06:59 18:59 Other: Weight 83.3 kg Weight in Grams [id number] Weight 83.3 kg - Constitutional Present: mild distress, average body habitus - Routine HEENT Exam Head: Present: normal inspection Eye: Present: EOMI, PERRL - Routine Neck Exam Present: supple. Absent: lymphadenopathy - Routine Respiratory Exam Present: CTAB. Absent: accessory muscle use - Routine Cardiovascular Exam Cardiovascular: Present: RRR, S1, S2 - Routine Abdominal Exam Present: soft, tenderness - Routine Extremities Exam Absent: pedal edema - Routine Skin Exam Present: intact. Absent: cyanosis Hem/Onc Consult Result - Labs Labs: Laboratory Tests 07/09/22 07/09/22 07/11/22 08:13 12:30 12:22 WBC 10.4 RBC 4.41 Hgb 14.7 Hct 42.9 MCV 97.3 MCH 33.3 H Plt Count 301 PT 11.7 INR 1.0 Sodium 136 Potassium 3.7 Anion Gap 15 BUN 8 L Creatinine 0.58 Total Bilirubin 0.5 Direct Bilirubin 0.2 AST 12 ALT 10 Alkaline Phosphatase 94 Lactate Dehydrogenase Carcinoembryonic Ag 07/11/22 12:22 WBC RBC Hgb Hct MCV MCH Plt Count PT INR Sodium Potassium Anion Gap BUN Creatinine Total Bilirubin Direct Bilirubin AST ALT Alkaline Phosphatase Lactate Dehydrogenase 156 Carcinoembryonic Ag 3.50 Assessment and Plan Patient Active problem list reviewed?: Yes (1) Left adrenal mass Status: Acute Assessment and plan: 1. This is a pleasant 46-year-old woman presenting with left adrenal mass, suspicious lymphadenopathy, possible lung nodules and significant weight loss and bowel changes. CT abdomen/pelvis with contrast performed 07/09/2022 shows lesion around the left adrenal gland measuring 6 x 4.3 cm with surrounding soft tissue stranding, another small nodular density adjacently, surrounding adenopathy suggesting metastatic disease. Numerous small lung nodules, partially visualized. In the rectosigmoid region there is significant soft tissue stranding without an obvious lesion. This could represent infectious process/colitis, separate from adrenal lesion. Patient has been started on antibiotics for possible colitis. She is on laxatives and stool softeners. I have ordered CT chest with contrast to evaluate better for lung nodules. Possibilities here are primary adrenal malignancy versus metastatic disease to adrenal gland from GI or lung primary. Tumor markers LDH, CEA levels are not elevated. Blood pressures are normal and she has no symptoms to suggest pheochromocytoma. 24 hour urine metanephrines and plasma metanephrine has been submitted. CT-guided biopsy of either lymph node adjacent to the adrenal mass or adrenal ma ss biopsy can be performed. If CT chest shows lung nodules which are more accessible, this could be considered for biopsy. I have also requested an urgent GI evaluation to see if this is all colitis or there is any lesion/malignancy. 2. For pain control I am starting her on tramadol 50 mg q.8 p.r.n.. She was advised to stop ibuprofen. All of the above was explained to patient, her mother who is a retired nurse and . All the questions were answered. Follow-up in 2-3 weeks. - Time Spent With Patient Time Spent with Patient (in minutes): 60
[2022-07-11 12:51] LABS: Lactate Dehydrogenase 156 U/L (122-220)
--- NOTE | 2022-07-11 13:26 | MHC.HEMONCMA ---
pt was seen in office today for adrenal mass, VSS, labs, patient will follow up TBD
--- NOTE | 2022-07-11 13:53 | MHC.HEMONC ---
I met with patient following her Oncology Consultation with Dr Masters for adrenal mass. She was accompanied by her , Ab and her mother, Maneula. She was in ER earlier this week with constipation/abdominal pain and had a CT confirming abnormality. She is not having as much discomfort today. Dr Masters is ordering Tramadol. She will be scheduled for lymph node bx under CT guidance and I have sent referral to GI for urgent sigmoidoscopy per Dr Masters. She had labs here and is picking up container for 24 hour urine on her way out. She will f/u here once pathology is obtained. I explained my role and gave her contact information. 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 She filled out a HCP and it is now on file.
--- NOTE | 2022-07-16 08:41 | MHC.HEMONC ---
Triage line call- Pt called asking for stronger pain med for abd pain. This nurse called and spoke to patient. Pt reports tramadol not helping abd pain , asking for stronger pain med. Pt was seen by Dr Masters and DX with colitis. This nurse spoke with Dr Masters and a script for Oxycodone will be sent to pharmacy. Pt notified. Pt instructed to call if symptoms worsen or for any changes.
--- NOTE | 2022-07-18 11:00 | MHC.HEMONCMA ---
LM on VM for patient to call me back.
[2022-07-18 17:49] LABS: Metanephrine, Free <25 pg/mL (<=57); Normetanephrines, Free 78 pg/mL (<=148); Total Metanephrine, Free 78 pg/mL (<=205)
--- NOTE | 2022-07-28 10:41 | HO.HEMONCPA ---
[facility] for PET/CT SCAN APPROVED. AUTH#[id number]. DOS - 07/28/22 to 08/27/22. ORDER FAXED TO [facility].
[2022-07-30 08:32] VITALS: BP 142/96; PULSE 108; RESP 15; TEMP 36.6; O2SAT 95; BMI 28.8
--- NOTE | 2022-07-30 08:52 | MHC.HEMONCMA ---
Patient seen today for followup after petscan, VSS, followup 1 week
--- NOTE | 2022-07-30 10:17 | MHC.HEMONC ---
I met with patient and her mother and during Dr Masters's appointment with her. Pt was told that although we do not know primary and her PET is not officially read, it does show stage IV cancer. Dr Masters is still not sure about treatment until melecular studies are done. She is advising a port and a consultation with Pain Specialist. Pt is still suffering with a lot of abdominal pain, unable to eat or rest. Dr Masters increased MS Contin and added Gabapentin. Omeprazole and Ondansetron ordered. I sent referral to Pain Clinic. Port ordered and order given to Johanne to enter into OF. I will be filling out pt FMLA as requested.
--- NOTE | 2022-07-30 10:18 | MHC.HEMONCMA ---
port a cath insertion ordered and entered in OF.
--- NOTE | 2022-07-30 11:08 | P.PNHO-ONC_ITS ---
Medical Summary - Medical Summary Date of Service: 07/30/22 Chief complaint: Abdominal pain Medical Summary: Diagnosis: Metastatic high-grade carcinoma with papillary architecture Presented to emergency department for evaluation of left-sided abdominal pain and worsening constipation 07.09.22. Interval History Interval history: Patient is here accompanied by her and mother. She continues to be in fairly severe pain for which she is requesting more pain medication including lorazepam. She is not able to sleep at night. Pain is on the left side of her abdomen and radiating to the back. She used to take gabapentin in the past, she does not have any more of the pills. They here to discuss results of pathology and imaging study. She also reports increasing nausea and occasional blood tinged emesis. Review of Systems - Constitutional Reports as per HPI, Reports poor appetite, Reports weight loss - Cardiovascular Reports no additional cardiovascular complaints - Respiratory Reports no additional respiratory complaints - Neurologic Denies syncope [facility] Medical History: Medical History (Last Reviewed 07/30/22 @ 08:33 by Johanne Rosales) Anxiety Depression HTN (hypertension) Irritable bowel syndrome (IBS) Surgical History: Surgical History (Last Reviewed 07/30/22 @ 08:33 by Johanne Rosales) S/P lumpectomy, right breast Social History: Social History (Last Reviewed 07/30/22 @ 08:33 by Johanne Rosales) Living Situation History: Household Members: Spouse Housing: House Do you presently have visiting nurse or other home services: No Tobacco History: Patient Tobacco Use Status: Current everyday Tobacco Tobacco use type: Cigarette Cigarette Packs Per Day: 1 e-Cigarette/Vaping Use: Currently Using Second Hand Smoke Exposure: No Substance Use History: Substance Use Type: Marijuana Home Medications and Allergies Home Medications Medication Instructions Recorded Confirmed Type albuterol sulfate 90 mcg/actuation 2 puff inhalation Q4H PRN wheezing 07/11/22 07/30/22 History aerosol inhaler atorvastatin 40 mg tablet 40 mg PO DAILY 07/11/22 07/30/22 History fluoxetine 20 mg capsule 40 mg PO DAILY 07/11/22 07/30/22 History fluticasone propionate 50 1 spray intranasal BID PRN Allergy 07/11/22 07/30/22 History mcg/actuation nasal Symptoms spray,suspension linaclotide 145 mcg capsule 145 mcg PO DAILY 07/11/22 07/30/22 History (Linzess) trazodone 50 mg tablet 50 mg PO BEDTIME 07/11/22 07/30/22 History Allergies Allergy/AdvReac Type Severity Reaction Status Date / Time No Known Allergies Allergy Verified 07/23/22 01:59 Exam Vital signs: Vital Signs Temp 97.8 F 07/30/22 08:32 Pulse 108 H 07/30/22 08:32 Resp 15 07/30/22 08:32 BP 142/96 H 07/30/22 08:32 Pulse Ox 95 07/30/22 08:32 O2 Del Method Room Air 07/30/22 08:32 Intake & Output 07/29/22 07/30/22 07/30/22 18:59 06:59 18:59 Other: Weight 78.6 kg Weight in Grams [id number] Weight 78.6 kg BMI result Body Mass Index 28.8 - Constitutional Present: mild distress, average body habitus - Routine HEENT Exam Head: Present: normal inspection - Routine Respiratory Exam Present: CTAB. Absent: accessory muscle use - Routine Cardiovascular Exam Cardiovascular: Present: RRR, S1, S2 - Routine Abdominal Exam Present: soft, tenderness - Routine Extremities Exam Absent: pedal edema - Routine Skin Exam Present: intact. Absent: cyanosis Data - Labs Labs: 07/11/22 12:22 Carcinoembryonic Antigen Routine Lactate Dehydrogenase Routine Prothrombin Time INR Routine 07/11/22 12:42 Metanephrines, Plasma Routine Laboratory Last Values PT 11.7 SEC (10.0-13.1) 07/11/22 12:22 INR 1.0 (0.9-1.1) 07/11/22 12:22 Lactate Dehydrogenase 156 U/L (122-220) 07/11/22 12:22 Carcinoembryonic Ag 3.50 ng/mL 07/11/22 12:22 Plasma Free Metaneph <25 pg/mL (<=57) 07/11/22 12:42 Plasma Free Normeta 78 pg/mL (<=148) 07/11/22 12:42 Plas Total Metaneph 78 pg/mL (<=205) 07/11/22 12:42 Assessment and Plan Patient Active problem list reviewed?: Yes (1) Left adrenal mass Status: Acute Assessment and plan: 1. This is a pleasant 46-year-old woman presenting with left adrenal mass, suspicious lymphadenopathy, multiple lung nodules. CT abdomen/pelvis with contrast performed 07/09/2022 shows lesion around the left adrenal gland measuring 6 x 4.3 cm with surrounding soft tissue stranding, another small nodular density adjacently, surrounding adenopathy suggesting metastatic disease. Numerous small lung nodules, partially visualized. In the rectosigmoid region there is significant soft tissue stranding without an obvious lesion. This could represent infectious process/colitis, separate from adrenal lesion. CT chest with contrast performed 07/16/2022 showed multiple bilateral small to moderate-sized pulmonary nodules highly suspicious for metastatic disease. Abnormal mediastinal and bilateral hilar lymph nodes seen. Patient has been started on antibiotics for possible colitis. She had an urgent GI evaluation, colonoscopy was negative for malignancy. Tumor markers LDH, CEA levels are not elevated. CT-guided biopsy of left adrenal mass revealed high-grade adenocarcinoma with papillary architecture. Further studies are pending. PET-CT was performed 07/29/2022, report is pending. I have discussed diagnosis which is metastatic malignancy. Treatment is not curative but palliative. There is no role of surgery because of widely metastatic disease. Depending on further pathological studies, treatment recommendations will be made. Her mother was also asking for a referral to [facility] for a 2nd opinion, this will be made as well. 2. For pain control she has been started on MS Contin as well as morphine 10 mg q.6 hours as needed. She he is being started on gabapentin 300 mg t.i.d., lorazepam dose increased to 0.5 mg t.i.d. p.r.n. A referral to pain clinic has been made. 3. Nausea/emesis. Occasional blood-tinged emesis. She is being started on Prilosec 20 mg b.i.d. and Zofran as needed. I discussed MediPort placement for chemotherapy administration. Follow-up next week. - Time Spent With Patient Time Spent with Patient (in minutes): 25
--- NOTE | 2022-07-30 11:59 | MHC.HEMONCMA ---
Notified patient of appt made with Dr. Brewer for port insertion consult on 08/06/22 at 10:30, she is in agreement and understands.
--- NOTE | 2022-07-30 13:45 | MHC.HEMONC ---
FMLA paperwork faxed to employer
--- NOTE | 2022-07-30 14:06 | MHC.HEMONC ---
Pt has appointment at Pain Clinic tomorrow
--- NOTE | 2022-07-31 11:50 | MHC.HEMONCMA ---
LM on Vm for patient with canceling appt with Dr. Brewer on 08/06/22 at 10:30 for consult for port, IR booked her for 08/07/22 at 8:30 for actual port insertion. Patient informed to call office to go over change in plan.
[2022-08-01] MEDS: Cyanocobalamin (Vitamin B-12) 1,000 MCG/ML VIAL 1000 MCG IM (13:41)
--- NOTE | 2022-08-01 15:07 | MHC.HEMONC ---
Here for carboplatin and pemetrexed chemotherapy teach. She is accompanied by her mother Manuela. She is tentatively scheduled to begin on 08/19 with labs on 08/18. Her port will be placed on 08/07/22 at 0830. She is working with the pain clinic for abdominal pain control. There is talk of a pain pump. Her food intake is poor but she is hydrating well. She was given a b12 injection to the left arm today. Schedule and chemotherapy side effects discussed including when to call the clinic. Infusion suite tour given. Pt aware of plan, calendar provided.
--- NOTE | 2022-08-01 17:20 | HO.HEMONCPA ---
Addendum entered by Halima Sandra 08/05/22 11:19: PA FOR EMEND, PEMETREXED,CARBOPLATIN, ONDANSETRON, DEXAMETHASONE & XGEVA APPROVED. AUTH# [id number]. DOS - 08/06/22 to 03/01/2023. DOCUMENT SCANNED IN THE CHART Addendum entered by Halima Sandra 08/04/22 10:10: PA FOR EMEND, PEMETREXED, & CARBOPLATIN APPROVED. AUTH# [id number]. DOS - 08/05/22 to 03/01/2023. DOCUMENT SCANNED IN THE CHART Original Note: PA FOR EMEND, PEMETREXED, & CARBOPLATIN REQUESTED. AWAITING DECISION
--- NOTE | 2022-08-04 12:52 | HO.HEMONCPA ---
Addendum entered by Halima Sandra 08/05/22 11:23: PA FOR XGEVA APPROVED. AUTH# [id number]. DOS - 08/06/22 to 03/01/2023. DOCUMENT SCANNED IN THE CHART Original Note: [facility] FOR DENOSUMAB REQUESTED. AWAITING DECISION
[2022-08-06 10:07] LABS: MANUAL DIFF FLAG NO
[2022-08-06 10:11] LABS: Basophils Absolute Auto 0.1 X10*3/uL (0.0-0.2); Basophils Percent Auto 0.4 % (0-2); Eosinophils Absolute Auto 0.9 X10*3/uL (0.0-0.4); Eosinophils Percent Auto 5.3 % (0-4); Hematocrit 35.9 % (37.0-47.0); Hemoglobin 12.2 g/dl (12.0-16.0); Imm Gran Abs Auto 0.09 X10*3/uL (0.00-0.03); Imm Gran Pct Auto 0.5 % (0.0-0.4); Lymphocytes Absolute Auto 1.3 X10*3/uL (1.2-4.9); Mean Corpuscular Hemoglobin 32.1 pg (27.0-33.0); Mean Corpuscular Volume 94.5 fL (80.0-98.0); Mean Platelet Volume 8.6 fL (9.4-12.3); Monocytes Absolute Auto 1.2 X10*3/uL (0.1-1.2); Monocytes Percent Auto 7.3 % (2-11); Neutrophils Absolute Auto 12.8 x10*3/uL (2.0-8.3); Neutrophils Percent Auto 78.5 % (45-73); Platelet Count 405 X10*3/uL (160-400); Red Cell Distribution Width 14.6 % (11.0-16.0); White Blood Count 16.4 X10*3/uL (4.8-10.8)
[2022-08-06 10:34] LABS: Alanine Aminotransferase 31 U/L (0-31); Albumin Level 3.1 g/dL (3.5-5.0); Alkaline Phosphatase 144 U/L (39-117); Anion Gap 16 (12-20); Aspartate Amino Transferase 36 U/L (5-31); Bilirubin Total 0.5 mg/dL (0.0-1.0); Blood Urea Nitrogen 16 mg/dL (9-16); Calcium 9.4 mg/dL (8.4-10.2); Carbon Dioxide 24 mmol/L (22-29); Chloride 94 mmol/L (96-108); Creatinine Clr Calc Pharmacy 55.1; Estimated Glomerular Filt Rate 43; Glucose Random 110 mg/dL (60-115); Magnesium 1.7 mg/dL (1.6-2.6); Potassium 4.1 mmol/L (3.3-5.1); Sodium 130 mmol/L (135-145); Total Protein 6.4 g/dL (6.5-8.0)
[2022-08-06 10:57] LABS: HBS Num1 0.03 mIU/mL (0-7.99); HBc Num1 0.11 S/CO (0.00-0.79); HBsAGNum1 0.34 S/CO (0.00-0.99); Hepatitis B Core Antibody Nonreactive (Nonreactive); Hepatitis B Surface Antigen Negative (Negative); ~HepC Num1 0.09 S/CO (0.00-0.79); ~Hepatitis B Surface Antibody NONREACTIVE (Nonreactive); ~Hepatitis C Antibody Nonreactive (Nonreactive)
--- NOTE | 2022-08-07 15:32 | MHC.HEMONC ---
Patient admitted- chemotherapy cancelled at this time.
[2022-08-08 10:24] LABS: CA-125 231 U/mL (<35)
--- NOTE | 2022-08-08 10:40 | HO.HEMONCPA ---
Addendum entered by Halima Sandra 08/08/22 15:34: [place] for [id number] - Pembrolizumab (Keytruda) APPROVED. AUTH/REQUEST ID#[id number]. DOS 08/12/22 to 03/08/2023. DOCUMENT SCANNED IN THE CHART Original Note: ARIADNA for [id number] - Pembrolizumab (Keytruda) REQUESTED. AWAITING DECISION
--- NOTE | 2022-08-08 15:50 | MHC.HEMONC ---
[facility]. Notes sent and message left for regarding appointment.
--- NOTE | 2022-08-12 10:28 | MHC.HEMONC ---
Pt , Newton is aware of RadOnc Consult tomorrow at 1:15 at [facility].
--- NOTE | 2022-08-12 15:32 | MHC.HEMONC ---
Pt called with new prescription for folic acid and dexamethasone. Instructed to case picker new prescriptions at pharmacy and begin taking folic acid today, dexamethasone will be needed for 2 days following treatment-no answer message left to case picker prescriptions
[2022-08-13 15:57] LABS: MANUAL DIFF FLAG NO
[2022-08-13 16:09] LABS: Basophils Percent Auto 0.2 % (0-2); Eosinophils Absolute Auto 0.6 X10*3/uL (0.0-0.4); Eosinophils Percent Auto 2.9 % (0-4); Hematocrit 38.9 % (37.0-47.0); Hemoglobin 13.2 g/dl (12.0-16.0); Imm Gran Abs Auto 0.35 X10*3/uL (0.00-0.03); Imm Gran Pct Auto 1.8 % (0.0-0.4); Lymphocytes Absolute Auto 1.8 X10*3/uL (1.2-4.9); Lymphocytes Percent Auto 9.2 % (20-40); Mean Corpuscular HGB Conc 33.9 g/dl (31.0-35.0); Mean Corpuscular Hemoglobin 31.6 pg (27.0-33.0); Mean Corpuscular Volume 93.1 fL (80.0-98.0); Mean Platelet Volume 8.3 fL (9.4-12.3); Monocytes Absolute Auto 1.4 X10*3/uL (0.1-1.2); Monocytes Percent Auto 7.1 % (2-11); Neutrophils Absolute Auto 15.7 x10*3/uL (2.0-8.3); Neutrophils Percent Auto 78.8 % (45-73); Platelet Count 553 X10*3/uL (160-400); Red Blood Count 4.18 X10*6/uL (4.20-5.50); Red Cell Distribution Width 14.6 % (11.0-16.0)
[2022-08-13 16:32] LABS: Alanine Aminotransferase 14 U/L (0-31); Albumin Level 3.1 g/dL (3.5-5.0); Alkaline Phosphatase 110 U/L (39-117); Anion Gap 18 (12-20); Aspartate Amino Transferase 10 U/L (5-31); Bilirubin Total 0.4 mg/dL (0.0-1.0); Blood Urea Nitrogen 9 mg/dL (9-16); Calcium 10.1 mg/dL (8.4-10.2); Carbon Dioxide 23 mmol/L (22-29); Chloride 97 mmol/L (96-108); Creatinine Clr Calc Pharmacy 118.1; Estimated Glomerular Filt Rate > 60; Glucose Random 102 mg/dL (60-115); Potassium 3.8 mmol/L (3.3-5.1); Sodium 134 mmol/L (135-145); Total Protein 6.6 g/dL (6.5-8.0)
--- NOTE | 2022-08-13 16:37 | MHC.HEMONC ---
Labs reviewed. Pt wbc is 20 today. She continues on antibiotics. She is managing with her pain and meds. She is scheduled for port tomorrow a.m. and then chemo. I did leave message for IR to review her labs in case they want to cancel port. I did inform pt that this is a possibility but she should still come for c1d1 chemo.
[2022-08-14] VITALS (7 sets, daily range): BP systolic 99–111; BP diastolic 56–71; PULSE 95–118; RESP 20–22; TEMP 36.1–36.6; O2SAT 86–93; BMI 28.8
[2022-08-14] MEDS: HYDROmorphone HCl 1 MG/ML SYRINGE IVPUSH (09:21)
--- NOTE | 2022-08-14 09:41 | P.PNHO-ONC_ITS ---
Medical Summary - Medical Summary Date of Service: 08/14/22 Chief complaint: Generalized weakness, scheduled treatment Medical Summary: Diagnosis: Metastatic high-grade carcinoma with papillary architecture Presented to emergency department for evaluation of left-sided abdominal pain and worsening constipation 07.09.22. CT abdomen/pelvis with contrast performed 07/09/2022 shows lesion around the left adrenal gland measuring 6 x 4.3 cm with surrounding soft tissue stranding, another small nodular density adjacently, surrounding adenopathy suggesting metastatic disease. Numerous small lung nodules, partially visualized. In the rectosigmoid region there is significant soft tissue stranding without an obvious lesion. This could represent infectious process/colitis, separate from adrenal lesion. CT chest with contrast performed 07/16/2022 showed multiple bilateral small to moderate-sized pulmonary nodules highly suspicious for metastatic disease. Abnormal mediastinal and bilateral hilar lymph nodes seen. Patient has been started on antibiotics for possible colitis. She had an urgent GI evaluation, colonoscopy was negative for malignancy. Interval History Interval history: Patient is here for scheduled treatment. Unfortunately she continues to feel poorly with left flank pain. Being on anticoagulation did not help. She is now on higher doses of blood thinners. She has been taking both cephalexin and is Zithromax in since discharge from the hospital. She has not had a fever but reports persistent cough. She gets occasional blood-tinged sputum. Her appetite is poor. She is keeping herself hydrated. She wants to proceed with treatment. Review of Systems - Constitutional Reports as per HPI, Reports lack of energy, Reports malaise - Neurologic Denies syncope [facility] Medical History: Medical History (Last Reviewed 08/06/22 @ 14:45 by Leny Roach DO) Adenocarcinoma of lung, stage 4 Anxiety Depression HTN (hypertension) Irritable bowel syndrome (IBS) Surgical History: Surgical History (Last Reviewed 08/06/22 @ 14:45 by Leny Roach DO) S/P lumpectomy, right breast Social History: Social History (Last Reviewed 08/06/22 @ 14:45 by Leny Roach DO) Living Situation History: Household Members: Spouse Housing: House Do you presently have visiting nurse or other home services: No Tobacco History: Patient Tobacco Use Status: Tobacco use Unknown Tobacco use type: Cigarette Cigarette Packs Per Day: 1 e-Cigarette/Vaping Use: Currently Using Second Hand Smoke Exposure: No Substance Use History: Substance Use Type: Marijuana Advance Directives: Advance Directives Date on File: 07/11/22 Occupation Assessmet: service: No Current occupational status: employed Home Medications and Allergies Current Medications: Current Medications Acetaminophen (Acetaminophen 325 Mg Tablet) 650 mg PO ONCE MARLENA Stop: 08/14/22 23:59 Cyanocobalamin (Cyanocobalamin (Vitamin B-12) 1,000 Mcg/Ml Vial) 1,000 mcg IM ONCE MARLENA Stop: 08/14/22 23:59 Diphenhydramine HCl (Diphenhydramine Hcl 25 Mg Capsule) 25 mg PO ONCE MARLENA Stop: 08/14/22 23:59 Heparin Sodium (Porcine) (Heparin Sodium,Porcine Flush 500 Unit/5 Ml Syringe) 500 unit IVFLUSH ONCE MARLENA Stop: 08/14/22 23:59 Fosaprepitant 150 mg/ Sodium (Chloride) 150 mls @ 300 mls/hr IV ONCE MARLENA Stop: 08/14/22 23:59 Ondansetron HCl (Zofran) 16 mg in 50 mls @ 200 mls/hr IV ONCE MARLENA Stop: 08/14/22 23:59 Dexamethasone Sodium Phosphate (Decadron) 12 mg in 50 mls @ 200 mls/hr IV ONCE MARLENA Stop: 08/14/22 23:59 Home Medications Medication Instructions Recorded Confirmed Type albuterol sulfate 90 mcg/actuation 2 puff inhalation Q4H PRN wheezing 07/11/22 08/06/22 History aerosol inhaler atorvastatin 40 mg tablet 40 mg PO DAILY 07/11/22 08/06/22 History fluoxetine 20 mg capsule 40 mg PO DAILY 07/11/22 08/06/22 History fluticasone propionate 50 1 spray intranasal BID PRN Allergy 07/11/22 08/06/22 History mcg/actuation nasal Symptoms spray,suspension trazodone 50 mg tablet 50 mg PO BEDTIME 07/11/22 08/06/22 History acetaminophen 500 mg tablet 500 mg PO Q6H PRN Pain 08/06/22 08/06/22 History diphenhydramine HCl 25 mg tablet 25 mg PO DAILY PRN Allergy Symptoms 08/06/22 08/06/22 History lorazepam 0.5 mg tablet 0.5 mg PO TID PRN Anxiety 08/06/22 08/06/22 History Allergies Allergy/AdvReac Type Severity Reaction Status Date / Time No Known Allergies Allergy Verified 08/06/22 13:40 Exam Vital signs: Vital Signs Temp 97.8 F 08/14/22 08:58 Pulse 111 H 08/14/22 08:58 Resp 22 H 08/14/22 09:21 BP 103/65 08/14/22 08:58 Pulse Ox 92 08/14/22 08:58 O2 Del Method Nasal Cannula 08/14/22 08:58 O2 Flow Rate 2 08/14/22 08:58 Intake & Output 08/13/22 08/14/22 08/14/22 18:59 06:59 18:59 Other: Weight 78.5 kg [place] Weight in Grams 72204 Weight 78.5 kg BMI result Body Mass Index 28.8 - Constitutional Present: mild distress, average body habitus - Routine HEENT Exam Head: Present: normal inspection - Routine Respiratory Exam Present: CTAB. Absent: accessory muscle use - Routine Cardiovascular Exam Cardiovascular: Present: RRR, S1, S2 - Routine Abdominal Exam Present: soft, tenderness - Routine Extremities Exam Absent: pedal edema - Routine Skin Exam Present: intact. Absent: cyanosis Data - Labs CBC & Chem 7: 08/13/22 15:54 08/13/22 15:54 Assessment and Plan Patient Active problem list reviewed?: Yes (1) Left adrenal mass Status: Acute Assessment and plan: 1. This is a 46-year-old woman diagnosed with metastatic lung cancer in July 2022. She underwent left adrenal mass core biopsy which revealed high-grade carcinoma with papillary architecture, immunohistochemistry showed positivity for CK7, napsin a and TTF1. Negative for CK 20, CDX2, ER, GATA3, WT1, P53, PAX 8 and [place] 1. PDL1 is positive high, TP S 50%, CPS 55%. NGS testing revealed that she was negative for EGFR, KRAS, BRAF, alk, ROS1, RET, MET and ERBB2 mutations. TMB was 9.5 m/MB, MSI stable. LDH not elevated, CEA normal, CA 125-231 unit/mL. PET-CT performed 07/29/2022 showed numerous FDG avid lung parenchymal nodules, multiple FDG avid osseous disease. Left adrenal gland mass with SUV 21, enla rged left kidney with perinephric stranding. Possibility of left renal vein thrombosis is not excluded. She has been started on Lovenox 60 mg b.i.d.. 80% doses because of intermittent blood-tinged sputum. Because of worsening leukocytosis and hypoxemia, patient was admitted to the hospital last week, chemotherapy was delayed. Because of progressive lung metastasis as well as possibility of atypical pneumonia, she received IV antibiotics and later switched to azithromycin and cephalexin which she is currently on. Some of her leukocytosis is probably leukemoid reaction secondary to malignancy. She also has thrombocytosis which is reactive. 2. For pain control she has been started on MS Contin 30 mg every 8 hours and morphine sulfate 15 mg p.o. every 4 hours as needed. She was referred to pain clinic but she would like to hold off on the pain pump at this time. Patient was scheduled to start chemotherapy carboplatin with pemetrexed and pembrolizumab for first-line treatment in the palliative setting for metastatic lung cancer/non-small cell lung cancer. Treatment was postponed because of possibility of infection. In spite of antibiotic she continues to have progressive leukocytosis which raises the possibility of leukemoid reaction secondary to malignancy. Blood cultures from 08/06/2022 is negative. UA was negative. She was referred to [facility] for palliative radiation therapy for pain control of the left adrenal mass. However, she was recommended to start chemotherapy rather than receive radiation because of rapidly growing diffuse metastatic disease. I discussed all of the above with patient, her and mother. They know that her prognosis is guarded. Follow-up next week. - Time Spent With Patient Time Spent with Patient (in minutes): 25
[2022-08-14] MEDS: Fosaprepitant Dimeglumine 150 MG in 0.9 % Sodium Chloride 145 ML 300 MG IV (10:30)
[2022-08-14] MEDS: HYDROmorphone HCl 0.5 MG/0.5 ML SYRINGE IVPUSH (11:07)
[2022-08-14] MEDS: diphenhydrAMINE HCL 25 MG CAPSULE PO (11:20)
[2022-08-14] MEDS: Acetaminophen 325 MG TABLET 650 MG PO (11:20)
[2022-08-14] MEDS: dexAMETHasone sod phosphate/NS 12 MG/50 ML PIGGYBACK 200 MG IV (11:22)
[2022-08-14] MEDS: Cyanocobalamin (Vitamin B-12) 1,000 MCG/ML VIAL 1000 MCG IM (11:29)
[2022-08-14] MEDS: HYDROmorphone HCl 0.5 MG/0.5 ML SYRINGE 0.25 MG IVPUSH (15:46)
--- NOTE | 2022-08-14 17:04 | MHC.HEMONC ---
C1D1: Carboplatin/Pemetrexed/Pembro- labs obtained and reviewed from 08/13. Patient was booked for port placement today however this procedure was canceled by Dr. Weaver due to elevated WBC and possible underlying infection. Patient arrived to unit- c/o of shortness of breath with RR 22-24. Patient also complaining of 9/10 back and abdominal pain. Initial 02 sats 88% room air- patient was placed on 2L NC. Dr. Masters called into room to assess patient. Dilaudid 1mg IV ordered and was given at 0921 with partial effect. Patient agreed to start chemotherapy today with guarded prognosis. #22 angio placed to left hand with positive blood return. Pharmacy notified. New consent signed as we added Pembro to plan of care- informational sheet provided. Pre-medicated with Tylenol 650mg PO, Dexamethasone 12mg IV, Zofran 16mg IV, Benadryl 25mg PO, and Emend. B12 1000mcg administered to left deltoid- Chemo infusions well tolerated with no signs of chemo infusion reaction. Monthly Xgeva administered to left upper arm. Patient continues to complain of intermittent flank pain, abdominal pain and leg pain. Patient was medicated with Dilaudid 2 additional times- at 1107 and 1546- with partial relief. [address] throughout day with 02 requirements increasing- 4-5LNC with 02 sats ranging low 90's. Dr. Masters aware- she has recommended patient to stay over weekend for inpatient status for closer monitoring. Patient very reluctant and prefers to go home. Respiratory evaluation ordered for possible oxygen therapy at home- upon assessment with RT 02 sats ranging 88% on 5L NC- MD and respiratory at bedside. Dr. Masters strongly advised patient to be admitted. After some time patient agreed for direct admission. Bed management called- Dr. March (hospitalist) accepted patient. Nurse to nurse report given. Patient transferred via wheelchair to room 470. IV left in place. Chemotherapy discharge packet provided- patient to return next week for post chemotherapy labs.
--- NOTE | 2022-08-19 16:51 | MHC.HEMONC ---
Pt left VM on triage line, requesting new scrip for Lorazepam 0.5 mg PO TID PRN. Nurse gave request to Dr. Miranda, who sent scrip to [facility] on [facility]. Nurse confirmed w/ pharmacist that scrip would be ready for pick and shovel worker in 30 min. Nurse called pt at home, no answer, left detailed VM informing her scrip would be ready for pick and shovel worker soon, also left CB#.
[2022-08-21 14:11] LABS: Hemoglobin 10.2 g/dl (12.0-16.0); Mean Corpuscular Volume 91.7 fL (80.0-98.0); Red Cell Distribution Width 14.7 % (11.0-16.0)
[2022-08-21 14:16] LABS: Hematocrit 29.7 % (37.0-47.0); Mean Corpuscular HGB Conc 34.3 g/dl (31.0-35.0); Mean Corpuscular Hemoglobin 31.5 pg (27.0-33.0); Mean Platelet Volume 8.3 fL (9.4-12.3); Platelet Count 100 X10*3/uL (160-400); Red Blood Count 3.24 X10*6/uL (4.20-5.50)
[2022-08-21 14:21] LABS: WBC ABN SCTR FOR CBC 1
[2022-08-21 14:51] LABS: Alanine Aminotransferase 83 U/L (0-31); Albumin Level 2.4 g/dL (3.5-5.0); Alkaline Phosphatase 130 U/L (39-117); Anion Gap 17 (12-20); Aspartate Amino Transferase 99 U/L (5-31); Bilirubin Total 0.9 mg/dL (0.0-1.0); Blood Urea Nitrogen 9 mg/dL (9-16); Calcium 6.7 mg/dL (8.4-10.2); Carbon Dioxide 23 mmol/L (22-29); Chloride 96 mmol/L (96-108); Creatinine Clr Calc Pharmacy 137.6; Estimated Glomerular Filt Rate > 60; Glucose Random 114 mg/dL (60-115); Potassium 3.2 mmol/L (3.3-5.1); Sodium 133 mmol/L (135-145); Total Protein 5.4 g/dL (6.5-8.0)
[2022-08-21 15:00] LABS: Eosinophils Percent Manual 38 % (0-4); Lymphocytes Percent Manual 20 % (20-40); Monocytes Percent Manual 1 % (2-11); Neutrophils Percent Manual 41 % (45-73)
[2022-08-21 15:01] LABS: Band Neutrophils Percent 0 % (3-5)
[2022-08-21 15:05] LABS: Acanthocytes 2+ (3-5) /OIF; Burr Cells 2+ (3-5) /OIF; Macrocytosis 1+ (5-14) /OIF; Microcytosis 1+ (5-14) /OIF; Platelet Estimate SLIGHTLY DECREASED (NORMAL); Platelet Morphology Comment NORMAL; RBC Morphology NOTED
[2022-08-21 15:19] LABS: Eosinophils Absolute Manual 0.8 X10*3/uL (0.0-0.4); Lymphocytes Absolute Manual 0.4 X10*3/uL (1.2-4.9); Neutrophils Absolute Manual 0.9 X10*3/uL (2.0-8.3); White Blood Count 2.2 X10*3/uL (4.8-10.8)
--- NOTE | 2022-08-21 16:17 | MHC.HEMONC ---
Post chemo labs obtained and reviewed. WBC 2.2 ANC 0.9- Calcium 6.7 Potassium 3.2- Dr. Miranda aware. Calcium supplements ordered and sent electronically to pharmacy as well as Diflucan for possible yeast infection. Instructed patient and daughter re: Neutropenic precautions: proper hand washing, avoiding large crowds, reporting temps over 100.4 etc. Mother states she planned a picnic for Thursday with family and friends. Advised mother to reschedule pending next weeks lab results. Mother Manuela verbalizes understanding. Ensure samples provided.
== END 2022-08-28 | disposition home or self-care (01) ==
LOC: HO.ONC 11:00
PROVIDERS: Visit Provider Internal Medicine
DX: Z51.11 Encounter for antineoplastic chemotherapy (principal); C74.92 Malignant neoplasm of unspecified part of left adrenal gland; C78.00 Secondary malignant neoplasm of unspecified lung; R11.0 Nausea; Z79.891 Long term (current) use of opiate analgesic
CPT/HCPCS: 36415; 80053; 82378; 83615; 83735; 83835; 85007; 85025; 85027; 85610; 86304; 86704; 86706; 86803; 87340; 96366; 96367; 96372; 96375; 96376; 96411; 96413; 96415; 96417; 99205; 99211; J0897; J1100; J1170; J1453; J2405; J9045; J9271; J9305

== ENCOUNTER 2022-08-24 07:04 | Inpatient (IN) | payer OTHER, SELFPAY ==
[2022-08-24] VITALS (42 sets, daily range): BP systolic 65–195; BP diastolic 23–165; PULSE 105–134; RESP 8–28; TEMP 36.4–37.6; O2SAT 88–100; BMI 31.7
--- NOTE | ~2022-08-24 | NM_ITS ---
PULMONARY PERFUSION ONLY STUDY: CLINICAL INDICATION: Dyspnea. History of adenocarcinoma of the lung. Suspected pulmonary thromboembolism. PROCEDURE: Following the intravenous administration of 4.0 millicuries technetium 99m MAA, images of the chest were obtained in multiple projections using a gamma scintiphotographic camera. COMPARISON: Chest radiograph done on 08/24/[address] of the chest and abdomen and pelvis also done on 08/24/2022. The chest radiograph shows diffuse airspace abnormalities. The CT of the chest shows multifocal airspace disease including bilateral pulmonary nodules. PERFUSION IMAGES: There are bilateral small heterogeneous perfusion defect present. When correlating with the CT of the chest done earlier today, the findings may correlate with the airspace abnormalities seen bilaterally throughout both lung molina. NM/NM pul perfusion IMPRESSION: Based on perfusion only modified PIOPED 2 criteria, the findings are nondiagnostic for pulmonary thromboembolism. Alternative imaging modality including CTA of the chest and/or bilateral lower extremity DVT study as appropriate may be considered for further clarification.
--- NOTE | ~2022-08-24 | CT_ITS ---
EXAMINATION: CT HEAD WITHOUT CONTRAST (STROKE PROTOCOL) CLINICAL INFORMATION: Stroke protocol. COMPARISON: None available. TECHNIQUE: Contiguous axial imaging was performed from the skull base to vertex without intravenous administration of contrast. Coronal and sagittal reformatted images were obtained. This CT examination was performed using dose optimization techniques as appropriate, variously including the following: *Automated exposure control *Adjustment of mA and/or kV according to patient size (this includes techniques or standardized protocols for targeted exams where dose is matched to indication/reason for exam; i.e. extremities or head) *Use of iterative reconstruction technique DLP: 1762 mGy-cm FINDINGS: The cortical sulci are normal. The lateral ventricles are symmetrical. The third and fourth ventricles are in their normal midline position. The basilar and prepontine cisterns are unremarkable. Incidental mild fullness of the pituitary gland without associated abnormality of the sella turcica. There is no acute intra or extracerebral abnormality. There is no mass effect or midline shift. Sections through the bony calvarium are unremarkable. The paranasal sinuses are clear. The bony orbits and orbital contents are unremarkable. CT/CT head for stroke IMPRESSION: 1. No acute intracranial pathology. 2. Incidental fullness of the pituitary gland. Correlate clinically. If clinically indicated this could be further investigated with nonemergent pituitary MRI.
--- NOTE | ~2022-08-24 | CT_ITS ---
EXAMINATION: CT ABDOMEN AND PELVIS WITHOUT CONTRAST CLINICAL INFORMATION: Pain. History of adrenal cancer. COMPARISON: Previous CT of the abdomen and pelvis July 2022 and PET/CT scan July 2022 TECHNIQUE: Multidetector volumetric imaging was performed from the superior aspect of the liver through the pubic symphysis. Sagittal and coronal reformatted images were obtained on the technologist's workstation. This CT examination was performed using dose optimization techniques as appropriate, variously including the following: *Automated exposure control *Adjustment of mA and/or kV according to patient size (this includes techniques or standardized protocols for targeted exams where dose is matched to indication/reason for exam; i.e. extremities or head) *Use of iterative reconstruction technique DLP: 667 mGy-cm FINDINGS: LUNG BASES: See chest CT report from the same day LIVER, GALLBLADDER, AND BILIARY TREE: The liver is normal in size, shape, and attenuation. No focal hepatic lesion or biliary ductal dilatation is present. Small gallstones in the gallbladder. The gallbladder is upper normal in size. PANCREAS: Unremarkable. SPLEEN: Unremarkable. ADRENAL GLANDS: Left adrenal mass measuring 4.3 x 6.6 cm. This does not appear appreciably changed in size from most recent CT 08/06/2022. There is stranding of the surrounding fat and small peritoneal nodules or lymph nodes. The right adrenal gland is normal. KIDNEYS AND URETERS: Both kidneys appear prominent with renal cortical thickening. There is stranding of the left perinephric fat. There are left perinephric peritoneal soft tissue nodules. No stone or hydronephrosis. BLADDER: Not optimally distended. GASTROINTESTINAL TRACT: The small and large bowel are unremarkable. The appendix is unremarkable. ABDOMINAL WALL: No significant hernia is appreciated. Nodule in the subcutaneous fat in the anterior midline pelvis just anterior the pubic symphysis measuring 9 mm axial image 82 series 4. This is not appreciably changed from previous exams. LYMPH NODES: Retrocrural lymphadenopathy slightly decreased from previous exam. Upper abdominal retroperitoneal lymphadenopathy decreased for example left periaortic lymph node measures maximum 1 cm compared to 1.6 x 3 cm on prior exam. Smaller retroperitoneal lymph nodes in the pelvis. No ascites. VASCULAR: Unremarkable. PELVIC VISCERA: IUD in the uterus. Uterus and adnexa are otherwise unremarkable. OSSEOUS STRUCTURES: Diffuse metastatic bone disease appreciated by PET scan not well appreciated by CT. Small 5 mm sclerotic lesion in the left femoral head and right iliac bone. Small lucent or lytic lesion of left anterior superior T11 and left inferior T12 vertebral bodies. Degenerative changes of the lower lumbar spine. No fracture. CT/CT abdomen pelvis wo IV con IMPRESSION: No appreciable change in size in the left adrenal mass. There is interval decrease in retrocrural and upper abdominal retroperitoneal lymphadenopathy. There is still bilateral renal cortical thickening. There are left retroperitoneal and perinephric nodules and stranding of the left perinephric fat not appreciably changed. Upper normal-size gallbladder and small gallstones. Stable subcutaneous nodule in the low midline pelvis. Bone lesions seen by PET/CT scan not well appreciated by CT. Fleischner guidelines were followed.
--- NOTE | ~2022-08-24 | CT_ITS ---
EXAMINATION: CT CHEST WITHOUT CONTRAST CLINICAL INFORMATION: Shortness of breath COMPARISON: Previous chest CTA 08/06/2022 TECHNIQUE: Multidetector volumetric CT imaging of the chest was done. Axial MIP volume rendering provided. Sagittal and coronal reformatted images were obtained. This CT examination was performed using dose optimization techniques as appropriate, variously including the following: *Automated exposure control *Adjustment of mA and/or kV according to patient size (this includes techniques or standardized protocols for targeted exams where dose is matched to indication/reason for exam; i.e. extremities or head) *Use of iterative reconstruction technique DLP: 419 mGy-cm FINDINGS: LUNGS: There are innumerable bilateral pulmonary nodules. These appear increased in size and number compared to 08/06/[address] Largest right pulmonary nodule measures 1 x 1.2 cm in the right lower lobe axial image 41 series 3 and is new. Largest left lower lobe pulmonary nodule measures 1.2 x 1.7 cm axial image 36 series 3 and is new. There are increased interstitial markings and increased parenchymal attenuation seen diffusely throughout the lungs that appears increased as well. There is new heterogeneous or dominantly groundglass attenuation area with some increased interstitial markings in the left upper lobe at the apex measuring 5 cm axial image 11 series 3. MEDIASTINUM: Right jugular port with tip projecting over the SVC. Diffuse mediastinal and bilateral hilar lymphadenopathy. This does not appear appreciably changed. Upper normal heart size. Trace pericardial effusion. CORONARY ARTERY CALCIFICATION: None visualized on this study. PLEURA: There is no pleural effusion. No pleural mass or thickening. AXILLA: No lymphadenopathy. UPPER ABDOMEN: See abdominal and pelvic CT report from the same day OSSEOUS STRUCTURES: Mild degenerative changes of the spine. Focal bone lesion seen on PET scan difficult to appreciate by CT CT/CT chest wo IV con IMPRESSION: There is interval increase in size and number of pulmonary nodules. There is interval increase in increased attenuation in the lungs and interstitial disease. This may represent worsening metastatic disease to the lungs. Other process such as pulmonary edema or interstitial disease and pneumonitis related to drug toxicity and infection should also be considered. Fleischner guidelines were followed.
--- NOTE | ~2022-08-24 | XR_ITS ---
EXAMINATION: XR CHEST CLINICAL INFORMATION: Shortness of breath COMPARISON: Previous chest x-ray 08/14/2022 TECHNIQUE: Frontal view of the chest was obtained. FINDINGS: The cardiac silhouette does not appear enlarged. There is increased soft tissue in the right paratracheal and hilar regions questionable for increasing adenopathy. There is a new right jugular line with tip projecting over the cavoatrial junction. There are innumerable bilateral pulmonary nodules and areas of increased attenuation. This may be slightly increased compared to previous exams. There is no pleural effusion or pneumothorax. Bony structures are unremarkable. XR/XR chest 1V IMPRESSION: Right jugular line tip projects over cavoatrial junction. Innumerable bilateral pulmonary nodules and increased lung attenuation, question slightly increased from recent exam.
--- NOTE | 2022-08-24 07:09 | ECG_ITS ---
Test Reason : STROKE Blood Pressure : / mmHG Vent. Rate : 120 BPM Atrial Rate : 120 BPM P-R Int : 148 ms QRS Dur : 076 ms QT Int : 316 ms P-R-T Axes : 053 062 -79 degrees QTc Int : 446 ms Sinus tachycardia Possible Left atrial enlargement Low voltage QRS Cannot rule out Inferior infarct (cited on or before 06-AUG-2022) ST & T wave abnormality, consider anterolateral ischemia Abnormal ECG When compared with ECG of 06-AUG-2022 14:33, Anterolateral ST-T changes Referred By: Yajaira Hdz Electronically Signed By:Mariano Gamez
[2022-08-24 07:27] LABS: Prothrombin Time Whole Bld POC 18.3 sec (11.1-13.5); ~PT, ~INR - Anti Coag Clinic 1.5 (0.9-1.1)
--- NOTE | 2022-08-24 07:28 | ED.DIZZY ---
HPI - Dizziness General Chief Complaint: Weakness Stated Complaint: Weakness, dizzy per EMS Time Seen by Provider: 08/24/22 07:09 Source: patient and EMS Mode of arrival: EMS History of Present Illness HPI Narrative: 47-year-old female brought in from home after being found on the floor and unable to stand and known to have stage IV metastatic lung CA last had chemotherapy on questionable Thursday/Thursday, patient complaints that she cannot see in that this is new for her. Otherwise spontaneous movement and she has complaints of back pain and butt pain . Related Data Home Medications Medication Instructions Recorded Confirmed albuterol sulfate 90 mcg/actuation 2 puff inhalation Q4H PRN wheezing 07/11/22 08/14/22 aerosol inhaler atorvastatin 40 mg tablet 40 mg PO DAILY 07/11/22 08/14/22 fluoxetine 20 mg capsule 40 mg PO DAILY 07/11/22 08/14/22 fluticasone propionate 50 1 spray intranasal BID PRN Allergy 07/11/22 08/14/22 mcg/actuation nasal Symptoms spray,suspension trazodone 50 mg tablet 50 mg PO BEDTIME 07/11/22 08/14/22 acetaminophen 500 mg tablet 500 mg PO Q6H PRN Pain 08/06/22 08/14/22 diphenhydramine HCl 25 mg tablet 25 mg PO DAILY PRN Allergy Symptoms 08/06/22 08/14/22 lorazepam 0.5 mg tablet 0.5 mg PO TID PRN Anxiety 08/06/22 08/14/22 Previous Rx's Medication Instructions Recorded lisinopril 10 mg tablet 10 mg PO DAILY #30 tabs 07/25/22 gabapentin 300 mg capsule 300 mg PO TID #90 caps 07/30/22 morphine 60 mg tablet,extended 60 mg PO Q12H #60 tabs 07/30/22 release ondansetron 8 mg disintegrating 8 mg PO Q8H PRN Nausea #60 tabs 07/30/22 tablet omeprazole 20 mg capsule,delayed 20 mg PO BID #60 caps 08/17/22 release enoxaparin 40 mg/0.4 mL 40 mg (0.4 mL) subcut Q12H #60 ea 08/18/22 subcutaneous syringe folic acid 1 mg tablet 1 mg PO DAILY #90 tabs 08/18/22 hydromorphone 8 mg tablet 8 mg PO Q4H PRN breakthrough pain 08/18/22 #42 tabs levofloxacin 750 mg tablet 750 mg PO DAILY #4 tabs 08/18/22 morphine 30 mg tablet,extended 30 mg PO Q8H #21 tabs 08/18/22 release morphine 60 mg tablet,extended 60 mg PO Q8H #21 tabs 08/18/22 release naloxone 4 mg/actuation nasal spray 4 mg intranasal Q2M PRN opioid 08/18/22 overdose #2 ea Magic Mouthwash 10 ml PO QID #240 mL 08/20/22 Diphen/Lido/Antacid 1:1:1 240 mL suspension calcium carbonate 600 mg calcium 600 mg PO BID #60 tabs 08/21/22 (1,500 mg) tablet (Calcium) fluconazole 150 mg tablet 150 mg PO Q3D #9 tabs 08/21/22 (Diflucan) Allergies Allergy/AdvReac Type Severity Reaction Status Date / Time No Known Allergies Allergy Verified 08/06/22 13:40 Review of Systems Review of Systems: Pertinent positives and negatives as stated in [facility] Past Medical History Source: nursing notes reviewed Medical History Adenocarcinoma of lung, stage 4 Anxiety Depression HTN (hypertension) Irritable bowel syndrome (IBS) Opacity of lung on imaging study Surgical History S/P lumpectomy, right breast Social History Social History Household Members: Spouse Housing: House Do you presently have visiting nurse or other home services: Yes Alcohol intake: never Patient Tobacco Use Status: Current everyday Tobacco user Tobacco use type: Cigarette Cigarette Packs Per Day: 1 Smoked in Last 30 Days: Yes e-Cigarette/Vaping Use: Currently Using Second Hand Smoke Exposure: No Use of substances other than those prescribed or required for medical reasons: No Substance Use Type: Marijuana Advance Directives: Yes Advance Directives on File: Yes Advance Directives Date on File: 07/11/22 Patient : No service: No Current occupational status: employed Physical Exam Vital Signs: Vital Signs: Last Vital Signs Temp 97.9 F 08/24/22 08:11 Pulse 124 H 08/24/22 10:07 Resp 18 08/24/22 10:06 BP 85/30 L 08/24/22 10:07 Pulse Ox 96 08/24/22 10:06 O2 Del Method Non-Rebreather Ma sk 08/24/22 10:06 O2 Flow Rate 15 08/24/22 09:21 Oxygen Flow Rate 4 08/24/22 08:11 BMI result Body Mass Index 31.7 VITAL SIGNS: Reviewed. GENERAL: Does not appear well, strong smell of cigarette smoke, in no acute distress. HEAD: Normocephalic/atraumatic EYES: PERRLA, EOMI EARS: Ext canals without abnormality NOSE: Nares patent bilateral OROPHARYNX: no oral lesions noted, posterior pharynx clear NECK: Supple, no adenopathy LUNGS: On 4L nasal cannula CARDIOVASCULAR: Tachycardic rate and rhythm without noted murmurs, no JVD or lower extremity edema. ABDOMEN: Soft, non-tender, non-distended with bowel sounds. No rigidity. No guarding. No palpable masses or hernias noted MUSCULOSKELETAL: No tenderness, deformities, or effusions noted on gross inspection. EXTREMITIES: No cyanosis, clubbing or edema. SKIN: Inspection of the skin reveals no rashes, ulcerations, jaundice, pallor, or petechiae. NEUROLOGIC: Drowsybut easily aroused and oriented x 3. Strength and sensation to light touch were grossly intact x 4, very tremulous. NIH Stroke Scale Internal: Initial- Upon Arrival Level of Consciousness: Not Alert; but arousable by minor stimulation Level of Consciousness Questions: Answers both questions correctly Level of Consciousness Commands: Performs both tasks correctly Best Gaze: Normal Visual: Complete hemianopia Facial Palsy: Normal Motor Arm (Right): No drift Motor Arm (Left): No drift Motor Leg (Right): No drift Motor Leg (Left): No drift Limb Ataxia: Present in two limbs Sensory: Normal Best Language: No aphasia Dysarthia: Normal Extinction and Inattention: Visual, tactile, auditory, spatial, or personal inattention Score: 6 Medications Administered Generic Name Dose Route Start Last Admin Trade Name Freq PRN Reason Stop Dose Admin Norepinephrine Bitartrate 8 mg in 250 mls @ 0 mls/hr 08/24/22 08:15 08/24/22 10:07 Levophed IV 0.05 mcg/kg/min .Q0M MARLENA 7.37 mls/hr Titration Protocol Per Protocol Albumin Human 100 mls @ 100 mls/hr 08/24/22 09:30 08/24/22 09:56 Kedbumin 25 % IV 08/24/22 11:29 100 mls/hr Q1H MARLENA Administration Discontinued Medications Generic Name Dose Route Start Last Admin Trade Name Freq PRN Reason Stop Dose Admin Hydrocortisone Sodium Succinate 100 mg 08/24/22 08:40 08/24/22 09:01 Hydrocortisone Sod Succ/Pf 100 Mg Vial IVPUSH 08/24/22 08:41 100 mg ONCE ONE Administration Sodium Chloride 1,000 mls @ 999 mls/hr 08/24/22 07:30 08/24/22 09:17 Ns IV 08/24/22 08:30 Infused .Q1H1M MARLENA Infusion Sodium Chloride 1,000 mls @ 999 mls/hr 08/24/22 08:15 08/24/22 09:17 Ns IV 08/24/22 09:15 Infused .Q1H1M MARLENA Infusion Ceftriaxone Sodium 2 gm/ 50 mls @ 100 mls/hr 08/24/22 08:33 08/24/22 09:35 Sodium Chloride IV 08/24/22 09:02 Infused ONCE ONE Infusion Calcium Gluconate 2 gm in 100 mls @ 400 mls/hr 08/24/22 09:31 08/24/22 10:12 Calcium Gluconate IV 08/24/22 09:45 Infused ONCE ONE Infusion Naloxone HCl 4 mg 08/24/22 08:28 08/24/22 08:31 Naloxone Hcl Nasal 4 Mg [place] NOSTRILALT 08/24/22 08:29 4 mg ONCE ONE Administration Medical Decision Making Medical Decision Making MDM Narrative: 47-year-old female who on arrival was determined to be a code stroke by EMS despite fast ED of 0, patient complaint of dizziness, very tremulous, and stated that she could not see which was new. Unclear whether this is delirium from sepsis, given cancer history the decision was made to proceed with code stroke and scan her head. NIH-6 0728: [facility] government operations consultant called and states that noncontrast head CT is negative for acute findings as read by Dr Garrett. Initial blood pressure reported by EMS was very hypertensive at 190 SBP, however on blood pressure here in the emergency room she is noted to be hypotensive, still considerable concern for sepsis verses stroke. 0740: Placed emergent central line given difficulty with peripheral line even with ultrasound guidance. On my preliminary review of the chest x-ray I have grave concerns that there appears to be lymphangitis spread. Raising concerns for intervention. Delay in calling Neurology regarding patient presentation due to stabilization interventions. 0810: Call placed to Neurology 0815: Blood pressure not responding to IV fluids, pressors started, spoke with patient at bedside who states that she would like everything done . 0825: I spoke with the mother at bedside who states that the visual difficulties have been ongoing for 2 days, when I asked what oncology had to say about the symptoms both patient and her mother said that there was no other information. Patient continues to respond well despite being hypotensive, pressors are up and running at this time with MAP-44. The mother also states that her daughter's blood pressure has been on ongoing difficulty. She did exhibit some concerns regarding possible over medication for the pain, so we did administer 4 mg of Narcan intranasally. 0842: I spoke with Dr. Miranda who recommends 1 unit platelets, hydrocortisone 100 mg. Blood pressure is gradually improving. Pt was supposed to have received Dexamethasone after chemo, but she was admitted (per mother and never received). 0920: Corrected Calcium 7.2 (still low), informed by blood bank that we would need to wait for platelets. No ICU beds at this time. LFTs and DAYA are consistent with shock liver/kidney but suspect due to hypotension. Pt did receive 2g Rocephin. Awaiting ICU bed. Reluctant to start 2nd pressor as will increase HR and likely worsen cardiac work. 0932: I spoke with the tissue technician who recommends 2 bottles of albumin and calcium replacement. 1030: Patient to be admitted to the ICU for further management. I did discuss with the family at bedside earlier regarding dire prognosis. A Dr. David has accepted admission Differential Diagnosis Please see the discussion above Consult Healthcare Provider Management of the patient was discussed with: [employer] Please see the discussion above Lab Data Please see the discussion above 08/24/22 08:01 08/24/22 08:01 Labs: Lab Results 08/24/22 08/24/22 08/24/22 Range/Units 07:21 08:01 08:01 WBC 2.1 L (4.8-10.8) X10*3/uL RBC 2.87 L (4.20-5.50) X10*6/uL Hgb 8.9 L (12.0-16.0) g/dl Hct 26.3 L (37.0-47.0) % MCV 91.6 (80.0-98.0) fL MCH 31.0 (27.0-33.0) pg MCHC 33.8 (31.0-35.0) g/dl RDW 15.6 (11.0-16.0) % Plt Count 24 L D (160-400) X10*3/uL MPV 9.4 (9.4-12.3) fL Immature Gran % (Auto) Cancelled Neut % (Auto) Cancelled Lymph % (Auto) Cancelled Woodson % (Auto) Cancelled Eos % (Auto) Cancelled Baso % (Auto) Cancelled Lymph # (Auto) Cancelled [place]son # (Auto) Cancelled Eos # (Auto) Cancelled Baso # (Auto) Cancelled Abs Immat Gran (auto) Cancelled Absolute Neuts (auto) Cancelled Absolute Nucleated RBC 0.000 (0.0-0.012) X10*3/uL Nucleated RBC % (auto) 0.0 (0.0-0.2) /100WBC Neutrophils % (Manual) 43 L (45-73) % Band Neutrophils % 1 L (3-5) % Lymphocytes % (Manual) 32 (20-40) % Monocytes % (Manual) 2 (2-11) % Eosinophils % (Manual) 22 H (0-4) % Abs Neuts (Manual) 0.9 L (2.0-8.3) X10*3/uL Lymphocytes # (Manual) 0.7 L (1.2-4.9) X10*3/uL Eosinophils # (Manual) 0.5 H (0.0-0.4) X10*3/uL Dohle Bodies PRESENT Platelet Estimate DECREASED (NORMAL) Large Platelets PRESENT Plt Morphology Comment NOTED RBC Morphology NOTED [place] Cells 2+ (3-5) /OIF PT 18.4 H (10.0-13.1) SEC Whole Blood PT 18.3 H (11.1-13.5) sec INR 1.6 H (0.9-1.1) Whole Blood INR 1.5 H (0.9-1.1) APTT 35.2 D (26.0-36.4) SEC Sodium (135-145) mmol/L Potassium (3.3-5.1) mmol/L Chloride (96-108) mmol/L Carbon Dioxide (22-29) mmol/L Anion Gap (12-20) BUN (9-16) mg/dL Creatinine (0.5-1.4) mg/dL Estim Creat Clear Calc Estimated GFR Random Glucose (60-115) mg/dL Lactic Acid (0.5-2.0) mmol/L Calcium (8.4-10.2) mg/dL Magnesium (1.6-2.6) mg/dL Total Bilirubin (0.0-1.0) mg/dL Direct Bilirubin (0.0-0.5) mg/dL AST (5-31) U/L ALT (0-31) U/L Alkaline Phosphatase (39-117) U/L Total Creatine Kinase (26-140) U/L Troponin I High Sens (<3.5-17.0) ng/L Total Protein (6.5-8.0) g/dL Albumin (3.5-5.0) g/dL 08/24/22 08/24/22 08/24/22 Range/Units 08:01 08:01 08:01 WBC (4.8-10.8) X10*3/uL RBC (4.20-5.50) X10*6/uL Hgb (12.0-16.0) g/dl Hct (37.0-47.0) % MCV (80.0-98.0) fL MCH (27.0-33.0) pg MCHC (31.0-35.0) g/dl RDW (11.0-16.0) % Plt Count (160-400) X10*3/uL MPV (9.4-12.3) fL Immature Gran % (Auto) Neut % (Auto) Lymph % (Auto) Woodson % (Auto) Eos % (Auto) Baso % (Auto) Lymph # (Auto) [place] # (Auto) Eos # (Auto) Baso # (Auto) Abs Immat Gran (auto) Absolute Neuts (auto) Absolute Nucleated RBC (0.0-0.012) X10*3/uL Nucleated RBC % (auto) (0.0-0.2) /100WBC Neutrophils % (Manual) (45-73) % Band Neutrophils % (3-5) % Lymphocytes % (Manual) (20-40) % Monocytes % (Manual) (2-11) % Eosinophils % (Manual) (0-4) % Abs Neuts (Manual) (2.0-8.3) X10*3/uL Lymphocytes # (Manual) (1.2-4.9) X10*3/uL Eosinophils # (Manual) (0.0-0.4) X10*3/uL Dohle Bodies Platelet Estimate (NORMAL) Large Platelets Plt Morphology Comment RBC Morphology [place] Cells /OIF PT (10.0-13.1) SEC Whole Blood PT (11.1-13.5) sec INR (0.9-1.1) Whole Blood INR (0.9-1.1) APTT (26.0-36.4) SEC Sodium 129 L (135-145) mmol/L Potassium 3.7 (3.3-5.1) mmol/L Chloride 92 L (96-108) mmol/L Carbon Dioxide 20 L (22-29) mmol/L Anion Gap 21 H (12-20) BUN 33 H (9-16) mg/dL Creatinine 4.70 H* (0.5-1.4) mg/dL Estim Creat Clear Calc 14.6 Estimated GFR 10 Random Glucose 118 H (60-115) mg/dL Lactic Acid 1.7 (0.5-2.0) mmol/L Calcium 5.8 L* D (8.4-10.2) mg/dL Magnesium 2.3 (1.6-2.6) mg/dL Total Bilirubin 1.3 H (0.0-1.0) mg/dL Direct Bilirubin 0.8 H (0.0-0.5) mg/dL AST 52 H (5-31) U/L ALT 45 H (0-31) U/L Alkaline Phosphatase 143 H (39-117) U/L Total Creatine Kinase 292 H (26-140) U/L Troponin I High Sens 44.0 H D (<3.5-17.0) ng/L Total Protein 4.9 L (6.5-8.0) g/dL Albumin 2.2 L (3.5-5.0) g/dL Independent Interpretation I performed an independent interpretation of an: EKG Interpretation: Sinus tachycardia, HR-120, no STEMI but ST abnml in lateral leads which is new when compared to 07/2022, DE/QRS is wnl. Radiology Impression Radiologist Impression: My interpretation is in agreement with radiology's impression External Record Review External record reviewed: Prior outpatient labs Procedures Central Line Placement Right IJ: Time Out Performed: No Patient Placed on Monitor/Pulse Ox: Yes MD Prep: gloves Central Line Prep: Chlorhexidine scrub Local Anesthetic: lidocaine 1% Amount of anesthesia used (mL): 2 Ultrasound Used for Placement: Yes Central Line Lumen Inserted: triple Post Procedure: sutured in place, good blood return, all ports aspirated, flushed, capped and sterile dressing applied Post Procedure X-Ray: tip of catheter in good position and no pneumothorax seen Patient Tolerated Procedure: well Complications: none Discharge Plan Discharge Clinical Impression: Shock, Lymphangitic lung metastasis, DAYA (acute kidney injury), Acute hepatic failure, Thrombocytopenia Patient Disposition: Admitted As Inpatient
[2022-08-24 08:06] LABS: Hemoglobin 8.9 g/dl (12.0-16.0); Mean Corpuscular Volume 91.6 fL (80.0-98.0)
[2022-08-24 08:11] LABS: Hematocrit 26.3 % (37.0-47.0); Mean Corpuscular HGB Conc 33.8 g/dl (31.0-35.0); Mean Platelet Volume 9.4 fL (9.4-12.3); Red Blood Count 2.87 X10*6/uL (4.20-5.50); Red Cell Distribution Width 15.6 % (11.0-16.0)
[2022-08-24 08:14] LABS: INTERNATIONAL NORM RATIO 1.6 (0.9-1.1); Prothrombin Time 18.4 SEC (10.0-13.1)
--- NOTE | 2022-08-24 08:14 | PC.NURSE ---
pt appears very hypotensive, tachycardic, low pulse ox, provider notified. multiple iv sticks failed, provider at bed to place central line. placed by dr armenta without issue.
[2022-08-24 08:16] LABS: Partial Thromboplastin Time 35.2 SEC (26.0-36.4)
[2022-08-24 08:17] LABS: Stroke Lab Use COMPLETE
[2022-08-24 08:18] LABS: Lactic Acid 1.7 mmol/L (0.5-2.0)
[2022-08-24] MEDS: 0.9 % Sodium Chloride 1,000 ML 999 ML IV ×2 (08:20)
[2022-08-24 08:21] LABS: Platelet Count 24 X10*3/uL (160-400); White Blood Count 2.1 X10*3/uL (4.8-10.8)
[2022-08-24] MEDS: Norepinephrine Bitartrate/D5W 8 MG/250 ML PLAST..BAG 7.37 MG IV (08:21)
[2022-08-24 08:29] LABS: Band Neutrophils Percent 1 % (3-5); Eosinophils Absolute Manual 0.5 X10*3/uL (0.0-0.4); Eosinophils Percent Manual 22 % (0-4); Lymphocytes Absolute Manual 0.7 X10*3/uL (1.2-4.9); Lymphocytes Percent Manual 32 % (20-40); Monocytes Percent Manual 2 % (2-11); Neutrophils Absolute Manual 0.9 X10*3/uL (2.0-8.3); Neutrophils Percent Manual 43 % (45-73); RBC Morphology NOTED
[2022-08-24 08:30] LABS: Burr Cells 2+ (3-5) /OIF; Dohle Bodies PRESENT; Large Platelet PRESENT; Platelet Estimate DECREASED (NORMAL); Platelet Morphology Comment NOTED
[2022-08-24] MEDS: Naloxone HCl Nasal 4 MG SPRAY NOSTRILALT (08:31)
[2022-08-24 08:35] LABS: Anion Gap 21 (12-20); Blood Urea Nitrogen 33 mg/dL (9-16); Calcium 5.8 mg/dL (8.4-10.2); Carbon Dioxide 20 mmol/L (22-29); Chloride 92 mmol/L (96-108); Creatinine Clr Calc Pharmacy 14.6; Estimated Glomerular Filt Rate 10; Glucose Random 118 mg/dL (60-115); Potassium 3.7 mmol/L (3.3-5.1); Sodium 129 mmol/L (135-145)
[2022-08-24] MEDS: Hydrocortisone Sod Succ/PF 100 MG VIAL IVPUSH (09:01)
[2022-08-24] MEDS: cefTRIAXone sodium 2 GM in 0.9 % Sodium Chloride 50 ML IV (09:03)
[2022-08-24 09:16] LABS: Alanine Aminotransferase 45 U/L (0-31); Albumin Level 2.2 g/dL (3.5-5.0); Alkaline Phosphatase 143 U/L (39-117); Aspartate Amino Transferase 52 U/L (5-31); Bilirubin Direct 0.8 mg/dL (0.0-0.5); Bilirubin Total 1.3 mg/dL (0.0-1.0); Magnesium 2.3 mg/dL (1.6-2.6); Total Protein 4.9 g/dL (6.5-8.0)
--- NOTE | 2022-08-24 09:29 | PC.NURSE ---
pt had multiple small loose bm. cleaned, able to roll self on own. family at bedside assisting in pt care. mulitple infusions running through central line at this time. bp appears to be responding slowly to pressors. pt remains alert to self and place. having intermittent feeling of nausea likely due to narcan, frequent yawn. provider aware.
[2022-08-24] MEDS: Calcium Gluconate/NaCl,Iso-Osm 2 GM/100 ML PLAST..BAG IV ×2 (09:56→16:21)
[2022-08-24] MEDS: Albumin Human 25 % 100 ML IV ×2 (09:56→10:45)
[2022-08-24 10:38] LABS: OBS Int Ctl Valid YES; OBS1 NEGATIVE (NEGATIVE)
[2022-08-24] MEDS: cefEPime HCl 2 GM in 0.9 % Sodium Chloride 50 ML IV (10:45)
[2022-08-24] MEDS: Heparin Sodium,Porcine 5,000 UNIT/ML VIAL 5000 UNIT SUBCUT (10:46)
--- NOTE | 2022-08-24 11:17 | PM.NEUROCN ---
History of Present Illness Data of Consult Service Date: 08/24/22 Primary Care Provider: Sandra Mejia MD HPI Reason for consult: Possible stroke 47 yo woman with stage 4 lung cancer recently received first dose of chemo. She was at home and her gave her a bath. At one point she was noted to be on the floor for no obvious reason. She migiht have fallen. No witnessed seizure. Review of Systems Review of Systems: Generalirzed weakness PMFSH Past Medical History Medical History Adenocarcinoma of lung, stage 4 Anxiety Depression HTN (hypertension) Irritable bowel syndrome (IBS) Opacity of lung on imaging study Surgical History Surgical History S/P lumpectomy, right breast Social History Social History Household Members: Spouse Housing: House Do you presently have visiting nurse or other home services: Yes Alcohol intake: never Patient Tobacco Use Status: Current everyday Tobacco user Tobacco use type: Cigarette Cigarette Packs Per Day: 1 Smoked in Last 30 Days: Yes e-Cigarette/Vaping Use: Currently Using Second Hand Smoke Exposure: No Use of substances other than those prescribed or required for medical reasons: No Substance Use Type: Marijuana Advance Directives: Yes Advance Directives on File: Yes Advance Directives Date on File: 07/11/22 Patient : No service: No Current occupational status: employed Meds Allergies Allergy/AdvReac Type Severity Reaction Status Date / Time No Known Allergies Allergy Verified 08/06/22 13:40 Active Medications: Current Medications Heparin Sodium (Porcine) (Heparin Sodium,Porcine 5,000 Unit/Ml Vial) 5,000 unit SUBCUT Q8H MARLENA Last Admin: 08/24/22 10:46 Dose: 5,000 unit Norepinephrine Bitartrate (Levophed) 8 mg in 250 mls @ 0 mls/hr IV .Q0M MARLENA; Protocol Last Titration: 08/24/22 11:00 Dose: 0.09 mcg/kg/min, 13.26 mls/hr Albumin Human (Kedbumin 25 %) 100 mls @ 100 mls/hr IV Q1H MARLENA Stop: 08/24/22 11:29 Last Admin: 08/24/22 10:45 Dose: 100 mls/hr Home Medications Medication Instructions Recorded Confirmed Last Taken Type albuterol sulfate 90 mcg/actuation 2 puff inhalation Q4H PRN wheezing 07/11/22 08/14/22 Unknown History aerosol inhaler atorvastatin 40 mg tablet 40 mg PO DAILY 07/11/22 08/14/22 08/06/22 History fluoxetine 20 mg capsule 40 mg PO DAILY 07/11/22 08/14/22 08/06/22 History fluticasone propionate 50 1 spray intranasal BID PRN Allergy 07/11/22 08/14/22 Unknown History mcg/actuation nasal Symptoms spray,suspension trazodone 50 mg tablet 50 mg PO BEDTIME 07/11/22 08/14/22 08/05/22 History acetaminophen 500 mg tablet 500 mg PO Q6H PRN Pain 08/06/22 08/14/22 Unknown History diphenhydramine HCl 25 mg tablet 25 mg PO DAILY PRN Allergy Symptoms 08/06/22 08/14/22 Unknown History lorazepam 0.5 mg tablet 0.5 mg PO TID PRN Anxiety 08/06/22 08/14/22 Unknown History Physical Exam Vital Signs: Vital Signs: Last Vital Signs Temp 97.9 F 08/24/22 08:11 Pulse 118 H 08/24/22 11:00 Resp 18 08/24/22 10:58 BP 74/33 L 08/24/22 11:00 Pulse Ox 97 08/24/22 10:58 O2 Del Method Non-Rebreather Ma sk 08/24/22 10:58 O2 Flow Rate 15 08/24/22 09:21 Oxygen Flow Rate 4 08/24/22 08:11 BMI result Body Mass Index 31.7 Neuro: Other: Drowsy, able to answer simple questions, following commands. ?left vidual field defect. Face is symmetrical. EOMI. No focal arm or leg weakness. Plantars are flexor Results Labs 08/24/22 08:01 08/24/22 08:01 Labs: Short CBC 08/24/22 Range/Units 08:01 WBC 2.1 L (4.8-10.8) X10*3/uL Hgb 8.9 L (12.0-16.0) g/dl Hct 26.3 L (37.0-47.0) % Plt Count 24 L D (160-400) X10*3/uL BMP 08/24/22 08:01 Sodium 129 L Potassium 3.7 Chloride 92 L Carbon Dioxide 20 L BUN 33 H Creatinine 4.70 H* Calcium 5.8 L* D Cardiac Enzymes 08/24/22 Range/Units 08:01 Total Creatine Kinase 292 H (26-140) U/L Liver Function 08/24/22 Range/Units 08:01 Total Bilirubin 1.3 H (0.0-1.0) mg/dL Direct Bilirubin 0.8 H (0.0-0.5) mg/dL AST 52 H (5-31) U/L ALT 45 H (0-31) U/L Alkaline Phosphatase 143 H (39-117) U/L Albumin 2.2 L (3.5-5.0) g/dL Non cont head CT is ok Assessment and Plan (1) Encephalopathy: Status: Acute 47 yo woman with advanced lung cancer received first dose of chemo. She was brought to hospital after she was found on the floor. No witnessed seizure. On exam is drowsy and possibly has left visual field defect. Pituitary is large on head CT. Serum sodium is quite low and she is anemic. Recommend appropriate electrolyte management and an MRI of brain with and w/o cont, can be done tomorrow. Time Spent With Patient Time: Total time managing care of this patient today ____ minutes. Procedures Date of Service Date of Service: 08/24/22
--- NOTE | 2022-08-24 11:35 | PM.CCHP ---
History of Present Illness Date of Service: 08/24/22 Chief Complaint: hypoxic, hypotension, altered mental status 47-year-old lady with progressing high-grade metastatic lung cancer on chemotherapy with carboplatin, pemetrexed, and pembrolizumab every 3 weeks with recent admission for hypoxia And concern for possible renal vein thrombosis on intermediate dose prophylaxis secondary to concern for hemoptysis presented to ER on 08/24/2022 with complaints of inability to see and weakness. Patient had CT head that demonstrated pituitary enlargement, but otherwise no acute findings. Patient was evaluated by neurology with recommendation for non urgent MRI on 08/25/2022. In ER patient developed hypotension refractory to initial IV fluid support requiring initiation of pressors. Patient also with acute kidney injury, hypoalbuminemia, and worsening hypoxemia requiring non-rebreather to maintain normal oximetry. patient was started on broad-spectrum antibiotics and admitted to intensive care unit. Review of Systems Review of Systems: Yes Unobtainable due to mental condition PMFSH Past Medical History Medical History Adenocarcinoma of lung, stage 4 Anxiety Depression HTN (hypertension) Irritable bowel syndrome (IBS) Opacity of lung on imaging study Surgical History Surgical History S/P lumpectomy, right breast Social History Social History Household Members: Spouse Housing: House Do you presently have visiting nurse or other home services: Yes Alcohol intake: never Patient Tobacco Use Status: Current everyday Tobacco user Tobacco use type: Cigarette Cigarette Packs Per Day: 1 Smoked in Last 30 Days: Yes e-Cigarette/Vaping Use: Currently Using Second Hand Smoke Exposure: No Use of substances other than those prescribed or required for medical reasons: No Substance Use Type: Marijuana Advance Directives: Yes Advance Directives on File: Yes Advance Directives Date on File: 07/11/22 Patient : No service: No Current occupational status: employed Meds Allergies Allergy/AdvReac Type Severity Reaction Status Date / Time No Known Allergies Allergy Verified 08/06/22 13:40 Active Medications: Current Medications Heparin Sodium (Porcine) (Heparin Sodium,Porcine 5,000 Unit/Ml Vial) 5,000 unit SUBCUT Q8H MARLENA Last Admin: 08/24/22 10:46 Dose: 5,000 unit Norepinephrine Bitartrate 32 (mg/ Sodium Chloride) 250 mls @ 0 mls/hr IV .Q0M ON LICENSE OF [facility]; Protocol Home Medications Medication Instructions Recorded Confirmed Last Taken Type albuterol sulfate 90 mcg/actuation 2 puff inhalation Q4H PRN wheezing 07/11/22 08/24/22 Unknown History aerosol inhaler atorvastatin 40 mg tablet 40 mg PO DAILY 07/11/22 08/24/22 08/06/22 History fluoxetine 20 mg capsule 40 mg PO DAILY 07/11/22 08/24/22 08/06/22 History fluticasone propionate 50 1 spray intranasal BID PRN Allergy 07/11/22 08/24/22 Unknown History mcg/actuation nasal Symptoms spray,suspension trazodone 50 mg tablet 50 mg PO BEDTIME 07/11/22 08/24/22 08/05/22 History acetaminophen 500 mg tablet 500 mg PO Q6H PRN Pain 08/06/22 08/24/22 Unknown History diphenhydramine HCl 25 mg tablet 25 mg PO DAILY PRN Allergy Symptoms 08/06/22 08/24/22 Unknown History lorazepam 0.5 mg tablet 0.5 mg PO TID PRN Anxiety 08/06/22 08/24/22 Unknown History Physical Exam Vital Signs: Vital Signs: Last Vital Signs Temp 97.9 F 08/24/22 08:11 Pulse 118 H 08/24/22 11:00 Resp 18 08/24/22 10:58 BP 74/33 L 08/24/22 11:00 Pulse Ox 97 08/24/22 10:58 O2 Del Method Non-Rebreather Ma 08/24/22 10:58 O2 Flow Rate 15 08/24/22 09:21 Oxygen Flow Rate 4 08/24/22 08:11 BMI result Body Mass Index 31.7 Const: General: no acute distress, awake and acute distress moderate Eyes: Sclerae: sclerae normal EOM: EOMs intact bilaterally Neck: Neck: Yes no lymphadenopathy, Yes trachea midline and Yes supple Resp: Effort & Inspection: tachypneic Auscultation: crackles ( Diffuse bilateral) Cardio: Rate: tachycardic Rhythm: regular rhythm Heart sounds: no gallops, no murmurs and no rubs GI: Palpation (GI): Soft to palpation and Other GI palpation findings present ( Nontender) Auscultation: normal bowel sounds Extrem: General: No clubbing, No cyanosis and Yes edema ( 2+ bilateral) Results Labs 08/24/22 08:01 08/24/22 08:01 Labs: Laboratory Results - last 24 hr 08/24/22 08/24/22 08/24/22 07:21 08:01 08:01 MCV 91.6 MCH 31.0 MCHC 33.8 RDW 15.6 Plt Count 24 L D MPV 9.4 Immature Gran % (Auto) Cancelled Neut % (Auto) Cancelled Lymph % (Auto) Cancelled Frontier % (Auto) Cancelled Eos % (Auto) Cancelled Baso % (Auto) Cancelled Lymph # (Auto) Cancelled Frontier # (Auto) Cancelled Eos # (Auto) Cancelled Baso # (Auto) Cancelled Abs Immat Gran (auto) Cancelled Absolute Neuts (auto) Cancelled Absolute Nucleated RBC 0.000 Nucleated RBC % (auto) 0.0 Neutrophils % (Manual) 43 L Band Neutrophils % 1 L Lymphocytes % (Manual) 32 Monocytes % (Manual) 2 Eosinophils % (Manual) 22 H Abs Neuts (Manual) 0.9 L Lymphocytes # (Manual) 0.7 L Eosinophils # (Manual) 0.5 H Dohle Bodies PRESENT Platelet Estimate DECREASED Large Platelets PRESENT Plt Morphology Comment NOTED RBC Morphology NOTED [place] Cells 2+ (3-5) PT 18.4 H Whole Blood PT 18.3 H INR 1.6 H Whole Blood INR 1.5 H APTT 35.2 D Anion Gap Estim Creat Clear Calc Estimated GFR Random Glucose Lactic Acid Calcium Magnesium Total Bilirubin Direct Bilirubin AST ALT Alkaline Phosphatase Total Creatine Kinase Troponin I High Sens Total Protein Albumin Stool Occult Blood Blood Type Antibody Screen 08/24/22 08/24/22 08/24/22 08:01 08:01 08:01 MCV MCH MCHC RDW Plt Count MPV Immature Gran % (Auto) Neut % (Auto) Lymph % (Auto) Frontier % (Auto) Eos % (Auto) Baso % (Auto) Lymph # (Auto) Frontier # (Auto) Eos # (Auto) Baso # (Auto) Abs Immat Gran (auto) Absolute Neuts (auto) Absolute Nucleated RBC Nucleated RBC % (auto) Neutrophils % (Manual) Band Neutrophils % Lymphocytes % (Manual) Monocytes % (Manual) Eosinophils % (Manual) Abs Neuts (Manual) Lymphocytes # (Manual) Eosinophils # (Manual) Dohle Bodies Platelet Estimate Large Platelets Plt Morphology Comment RBC Morphology [place] Cells PT Whole Blood PT INR Whole Blood INR APTT Anion Gap 21 H Estim Creat Clear Calc 14.6 Estimated GFR 10 Random Glucose 118 H Lactic Acid 1.7 Calcium 5.8 L* D Magnesium 2.3 Total Bilirubin 1.3 H Direct Bilirubin 0.8 H AST 52 H ALT 45 H Alkaline Phosphatase 143 H Total Creatine Kinase 292 H Troponin I High Sens 44.0 H D Total Protein 4.9 L Albumin 2.2 L Stool Occult Blood Blood Type Antibody Screen 08/24/22 08/24/22 09:42 10:00 MCV MCH MCHC RDW Plt Count MPV Immature Gran % (Auto) Neut % (Auto) Lymph % (Auto) Frontier % (Auto) Eos % (Auto) Baso % (Auto) Lymph # (Auto) Frontier # (Auto) Eos # (Auto) Baso # (Auto) Abs Immat Gran (auto) Absolute Neuts (auto) Absolute Nucleated RBC Nucleated RBC % (auto) Neutrophils % (Manual) Band Neutrophils % Lymphocytes % (Manual) Monocytes % (Manual) Eosinophils % (Manual) Abs Neuts (Manual) Lymphocytes # (Manual) Eosinophils # (Manual) Dohle Bodies Platelet Estimate Large Platelets Plt Morphology Comment RBC Morphology [place] Cells PT Whole Blood PT INR Whole Blood INR APTT Anion Gap Estim Creat Clear Calc Estimated GFR Random Glucose Lactic Acid Calcium Magnesium Total Bilirubin Direct Bilirubin AST ALT Alkaline Phosphatase Total Creatine Kinase Troponin I High Sens Total Protein Albumin Stool Occult Blood NEGATIVE Blood Type A Negative Antibody Screen NEGATIVE Imaging Radiologist's Impressions: Impressions Head CT 08/24/22 07:17 IMPRESSION: 1. No acute intracranial pathology. 2. Incidental fullness of the pituitary gland. Correlate clinically. If clinically indicated this could be further investigated with nonemergent pituitary MRI. Chest X-Ray 08/24/22 08:01 IMPRESSION: Right jugular line tip projects over cavoatrial junction. Innumerable bilateral pulmonary nodules and increased lung attenuation, question slightly increased from recent exam. Abdomen/Pelvis CT 08/24/22 10:35 IMPRESSION: No appreciable change in size in the left adrenal mass. There is interval decrease in retrocrural and upper abdominal retroperitoneal lymphadenopathy. There is still bilateral renal cortical thickening. There are left retroperitoneal and perinephric nodules and stranding of the left perinephric fat not appreciably changed. Upper normal-size gallbladder and small gallstones. Stable subcutaneous nodule in the low midline pelvis. Bone lesions seen by PET/CT scan not well appreciated by CT. Fleischner guidelines were followed. Assessment and Plan (1) Shock: Status: Acute (2) Encephalopathy: Status: Acute (3) Lymphangitic lung metastasis: Status: Acute (4) DAYA (acute kidney injury): Status: Acute (5) Thrombocytopenia: Status: Acute (6) Metastatic non-small cell lung cancer: Status: Acute (7) Metastasis to bone: Status: Acute (8) Cancer associated pain: Status: Acute Plan Assessment: 47-year-old lady with underlying high-grade progressing metastatic lung adenocarcinoma on chemotherapy admitted with shock, acute renal failure, and alteration of mental status. Plan: Neuro: Neurology service care appreciated. At this time with no concern for stroke. Possible pituitary enlargement affecting optic chiasm. Eill proceed with non urgent MRI on 08/25/2022 as recommended by neurology. Will check prolactin level. Cardiac: Shock septic versus distributive. Continue to titrate of pressor support as tolerated. Pulmonary: Acute on chronic hypoxic respiratory failure secondary to pulmonary edema and progressive lymphangitic metastatic lung cancer. Continue supplemental oxygen support. Renal: Acute renal failure, shock versus tumor lysis syndrome. phosphorus, uric acid, and LDH levels are pending. May require allopurinol or rasburicase. continue to monitor renal indices and urine output. Endo: No acute issues. GI: No acute issues. ID: Possible septic shock. Empirically covered with broad-spectrum antibiotics. Cultures are pending. Heme/Onc: Thrombocytopenia and leukocytopenia on the background of chemotherapy for metastatic lung cancer. Pending platelet transfusion. Possible renal vein thrombosis, Lovenox held secondary to thrombocytopenia. Underlying progressing high-grade lung adenocarcinoma with multiple metastases Psych: No acute issues. Miscellaneous: No acute issues. Prophylaxis: pneumatic compression Diet: NPO Critical care time spent: 60 minutes Time Spent With Patient Time: Total time managing care of this patient today ____ minutes.
--- NOTE | 2022-08-24 11:41 | PHA.MEDREC ---
Pharmacy Consult ? Medication Reconciliation Pharmacy has completed the medication reconciliation. spoke with patient and family. Last at home enoxaparin dose was given yesterday AM. She has only taken 1 dose of the fluconazole so far. She stopped taking Lisinopril 10mg about a week ago.
[2022-08-24 12:00] LABS: VBG Base Excess -8.2 mmol/L; VBG HCO3 17 mmol/L (22-26); VBG pCO2 37 mmHg; VBG pH 7.27 (7.32-7.43); VBG pO2 51 mmHg
[2022-08-24] MEDS: HYDROmorphone HCl 2 MG/ML VIAL IVPUSH ×2 (12:05→19:40)
[2022-08-24] MEDS: Sodium Bicarbonate 8.4% 50 MEQ/50 ML VIAL IVPUSH ×4 (12:06→20:32)
[2022-08-24 12:09] LABS: Venous Blood Gas Refer to POC result
[2022-08-24 12:16] LABS: Phosphorus 3.6 mg/dL (2.7-4.5)
[2022-08-24 12:24] LABS: Lactate Dehydrogenase 331 U/L (122-220); Uric Acid 10.8 mg/dL (2.4-5.7)
[2022-08-24] MEDS: Rasburicase 6 MG in 0.9 % Sodium Chloride 46 ML 100 MG IV (14:53)
[2022-08-24] MEDS: Fluconazole in NaCl,Iso-Osm 100 MG in Container,Empty 0 ML 50 MG IV (14:53)
[2022-08-24 15:14] LABS: VBG Base Excess -6.1 mmol/L; VBG HCO3 19 mmol/L (22-26); VBG pCO2 39 mmHg; VBG pO2 49 mmHg
[2022-08-24 15:26] LABS: Hematocrit 25.9 % (37.0-47.0); Hemoglobin 8.6 g/dl (12.0-16.0); Mean Corpuscular HGB Conc 33.2 g/dl (31.0-35.0); Mean Corpuscular Hemoglobin 31.2 pg (27.0-33.0); Mean Corpuscular Volume 93.8 fL (80.0-98.0); Mean Platelet Volume 9.4 fL (9.4-12.3); Red Blood Count 2.76 X10*6/uL (4.20-5.50); Red Cell Distribution Width 15.8 % (11.0-16.0)
[2022-08-24 15:27] LABS: Platelet Count 43 X10*3/uL (160-400); White Blood Count 1.9 X10*3/uL (4.8-10.8)
[2022-08-24 15:41] LABS: B Type Natriuretic Peptide 313 pg/mL (<100)
[2022-08-24 15:48] LABS: Band Neutrophils Percent 5 % (3-5); Eosinophils Absolute Manual 0.2 X10*3/uL (0.0-0.4); Eosinophils Percent Manual 10 % (0-4); Lymphocytes Absolute Manual 0.4 X10*3/uL (1.2-4.9); Lymphocytes Percent Manual 22 % (20-40); Monocytes Absolute Manual 0.1 X10*3/uL (0.1-1.2); Monocytes Percent Manual 3 % (2-11); Neutrophils Absolute Manual 1.2 X10*3/uL (2.0-8.3); Neutrophils Percent Manual 60 % (45-73); RBC Morphology NOTED; Troponin-I High Sensitivity 160.6 ng/L (<3.5-17.0)
[2022-08-24 15:49] LABS: Burr Cells 2+ (3-5) /OIF
[2022-08-24 15:50] LABS: Platelet Estimate DECREASED (NORMAL); Platelet Morphology Comment NORMAL
[2022-08-24 15:51] LABS: Anion Gap 26 (12-20); Blood Urea Nitrogen 36 mg/dL (9-16); Carbon Dioxide 16 mmol/L (22-29); Chloride 95 mmol/L (96-108); Creatinine Clr Calc Pharmacy 16.1; Estimated Glomerular Filt Rate 11; Glucose Random 161 mg/dL (60-115); Magnesium 2.4 mg/dL (1.6-2.6); Phosphorus 4.2 mg/dL (2.7-4.5); Potassium 3.5 mmol/L (3.3-5.1); Sodium 133 mmol/L (135-145); Uric Acid 10.2 mg/dL (2.4-5.7)
[2022-08-24] MEDS: LORazepam 2 MG/ML VIAL 0.5 MG IVPUSH ×2 (15:51→20:23)
[2022-08-24 16:01] LABS: Lactate Dehydrogenase 340 U/L (122-220)
--- NOTE | 2022-08-24 17:17 | PC.NURSE ---
Patient arrived to unit from ED at 1150 via stretcher. Patient A&O X3, pupils 3mm equal, reactive - patient complaining of blurry vision with blind spots. Head CT completed in ED - see report. Plan from MRI tomorrow 08/25. Patient reports and appears anxious - Ativan IV ordered and administered with good effect. Patient complaining of 7/10 back pain - Dilaudid IV administered with good effect. Patient also reposition and pillows provided. Afebrile, BC pending - abx administered in ED. ST 100's, T wave inversion and occasional PVCs observed. Trop 160.6 - MD notified - no complaints of palpitations or chest pain. BNP 313 - Levo gtt switched to 32/250 high concentrated and titrated per EMAR to maintain MAP >65. R IJ TLC patent w/ good blood return - dressing changed and c/d/i. Calcium 6.0 - calcium gluconate 2g IV administering. Pneumatics applied. LS dim throughout, no secretions. Switched to Highflow 55L/50% - maintaining sats >95%. Pulmonary perfusion scan ordered and completed - see report. Abdomen soft, positive bowel sounds, no BM - last BM this AM per patient. No complaints of N/V. Continued NPO - ice chips okay per MD. Abd CT completed - see report. Stool negative for blood. Small amount of white vaginal discharge noted - patient reports having a current yeast infection - MD notified and Diflucan IV administered per EMAR. Plts 24 - 1unit plts ordered and administered - repeat plt count 43. St placed, draining dark yellow concentrated urine, approx 5-30cc/hr. Bun 36, Creat 4.28 - MD aware. Bicarb 20 - Bicard 50meq IVP q3hr ordered - repeat bicard 16 - MD notified. Uric acid 10.8 - Rasburicase 6mg IV x1 administered - repeat uric acid 10.2. No skin integrity concerns, blanchable redness to bilateral buttocks noted - barrier cream applied. Turning bed and prevlon system in place, pt repo q2hr. Oral care provided q2hr and PRN. Family updated by this RN and MD at bedside.
[2022-08-24 18:10] LABS: Venous Blood Gas Refer to POC result
[2022-08-25] VITALS (42 sets, daily range): BP systolic 80–141; BP diastolic 36–81; PULSE 94–142; RESP 7–24; TEMP 37.6–38.5; O2SAT 83–99; BMI 34.1
[2022-08-25] MEDS: LORazepam 2 MG/ML VIAL 0.5 MG IVPUSH ×6 (00:27→23:58)
[2022-08-25] MEDS: HYDROmorphone HCl 2 MG/ML VIAL IVPUSH ×4 (01:02→22:08)
[2022-08-25] MEDS: Albumin Human 25 % 100 ML IV ×4 (02:42→17:38)
--- NOTE | 2022-08-25 04:45 | PC.NURSE ---
CARE ASSUMED 23:15..INITIALLY DOZING...AWAKENED..ALERT..ORIENTED X3...REMAINED WITH BLURRY FUZZY VISION PER PATIENT BUT STATED ABLE TO SEE AND RECOGNIZE THIS NODULIZER...WEAKLY DOSS..CONTINUES HI-MEREDITH CANNULA 55 L/M AND FIO2 50%..SAO2 94-96%...S.TACH HR 112-118...ANXIOUS AFTER AWAKENING/TEARFUL...MEDICATED WITH PRN IV ATIVAN... AND MOTHER AT BEDSIDE...C/O /10 BACK PAIN...MEDICATED PRN DILAUDID IV WITH GRADUAL RESTFUL EFFECT...X4 CONCENTRATION LEVOPHED TITRATED FRO, 0.2--0.28 MCG/KG/MIN FOR MARGINAL BP...MICHAEL REMAINS WITH MINIMAL OUTPUT PER SHIFT REPORT...CURRENTLY 2-3 CC/HR...ICU RESEARCH INSTRUCTOR AWARE...ALBUMEN 25G/100ml infused w/o effect on output....FOR AM LABS/TO REVIEW PER RESEARCH INSTRUCTOR
[2022-08-25 05:11] LABS: VBG Base Excess 1.9 mmol/L; VBG HCO3 27 mmol/L (22-26); VBG pCO2 48 mmHg; VBG pH 7.36 (7.32-7.43); VBG pO2 47 mmHg
[2022-08-25 05:13] LABS: Venous Blood Gas Refer to POC result
[2022-08-25 05:17] LABS: Hematocrit 23.5 % (37.0-47.0); Hemoglobin 8.1 g/dl (12.0-16.0); Mean Corpuscular HGB Conc 34.5 g/dl (31.0-35.0); Mean Corpuscular Hemoglobin 31.6 pg (27.0-33.0); Mean Corpuscular Volume 91.8 fL (80.0-98.0); Mean Platelet Volume 9.6 fL (9.4-12.3); Red Blood Count 2.56 X10*6/uL (4.20-5.50); Red Cell Distribution Width 15.6 % (11.0-16.0); WBC ABN SCTR FOR CBC 1
[2022-08-25 05:20] LABS: Platelet Count 29 X10*3/uL (160-400); White Blood Count 2.2 X10*3/uL (4.8-10.8)
[2022-08-25 05:44] LABS: Alanine Aminotransferase 35 U/L (0-31); Alkaline Phosphatase 154 U/L (39-117); Anion Gap 25 (12-20); Aspartate Amino Transferase 33 U/L (5-31); Bilirubin Total 1.4 mg/dL (0.0-1.0); Blood Urea Nitrogen 40 mg/dL (9-16); Calcium 6.5 mg/dL (8.4-10.2); Carbon Dioxide 21 mmol/L (22-29); Chloride 97 mmol/L (96-108); Creatinine Clr Calc Pharmacy 15.7; Estimated Glomerular Filt Rate 10; Glucose Random 139 mg/dL (60-115); Magnesium 2.4 mg/dL (1.6-2.6); Phosphorus 4.6 mg/dL (2.7-4.5); Potassium 3.2 mmol/L (3.3-5.1); Sodium 140 mmol/L (135-145); Total Protein 5.4 g/dL (6.5-8.0); Uric Acid 2.6 mg/dL (2.4-5.7)
[2022-08-25 05:47] LABS: Band Neutrophils Percent 1 % (3-5); Eosinophils Absolute Manual 0.5 X10*3/uL (0.0-0.4); Eosinophils Percent Manual 21 % (0-4); Lymphocytes Absolute Manual 0.8 X10*3/uL (1.2-4.9); Lymphocytes Percent Manual 35 % (20-40); Neutrophils Percent Manual 43 % (45-73); Nucleated Red Blood Cells 2 /100WBC (0-0)
[2022-08-25 05:48] LABS: Platelet Estimate DECREASED (NORMAL); Platelet Morphology Comment NORMAL; RBC Morphology NORMAL
[2022-08-25] MEDS: Calcium Gluconate/NaCl,Iso-Osm 2 GM/100 ML PLAST..BAG IV (06:30)
[2022-08-25] MEDS: Potassium Chloride/H20 40 MEQ/100 ML PIGGYBACK 50 MEQ IV (06:31)
[2022-08-25] MEDS: methylPREDNISolone Sod Succ 125 MG/2 ML VIAL 60 MG IVPUSH (07:53)
[2022-08-25 08:29] LABS: Cortisol Random 15.3 ug/dL
[2022-08-25 08:30] LABS: TSH reflex Free T4 0.35 uIU/mL (0.32-4.0)
[2022-08-25] MEDS: Dextrose 5 % and Lactated Ring 1,000 ML 50 ML IVCONT (08:45)
--- NOTE | 2022-08-25 10:13 | P.PNCC_ITS ---
Subjective Subjective Date of Service: 08/25/22 Interval History: 47-year-old lady with progressing high-grade metastatic lung cancer on chemotherapy with carboplatin, pemetrexed, and pembrolizumab every 3 weeks with recent admission for hypoxia And concern for possible renal vein thrombosis on intermediate dose prophylaxis secondary to concern for hemoptysis presented to ER on 08/24/2022 with complaints of inability to see and weakness. Patient had CT head that demonstrated pituitary enlargement, but otherwise no acute findings. Patient was evaluated by neurology with recommendation for non urgent MRI on 08/25/2022. In ER patient developed hypotension refractory to initial IV fluid support requiring initiation of pressors. Patient also with acute kidney injury, hypoalbuminemia, and worsening hypoxemia requiring non-rebreather to maintain normal oximetry. patient was started on broad-spectrum antibiotics and admitted to intensive care unit. Overnight with development of oliguria and worsening FiO2 requirements. Critical Care Time (minutes): 60 Physical Exam Vital Signs: Vital Signs: Last Vital Signs Temp 100.9 F H 08/25/22 10:00 Pulse 131 H 08/25/22 10:00 Resp 12 08/25/22 10:00 BP 101/81 08/25/22 10:00 Pulse Ox 92 08/25/22 10:00 O2 Del Method High Flow Nasal C annula 08/25/22 10:00 O2 Flow Rate 55 08/25/22 10:00 FiO2 50 08/25/22 10:00 Oxygen Flow Rate 4 08/24/22 08:11 BMI result Body Mass Index 34.1 Const: General: no acute distress, ill appearing and lethargic (Arousable) Orientation/consciousness: lethargic (Arousable) Eyes: Sclerae: sclerae normal Pupils: Equal, round and reactive pupils present Neck: Neck: Yes no lymphadenopathy, Yes trachea midline and Yes supple Resp: Effort & Inspection: normal respiratory effort (On high-flow nasal cannula) Auscultation: crackles (Diffuse bilateral) Cardio: Rate: tachycardic Rhythm: regular rhythm Heart sounds: no gallops, no murmurs and no rubs GI: Palpation (GI): Soft to palpation and Other GI palpation findings present ( Nontender) Auscultation: normal bowel sounds Neuro: Cranial nerves: Yes Equal, round and reactive pupils present Extrem: General: No clubbing, No cyanosis and Yes edema (1+ bilateral) Objective Data Labs 08/25/22 05:00 08/25/22 05:00 Labs: Laboratory Results - last 24 hr 08/24/22 08/24/22 08/24/22 08:01 09:42 10:00 WBC RBC Hgb Hct MCV MCH MCHC RDW Plt Count MPV Immature Gran % (Auto) Neut % (Auto) Lymph % (Auto) [place] % (Auto) Eos % (Auto) Baso % (Auto) Lymph # (Auto) [place] # (Auto) Eos # (Auto) Baso # (Auto) Abs Immat Gran (auto) Absolute Neuts (auto) Absolute Nucleated RBC Nucleated RBC % (auto) Neutrophils % (Manual) Band Neutrophils % Lymphocytes % (Manual) Monocytes % (Manual) Eosinophils % (Manual) Abs Neuts (Manual) Lymphocytes # (Manual) Monocytes # (Manual) Eosinophils # (Manual) Nucleated RBCs Platelet Estimate Plt Morphology Comment RBC Morphology [place] Cells VBG pH VBG pCO2 VBG pO2 VBG HCO3 VBG O2 Saturation VBG Base Excess Sodium Potassium Chloride Carbon Dioxide Anion Gap BUN Creatinine Estim Creat Clear Calc Estimated GFR Random Glucose Uric Acid 10.8 H Calcium Phosphorus 3.6 Magnesium Total Bilirubin AST ALT Alkaline Phosphatase Lactate Dehydrogenase 331 H Troponin I High Sens B-Natriuretic Peptide Total Protein Albumin TSH Free T4 Random Cortisol Stool Occult Blood NEGATIVE Blood Type A Negative Antibody Screen NEGATIVE 08/24/22 08/24/22 08/24/22 11:51 15:04 15:09 WBC 1.9 L RBC 2.76 L Hgb 8.6 L Hct 25.9 L MCV 93.8 MCH 31.2 MCHC 33.2 RDW 15.8 Plt Count 43 L D MPV 9.4 Immature Gran % (Auto) Cancelled Neut % (Auto) Cancelled Lymph % (Auto) Cancelled [place] % (Auto) Cancelled Eos % (Auto) Cancelled Baso % (Auto) Cancelled Lymph # (Auto) Cancelled [place] # (Auto) Cancelled Eos # (Auto) Cancelled Baso # (Auto) Cancelled Abs Immat Gran (auto) Cancelled Absolute Neuts (auto) Cancelled Absolute Nucleated RBC 0.000 Nucleated RBC % (auto) 0.0 Neutrophils % (Manual) 60 Band Neutrophils % 5 Lymphocytes % (Manual) 22 Monocytes % (Manual) 3 Eosinophils % (Manual) 10 H Abs Neuts (Manual) 1.2 L Lymphocytes # (Manual) 0.4 L Monocytes # (Manual) 0.1 Eosinophils # (Manual) 0.2 Nucleated RBCs Platelet Estimate DECREASED Plt Morphology Comment NORMAL RBC Morphology NOTED [place] Cells 2+ (3-5) VBG pH 7.27 L 7.30 L VBG pCO2 37 39 VBG pO2 51 49 VBG HCO3 17 L 19 L VBG O2 Saturation 81.0 80.0 VBG Base Excess -8.2 -6.1 Sodium Potassium Chloride Carbon Dioxide Anion Gap BUN Creatinine Estim Creat Clear Calc Estimated GFR Random Glucose Uric Acid Calcium Phosphorus Magnesium Total Bilirubin AST ALT Alkaline Phosphatase Lactate Dehydrogenase Troponin I High Sens B-Natriuretic Peptide Total Protein Albumin TSH Free T4 Random Cortisol Stool Occult Blood Blood Type Antibody Screen 08/24/22 08/24/22 08/24/22 15:09 15:09 15:09 WBC RBC Hgb Hct MCV MCH MCHC RDW Plt Count MPV Immature Gran % (Auto) Neut % (Auto) Lymph % (Auto) [place] % (Auto) Eos % (Auto) Baso % (Auto) Lymph # (Auto) [place] # (Auto) Eos # (Auto) Baso # (Auto) Abs Immat Gran (auto) Absolute Neuts (auto) Absolute Nucleated RBC Nucleated RBC % (auto) Neutrophils % (Manual) Band Neutrophils % Lymphocytes % (Manual) Monocytes % (Manual) Eosinophils % (Manual) Abs Neuts (Manual) Lymphocytes # (Manual) Monocytes # (Manual) Eosinophils # (Manual) Nucleated RBCs Platelet Estimate Plt Morphology Comment RBC Morphology [place] Cells VBG pH VBG pCO2 VBG pO2 VBG HCO3 VBG O2 Saturation VBG Base Excess Sodium 133 L Potassium 3.5 Chloride 95 L Carbon Dioxide 16 L Anion Gap 26 H BUN 36 H Creatinine 4.28 H* Estim Creat Clear Calc 16.1 Estimated GFR 11 Random Glucose 161 H Uric Acid 10.2 H Calcium 6.0 L* Phosphorus 4.2 Magnesium 2.4 Total Bilirubin AST ALT Alkaline Phosphatase Lactate Dehydrogenase 340 H Troponin I High Sens 160.6 H* D B-Natriuretic Peptide 313 H Total Protein Albumin TSH Free T4 Random Cortisol Stool Occult Blood Blood Type Antibody Screen 08/25/22 08/25/22 08/25/22 05:00 05:00 05:00 WBC 2.2 L RBC 2.56 L Hgb 8.1 L Hct 23.5 L MCV 91.8 MCH 31.6 MCHC 34.5 RDW 15.6 Plt Count 29 L D MPV 9.6 Immature Gran % (Auto) Cancelled Neut % (Auto) Cancelled Lymph % (Auto) Cancelled [place] % (Auto) Cancelled Eos % (Auto) Cancelled Baso % (Auto) Cancelled Lymph # (Auto) Cancelled [place] # (Auto) Cancelled Eos # (Auto) Cancelled Baso # (Auto) Cancelled Abs Immat Gran (auto) Cancelled Absolute Neuts (auto) Cancelled Absolute Nucleated RBC 0.000 Nucleated RBC % (auto) 0.0 Neutrophils % (Manual) 43 L Band Neutrophils % 1 L Lymphocytes % (Manual) 35 Monocytes % (Manual) Eosinophils % (Manual) 21 H Abs Neuts (Manual) 1.0 L Lymphocytes # (Manual) 0.8 L Monocytes # (Manual) Eosinophils # (Manual) 0.5 H Nucleated RBCs 2 H Platelet Estimate DECREASED Plt Morphology Comment NORMAL RBC Morphology NORMAL [place] Cells VBG pH 7.36 VBG pCO2 48 VBG pO2 47 VBG HCO3 27 H VBG O2 Saturation 79.0 VBG Base Excess 1.9 Sodium 140 Potassium 3.2 L Chloride 97 Carbon Dioxide 21 L Anion Gap 25 H BUN 40 H Creatinine 4.54 H* Estim Creat Clear Calc 15.7 Estimated GFR 10 Random Glucose 139 H Uric Acid 2.6 Calcium 6.5 L D Phosphorus 4.6 H Magnesium 2.4 Total Bilirubin 1.4 H AST 33 H ALT 35 H Alkaline Phosphatase 154 H Lactate Dehydrogenase Troponin I High Sens B-Natriuretic Peptide Total Protein 5.4 L Albumin 3.0 L TSH Free T4 Random Cortisol Stool Occult Blood Blood Type Antibody Screen 08/25/22 08/25/22 08/25/22 07:48 07:48 07:56 WBC RBC Hgb Hct MCV MCH MCHC RDW Plt Count MPV Immature Gran % (Auto) Neut % (Auto) Lymph % (Auto) [place] % (Auto) Eos % (Auto) Baso % (Auto) Lymph # (Auto) [place] # (Auto) Eos # (Auto) Baso # (Auto) Abs Immat Gran (auto) Absolute Neuts (auto) Absolute Nucleated RBC Nucleated RBC % (auto) Neutrophils % (Manual) Band Neutrophils % Lymphocytes % (Manual) Monocytes % (Manual) Eosinophils % (Manual) Abs Neuts (Manual) Lymphocytes # (Manual) Monocytes # (Manual) Eosinophils # (Manual) Nucleated RBCs Platelet Estimate Plt Morphology Comment RBC Morphology [place] Cells VBG pH VBG pCO2 VBG pO2 VBG HCO3 VBG O2 Saturation VBG Base Excess Sodium Potassium Chloride Carbon Dioxide Anion Gap BUN Creatinine Estim Creat Clear Calc Estimated GFR Random Glucose Uric Acid Calcium Phosphorus Magnesium Total Bilirubin AST ALT Alkaline Phosphatase Lactate Dehydrogenase Troponin I High Sens B-Natriuretic Peptide Total Protein Albumin TSH 0.35 Cancelled Free T4 Cancelled Random Cortisol 15.3 Stool Occult Blood Blood Type Antibody Screen 08/25/22 07:56 WBC RBC Hgb Hct MCV MCH MCHC RDW Plt Count MPV Immature Gran % (Auto) Neut % (Auto) Lymph % (Auto) [place] % (Auto) Eos % (Auto) Baso % (Auto) Lymph # (Auto) [place] # (Auto) Eos # (Auto) Baso # (Auto) Abs Immat Gran (auto) Absolute Neuts (auto) Absolute Nucleated RBC Nucleated RBC % (auto) Neutrophils % (Manual) Band Neutrophils % Lymphocytes % (Manual) Monocytes % (Manual) Eosinophils % (Manual) Abs Neuts (Manual) Lymphocytes # (Manual) Monocytes # (Manual) Eosinophils # (Manual) Nucleated RBCs Platelet Estimate Plt Morphology Comment RBC Morphology [place] Cells VBG pH VBG pCO2 VBG pO2 VBG HCO3 VBG O2 Saturation VBG Base Excess Sodium Potassium Chloride Carbon Dioxide Anion Gap BUN Creatinine Estim Creat Clear Calc Estimated GFR Random Glucose Uric Acid Calcium Phosphorus Magnesium Total Bilirubin AST ALT Alkaline Phosphatase Lactate Dehydrogenase Troponin I High Sens B-Natriuretic Peptide Total Protein Albumin TSH Free T4 Random Cortisol Cancelled Stool Occult Blood Blood Type Antibody Screen Microbiology Microbiology Results: Microbiology 08/24/22 08:06 Blood - Venous Blood Culture - Preliminary No growth after 24 hours. 08/24/22 08:06 Blood - Venous Blood Culture - Preliminary No growth after 24 hours. Progress Note: A&P Assessment and plan (1) Encephalopathy: Status: Acute (2) Shock: Status: Acute (3) Lymphangitic lung metastasis: Status: Acute (4) DAYA (acute kidney injury): Status: Acute (5) Thrombocytopenia: Status: Acute (6) Leukocytopenia: Status: Acute (7) Cancer associated pain: Status: Acute (8) Metastasis to bone: Status: Acute (9) Metastatic non-small cell lung cancer: Status: Acute Plan Assessment: 47-year-old lady with underlying high-grade progressing metastatic lung adenocarcinoma on chemotherapy admitted with shock, acute renal failure, and alteration of mental status. Plan: Neuro: Neurology service care appreciated. At this time with no concern for stroke. Possible pituitary enlargement affecting optic chiasm. Will proceed with MRI, if patient gets intubated. Cardiac: Shock septic versus distributive. Continue to titrate off pressor support as tolerated. Pulmonary: Acute on chronic hypoxic respiratory failure secondary to pulmonary edema and progressive lymphangitic metastatic lung cancer. Continue supplemental oxygen support. May requiring intubation. Renal: Acute renal failure. No evidence of tumor lysis syndrome at this time. Received 6mg of IV rasburicase for hyperuricemia. Continue to monitor renal indices and urine output. Nephrology consulted. May require dialysis. Endo: No acute issues. GI: No acute issues. ID: Possible septic shock. Empirically covered with broad-spectrum antibiotics. Cultures are pending. Heme/Onc: Thrombocytopenia and leukocytopenia on the background of chemotherapy for metastatic lung cancer. Pending platelet transfusion. Possible renal vein thrombosis, Lovenox held secondary to thrombocytopenia. Underlying progressing high-grade lung adenocarcinoma with multiple metastases. Oncology service care appreciated. 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 Psych: No acute issues. Miscellaneous: No acute issues. Prophylaxis: pneumatic compression Diet: NPO Critical care time spent: 60 minutes Quality Stroke Does the patient have a stroke diagnosis?: No VTE Prior VTE?: No VTE Risk Level:: Medical - moderate - high VTE Device Contraindication: N/A - Device Ordered VTE Drug Contraindication: N/A - Med Ordered
--- NOTE | 2022-08-25 10:15 | MHC.CM.PN ---
Met w/pt and spouse to review d/c planning needs: pt resides w/spouse and has been independent: has [employer] and supportive family. Pt is receiving palliative chemo. MD to hold discussion w/pt and spouse re: MOLST needs as pt is likely going to need HD and possible intubation. HCP on file and verified CM to follow for d/c planning needs - at this time, a finalized plan cannot be made.
--- NOTE | 2022-08-25 10:22 | P.CDIM_ITS ---
PROVIDER RESPONSE TEXT: To clarify, the appropriate diagnosis supported by the clinical indicators: Metabolic QUERY TEXT: PHYSICIAN'S DOCUMENTATION REQUEST Date of Query: 08/25/2022 10:05 AM EDT Patient Name: Bell Alfaro Admit Date: 08/24/2022 Dear Jose David, A review of the medical record indicates additional documentation may be needed. Please review below and update the documentation accordingly. Clinical Indicators: Neurology consultation note: Assessment/plan: Encephalopathy Drowsy, able to answer simple questions. She was brought to the hospital after she was found on the floor. Serum sodium is quite low. Ed: Unclear whether this is delirium from sepsis given cancer history. Based on the above, please further specify, in the Progress Notes, the known or suspected type of the documented encephalopathy: Metabolic Septic Toxic Toxic metabolic Hypertensive Due to a specified condition (such as UTI, hyponatremia, CVA, etc.) Other (explain)Clinically unable to determine (explain)Thank you, Key Ridley, CCS, CDIS Use of terms such as suspected, likely, concern for, or probable (associated with a specific diagnosi s that is being evaluated, monitored, or treated as if it exists) are acceptable and can be coded in the inpatient se tting, when documented at the time of discharge. Please use your independent medical judgment in providing your response. THIS QUERY IS PART OF THE PERMANENT MEDICAL RECORD
--- NOTE | 2022-08-25 10:26 | P.CONNP_ITS ---
History of Present Illness Reason for Consult Consult date: 08/26/22 Reason for consult: DAYA Chief Complaint Chief complaint: dyspnea hypotension History of Present Illness Narrative: 47-year-old lady with progressing high-grade metastatic lung cancer on chemotherapy with carboplatin, pemetrexed, and pembrolizumab every 3 weeks with recent admission for hypoxia? And concern for possible renal vein thrombosis on intermediate dose prophylaxis secondary to concern for hemoptysis presented to ER on 08/24/2022 with complaints of inability to see and weakness.? Patient had CT head that demonstrated? pituitary? enlargement, but otherwise no acute findings.? Patient was evaluated by neurology with recommendation for non urgent MRI on 08/25/2022.? In ER patient developed hypotension refractory to initial IV fluid support requiring initiation of pressors. ? Patient also with acute kidney injury,? hypoalbuminemia, and worsening hypoxemia requiring non-rebreather to maintain normal oximetry. patient was started on broad-spectrum antibiotics and admitted to intensive care unit. The baseline serum creatinine is about 0.58 mg/dL. Two weeks ago she did sustain acute kidney injury with a creatinine peaking at 1.26. This subsequently returned to 0.58. 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 She has been oliguric since admission. Review of Systems Constitutional: Denies fever(s) and Denies headache(s) Denies dizziness and Denies headache(s) Cardiovascular: Denies Abdominal Distension, Denies chest pain and Denies orthopnea Respiratory: Denies cough and Denies hemoptysis Gastrointestinal: Denies heartburn, Denies diarrhea and Denies nausea Denies dizziness and Denies headache(s) [facility] Past Medical History Medical History Adenocarcinoma of lung, stage 4 Anxiety Depression HTN (hypertension) Irritable bowel syndrome (IBS) Opacity of lung on imaging study Surgical History Surgical History S/P lumpectomy, right breast Social History Social History Household Members: Spouse Housing: House Do you presently have visiting nurse or other home services: No Alcohol intake: never Patient Tobacco Use Status: Former Tobacco user Quit Date: 08/17/22 Tobacco use type: Cigarette Cigarette Packs Per Day: 1 Cigarettes Per Day: 15 Years Smoked: 30 Smoked in Last 30 Days: Yes e-Cigarette/Vaping Use: Former Use Patient Interested in Nicotine Replacement: No Patient Given Instructions on How to Stop Smoking: No Second Hand Smoke Exposure: Yes Use of substances other than those prescribed or required for medical reasons: No Substance Use Type: Marijuana Substance Use Type Other:: 1 joint per day along with edibles Substance Use Frequency: Occasionally Last Used Substance: Unknown Currently Displaying Signs/Symptoms of Drug Intoxication Withdrawal: No Any prior treatment program specific to substance use: No Have you been hit, kicked, punched, or otherwise hurt by someone within the past year? If so, by whom?: No Do you feel safe in your current relationship?: Yes Is there a partner from a previous relationship who is making you feel unsafe n ow?: No Spiritual Healthcare Practices: none per patient Confucianist Healthcare Practices: none per patient Cultural Healthcare Practices: none per patient Advance Directives: Yes Advance Directives Information Provided: No Advance Directives on File: Yes Advance Directives Date on File: 07/11/22 Do you have thoughts of harming others: None Do you have a plan to hurt others: No Plan Recently lost weight without trying: Yes How much weight loss: 34pounds or more Eating poorly because of decreased appetite: No Nutrition screen score: 6 Nutrition Risks: Poor intake 0-25% >4 days Patient : No : No Poor oral hygiene: Yes service: No Current occupational status: disabled Meds Allergies Allergy/AdvReac Type Severity Reaction Status Date / Time No Known Allergies Allergy Verified 08/06/22 13:40 Active Medications: Current Medications Hydromorphone HCl (Hydromorphone Hcl 2 Mg/Ml Vial) 2 mg IVPUSH Q4H PRN; Protocol PRN Reason: Pain, Severe (Pain Scale 7-10) Last Admin: 08/25/22 05:15 Dose: 2 mg Norepinephrine Bitartrate 32 (mg/ Sodium Chloride) 250 mls @ 0 mls/hr IV .Q0M [facility]; Protocol Last Titration: 08/25/22 06:48 Dose: 0.32 mcg/kg/min, 11.79 mls/hr Fluconazole 100 mg/ IV (Miscellaneous Supplies) 50 mls @ 50 mls/hr IV Q24H [facility] Last Infusion: 08/24/22 15:54 Dose: Infused Albumin Human (Kedbumin 25 %) 100 mls @ 100 mls/hr IV Q6H [facility] Stop: 08/26/22 00:59 Last Infusion: 08/25/22 08:14 Dose: Infused Dextrose/Lactated Ringer's (D5lr) 1,000 mls @ 50 mls/hr IVCONT .Q20H [facility] Last Admin: 08/25/22 08:45 Dose: 50 mls/hr Cefepime HCl 1 gm/ Sodium (Chloride) 50 mls @ 100 mls/hr IV Q24H [facility] Lorazepam (Lorazepam 2 Mg/Ml Vial) 0.5 mg IVPUSH Q2H PRN PRN Reason: Anxiety Last Admin: 08/25/22 09:16 Dose: 0.25 mg Methylprednisolone Sodium Succinate (Methylprednisolone Sod Succ 125 Mg/2 Ml Vial) 60 mg IVPUSH Q24H [facility] Last Admin: 08/25/22 09:44 Dose: Not Given Home Medications Medication Instructions Recorded Confirmed Last Taken Type albuterol sulfate 90 mcg/actuation 2 puff inhalation Q4H PRN wheezing 07/11/22 08/24/22 Unknown History aerosol inhaler atorvastatin 40 mg tablet 40 mg PO DAILY 07/11/22 08/24/22 08/06/22 History fluoxetine 20 mg capsule 40 mg PO DAILY 07/11/22 08/24/22 08/06/22 History fluticasone propionate 50 1 spray intranasal BID PRN Allergy 07/11/22 08/24/22 Unknown History mcg/actuation nasal Symptoms spray,suspension trazodone 50 mg tablet 50 mg PO BEDTIME 07/11/22 08/24/22 08/05/22 History acetaminophen 500 mg tablet 500 mg PO Q6H PRN Pain 08/06/22 08/24/22 Unknown History diphenhydramine HCl 25 mg tablet 25 mg PO DAILY PRN Allergy Symptoms 08/06/22 08/24/22 Unknown History lorazepam 0.5 mg tablet 0.5 mg PO TID PRN Anxiety 08/06/22 08/24/22 Unknown History Physical Exam Vital Signs: Last Vital Signs Temp 100.9 F H 08/25/22 10:00 Pulse 131 H 08/25/22 10:00 Resp 12 08/25/22 10:00 BP 101/81 08/25/22 10:00 Pulse Ox 92 08/25/22 10:00 O2 Del Method High Flow Nasal Cannula 08/25/22 10:00 O2 Flow Rate 55 08/25/22 10:00 FiO2 50 08/25/22 10:00 Oxygen Flow Rate 4 08/24/22 08:11 BMI result Body Mass Index 34.1 Const General: cooperative, no acute distress and ill appearing Orientation/consciousness: oriented to person Eyes Eyelids: Yes eyelids normal Pupils: Equal, round and reactive pupils present Resp Effort & Inspection: normal respiratory effort Auscultation: rhonchi and No rub present Cardio Jugular venous distension: no JVD Palpation: no palpable S3 Rate: regular rate Heart sounds: S1 normal heart sound present, S2 normal heart sound present and no rubs GI Inspection: Yes normal to inspection Palpation (GI): Soft to palpation Percussion: Yes normal to percussion Auscultation: normal bowel sounds General: Yes no CVA tenderness Back/Spine/Pelvis Back: no CVA tenderness Skin General skin exam: dry skin, no petechiae and no purpura Neuro General: oriented to person and Unable to assess gait Cranial nerves: Yes Equal, round and reactive pupils present Gait exam (Neuro): Unable to assess gait Motor exam (neuro): no tremors and No Asterixis during motor activity present Results Lab Results 08/25/22 05:00 08/25/22 05:00 Lab results: Chemistry 08/24/22 08/24/22 08/25/22 08:01 15:09 05:00 Sodium 129 L 133 L 140 Potassium 3.7 3.5 3.2 L Carbon Dioxide 20 L 16 L 21 L BUN 33 H 36 H 40 H Creatinine 4.70 H* 4.28 H* 4.54 H* Calcium 5.8 L* D 6.0 L* 6.5 L D Phosphorus 3.6 4.2 4.6 H Hematology 08/24/22 08/24/22 08/25/22 08:01 15:09 05:00 WBC 2.1 L 1.9 L 2.2 L Hgb 8.9 L 8.6 L 8.1 L Plt Count 24 L D 43 L D 29 L D Abdomen/Pelvis CT? 08/24/22 10:35 IMPRESSION: No appreciable change in size in the left adrenal mass. There is interval decrease in retrocrural and upper abdominal retroperitoneal lymphadenopathy. There is still bilateral renal cortical thickening. There are left retroperitoneal and perinephric nodules and stranding of the left perinephric fat not appreciably changed. Upper normal-size gallbladder and small gallstones. Stable subcutaneous nodule in the low midline pelvis. Bone lesions seen by PET/CT scan not well appreciated by CT. Fleischner guidelines were followed. Assessment and Plan (1) DAYA (acute kidney injury): Status: Acute Plan 47-year-old woman with a history of metastatic lung cancer and essentially normal renal function at baseline with a creatinine of 0.5 mg/dL has been admitted with an episode of fall and currently in ICU. During admission she was found to have acute kidney injury with a creatinine of 4.5 mg/dL. Differential diagnosis for acute kidney injury would include 1. Hypoperfusion 2. Acute tubular injury 3. Tubular injury due to cisplatin 4. Acute glomerular nephritis 5. No evidence of obstruction based on the recent imaging/CT scan. 6. Question of renal vein thrombosis with external compression Recommendations Check urine for sodium, protein, creatinine. Agree with IV hydration. Keep intake more than the output. Optimize blood pressure and avoid hypotension to maintain adequate renal perfusion. Continue to avoid nephrotoxic agents. Monitor urine output closely. Replace potassium judiciously as needed. Although there is no absolute indication for dialysis at this moment if the urine output does not improve or if he develops other electrolyte imbalance she may require dialysis. We will follow closely along with the team. Time Spent With Patient Time: Total time managing care of this patient today ____ minutes. Procedures Date of Service Date of Service: 08/26/22
[2022-08-25] MEDS: cefEPime HCl 1 GM in 0.9 % Sodium Chloride 50 ML IV (11:16)
[2022-08-25 11:28] LABS: Free T4 (Free Thyroxine) 0.85 ng/dL (0.71-1.85)
--- NOTE | 2022-08-25 11:55 | P.CDIM_ITS ---
PROVIDER RESPONSE TEXT: To clarify, the appropriate diagnosis supported by the clinical indicators: Antineoplastic chemotherapy induced Pancytopenia QUERY TEXT: PHYSICIAN'S DOCUMENTATION REQUEST Date of Query: 08/25/2022 11:39 AM EDT Patient Name: Bell Alfaro Admit Date: 08/24/2022 Dear Jose David, A review of the medical record indicates additional documentation may be needed. Please review below and update the documentation accordingly. Clinical Indicators: LABS: WBC 2.2 RBC 2.56 Plt 29 L Bands 1 Abs neuts 1.0 Metastatic lung cancer, on Chemotherapy. Thrombocytopenia and leukocytopenia on the background of chemotherapy for metastatic lung cancer. Based on the above, could you clarify the appropriate diagnosis, if significant, that supports the ab ove abnormalities and additional evaluation, monitoring, and/or treatment rendered: Pancytopenia Antineoplastic chemotherapy induced Pancytopenia Other Other (explain)Clinically unable to determine (explain)Thank you, Key Ridley, CCS, CDIS Use of terms such as suspected, likely, concern for, or probable (associated with a specific diagnosi s that is being evaluated, monitored, or treated as if it exists) are acceptable and can be coded in the inpatient se tting, when documented at the time of discharge. Please use your independent medical judgment in providing your response. THIS QUERY IS PART OF THE PERMANENT MEDICAL RECORD
[2022-08-25 14:01] LABS: Appearance Urine Turbid; Color Urine Dark Yellow; Glucose Urine UA Negative (Negative); Leukocyte Esterase Urine Trace (Negative); Nitrite Urine Negative (Negative); Specific Gravity - Urine >= 1.030 (1.005-1.025); UMIC TRIGGER UA YES; Urine Blood Large (3+) (Negative); Urine Ketones Trace mg/dL (Negative); Urine Protein 100 (2+) mg/dL (Neg-Trace)
[2022-08-25 14:14] LABS: Bacteria Urine None Seen (None Seen); Other Crystals Urine Present; RBC Urine >20 /HPF (0-2); WBC Urine 0-5 /HPF (0-5)
[2022-08-25] MEDS: Fluconazole in NaCl,Iso-Osm 100 MG in Container,Empty 0 ML 50 MG IV (14:28)
[2022-08-25 14:49] LABS: Creatinine Urine 235.21 mg/dL; Sodium Urine Random < 20.0 mmol/L
[2022-08-25 18:34] LABS: Anion Gap 23 (12-20); Blood Urea Nitrogen 43 mg/dL (9-16); Calcium 6.8 mg/dL (8.4-10.2); Carbon Dioxide 24 mmol/L (22-29); Chloride 100 mmol/L (96-108); Creatinine Clr Calc Pharmacy 17.3; Estimated Glomerular Filt Rate 12; Glucose Random 224 mg/dL (60-115); Potassium 3.8 mmol/L (3.3-5.1); Sodium 143 mmol/L (135-145)
[2022-08-26] VITALS (41 sets, daily range): BP systolic 101–143; BP diastolic 54–102; PULSE 114–136; RESP 8–25; TEMP 37.4–38.1; O2SAT 84–99; BMI 34.1
[2022-08-26] MEDS: Albumin Human 25 % 100 ML IV (00:07)
[2022-08-26 00:25] LABS: VBG Base Excess 7.2 mmol/L; VBG HCO3 33 mmol/L (22-26); VBG pCO2 60 mmHg; VBG pH 7.35 (7.32-7.43); VBG pO2 47 mmHg
[2022-08-26 00:26] LABS: Hemoglobin 7.9 g/dl (12.0-16.0); Mean Corpuscular HGB Conc 34.3 g/dl (31.0-35.0); Mean Corpuscular Hemoglobin 31.5 pg (27.0-33.0); Mean Corpuscular Volume 91.6 fL (80.0-98.0); Mean Platelet Volume 11.8 fL (9.4-12.3); Red Blood Count 2.51 X10*6/uL (4.20-5.50); Red Cell Distribution Width 15.8 % (11.0-16.0); WBC ABN SCTR FOR CBC 1
[2022-08-26 00:27] LABS: White Blood Count 1.2 X10*3/uL (4.8-10.8)
[2022-08-26 00:28] LABS: Platelet Count 15 X10*3/uL (160-400)
[2022-08-26 00:48] LABS: Alanine Aminotransferase 27 U/L (0-31); Albumin Level 3.3 g/dL (3.5-5.0); Alkaline Phosphatase 132 U/L (39-117); Anion Gap 21 (12-20); Aspartate Amino Transferase 18 U/L (5-31); Bilirubin Total 1.6 mg/dL (0.0-1.0); Blood Urea Nitrogen 46 mg/dL (9-16); Calcium 6.9 mg/dL (8.4-10.2); Carbon Dioxide 26 mmol/L (22-29); Chloride 101 mmol/L (96-108); Creatinine Clr Calc Pharmacy 20.2; Estimated Glomerular Filt Rate 14; Glucose Random 209 mg/dL (60-115); Potassium 3.5 mmol/L (3.3-5.1); Sodium 144 mmol/L (135-145); Total Protein 5.9 g/dL (6.5-8.0)
[2022-08-26 00:53] LABS: Band Neutrophils Percent 2 % (3-5); Eosinophils Absolute Manual 0.1 X10*3/uL (0.0-0.4); Eosinophils Percent Manual 6 % (0-4); Lymphocytes Absolute Manual 0.4 X10*3/uL (1.2-4.9); Lymphocytes Percent Manual 30 % (20-40); Monocytes Absolute Manual 0.1 X10*3/uL (0.1-1.2); Monocytes Percent Manual 12 % (2-11); Neutrophils Absolute Manual 0.6 X10*3/uL (2.0-8.3); Neutrophils Percent Manual 50 % (45-73)
[2022-08-26 00:54] LABS: Hypochromasia 1+ (5-14) /OIF; Platelet Estimate DECREASED (NORMAL); Platelet Morphology Comment NORMAL; RBC Morphology NOTED; Target Cells 1+ (5-14) /OIF
[2022-08-26 00:55] LABS: Dohle Bodies PRESENT; Toxic Granulation PRESENT
[2022-08-26 01:04] LABS: Venous Blood Gas Refer to POC result
[2022-08-26] MEDS: HYDROmorphone HCl 2 MG/ML VIAL IVPUSH ×8 (01:29→22:15)
--- NOTE | 2022-08-26 01:48 | PC.NURSE ---
Medications administered as follows: Dilaudid 2mg IVP at 2207, Ativan 0.5 mg IVP at 2116, Norepinephrine titration decrease to 0.28 was by this RN.
[2022-08-26] MEDS: Dextrose 5 % and Lactated Ring 1,000 ML 50 ML IVCONT (02:18)
[2022-08-26] MEDS: LORazepam 2 MG/ML VIAL 0.5 MG IVPUSH ×4 (02:41→14:09)
[2022-08-26 05:16] LABS: VBG Base Excess 9.1 mmol/L; VBG HCO3 35 mmol/L (22-26); VBG pCO2 60 mmHg; VBG pH 7.37 (7.32-7.43); VBG pO2 52 mmHg
[2022-08-26 05:28] LABS: Venous Blood Gas Refer to POC result
[2022-08-26 05:33] LABS: Hemoglobin 7.5 g/dl (12.0-16.0); Mean Corpuscular HGB Conc 34.1 g/dl (31.0-35.0); Mean Corpuscular Hemoglobin 31.1 pg (27.0-33.0); Mean Corpuscular Volume 91.3 fL (80.0-98.0); Mean Platelet Volume 11.4 fL (9.4-12.3); NRBC Pct Auto 1.7 /100WBC (0.0-0.2); Red Blood Count 2.41 X10*6/uL (4.20-5.50); Red Cell Distribution Width 15.5 % (11.0-16.0); White Blood Count 1.2 X10*3/uL (4.8-10.8)
[2022-08-26 05:35] LABS: Platelet Count 14 X10*3/uL (160-400)
[2022-08-26 06:03] LABS: Alanine Aminotransferase 23 U/L (0-31); Albumin Level 3.5 g/dL (3.5-5.0); Alkaline Phosphatase 123 U/L (39-117); Anion Gap 16 (12-20); Aspartate Amino Transferase 16 U/L (5-31); Atypical Lymphs Percent Manual 2 % (0-6); Band Neutrophils Percent 1 % (3-5); Basophils Percent Manual 1 % (0-2); Bilirubin Total 1.7 mg/dL (0.0-1.0); Blood Urea Nitrogen 48 mg/dL (9-16); Calcium 6.8 mg/dL (8.4-10.2); Carbon Dioxide 30 mmol/L (22-29); Chloride 103 mmol/L (96-108); Creatinine Clr Calc Pharmacy 21.5; Eosinophils Absolute Manual 0.1 X10*3/uL (0.0-0.4); Eosinophils Percent Manual 9 % (0-4); Estimated Glomerular Filt Rate 15; Glucose Random 206 mg/dL (60-115); Lymphocytes Absolute Manual 0.5 X10*3/uL (1.2-4.9); Lymphocytes Percent Manual 41 % (20-40); Magnesium 2.5 mg/dL (1.6-2.6); Monocytes Absolute Manual 0.1 X10*3/uL (0.1-1.2); Monocytes Percent Manual 7 % (2-11); Neutrophils Absolute Manual 0.5 X10*3/uL (2.0-8.3); Neutrophils Percent Manual 39 % (45-73); Phosphorus 3.2 mg/dL (2.7-4.5); Potassium 3.4 mmol/L (3.3-5.1); Sodium 146 mmol/L (135-145); Total Protein 5.8 g/dL (6.5-8.0)
[2022-08-26 06:04] LABS: Lactate Dehydrogenase 342 U/L (122-220)
[2022-08-26 06:05] LABS: Nucleated Red Blood Cells 1 /100WBC (0-0); RBC Morphology NOTED
[2022-08-26 06:06] LABS: Platelet Estimate DECREASED (NORMAL)
[2022-08-26 06:07] LABS: Dohle Bodies PRESENT; Platelet Morphology Comment NORMAL; Target Cells 1+ (5-14) /OIF; Toxic Granulation PRESENT
--- NOTE | 2022-08-26 07:38 | PC.NURSE ---
Patient A&O x1, she is aware she is in a hospital, and able to follow commands at times. Sinus tach on telemetry. LS are dim/ coarse /crackles in bases. Patient on Hi flow oxygen, and oxymask. Requiring increased O2 throughout night. Patient has been awake only Sleeping in naps . Medicated with Dilaudid 0.5 mg IVP , and Ativan 2 mg IVP with good effect. This am patient asking for mother, mother called to come in . Patient's mother (Manuela) would like to speak with physician , and geriatric case manager to discuss plan of care for patient . Report given to day shift RN.
[2022-08-26 07:52] LABS: Glucose, Whole Blood 176 mg/dL (60-115)
--- NOTE | 2022-08-26 07:59 | P.CDIM_ITS ---
PROVIDER RESPONSE TEXT: To clarify, the appropriate diagnosis supported by the clinical indicators: Acute Pulmonary edema QUERY TEXT: PHYSICIAN'S DOCUMENTATION REQUEST Date of Query: 08/26/2022 07:19 AM EDT Patient Name: Bell Alfaro Admit Date: 08/24/2022 Dear Jose David, A review of the medical record indicates additional documentation may be needed. Please review below and update the documentation accordingly. Clinical Indicators: Chest XR: Impression - Other process such as pulmonary edema or interstitial disease and pneumonitis related to drug toxicity and infection should be considered. ICU Pn: Acute on chronic respiratory failure secondary to pulmonary edema. Clarify which of the following accurately represents the acuity of the pulmonary edema: Possible options might include: Acute Pulmonary edema Acute on chronic Pulmonary edema Chronic stable condition Other Other (explain)Clinically unable to determine (explain)Thank you, Key Ridley, CCS, CDIS Use of terms such as suspected, likely, concern for, or probable (associated with a specific diagnosi s that is being evaluated, monitored, or treated as if it exists) are acceptable and can be coded in the inpatient se tting, when documented at the time of discharge. Please use your independent medical judgment in providing your response. THIS QUERY IS PART OF THE PERMANENT MEDICAL RECORD
[2022-08-26] MEDS: methylPREDNISolone Sod Succ 125 MG/2 ML VIAL 60 MG IVPUSH (08:02)
--- NOTE | 2022-08-26 08:59 | P.PNCC_ITS ---
Subjective Subjective Date of Service: 08/26/22 Interval History: 47-year-old lady with progressing high-grade metastatic lung cancer on chemotherapy with carboplatin, pemetrexed, and pembrolizumab every 3 weeks with recent admission for hypoxia And concern for possible renal vein thrombosis on intermediate dose prophylaxis secondary to concern for hemoptysis presented to ER on 08/24/2022 with complaints of inability to see and weakness. Patient had CT head that demonstrated pituitary enlargement, but otherwise no acute findings. Patient was evaluated by neurology with recommendation for non urgent MRI on 08/25/2022. In ER patient developed hypotension refractory to initial IV fluid support requiring initiation of pressors. Patient also with acute kidney injury, hypoalbuminemia, and worsening hypoxemia requiring non-rebreather to maintain normal oximetry. Patient was started on broad-spectrum antibiotics and admitted to intensive care unit. Overnight with improvements in urine output and FiO2 requirements, however with significant delirium and opioid induced constipation. Critical Care Time (minutes): 60 Physical Exam Vital Signs: Vital Signs: Last Vital Signs Temp 100.4 F 08/26/22 08:00 Pulse 116 H 08/26/22 08:07 Resp 9 L 08/26/22 08:00 BP 113/74 08/26/22 08:07 Pulse Ox 99 08/26/22 08:00 O2 Del Method Non-Rebreather Ma sk 08/26/22 08:00 O2 Flow Rate 55 08/26/22 07:00 FiO2 75 08/26/22 08:00 Oxygen Flow Rate 4 08/24/22 08:11 BMI result Body Mass Index 34.1 Const: General: no acute distress and lethargic (arousable) Orientation/consciousness: lethargic (arousable) Eyes: Sclerae: sclerae normal EOM: EOMs intact bilaterally Neck: Neck: Yes no lymphadenopathy, Yes trachea midline and Yes supple Resp: Effort & Inspection: normal respiratory effort and no respiratory distress Auscultation: crackles ( diffuse bilateral) Cardio: Rate: tachycardic Rhythm: regular rhythm Heart sounds: no gallops, no murmurs and no rubs GI: Palpation (GI): Soft to palpation and Other GI palpation findings present ( Nontender) Auscultation: normal bowel sounds Extrem: General: No clubbing, No cyanosis and Yes edema ( trace bilateral) Objective Data Labs 08/26/22 05:10 08/26/22 05:10 Labs: Laboratory Results - last 24 hr 08/24/22 08/24/22 08/25/22 08:01 10:00 00:20 WBC 1.2 L RBC 2.51 L Hgb 7.9 L Hct 23.0 L MCV 91.6 MCH 31.5 MCHC 34.3 RDW 15.8 Plt Count 15 L* D MPV 11.8 Immature Gran % (Auto) Cancelled Neut % (Auto) Cancelled Lymph % (Auto) Cancelled [place] % (Auto) Cancelled Eos % (Auto) Cancelled Baso % (Auto) Cancelled Lymph # (Auto) Cancelled [place] # (Auto) Cancelled Eos # (Auto) Cancelled Baso # (Auto) Cancelled Abs Immat Gran (auto) Cancelled Absolute Neuts (auto) Cancelled Absolute Nucleated RBC 0.000 Nucleated RBC % (auto) 0.0 Neutrophils % (Manual) 50 Band Neutrophils % 2 L Lymphocytes % (Manual) 30 Atypical Lymphs % (Man) Monocytes % (Manual) 12 H Eosinophils % (Manual) 6 H Basophils % (Manual) Abs Neuts (Manual) 0.6 L Lymphocytes # (Manual) 0.4 L Monocytes # (Manual) 0.1 Eosinophils # (Manual) 0.1 Nucleated RBCs Toxic Granulation PRESENT Dohle Bodies PRESENT Platelet Estimate DECREASED Plt Morphology Comment NORMAL RBC Morphology NOTED Hypochromasia 1+ (5-14) Target Cells 1+ (5-14) Smear Path Review SEE NOTE VBG pH VBG pCO2 VBG pO2 VBG HCO3 VBG O2 Saturation VBG Base Excess Sodium Potassium Chloride Carbon Dioxide Anion Gap BUN Creatinine Estim Creat Clear Calc Estimated GFR POC Glucose Random Glucose Calcium Phosphorus Magnesium Total Bilirubin AST ALT Alkaline Phosphatase Lactate Dehydrogenase Total Protein Albumin Free T4 Urine Color Urine Appearance Urine pH Ur Specific [place] Urine Protein Urine Glucose (UA) Urine Ketones Urine Blood Urine Nitrite Ur Leukocyte Esterase Urine RBC Urine WBC Ur Squamous Epith Cells Other Crystals Urine Bacteria Hyaline Casts Ur Random Sodium Urine Creatinine Blood Type A Negative Antibody Screen NEGATIVE 08/25/22 08/25/22 08/25/22 00:20 05:00 05:00 WBC RBC 2.56 L Hgb 8.1 L Hct 23.5 L MCV 91.8 MCH MCHC RDW Plt Count 29 L D MPV Immature Gran % (Auto) Neut % (Auto) Lymph % (Auto) [place] % (Auto) Eos % (Auto) Baso % (Auto) Lymph # (Auto) [place] # (Auto) Eos # (Auto) Baso # (Auto) Abs Immat Gran (auto) Absolute Neuts (auto) Absolute Nucleated RBC Nucleated RBC % (auto) Neutrophils % (Manual) Band Neutrophils % Lymphocytes % (Manual) Atypical Lymphs % (Man) Monocytes % (Manual) Eosinophils % (Manual) Basophils % (Manual) Abs Neuts (Manual) Lymphocytes # (Manual) Monocytes # (Manual) Eosinophils # (Manual) Nucleated RBCs Toxic Granulation Dohle Bodies Platelet Estimate Plt Morphology Comment RBC Morphology Hypochromasia Target Cells Smear Path Review VBG pH VBG pCO2 VBG pO2 VBG HCO3 VBG O2 Saturation VBG Base Excess Sodium 144 140 Potassium 3.5 3.2 L Chloride 101 97 Carbon Dioxide 26 Anion Gap 21 H BUN 46 H Creatinine 3.54 H Estim Creat Clear Calc 20.2 Estimated GFR 14 POC Glucose Random Glucose 209 H Calcium 6.9 L D 6.5 L Phosphorus Magnesium Total Bilirubin 1.6 H AST 18 ALT 27 Alkaline Phosphatase 132 H Lactate Dehydrogenase Total Protein 5.9 L Albumin 3.3 L Free T4 Urine Color Urine Appearance Urine pH Ur Specific [place] Urine Protein Urine Glucose (UA) Urine Ketones Urine Blood Urine Nitrite Ur Leukocyte Esterase Urine RBC Urine WBC Ur Squamous Epith Cells Other Crystals Urine Bacteria Hyaline Casts Ur Random Sodium Urine Creatinine Blood Type Antibody Screen 08/25/22 08/25/22 08/25/22 10:36 13:45 13:45 WBC RBC Hgb Hct MCV MCH MCHC RDW Plt Count MPV Immature Gran % (Auto) Neut % (Auto) Lymph % (Auto) [place] % (Auto) Eos % (Auto) Baso % (Auto) Lymph # (Auto) [place] # (Auto) Eos # (Auto) Baso # (Auto) Abs Immat Gran (auto) Absolute Neuts (auto) Absolute Nucleated RBC Nucleated RBC % (auto) Neutrophils % (Manual) Band Neutrophils % Lymphocytes % (Manual) Atypical Lymphs % (Man) Monocytes % (Manual) Eosinophils % (Manual) Basophils % (Manual) Abs Neuts (Manual) Lymphocytes # (Manual) Monocytes # (Manual) Eosinophils # (Manual) Nucleated RBCs Toxic Granulation Dohle Bodies Platelet Estimate Plt Morphology Comment RBC Morphology Hypochromasia Target Cells Smear Path Review VBG pH VBG pCO2 VBG pO2 VBG HCO3 VBG O2 Saturation VBG Base Excess Sodium Potassium Chloride Carbon Dioxide Anion Gap BUN Creatinine Estim Creat Clear Calc Estimated GFR POC Glucose Random Glucose Calcium Phosphorus Magnesium Total Bilirubin AST ALT Alkaline Phosphatase Lactate Dehydrogenase Total Protein Albumin Free T4 0.85 Urine Color Dark Yellow Urine Appearance Turbid Urine pH 5.0 Ur Specific [place] >= 1.030 H Urine Protein 100 (2+) H Urine Glucose (UA) Negative Urine Ketones Trace Urine Blood Large (3+) H Urine Nitrite Negative Ur Leukocyte Esterase Trace H Urine RBC >20 H Urine WBC 0-5 Ur Squamous Epith Cells 3-5 Other Crystals Present Urine Bacteria None Seen Hyaline Casts 3-5 Ur Random Sodium < 20.0 Urine Creatinine 235.21 Blood Type Antibody Screen 08/25/22 08/26/22 08/26/22 17:55 00:15 05:07 WBC RBC Hgb Hct MCV MCH MCHC RDW Plt Count MPV Immature Gran % (Auto) Neut % (Auto) Lymph % (Auto) [place] % (Auto) Eos % (Auto) Baso % (Auto) Lymph # (Auto) [place] # (Auto) Eos # (Auto) Baso # (Auto) Abs Immat Gran (auto) Absolute Neuts (auto) Absolute Nucleated RBC Nucleated RBC % (auto) Neutrophils % (Manual) Band Neutrophils % Lymphocytes % (Manual) Atypical Lymphs % (Man) Monocytes % (Manual) Eosinophils % (Manual) Basophils % (Manual) Abs Neuts (Manual) Lymphocytes # (Manual) Monocytes # (Manual) Eosinophils # (Manual) Nucleated RBCs Toxic Granulation Dohle Bodies Platelet Estimate Plt Morphology Comment RBC Morphology Hypochromasia Target Cells Smear Path Review VBG pH 7.35 7.37 VBG pCO2 60 60 VBG pO2 47 52 VBG HCO3 33 H 35 H VBG O2 Saturation 78.0 84.0 VBG Base Excess 7.2 9.1 Sodium 143 Potassium 3.8 Chloride 100 Carbon Dioxide 24 Anion Gap 23 H BUN 43 H Creatinine 4.15 H* Estim Creat Clear Calc 17.3 Estimated GFR 12 POC Glucose Random Glucose 224 H Calcium 6.8 L Phosphorus Magnesium Total Bilirubin AST ALT Alkaline Phosphatase Lactate Dehydrogenase Total Protein Albumin Free T4 Urine Color Urine Appearance Urine pH Ur Specific [place] Urine Protein Urine Glucose (UA) Urine Ketones Urine Blood Urine Nitrite Ur Leukocyte Esterase Urine RBC Urine WBC Ur Squamous Epith Cells Other Crystals Urine Bacteria Hyaline Casts Ur Random Sodium Urine Creatinine Blood Type Antibody Screen 08/26/22 08/26/22 08/26/22 05:10 05:10 05:10 WBC 1.2 L RBC 2.41 L Hgb 7.5 L Hct 22.0 L MCV 91.3 MCH 31.1 MCHC 34.1 RDW 15.5 Plt Count 14 L* D MPV 11.4 Immature Gran % (Auto) Cancelled Neut % (Auto) Cancelled Lymph % (Auto) Cancelled [place] % (Auto) Cancelled Eos % (Auto) Cancelled Baso % (Auto) Cancelled Lymph # (Auto) Cancelled [place] # (Auto) Cancelled Eos # (Auto) Cancelled Baso # (Auto) Cancelled Abs Immat Gran (auto) Cancelled Absolute Neuts (auto) Cancelled Absolute Nucleated RBC 0.020 H Nucleated RBC % (auto) 1.7 H Neutrophils % (Manual) 39 L Band Neutrophils % 1 L Lymphocytes % (Manual) 41 H Atypical Lymphs % (Man) 2 Monocytes % (Manual) 7 Eosinophils % (Manual) 9 H Basophils % (Manual) 1 Abs Neuts (Manual) 0.5 L Lymphocytes # (Manual) 0.5 L Monocytes # (Manual) 0.1 Eosinophils # (Manual) 0.1 Nucleated RBCs 1 H Toxic Granulation PRESENT Dohle Bodies PRESENT Platelet Estimate DECREASED Plt Morphology Comment NORMAL RBC Morphology NOTED Hypochromasia Target Cells 1+ (5-14) Smear Path Review VBG pH VBG pCO2 VBG pO2 VBG HCO3 VBG O2 Saturation VBG Base Excess Sodium 146 H Potassium 3.4 Chloride 103 Carbon Dioxide 30 H Anion Gap 16 BUN 48 H Creatinine 3.33 H Estim Creat Clear Calc 21.5 Estimated GFR 15 POC Glucose Random Glucose 206 H Calcium 6.8 L Phosphorus 3.2 Magnesium 2.5 Total Bilirubin 1.7 H AST 16 ALT 23 Alkaline Phosphatase 123 H Lactate Dehydrogenase 342 H Total Protein 5.8 L Albumin 3.5 Free T4 Urine Color Urine Appearance Urine pH Ur Specific [place] Urine Protein Urine Glucose (UA) Urine Ketones Urine Blood Urine Nitrite Ur Leukocyte Esterase Urine RBC Urine WBC Ur Squamous Epith Cells Other Crystals Urine Bacteria Hyaline Casts Ur Random Sodium Urine Creatinine Blood Type Antibody Screen 08/26/22 07:48 WBC RBC Hgb Hct MCV MCH MCHC RDW Plt Count MPV Immature Gran % (Auto) Neut % (Auto) Lymph % (Auto) [place] % (Auto) Eos % (Auto) Baso % (Auto) Lymph # (Auto) [place] # (Auto) Eos # (Auto) Baso # (Auto) Abs Immat Gran (auto) Absolute Neuts (auto) Absolute Nucleated RBC Nucleated RBC % (auto) Neutrophils % (Manual) Band Neutrophils % Lymphocytes % (Manual) Atypical Lymphs % (Man) Monocytes % (Manual) Eosinophils % (Manual) Basophils % (Manual) Abs Neuts (Manual) Lymphocytes # (Manual) Monocytes # (Manual) Eosinophils # (Manual) Nucleated RBCs Toxic Granulation Dohle Bodies Platelet Estimate Plt Morphology Comment RBC Morphology Hypochromasia Target Cells Smear Path Review VBG pH VBG pCO2 VBG pO2 VBG HCO3 VBG O2 Saturation VBG Base Excess Sodium Potassium Chloride Carbon Dioxide Anion Gap BUN Creatinine Estim Creat Clear Calc Estimated GFR POC Glucose 176 H Random Glucose Calcium Phosphorus Magnesium Total Bilirubin AST ALT Alkaline Phosphatase Lactate Dehydrogenase Total Protein Albumin Free T4 Urine Color Urine Appearance Urine pH Ur Specific [place] Urine Protein Urine Glucose (UA) Urine Ketones Urine Blood Urine Nitrite Ur Leukocyte Esterase Urine RBC Urine WBC Ur Squamous Epith Cells Other Crystals Urine Bacteria Hyaline Casts Ur Random Sodium Urine Creatinine Blood Type Antibody Screen Microbiology Microbiology Results: Microbiology 08/24/22 08:06 Blood - Venous Blood Culture - Preliminary No growth after 24 hours. 08/24/22 08:06 Blood - Venous Blood Culture - Preliminary No growth after 24 hours. Progress Note: A&P Assessment and plan (1) Hypophysitis: Status: Acute (2) Leukocytopenia: Status: Acute (3) Encephalopathy: Status: Acute (4) Shock: Status: Acute (5) Lymphangitic lung metastasis: Status: Acute (6) DAYA (acute kidney injury): Status: Acute (7) Thrombocytopenia: Status: Acute (8) Lymphangitic lung metastasis: Status: Acute (9) Metastasis to bone: Status: Acute (10) Metastatic non-small cell lung cancer: Status: Acute Plan Assessment: 47-year-old lady with underlying high-grade progressing metastatic lung adenocarcinoma on chemotherapy admitted with shock, acute renal failure, and alteration of mental status. Plan: Neuro: Neurology service care appreciated. At this time with no concern for stroke. Possible pituitary enlargement secondary to hypophysitis affecting optic chiasm. Cardiac: Shock septic versus distributive. Continue to titrate off pressor support as tolerated. Pulmonary: Acute on chronic hypoxic respiratory failure secondary to pulmonary edema and progressive lymphangitic metastatic lung cancer, improving. Continue supplemental oxygen support. Renal: Acute renal failure. No evidence of tumor lysis syndrome at this time. Received 6mg of IV rasburicase for hyperuricemia. Continue to monitor renal indices and urine output. Nephrology consulted. Urine output is improving. Endo: No acute issues. GI: No acute issues. ID: Possible septic shock. Empirically covered with broad-spectrum antibiotics. Cultures are pending. Heme/Onc: Thrombocytopenia and leukocytopenia on the background of chemotherapy for metastatic lung cancer. Possible renal vein thrombosis, Lovenox held secondary to thrombocytopenia. Underlying progressing high-grade lung adenocarcinoma with multiple metastases. Oncology service care appreciated. 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 Psych: No acute issues. Miscellaneous: No acute issues. Prophylaxis: pneumatic compression Diet: clear liquids Critical care time spent: 60 minutes Quality Stroke Does the patient have a stroke diagnosis?: No VTE Prior VTE?: No VTE Risk Level:: Medical - moderate - high VTE Device Contraindication: N/A - Device Ordered VTE Drug Contraindication: N/A - Med Ordered
--- NOTE | 2022-08-26 09:48 | MHC.CM.PN ---
Addendum entered by Mendy Baird 08/26/22 15:29: Pt has been accepted onto service w/[facility]. They will assist with d/c needs including acquiring DME for pt in anticipation of a return to home. Unknown d/c date - insurance auth for Hospice will need to be obtained prior to d/c. Original Note: Met with pt, pt's mother and pt's spouse to review d/c planning: pt from home with no current services, had been working up until a month ago. Family would like pt to return to home w/[facility] services. Referral to be made: Pt continues to be a full code at this time but family understands goals of Hospice to include DNR/DNI. Pt will need BLS transportation to home when medically ready.
[2022-08-26] MEDS: Glycerin Adult SUPP.RECT 1 SUPP PR (10:06)
--- NOTE | 2022-08-26 10:06 | P.PNNP_ITS ---
Subjective Subjective Date of Service: 08/26/22 Interval history: Events noted. Still remains critically ill. Urine output is marginally improved. Physical Exam Vital Signs: Vital Signs: Last Vital Signs Temp 100.6 F H 08/26/22 09:00 Pulse 114 H 08/26/22 09:00 Resp 25 H 08/26/22 09:41 BP 134/89 08/26/22 09:00 Pulse Ox 98 08/26/22 09:00 O2 Del Method Non-Rebreather Ma sk 08/26/22 09:00 O2 Flow Rate 55 08/26/22 07:00 FiO2 75 08/26/22 09:00 Oxygen Flow Rate 4 08/24/22 08:11 BMI result Body Mass Index 34.1 Const: General: ill appearing Resp: Auscultation: rhonchi Cardio: Palpation: no palpable S3 Heart sounds: no rubs GI: Palpation (GI): Soft to palpation Skin: General skin exam: no purpura Objective Data Labs 08/26/22 05:10 08/26/22 05:10 Labs: Laboratory Results - last 24 hr 08/24/22 08/24/22 08/25/22 08:01 10:00 00:20 WBC 1.2 L RBC 2.51 L Hgb 7.9 L Hct 23.0 L MCV 91.6 MCH 31.5 MCHC 34.3 RDW 15.8 Plt Count 15 L* D MPV 11.8 Immature Gran % (Auto) Cancelled Neut % (Auto) Cancelled Lymph % (Auto) Cancelled [place] % (Auto) Cancelled Eos % (Auto) Cancelled Baso % (Auto) Cancelled Lymph # (Auto) Cancelled [place] # (Auto) Cancelled Eos # (Auto) Cancelled Baso # (Auto) Cancelled Abs Immat Gran (auto) Cancelled Absolute Neuts (auto) Cancelled Absolute Nucleated RBC 0.000 Nucleated RBC % (auto) 0.0 Neutrophils % (Manual) 50 Band Neutrophils % 2 L Lymphocytes % (Manual) 30 Atypical Lymphs % (Man) Monocytes % (Manual) 12 H Eosinophils % (Manual) 6 H Basophils % (Manual) Abs Neuts (Manual) 0.6 L Lymphocytes # (Manual) 0.4 L Monocytes # (Manual) 0.1 Eosinophils # (Manual) 0.1 Nucleated RBCs Toxic Granulation PRESENT Dohle Bodies PRESENT Platelet Estimate DECREASED Plt Morphology Comment NORMAL RBC Morphology NOTED Hypochromasia 1+ (5-14) Target Cells 1+ (5-14) Smear Path Review SEE NOTE VBG pH VBG pCO2 VBG pO2 VBG HCO3 VBG O2 Saturation VBG Base Excess Sodium Potassium Chloride Carbon Dioxide Anion Gap BUN Creatinine Estim Creat Clear Calc Estimated GFR POC Glucose Random Glucose Calcium Phosphorus Magnesium Total Bilirubin AST ALT Alkaline Phosphatase Lactate Dehydrogenase Total Protein Albumin Free T4 Urine Color Urine Appearance Urine pH Ur Specific [place] Urine Protein Urine Glucose (UA) Urine Ketones Urine Blood Urine Nitrite Ur Leukocyte Esterase Urine RBC Urine WBC Ur Squamous Epith Cells Other Crystals Urine Bacteria Hyaline Casts Ur Random Sodium Urine Creatinine Blood Type A Negative Antibody Screen NEGATIVE 08/25/22 08/25/22 08/25/22 00:20 05:00 05:00 WBC RBC 2.56 L Hgb 8.1 L Hct 23.5 L MCV 91.8 MCH MCHC RDW Plt Count 29 L D MPV Immature Gran % (Auto) Neut % (Auto) Lymph % (Auto) [place] % (Auto) Eos % (Auto) Baso % (Auto) Lymph # (Auto) [place] # (Auto) Eos # (Auto) Baso # (Auto) Abs Immat Gran (auto) Absolute Neuts (auto) Absolute Nucleated RBC Nucleated RBC % (auto) Neutrophils % (Manual) Band Neutrophils % Lymphocytes % (Manual) Atypical Lymphs % (Man) Monocytes % (Manual) Eosinophils % (Manual) Basophils % (Manual) Abs Neuts (Manual) Lymphocytes # (Manual) Monocytes # (Manual) Eosinophils # (Manual) Nucleated RBCs Toxic Granulation Dohle Bodies Platelet Estimate Plt Morphology Comment RBC Morphology Hypochromasia Target Cells Smear Path Review VBG pH VBG pCO2 VBG pO2 VBG HCO3 VBG O2 Saturation VBG Base Excess Sodium 144 140 Potassium 3.5 3.2 L Chloride 101 97 Carbon Dioxide 26 Anion Gap 21 H BUN 46 H Creatinine 3.54 H Estim Creat Clear Calc 20.2 Estimated GFR 14 POC Glucose Random Glucose 209 H Calcium 6.9 L D 6.5 L Phosphorus Magnesium Total Bilirubin 1.6 H AST 18 ALT 27 Alkaline Phosphatase 132 H Lactate Dehydrogenase Total Protein 5.9 L Albumin 3.3 L Free T4 Urine Color Urine Appearance Urine pH Ur Specific [place] Urine Protein Urine Glucose (UA) Urine Ketones Urine Blood Urine Nitrite Ur Leukocyte Esterase Urine RBC Urine WBC Ur Squamous Epith Cells Other Crystals Urine Bacteria Hyaline Casts Ur Random Sodium Urine Creatinine Blood Type Antibody Screen 08/25/22 08/25/22 08/25/22 10:36 13:45 13:45 WBC RBC Hgb Hct MCV MCH MCHC RDW Plt Count MPV Immature Gran % (Auto) Neut % (Auto) Lymph % (Auto) [place] % (Auto) Eos % (Auto) Baso % (Auto) Lymph # (Auto) [place] # (Auto) Eos # (Auto) Baso # (Auto) Abs Immat Gran (auto) Absolute Neuts (auto) Absolute Nucleated RBC Nucleated RBC % (auto) Neutrophils % (Manual) Band Neutrophils % Lymphocytes % (Manual) Atypical Lymphs % (Man) Monocytes % (Manual) Eosinophils % (Manual) Basophils % (Manual) Abs Neuts (Manual) Lymphocytes # (Manual) Monocytes # (Manual) Eosinophils # (Manual) Nucleated RBCs Toxic Granulation Dohle Bodies Platelet Estimate Plt Morphology Comment RBC Morphology Hypochromasia Target Cells Smear Path Review VBG pH VBG pCO2 VBG pO2 VBG HCO3 VBG O2 Saturation VBG Base Excess Sodium Potassium Chloride Carbon Dioxide Anion Gap BUN Creatinine Estim Creat Clear Calc Estimated GFR POC Glucose Random Glucose Calcium Phosphorus Magnesium Total Bilirubin AST ALT Alkaline Phosphatase Lactate Dehydrogenase Total Protein Albumin Free T4 0.85 Urine Color Dark Yellow Urine Appearance Turbid Urine pH 5.0 Ur Specific [place] >= 1.030 H Urine Protein 100 (2+) H Urine Glucose (UA) Negative Urine Ketones Trace Urine Blood Large (3+) H Urine Nitrite Negative Ur Leukocyte Esterase Trace H Urine RBC >20 H Urine WBC 0-5 Ur Squamous Epith Cells 3-5 Other Crystals Present Urine Bacteria None Seen Hyaline Casts 3-5 Ur Random Sodium < 20.0 Urine Creatinine 235.21 Blood Type Antibody Screen 08/25/22 08/26/22 08/26/22 17:55 00:15 05:07 WBC RBC Hgb Hct MCV MCH MCHC RDW Plt Count MPV Immature Gran % (Auto) Neut % (Auto) Lymph % (Auto) [place] % (Auto) Eos % (Auto) Baso % (Auto) Lymph # (Auto) [place] # (Auto) Eos # (Auto) Baso # (Auto) Abs Immat Gran (auto) Absolute Neuts (auto) Absolute Nucleated RBC Nucleated RBC % (auto) Neutrophils % (Manual) Band Neutrophils % Lymphocytes % (Manual) Atypical Lymphs % (Man) Monocytes % (Manual) Eosinophils % (Manual) Basophils % (Manual) Abs Neuts (Manual) Lymphocytes # (Manual) Monocytes # (Manual) Eosinophils # (Manual) Nucleated RBCs Toxic Granulation Dohle Bodies Platelet Estimate Plt Morphology Comment RBC Morphology Hypochromasia Target Cells Smear Path Review VBG pH 7.35 7.37 VBG pCO2 60 60 VBG pO2 47 52 VBG HCO3 33 H 35 H VBG O2 Saturation 78.0 84.0 VBG Base Excess 7.2 9.1 Sodium 143 Potassium 3.8 Chloride 100 Carbon Dioxide 24 Anion Gap 23 H BUN 43 H Creatinine 4.15 H* Estim Creat Clear Calc 17.3 Estimated GFR 12 POC Glucose Random Glucose 224 H Calcium 6.8 L Phosphorus Magnesium Total Bilirubin AST ALT Alkaline Phosphatase Lactate Dehydrogenase Total Protein Albumin Free T4 Urine Color Urine Appearance Urine pH Ur Specific [place] Urine Protein Urine Glucose (UA) Urine Ketones Urine Blood Urine Nitrite Ur Leukocyte Esterase Urine RBC Urine WBC Ur Squamous Epith Cells Other Crystals Urine Bacteria Hyaline Casts Ur Random Sodium Urine Creatinine Blood Type Antibody Screen 08/26/22 08/26/22 08/26/22 05:10 05:10 05:10 WBC 1.2 L RBC 2.41 L Hgb 7.5 L Hct 22.0 L MCV 91.3 MCH 31.1 MCHC 34.1 RDW 15.5 Plt Count 14 L* D MPV 11.4 Immature Gran % (Auto) Cancelled Neut % (Auto) Cancelled Lymph % (Auto) Cancelled [place] % (Auto) Cancelled Eos % (Auto) Cancelled Baso % (Auto) Cancelled Lymph # (Auto) Cancelled [place] # (Auto) Cancelled Eos # (Auto) Cancelled Baso # (Auto) Cancelled Abs Immat Gran (auto) Cancelled Absolute Neuts (auto) Cancelled Absolute Nucleated RBC 0.020 H Nucleated RBC % (auto) 1.7 H Neutrophils % (Manual) 39 L Band Neutrophils % 1 L Lymphocytes % (Manual) 41 H Atypical Lymphs % (Man) 2 Monocytes % (Manual) 7 Eosinophils % (Manual) 9 H Basophils % (Manual) 1 Abs Neuts (Manual) 0.5 L Lymphocytes # (Manual) 0.5 L Monocytes # (Manual) 0.1 Eosinophils # (Manual) 0.1 Nucleated RBCs 1 H Toxic Granulation PRESENT Dohle Bodies PRESENT Platelet Estimate DECREASED Plt Morphology Comment NORMAL RBC Morphology NOTED Hypochromasia Target Cells 1+ (5-14) Smear Path Review VBG pH VBG pCO2 VBG pO2 VBG HCO3 VBG O2 Saturation VBG Base Excess Sodium 146 H Potassium 3.4 Chloride 103 Carbon Dioxide 30 H Anion Gap 16 BUN 48 H Creatinine 3.33 H Estim Creat Clear Calc 21.5 Estimated GFR 15 POC Glucose Random Glucose 206 H Calcium 6.8 L Phosphorus 3.2 Magnesium 2.5 Total Bilirubin 1.7 H AST 16 ALT 23 Alkaline Phosphatase 123 H Lactate Dehydrogenase 342 H Total Protein 5.8 L Albumin 3.5 Free T4 Urine Color Urine Appearance Urine pH Ur Specific [place] Urine Protein Urine Glucose (UA) Urine Ketones Urine Blood Urine Nitrite Ur Leukocyte Esterase Urine RBC Urine WBC Ur Squamous Epith Cells Other Crystals Urine Bacteria Hyaline Casts Ur Random Sodium Urine Creatinine Blood Type Antibody Screen 08/26/22 07:48 WBC RBC Hgb Hct MCV MCH MCHC RDW Plt Count MPV Immature Gran % (Auto) Neut % (Auto) Lymph % (Auto) [place] % (Auto) Eos % (Auto) Baso % (Auto) Lymph # (Auto) [place] # (Auto) Eos # (Auto) Baso # (Auto) Abs Immat Gran (auto) Absolute Neuts (auto) Absolute Nucleated RBC Nucleated RBC % (auto) Neutrophils % (Manual) Band Neutrophils % Lymphocytes % (Manual) Atypical Lymphs % (Man) Monocytes % (Manual) Eosinophils % (Manual) Basophils % (Manual) Abs Neuts (Manual) Lymphocytes # (Manual) Monocytes # (Manual) Eosinophils # (Manual) Nucleated RBCs Toxic Granulation Dohle Bodies Platelet Estimate Plt Morphology Comment RBC Morphology Hypochromasia Target Cells Smear Path Review VBG pH VBG pCO2 VBG pO2 VBG HCO3 VBG O2 Saturation VBG Base Excess Sodium Potassium Chloride Carbon Dioxide Anion Gap BUN Creatinine Estim Creat Clear Calc Estimated GFR POC Glucose 176 H Random Glucose Calcium Phosphorus Magnesium Total Bilirubin AST ALT Alkaline Phosphatase Lactate Dehydrogenase Total Protein Albumin Free T4 Urine Color Urine Appearance Urine pH Ur Specific [place] Urine Protein Urine Glucose (UA) Urine Ketones Urine Blood Urine Nitrite Ur Leukocyte Esterase Urine RBC Urine WBC Ur Squamous Epith Cells Other Crystals Urine Bacteria Hyaline Casts Ur Random Sodium Urine Creatinine Blood Type Antibody Screen Microbiology Microbiology Results: Microbiology 08/24/22 08:06 Blood - Venous Blood Culture - Preliminary No growth after 24 hours. 08/24/22 08:06 Blood - Venous Blood Culture - Preliminary No growth after 24 hours. Procedures Date of Service Date of Service: 08/26/22 Assessment & Plan Assessment and plan (1) DAYA (acute kidney injury): Status: Acute Plan 47-year-old woman with a history of metastatic lung cancer and essentially normal renal function at baseline with a creatinine of 0.5 mg/dL has been admitted with an episode of fall and currently in ICU. During admission she was found to have acute kidney injury with a creatinine of 4.5 mg/dL. Differential diagnosis for acute kidney injury would include 1. Hypoperfusion 2. Acute tubular injury 3. Tubular injury due to cisplatin 4. Acute glomerular nephritis 5. No evidence of obstruction based on the recent imaging/CT scan. 6. Question of renal vein thrombosis with external compression Low urine sodium of less than 20 suggestive of hypoperfusion. Recommendations Agree with IV hydration. Keep intake more than the output. Optimize blood pressure and avoid hypotension to maintain adequate renal perfusion. Continue to avoid nephrotoxic agents. Monitor urine output closely. Watch potassium Creatinine is trending down. No absolute indication for dialysis. Discussed with ICU attending. Time Spent With Patient Time: Total time managing care of this patient today ____ minutes. Progress Note: Quality Stroke Does the patient have a stroke diagnosis?: No
--- NOTE | 2022-08-26 10:06 | MHC.CLN ---
F/U DISCUSSED AT ROUNDS WITH MD DIET TO ADVANCE TO CLEARS PER MD MONITOR PO INTAKE
[2022-08-26] MEDS: cefEPime HCl 1 GM in 0.9 % Sodium Chloride 50 ML IV (10:29)
[2022-08-26] MEDS: Haloperidol Lactate 5 MG/ML VIAL IVPUSH (11:27)
[2022-08-26] MEDS: Fluconazole in NaCl,Iso-Osm 100 MG in Container,Empty 0 ML 50 MG IV (14:03)
[2022-08-26] MEDS: Tbo-Filgrastim 300 MCG/0.5 ML SYRINGE SUBCUT (14:03)
[2022-08-26] MEDS: Haloperidol Lactate 5 MG/ML VIAL 2.5 MG IVPUSH (15:53)
[2022-08-26] MEDS: LORazepam 2 MG/ML VIAL IVPUSH ×3 (17:53→22:44)
--- NOTE | 2022-08-26 17:59 | PM.EVENT ---
Event Note Date of Service: 08/26/22 Event Note: code blue called, patient in torsades, after shock achieved rosc and went into sinus tach, however, continues to be severely hypoxic, dyspneic, agitated. after discussion with family at bedside, patient changed to comfort measures only. will discontinue disease directed treatments and start on continuous morphine Time Spent With Patient Time: Total time managing care of this patient today ____ minutes.
[2022-08-26 18:02] LABS: Glucose, Whole Blood 180 mg/dL (60-115)
[2022-08-26] MEDS: fentaNYL citrate/NS 1,000 MCG/100 ML PLAST..BAG 2.5 MCG IVCONT (18:20)
[2022-08-26 19:34] LABS: Complement C3 131 mg/dL (83-193)
--- NOTE | 2022-08-26 20:04 | PC.NURSE ---
Assumed care at 07:00. Patient initially disoriented, only oriented x2, seeming to endorse name and birthday and location. Patient anxious, restless, pulling at oxygen mask, redirectable at times, very strong nonverbal signs of pain, cries out Ow! Very restless and at times tearful. Appears to be unable to voice needs most of the time, nonverbal signs of pain used to assess pain. IV dilaudid per emar, PRN. IV Ativan per emar. Patient still with nonverbal signs of pain and restlessness, pulling off oxygen often and desaturation to 80's when mask pulled off. Patient was given 5 mg haldol IV per MD, which was sedating, patient rested and mildly bradypneic, but otherwise stable vital signs. Patient also with no BM and c/o constipation, glucerin suppository and methylnaltrexone without result. Patient with silent nontender abdomen. Minimal PO intake, patient had clear liquid diet, but was too confused to permit PO. This afternoon was more alert and using more understandable words, and took 3 spoonfuls of apple juice and 1 spoonful of jello, with some coughing, and MD notified, and kept NPO after. Sinus tachycardia with frequent PVCs this morning, later in the day with fewer PVCs, rate 110's-130's, distant heart sounds. Patient went into [id number] at 17:39, MD notified, new order for check electrolytes and give 2 GM iv Mg, but the patient, who had come out of torsades momentarily, went back in, patient's family reporting something happening, patient was pulseless and CPR initiated. See code sheet for details, 1 round epi, 2 GM mag, shocked x2, ROSC achieved twice. Patient was preparing for intubation and family determined to make patient BRICK BURNER HEAD instead, which was ordered by MD at the bedside. Patient was given 2 mg ativan post-code, placed on fentanyl gtt that was titrated per specific MD order and uptitrated, see emar. Patient given 2 mg IV dilaudid as still uncomforable with accessory muscle use despite fentanyl.
[2022-08-26] MEDS: fentaNYL citrate/NS 1,000 MCG/100 ML PLAST..BAG 17.5 MCG IVCONT (22:11)
[2022-08-26] MEDS: Midazolam HCl/PF 2 MG/2 ML VIAL 4 MG IVPUSH (22:50)
[2022-08-26] MEDS: fentaNYL citrate/NS 1,000 MCG/100 ML PLAST..BAG 30 MCG IVCONT (23:56)
--- NOTE | 2022-08-27 01:09 | PC.NURSE ---
CARE ASSUMED 23:15...PATIENT SEDATED/LETHARGIC...FENTANYL DRIP PREVIOUSLY INCREASED TO 300 MCG/HR PRT ICU PA PER SHIFT REPORT..PATIENT PREVIOUSLY AGITATED/ANXIOUS/RESTLESS/TACHYPNEIC AND LABOURED BREATHING AT HS PER REPORT..SEDATE/LETHARGIC AT PRESENT...MOTHER ERNIE AND SARITA AT BEDSIDE...AFFIRM SUPERVISOR MATTRESS AND BOXSPRINGS STATUS...NO VITALS OR POSITIONING PER FAMILY....NO DISTRESS AT PRESENT
[2022-08-27] MEDS: fentaNYL citrate/NS 1,000 MCG/100 ML PLAST..BAG 20 MCG IVCONT (03:34)
[2022-08-27] MEDS: LORazepam 2 MG/ML VIAL IVPUSH ×4 (04:12→23:16)
[2022-08-27] MEDS: HYDROmorphone HCl 2 MG/ML VIAL IVPUSH ×7 (04:12→23:16)
[2022-08-27] MEDS: fentaNYL citrate/NS 1,000 MCG/100 ML PLAST..BAG 30 MCG IVCONT ×6 (06:48→23:13)
[2022-08-27 08:00] VITALS: PULSE 115; RESP 6
--- NOTE | 2022-08-27 10:28 | MHC.CLN ---
F/U PT IS NOW ALL SOURCE INTELLIGENCE TECHNICIAN WILL CHANGE DIET TO FED FROM FLOOR R/T ALL SOURCE INTELLIGENCE TECHNICIAN STATUS WILL FOLLOW WITH TEAM AND PROVIDE SUPPORT NEEDED
--- NOTE | 2022-08-27 10:37 | PM.CCPN ---
Subjective Subjective Date of Service: 08/27/22 Interval History: 47-year-old lady with progressing high-grade metastatic lung cancer on chemotherapy with carboplatin, pemetrexed, and pembrolizumab every 3 weeks with recent admission for hypoxia And concern for possible renal vein thrombosis on intermediate dose prophylaxis secondary to concern for hemoptysis presented to ER on 08/24/2022 with complaints of inability to see and weakness. Patient had CT head that demonstrated pituitary enlargement, but otherwise no acute findings. Patient was evaluated by neurology with recommendation for non urgent MRI on 08/25/2022. In ER patient developed hypotension refractory to initial IV fluid support requiring initiation of pressors. Patient also with acute kidney injury, hypoalbuminemia, and worsening hypoxemia requiring non-rebreather to maintain normal oximetry. Patient was started on broad-spectrum antibiotics and admitted to intensive care unit. on 08/26/2022 at approximately 17:30 patient with sudden development of ventricular tachycardia/torsades with cardiac arrest. CPR measures initiated the minute leak. Returned spontaneous circulation achieved after 1 defibrillator shock and 2 rounds of CPR. Patient was to be intubated during the CPR, went family at the bedside, considering underlying progressive metastatic lung cancer, requested to switch goals of care to palliation. Code status changed to comfort measures only inpatient started on fentanyl drip with p.r.n. pushes for comfort. Events overnight. Remains comfortable. Critical Care Time (minutes): 0 Physical Exam Vital Signs: Vital Signs: Last Vital Signs Temp 99.3 F 08/26/22 20:00 Pulse 122 H 08/26/22 20:00 Resp 18 08/26/22 20:00 BP 118/66 08/26/22 18:52 Pulse Ox 93 08/26/22 20:00 O2 Del Method Non-Rebreather Ma sk 08/26/22 20:00 O2 Flow Rate 15 08/26/22 20:00 FiO2 98 08/26/22 17:03 Oxygen Flow Rate 4 08/24/22 08:11 BMI result Body Mass Index 34.1 Const: General: comfortable Objective Data Labs 08/26/22 05:10 08/26/22 05:10 Labs: Laboratory Results - last 24 hr 08/24/22 08/25/22 08/26/22 10:00 07:48 17:43 POC Glucose 180 H Complement C3 131 Complement C4 28 Blood Type A Negative Antibody Screen NEGATIVE Microbiology Microbiology Results: Microbiology 08/24/22 08:06 Blood - Venous Blood Culture - Preliminary No growth after 48 hours. 08/24/22 08:06 Blood - Venous Blood Culture - Preliminary No growth after 48 hours. Progress Note: A&P Assessment and plan (1) Lymphangitic lung metastasis: Status: Acute (2) DAYA (acute kidney injury): Status: Acute (3) Encephalopathy: Status: Acute (4) Cancer associated pain: Status: Acute (5) Metastasis to bone: Status: Acute (6) Metastatic non-small cell lung cancer: Status: Acute Plan Patient remains comfortable on fentanyl drip. Quality Stroke Does the patient have a stroke diagnosis?: No VTE Prior VTE?: No VTE Risk Level:: Medical - moderate - high VTE Device Contraindication: N/A - Device Ordered VTE Drug Contraindication: N/A - Med Ordered
--- NOTE | 2022-08-27 15:47 | MHC.CM.PN ---
PER MD ROUNDS, PT IS NOW UNIFORM DESIGNER. CM WILL CONTINUE TO FOLLOW FOR ANY CHANGE IN PLAN.
[2022-08-27] MEDS: Scopolamine 1.5 MG PATCH.TD.3 EAR-BEHIND (15:53)
[2022-08-27 16:00] VITALS: PULSE 118; RESP 9; TEMP 36.4
[2022-08-27 16:26] VITALS: RESP 12
[2022-08-27 16:32] VITALS: RESP 12
[2022-08-27 17:13] LABS: Prolactin 66.3 ng/mL
[2022-08-27] MEDS: Atropine Sulfate 1 % Ophth Sol 2 ML BOTTLE 2 DROP SUBLINGUAL ×4 (18:20→23:23)
--- NOTE | 2022-08-27 19:54 | PC.NURSE ---
Assumed care at 07:00. Patient continues to be obtunded, but moans and displays strong nonverbal signs of pain with nursing care, especially turning. Turning bed utilized often this shift. Patient with improvement in bloody drainage from nares: dried crusty blood to nares and oral mucosa. Oral care was facilitated by patient's mother. Due to crusted blood in nares, patient kept on oxygen via mask, but changed to oxymask and humidification added, contines on 7 LPM at this time. Patient does become uncomfortable with oral suctioning and with repositioning, required 3 doses of dilaudid this evening with oral care, and 1 dose ativan. Patient continues on high dose fenanyl gtt 300 mcg/hour, for comfort. Patient with large amount of posterior pharyngeal secretions, which was suctioned and MD came to bedside and also suctioned, MD ordered scopalamine patch, which is placed behind left ear. Patient continued to have large amount of deep secretions, and new order for atropine sublingual, administered with good effect. Patient bathed in late morning as per family's wishes, hair braided. Patient with some scant blood from [place] area on pad. Patient with no BM. UOP via soto catheter pale yellow urine.
[2022-08-27 22:04] VITALS: RESP 12
[2022-08-27 23:16] VITALS: RESP 12
[2022-08-28] VITALS: PULSE 128; RESP 11
[2022-08-28] MEDS: fentaNYL citrate/NS 1,000 MCG/100 ML PLAST..BAG 30 MCG IVCONT ×5 (02:20→15:03)
[2022-08-28 04:03] VITALS: PULSE 129; RESP 11; TEMP 38
[2022-08-28 08:00] VITALS: PULSE 126; RESP 12
[2022-08-28] MEDS: HYDROmorphone HCl 2 MG/ML VIAL IVPUSH ×2 (08:42→15:04)
[2022-08-28] MEDS: LORazepam 2 MG/ML VIAL IVPUSH (08:42)
--- NOTE | 2022-08-28 09:02 | PM.CCPN ---
Subjective Subjective Date of Service: 08/28/22 Interval History: 47-year-old lady with progressing high-grade metastatic lung cancer on chemotherapy with carboplatin, pemetrexed, and pembrolizumab every 3 weeks with recent admission for hypoxia And concern for possible renal vein thrombosis on intermediate dose prophylaxis secondary to concern for hemoptysis presented to ER on 08/24/2022 with complaints of inability to see and weakness. Patient had CT head that demonstrated pituitary enlargement, but otherwise no acute findings. Patient was evaluated by neurology with recommendation for non urgent MRI on 08/25/2022. In ER patient developed hypotension refractory to initial IV fluid support requiring initiation of pressors. Patient also with acute kidney injury, hypoalbuminemia, and worsening hypoxemia requiring non-rebreather to maintain normal oximetry. Patient was started on broad-spectrum antibiotics and admitted to intensive care unit. On 08/26/2022 at approximately 17:30 patient with sudden development of ventricular tachycardia/torsades with cardiac arrest. CPR measures initiated immediately. Returned spontaneous circulation achieved after 1 defibrillator shock and 2 rounds of CPR. Patient was to be intubated during the CPR, when family at the bedside, considering underlying progressive metastatic lung cancer, requested to switch goals of care to palliation. Code status changed to comfort measures only inpatient started on fentanyl drip with p.r.n. pushes for comfort. No events overnight. Critical Care Time (minutes): 0 Physical Exam Vital Signs: Vital Signs: Last Vital Signs Temp 100.4 F 08/28/22 04:03 Pulse 126 H 08/28/22 08:00 Resp 12 08/28/22 08:00 BP 118/66 08/26/22 18:52 Pulse Ox 93 08/26/22 20:00 O2 Del Method Non-Rebreather Ma sk 08/27/22 16:00 O2 Flow Rate 15 08/26/22 20:00 FiO2 98 08/26/22 17:03 Oxygen Flow Rate 4 08/24/22 08:11 BMI result Body Mass Index 34.1 Const: General: other ( Comfortable) Objective Data Labs 08/26/22 05:10 08/26/22 05:10 Labs: Laboratory Results - last 24 hr 08/24/22 08:01 Prolactin 66.3 H Microbiology Microbiology Results: Microbiology 08/24/22 08:06 Blood - Venous Blood Culture - Preliminary No growth after 48 hours. 08/24/22 08:06 Blood - Venous Blood Culture - Preliminary No growth after 48 hours. Progress Note: A&P Assessment and plan (1) Comfort measures only status: Status: Acute (2) Hypophysitis: Status: Acute (3) Encephalopathy: Status: Acute (4) Lymphangitic lung metastasis: Status: Acute (5) DAYA (acute kidney injury): Status: Acute (6) Leukocytopenia: Status: Acute (7) Thrombocytopenia: Status: Acute (8) Lymphangitic lung metastasis: Status: Acute (9) Cancer associated pain: Status: Acute (10) Metastasis to bone: Status: Acute (11) Metastatic non-small cell lung cancer: Status: Acute Plan Patient remains comfortable on fentanyl drip. Quality Stroke Does the patient have a stroke diagnosis?: No VTE Prior VTE?: No VTE Risk Level:: Medical - moderate - high VTE Device Contraindication: N/A - Device Ordered VTE Drug Contraindication: N/A - Med Ordered
[2022-08-28] MEDS: Atropine Sulfate 1 % Ophth Sol 2 ML BOTTLE 2 DROP SUBLINGUAL (09:22)
--- NOTE | 2022-08-28 15:57 | MHC.CM.PN ---
Pt has been made REMOTE CODERS following events from last evening. Family w/pt - [facility] updated on change in d/c plan.
--- NOTE | 2022-08-28 18:18 | P.DN_ITS ---
Discharge Sum: Prov Provider Primary care physician: Sandra Mejia MD Consults: 08/25/22 09:57 Consult to Nephrology Routine Consulting Provider: [facility] Reason for consultation: Acute renal failure Has provider been notified: Yes Discharge Sum: Diag Contributing Factors (1) Metastatic non-small cell lung cancer: (2) Lymphangitic lung metastasis: (3) Metastasis to bone: (4) Hypophysitis: (5) Encephalopathy: (6) DAYA (acute kidney injury): (7) Leukocytopenia: (8) Thrombocytopenia: (9) Cancer associated pain: Discharge Sum: Summary Date and Time Date of admission: 08/24/22 10:22 Date of : 08/28/22 Time of : 17:00 Summary Details: 47-year-old lady with progressing high-grade metastatic lung cancer on chemotherapy with carboplatin, pemetrexed, and pembrolizumab every 3 weeks with recent admission for hypoxia? And concern for possible renal vein thrombosis on intermediate dose prophylaxis secondary to concern for hemoptysis presented to ER on 08/24/2022 with complaints of inability to see and weakness.? Patient had CT head that demonstrated? pituitary? enlargement, but otherwise no acute findings.? Patient was evaluated by neurology with recommendation for non urgent MRI on 08/25/2022.? In ER patient developed hypotension refractory to initial IV fluid support requiring initiation of pressors. ? Patient also with acute kidney injury,? hypoalbuminemia, and worsening hypoxemia requiring non- rebreather to maintain normal oximetry. Patient was started on broad-spectrum antibiotics and admitted to intensive care unit. On 08/26/2022 at approximately 17:30 patient with sudden development of ventricular tachycardia/torsades with cardiac arrest.? CPR measures initiated? immediately.? Returned spontaneous circulation achieved after 1 defibrillator shock and 2 rounds of CPR.? Patient was to be intubated during the CPR, when family at the bedside, considering underlying progressive metastatic lung cancer, requested to switch goals of care to palliation.? Code status changed to comfort measures only inpatient started on fentanyl drip with p.r.n. pushes for comfort. Patient passed in peace on 08/28/2022 at 17:00 with family at the bedside. Additional Data Confirmation of as documented by pronouncing clinician: no pulse, no respirations, no heart sounds and pupils fixed and dilated Family: at bedside Attending physician: Jose David MD
[2022-08-29 19:48] LABS: Haptoglobin 559 mg/dL (43-212)
--- NOTE | 2022-08-30 11:59 | PC.NURSE ---
Received a phone call from Nicole Lopez at [facility] asking for a consult to be placed to them on this patient.
== END 2022-08-28 19:00 | disposition expired | DRG 871 ==
LOC: HO.ED 10:36 → HO.EDOVER 10:37 → HO.ICU 11:34
PROVIDERS: Internal Medicine; Internal Medicine Hypertension Specialist; Physician Assistant Medical; Admitting Provider Internal Medicine Pulmonary Disease; Emergency Provider Student in an Organized Health Care Education/Training Program; PCP Internal Medicine; Visit Provider Internal Medicine Pulmonary Disease
DX: A41.9 Sepsis, unspecified organism (principal); D61.810 Antineoplastic chemotherapy induced pancytopenia; G93.41 Metabolic encephalopathy; J96.21 Acute and chronic respiratory failure with hypoxia; R65.21 Severe sepsis with septic shock; J81.0 Acute pulmonary edema; C34.90 Malignant neoplasm of unspecified part of unspecified bronchus or lung; C77.1 Secondary and unspecified malignant neoplasm of intrathoracic lymph nodes; C79.51 Secondary malignant neoplasm of bone; I82.3 Embolism and thrombosis of renal vein; N17.9 Acute kidney failure, unspecified; I47.21 Torsades de pointes; Z51.5 Encounter for palliative care; I46.9 Cardiac arrest, cause unspecified; T45.1X5A Adverse effect of antineoplastic and immunosuppressive drugs, initial encounter; E23.6 Other disorders of pituitary gland; G89.3 Neoplasm related pain (acute) (chronic); E88.09 Other disorders of plasma-protein metabolism, not elsewhere classified; D63.0 Anemia in neoplastic disease; Z87.891 Personal history of nicotine dependence; Z79.51 Long term (current) use of inhaled steroids; Z79.899 Other long term (current) drug therapy
CPT/HCPCS: 36415; 36600; 70450; 71045; 71250; 74176; 78580; 80048; 80053; 80076; 81001; 81003; 82272; 82533; 82550; 82803; 82947; 83010; 83605; 83615; 83735; 83880; 84100; 84146; 84300; 84439; 84443; 84484; 84550; 85007; 85027; 85610; 85730; 86160; 86850; 86900; 86901; 87040; 93005; 99285; A9540; C1758; J0153; J0171; J0613; J0692; J0696; J1170; J1447; J1450; J1643; J2060; J2212; J2250; J2783; J2930; J3010; J3475; P9035; P9047; P9073